=== PATIENT | female | born 1975 | race Caucasian/White ===

== ENCOUNTER → 2024-05-08 | Outpatient (CLI) | payer OTHER, SELFPAY ==
--- NOTE | 2024-05-08 08:43 | US_ITS ---
STUDY: ABDOMINAL ULTRASOUND - RIGHT UPPER QUADRANT; ELASTOGRAPHY REASON FOR VISIT: Female, 48 years old. Fatty infiltration of the liver. TECHNIQUE: Ultrasound evaluation of the right upper quadrant was performed with real-time and static garg-scale imaging. Point quantification shear wave elastography was performed (Gobbler). TECHNICAL QUALITY: Adequate. COMPARISON: None. FINDINGS: Liver: The liver is mildly enlarged and measures 18.3 cm. There is increased echogenicity consistent with fatty infiltration. The bile ducts are within normal limits. There is hepatic color flow. The direction of portal flow is hepatopetal. There is no demonstrated mass lesion. Median liver stiffness measured 9.5 kPa. Gallbladder: Normal distended gallbladder. The gallbladder wall measures 2 mm. There is a negative sonographic Tee''s sign. There is no pericholecystic fluid. There is a solitary echogenic gallstone within the gallbladder. There is a 5 mm x 5 mm gallbladder polyp. Common Bile Duct (C.B.D.): The common bile duct measures 4 mm. Pancreas: There is increased echogenicity of the pancreas. There is no demonstrated pancreatic mass or cyst. Right Kidney: Normal size of the right kidney. The right kidney measures 11 cm x 4.7 cm x 4.6 cm. Normal renal cortex. The right cortex measures 1.2 cm. There is no demonstrated renal mass or cyst. There is no right hydronephrosis. US/ABD Limited w/ Elastography IMPRESSION: 1. 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 2. Solitary gallstone. Small gallbladder polyp. Fatty infiltration of the liver. Electronically Signed: Robbie Velasquez MD at 13:55 EDT ,
== END | disposition home or self-care (01) ==
LOC: US 08:41
PROVIDERS: PCP Internal Medicine; Referring Provider Internal Medicine; Visit Provider Internal Medicine
DX: K76.0 Fatty (change of) liver, not elsewhere classified (principal)
CPT/HCPCS: 76705; 76981

== ENCOUNTER → 2024-06-10 | Outpatient (CLI) | payer OTHER, SELFPAY ==
--- NOTE | 2024-06-10 07:02 | BI_ITS ---
MAMMOGRAPHY - BILATERAL SCREENING REASON FOR EXAM: Female, 48 years old. Routine annual screening examination. PERTINENT HISTORY: Non-contributory. TECHNIQUE: Digital bilateral breast david (3D mammographic acquisition) in the CC and MLO projections. 2-D mediolateral oblique (MLO) and craniocaudad (CC) views of both breasts were obtained. CAD: Full Field Digital Mammography with Computer Added Detection was performed. COMPARISON: Comparison is made with prior outside examination dated June 09, 2023. FINDINGS: Breast Composition: There are scattered areas of fibroglandular density. There are no dominant masses or suspicious calcifications. No other significant abnormalities are identified. There has been no significant change since the prior study. BI/SCRN MAMM (CAD)W/DAVID BILAT IMPRESSION: Stable bilateral screening mammogram. Yearly follow-up mammogram recommended. (A) ASSESSMENT CATEGORY: BIRADS Category 1: Negative. A letter regarding these results will be sent to the patient by the facility within 30 days. Approximately 10% of breast cancers are not detected by mammography. A normal mammogram should not delay biopsy of a clinically suspicious abnormality. [id number] Electronically Signed: Robbie Velasquez MD at 8:41 EDT ,
--- OUTSIDE RECORDS SUMMARY | 2024-06-10 07:20 | XMS RPT_ITS | CCD ---
Author Organization [facility] Care Team Providers Care Skidder Name Role Phone Jackie Hobbs Unavailable Unavailable Unavailable Jackie Hobbs MD Primary Care Provider Matheus Looney MD Unavailable Kortney Loaiza Unavailable Anjel, Dr. Jackie Arredondo Primary Care Unava ilable [place], Dr. Jackie Arredondo Attending Unava ilable [place], Dr. Jackie Arredondo Referring Unava ilable [place], Dr. Jackie Arredondo Primary Care Unava ilable [place], Dr. Jackie Arredondo Primary Care Unava ilable Mendpara, Codey Admitting Unavailable [place], Dr. Jackie Arredondo Referring Unava ilable Mendpara, Codey Attending Unavailable Mendpara, Codey Admitting Unavailable Anjel, Dr. Jackie Arredondo Primary Care Unava ilable Mendpara, Codey Attending Unavailable [place], Dr. Jackie Arredondo Referring Unava ilable Mendpara, Codey Admitting Unavailable [place], Dr. Jackie Arredondo Primary Care Unava ilable Mendpara, Codey Attending Unavailable [place], Dr. Jackie Arredondo Referring Unava ilable Mendpara, Codey Attending Unavailable [place], Dr. Jackie Arredondo Primary Care Unava ilable Mendpara, Codey Admitting Unavailable [place], Dr. Jackie Arredondo Referring Unava ilable Mendpara, Codey Attending Unavailable Anjel, Dr. Jackie Arredondo Primary Care Unava ilable Mendpara, Codey Admitting Unavailable [place], Dr. Jackie Arredondo Referring Unava ilable [place], Dr. Jackie Arredondo Primary Care Unava ilable [place], Dr. Jackie Arredondo Attending Unava ilable Anjel, Dr. Jackie Arredondo Referring Unava ilable Anjel, Dr. Jackie Arredondo Primary Care Unava ilable [place], Dr. Jackie Arredondo Attending Unava ilable [place], Dr. Jackie Arredondo Referring Unava ilable ANJEL, JACKIE M Attending Unavailable ANJEL, JACKIE M Primary Care Unavailable ANJEL, JACKIE M Attending Unavailable ANJEL, JACKIE M Primary Care Unavailable ANJEL, JACKIE M Attending Unavailable ANJEL, JACKIE M Primary Care Unavailable VANESSA, LAUREEN Attending Unavailable ANJEL, JACKIE M Referring Unavailable ANJEL, JACKIE M Primary Care Unavailable VANESSA, LAUREEN Referring Unavailable ANJEL, JACKIE M Primary Care Unavailable VANESSA, LAUREEN Attending Unavailable ANJEL, JACKIE M Primary Care Unavailable ANJEL, JACKIE M Primary Care Unavailable ANJEL, JACKIE M Primary Care Unavailable ANJEL, JACKIE M Primary Care Unavailable ANJEL, JACKIE M Primary Care Unavailable ANJEL, JACKIE M Referring Unavailable ANJEL, JACKIE M Primary Care Unavailable ANJEL, JACKIE M Primary Care Unavailable ANJEL, JACKIE M Referring Unavailable ANJEL, JACKIE M Referring Unavailable ANJEL, JACKIE M Primary Care Unavailable Allergies Allergy Classification Reported Allergen(s) Allergy Type Date of Onset Reaction(s) Facility (20 sources) Chlorthalidone; Translations: [chlorthalidone] Drug Allergy 04-13-2021 Nausea Only [facility] (9 sources) levoFLOXacin; Translations: [LEVOFLOXACIN] Drug Allergy 08-02-2021 [facility] Work Phone: Medications Current Medications Medication Drug Class(es) Dates Sig (Normalized) Sig (Original) amoxicillin 875 mg / clavulanate 125 mg oral tablet (1 source) Penicillin-class Antibacterial Start: 07-29-2021 End: 08-08-2021 take 1 tablet by mouth every twelve hours Amoxicillin-Pot Clavulanate 875-125 MG Oral Tablet TAKE 1 TABLET EVERY 12 HOURS UNTIL GONE. Quantity: 20 Refills: 0 Ordered: 29-Jul-2021 Mark AGUIRRE, MPH, Tiffany Start : 29-Jul-2021 End : 08-Aug-2021 Active ascorbic acid 500 mg oral capsule (12 sources) Vitamin C Start: 04-12-2022 take 1 capsule by mouth once daily ascorbic acid, vitamin C, 500 mg capsule Take 1 capsule by mouth once daily. 04/12/2022 Active chlorthalidone 25 mg oral tablet (20 sources) Thiazide-like Diuretic Start: 01-06-2024 take 1 tablet by mouth once daily chlorthalidone (Hygroton) 25 mg tablet Indications: Essential (primary) hypertension Take 1 tablet (25 mg) by mouth once daily. 90 tablet 3 01/06/2024 Active Start: 03-13-2023 End: 01-06-2024 take 1 tablet by mouth once daily chlorthalidone (Hygroton) 25 mg tablet Indications: Essential (primary) hypertension TAKE 1 TABLET BY MOUTH EVERY DAY 90 tablet 06/24/2023 01/06/2024 Discontinued (Reorder) Start: 11-09-2021 take 1 tablet by brayden once daily Chlorthalidone 25 MG Oral Tablet TAKE 1 TABLET BY MOUTH EVERY DAY Quantity: 90 Refills: 3 Ordered: 07-Dec-2021 Jackie Hobbs MD Start : 09-Nov-2021 Active Start: 03-08-2021 End: 10-12-2021 take 1 tablet by mouth once daily Chlorthalidone 25 MG Oral Tablet TAKE 1 TABLET DAILY. Quantity: 30 Refills: 1 Ordered: 08-Mar-2021 Jackie Hobbs MD Start : 08-Mar-2021 End : 12-Oct-2021 Complete cholecalciferol 0.125 mg oral capsule (20 sources) Vitamin D Start: 03-08-2021 take 1 capsule by mouth once daily cholecalciferol (Vitamin D-3) 125 MCG (5000 UT) capsule Take 1 capsule (125 mcg) by mouth once daily. 03/08/2021 Active cyclobenzaprine hydrochloride 10 mg oral tablet (2 sources) Muscle Relaxant Start: 11-01-2022 Cyclobenzaprine 10 mg oral tablet famotidine 40 mg oral tablet (6 sources) Histamine-2 Receptor Antagonist Start: 06-21-2023 take 1 tablet by mouth once daily at bedtime famotidine (Pepcid) 40 mg tablet Take 1 tablet (40 mg) by mouth once daily at bedtime. 06/21/2023 Active Start: 06-08-2021 End: 10-12-2021 Famotidine 40 MG Oral Tablet Quantity: 90 Refills: 0 Ordered: 08-Jun-2021 DO Start : 08-Jun-2021 End : 12-Oct-2021 Complete ferrous sulfate 325 mg oral tablet (13 sources) End: 12-06-2022 ferrous sulfate 325 (65 Fe) MG tablet Take by mouth once daily. 0 12/06/2022 Discontinued (Therapy completed) folic acid 0.4 mg oral tablet (6 sources) Start: 04-12-2022 End: 12-06-2022 take 1 tablet by mouth once daily folic acid (Folvite) 400 mcg tablet Take 1 tablet (0.4 mg) by mouth once daily. 0 04/12/2022 12/06/2022 Discontinued (Therapy completed) hydroCHLOROthiazide 50 mg oral tablet (2 sources) Thiazide Diuretic HydroCHLOROthiazide 50 mg oral tablet lisinopril 40 mg oral tablet (20 sources) Angiotensin Converting Enzyme Inhibitor Start: 01-06-2024 take 1 tablet by mouth once daily lisinopril 40 mg tablet Indications: Essential (primary) hypertension Take 1 tablet (40 mg) by mouth once daily. 90 tablet 3 01/06/2024 Active Start: 03-13-2023 End: 01-06-2024 take 1 tablet by mouth once daily lisinopril 40 mg tablet Indications: Essential (primary) hypertension TAKE 1 TABLET BY MOUTH DAILY 90 tablet 06/24/2023 01/06/2024 Discontinued (Reorder) Start: 02-08-2021 take 1 tablet by brayden th once daily Lisinopril 10 MG Oral Tablet TAKE 1 TABLET DAILY. Quantity: 30 Refills: 1 Ordered: 08-Mar-2021 Jackie Hobbs MD Start : 08-Feb-2021 Active Start: 02-08-2021 take 1 tablet by brayden th once daily Lisinopril 40 MG Oral Tablet TAKE 1 TABLET DAILY. Quantity: 90 Refills: 3 Ordered: 30-Aug-2022 Jackie Hobbs MD Start : 08-Feb-2021 Active note new dose Start: 02-08-2021 take 1 tablet by brayden th once daily Lisinopril 20 MG Oral Tablet TAKE 1 TABLET DAILY. Quantity: 30 Refills: 1 Ordered: 11-Jul-2021 Jackie Hobbs MD Start : 08-Feb-2021 Active note new dose loratadine 10 mg oral capsul e (20 sources) Start: 04-15-2012 loratadine (Cl aritin Liqui-Gel) 10 mg capsule Take by mouth. 04/15/2012 Active Start: 04-15-2012 Claritin 10 MG Oral Capsule Quantity: 0 Refills: 0 Ordered: 15-Apr-2012 Jackie Hobbs MD Start : 15-Apr-2012 Active methylPREDNISolone 4 mg oral tablet (2 sources) Corticosteroid Start: 11-01-2022 MethylPREDNISolone 4 mg oral tablet sertraline 100 mg oral tablet (12 sources) Serotonin Reuptake Inhibitor Start: 01-06-2024 take 1 tablet by mouth once daily sertraline (Zoloft) 100 mg tablet Indications: Current moderate episode of major depressive disorder without prior episode (Multi) Take 1 tablet (100 mg) by mouth once daily. 90 tablet 3 01/06/2024 Active Start: 12-06-2022 End: 01-06-2024 take 1 tablet by mouth once daily sertraline (Zoloft) 100 mg tablet Indications: Current moderate episode of major depressive disorder without prior episode (Multi) Take 1 tablet (100 mg) by mouth once daily. 30 tablet 09/12/2023 01/06/2024 Discontinued (Reorder) Start: 07-05-2011 End: 12-06-2022 take 1 tablet by mouth once daily sertraline (Zoloft) 50 mg tablet Take 1 tablet (50 mg) by mouth once daily. 0 08/30/2022 12/06/2022 Discontinued (Therapy completed) Start: 07-05-2011 take 1 tablet by brayden th once daily Sertraline HCl - 100 MG Oral Tablet TAKE 1 TABLET DAILY. Quantity: 30 Refills: 2 Ordered: 04-Oct-2022 Jackie Hobbs MD Start : 05-Jul-2011 Active note new dose Start: 07-05-2011 take 1 tablet by brayden th once daily Sertraline HCl - 25 MG Oral Tablet TAKE 1 TABLET DAILY DIRECTED. Quantity: 30 Refills: 1 Ordered: 26-Jul-2022 Jackie Hobbs MD Start : 05-Jul-2011 Active Completed/Discontinued Medications Medication Drug Class(es) Dates Sig (Normalized) Sig (Original) acetaminophen 325 mg / HYDROcodone bitartrate 5 mg oral tablet (3 sources) Opioid Agonist Start: 05-18-2021 End: 10-12-2021 take 1 tablet by mouth every six hours as needed for pain HYDROcodone-Acetam inophen 5-325 MG Oral Tablet TAKE 1 TABLET BY MOUTH EVERY 6 HOURS NEEDED FOR PAIN for up to 2 (TWO) days Quantity: 5 Refills: 0 Ordered: 18-May-2021 DO Start : 18-May-2021 End : 12-Oct-2021 Complete clobetasol propionate 0.5 mg/ml medicated shampoo (10 sources) Corticosteroid Start: 11-09-2021 End: 07-26-2022 Clobetasol Propionate 0.05 % External Shampoo MASSAGE ONTO WET SCALP. LEAVE LATHER ON FOR 3 MINUTES, THEN RINSE. REPEAT THE APPLICATION ONCE. USE TWICE PER WEEK. Quantity: 1 Refills: 1 Ordered: 09-Nov-2021 Jackie Hobbs MD Start : 09-Nov-2021 End : 26-Jul-2022 Complete metroNIDAZOLE 0.0075 mg/mg vaginal gel (13 sources) Nitroimidazole Antimicrobial Start: 04-13-2021 End: 07-26-2022 metroNIDAZOLE 0.75 % Vaginal Gel Quantity: 70 Refills: 0 Ordered: 13-Apr-2021 DO Start : 13-Apr-2021 End : 26-Jul-2022 Complete promethazine hydrochloride 25 mg oral tablet (3 sources) Phenothiazine Start: 09-11-2021 End: 10-12-2021 take 1 tablet by mouth every four hours for nausea and vomiting Promethazine HCl - 25 MG Oral Tablet take 1 tablet by mouth every 4 hours for nausea and vomiting Quantity: 3 Refills: 0 Ordered: 11-Sep-2021 DO Start : 11-Sep-2021 End : 12-Oct-2021 Complete NEGATED: Highlighted row has not occurred! (2 sources) Start: 01-15-2023 End: 01-15-2023 Start: 01-14-2023 End: 01-14-2023 Problems Active Problems Problem Classification Problem Date Documented Da te Episodic/Chronic Allergic reactions (19 sources) Atopic dermatitis; Translations: [Other atopic dermatitis and related conditions] Onset: 12-05-2022 12-05-2022 Chronic Anxiety disorders (2 sources) Anxiety disorder, unspecified; Translations: [Anxiety state, unspecified] Chronic Deficiency and other anemia (2 sources) Iron deficiency anemia due to blood loss; Translations: [Iron deficiency anemia secondary to blood loss (chronic)] 08-22-2023 Chronic Deficiency and other anemia (20 sources) Anemia; Translations: [Anemia, unspecified] Onset: 12-05-2022 12-05-2022 Episodic Deficiency and other anemia (5 sources) Anemia, unspecified; Translations: [Anemia, unspecified] Onset: 11-01-2022 Episodic Diabetes mellitus without complication (20 sources) Abnormal glucose level; Translations: [Other abnormal glucose] Onset: 04-15-2023 Resolved: 02-08-2021 04-15-2023 Episodic Disorders of lipid metabolism (14 sources) Mixed hyperlipidemia; Translations: [Mixed hyperlipidemia] Onset: 04-15-2023 04-15-2023 Chronic Essential hypertension (20 sources) Hypertensive disorder; Translations: [Unspecified essential hypertension] Onset: 12-05-2022 12-06-2022 Chronic Immunizations and screening for infectious disease (20 sources) Needs influenza immunization; Translations: [Need for prophylactic vaccination and inoculation against influenza] Resolved: 02-08-2021 Episodic Mood disorders (20 sources) Depressive disorder; Translations: [Depressive disorder, not elsewhere classified] Onset: 12-05-2022 12-06-2022 Chronic Nutritional deficiencies (20 sources) Vitamin D deficiency; Translations: [Unspecified vitamin D deficiency] Onset: 12-05-2022 12-06-2022 Chronic Other gastrointestinal disorders (1 source) Intestinal malabsorption, unspecified; Translations: [Intestinal malabsorption, unspecified] Onset: 08-23-2022 Chronic Other nervous system disorders (2 sources) Paresthesia of foot ; Translations: [Disturbance of skin sensation] Episodic Sprains and strains (20 sources) Sprain of foot; Translations: [Sprain of foot, unspecified site] Onset: 11-01-2022 Resolved: 02-08-2021 Episodic Past or Other Problems Problem Classification Problem Date Documented Date Episodic/Chronic Deficiency and other anemia (20 sources) Iron deficiency anemia; Translations: [Iron deficiency anemia, unspecified] Onset: 11-01-2022 12-06-2022 Episodic Deficiency and other anemia (3 sources) Iron deficiency anemia, unspecified; Translations: [Iron deficiency anemia, unspecified] Onset: 11-01-2022 Episodic Diabetes or abnormal glucose tolerance complicating ; childbirth; or the puerperium (20 sources) History of gestational diabetes mellitus; Translations: [Personal history of gestational diabetes] Onset: 08-22-2023 08-22-2023 Episodic Comment on above: X2; Disorders of teeth and jaw (20 sources) Jaw pain; Translations: [Jaw pain] Resolved: 02-08-2021 Episodic Fever of unknown origin (20 sources) Fever with chills; Translations: [Fever, unspecified] Resolved: 02-08-2021 Episodic Genitourinary symptoms and ill-defined conditions (20 sources) History of hematuria; Translations: [Personal history of other specified urinary system disorders] Resolved: 02-08-2021 Episodic Headache; including migraine (20 sources) Headache; Translations: [Headache] Onset: 12-05-2022 12-05-2022 Episodic Malaise and fatigue (20 sources) Fatigue; Translations: [Other malaise and fatigue] Onset: 12-05-2022 Resolved: 08-22-2023 12-05-2022 Episodic Other connective tissue disease (20 sources) Fibromyalgia; Translations: [Myalgia and myositis, unspecified] Onset: 12-05-2022 12-05-2022 Episodic Other connective tissue disease (20 sources) Tendinitis of shoulder region; Translations: [Disorders of bursae and tendons in shoulder region, unspecified] Resolved: 02-08-2021 Episodic Other connective tissue disease (20 sources) History of clinical finding in subject; Translations: [Personal history of other musculoskeletal disorders] Resolved: 02-08-2021 Episodic Other connective tissue disease (20 sources) Foot pain; Translations: [Pain in limb] Resolved: 02-08-2021 Episodic Other inflammatory condition of skin (19 sources) Seborrheic dermatitis; Translations: [Seborrhea] Onset: 12-05-2022 12-05-2022 Episodic Other injuries and conditions due to external causes (20 sources) Injury of foot; Translations: [Knee, leg, ankle, and foot injury] Resolved: 02-08-2021 Episodic Other lower respiratory disease (20 sources) H/O: respiratory disease; Translations: [Personal history of other diseases of respiratory system] Resolved: 02-08-2021 Episodic Comment on above: Added by Problem Cynthia laureano Migration; 2012-10-13; Moved to Suppressed Jul 14 2013 9:12PM; Other lower respiratory disease (4 sources) Nodule of lung; Translations: [Solitary pulmonary nodule] Onset: 08-01-2023 08-22-2023 Episodic Other lower respiratory disease (4 sources) Solitary pulmonary nodule; Translations: [Solitary pulmonary nodule] Onset: 08-01-2023 Episodic Other screening for suspected conditions (not mental disorders or infectious disease) (20 sources) Patient encounter status; Translations: [Other screening mammogram] Onset: 04-15-2023 04-15-2023 Episodic Other skin disorders (14 sources) Hair finding; Translations: [Unspecified disease of hair and hair follicles] Resolved: 04-12-2022 Episodic Other upper respiratory infections (20 sources) Acute upper respiratory infection; Translations: [Acute upper respiratory infections of unspecified site] Resolved: 02-08-2021 Episodic Residual codes; unclassified (20 sources) History of measles, mumps and rubella vaccination; Translations: [Other specified conditions influencing health status] Resolved: 02-08-2021 Episodic Residual codes; unclassified (20 sources) H/O: Disorder; Translations: [Personal history of other specified diseases] Resolved: 02-08-2021 Episodic Residual codes; unclassified (20 sources) History of chest pain; Translations: [Personal history of other specified diseases] Resolved: 02-08-2021 Episodic Residual codes; unclassified (10 sources) H/O: urinary anomaly; Translations: [Personal history of unspecified urinary disorder] Resolved: 04-12-2022 Episodic Skin and subcutaneous tissue infections (16 sources) Cellulitis of finger; Translations: [Cellulitis and abscess of finger, unspecified] Resolved: 04-12-2022 Episodic Superficial injury; contusion (16 sources) Cat scratch injury; Translations: [Abrasion or friction burn of hand(s) except finger(s) alone, without mention of infection] Resolved: 04-12-2022 Episodic Unclassified (20 sources) History of clinical finding in subject; Translations: [History of cough] Resolved: 02-08-2021 Unclassified (7 sources) Onset: 12-06-2022 Resolved: 01-06-2024 12-06-2022 Results Test Name Value Interpretation Reference Range Facility CBC panel Auto (Bld)on 01-05 Erythrocyte distribution width (RBC) [Ratio] 19.1 % High 11.5-14.5 [facility] Comment on above: Performed By: #### 5 8410-2 #### NORMA Briggs ([id number]) [facility] ([facility]) [address] [place] [address] 96574 Hematocrit (Bld) [Volume fraction] 29.6 % Low 36.0-46.0 [facility] Comment on above: Performed By: #### 5 8410-2 #### NORMA Briggs ([id number]) [facility] ([facility]) [address] [place] [address] 00460 Hemoglobin (Bld) [Mass/Vol] 9.1 g/dL Low 12.0-16.0 [facility] Comment on above: Performed By: #### 5 8410-2 #### NORMA Briggs ([id number]) [facility] ([facility]) [address] [place] [address] 28734 MCH (RBC) [Entitic mass] 29.6 pg Normal 26.0-34.0 [facility] Comment on above: Performed By: #### 5 8410-2 #### NORMA Briggs ([id number]) [facility] ([facility]) [address] [place] [address] 14252 MCHC (RBC) [Mass/Vol] 30.7 g/dL Low 32.0-36.0 [facility] Comment on above: Performed By: #### 5 8410-2 #### NORMA Briggs ([id number]) [facility] ([facility]) [address] [place] [address] 25715 MCV (RBC) [Entitic vol] 96 fL Normal 80-100 [facility] Comment on above: Performed By: #### 5 8410-2 #### NORMA Briggs ([id number]) [facility] ([facility]) [address] [place] [address] 10781 Nucleated RBC/100 WBC (Bld) [Ratio] 0.0 /100 WBCs Normal 0.0-0.0 [facility] Comment on above: Performed By: #### 5 8410-2 #### NORMA Briggs ([id number]) [facility] ([facility]) [address] [place] [address] 13733 Platelets (Bld) [#/Vol] 187 x10*3/uL Normal 150-450 [facility] Comment on above: Performed By: #### 5 8410-2 #### NORMA Briggs ([id number]) [facility]) [id number] [place] [address] 46148 RBC (Bld) [#/Vol] 3.07 x10*6/uL Low 4.00-5.20 [facility] Comment on above: Performed By: #### 5 8410-2 #### NORMA Briggs ([id number]) [facility]) [address] [place] [address] 01000 WBC (Bld) [#/Vol] 6.4 x10*3/uL Normal 4.4-11.3 [facility] Comment on above: Performed By: #### 5 8410-2 #### NORMA Briggs ([id number]) [facility]) [address] [place] [address] 54103 Calcidiolon 01-06-2024 25-hydroxyvitamin D3 [Mass/Vol] 82 ng/mL Normal 30-100 [facility] Comment on above: Order Comment: Epic Order: CT CARDIAC SCORING WO IV CONTRAST, Sedation: No Sedation, Rad Selected: Yes Is this exam part of a Research Study? If Yes, link this order to the research study->No SPOKE WITH OFFICE LETTY [phone] BILL TO [facility] GAVE PREP EPIC Performed By: #### 1 989-3 ####NORMA Briggs ([id number])[facility])[id number] [place] [address] 06094 Comprehensive metabolic 2000 panelon 01-06-2024 Albumin BCP dye [Mass/Vol] 3.8 g/dL Normal 3.4-5.0 [facility] Comment on above: Performed By: #### 2 4323-8 #### NORMA Briggs ([id number]) [facility]) [address] [place] [address] ALP [Catalytic activity/Vol] 59 U/L Normal 33-110 [facility] Comment on above: Performed By: #### 2 4323-8 #### NORMA Briggs ([id number]) [facility]) [address] [place] [address] ALT With P-5'-P [Catalytic activity/Vol] 50 U/L High 7-45 [facility] Comment on above: Result Comment: Didi ents treated with Sulfasalazine may generate falsely decreased results for ALT. Performed By: #### 2 4323-8 #### NORMA Briggs ([id number]) [facility]) [id number] [place] [address] 74173 Anion gap [Moles/Vol] 14 mmol/L Normal 10-20 [facility] Comment on above: Performed By: #### 2 4323-8 #### NORMA Briggs ([id number]) [facility]) [id number] [place] [address] 78084 AST With P-5'-P [Catalytic activity/Vol] 42 U/L High 9-39 [facility] Comment on above: Performed By: #### 2 4323-8 #### NORMA Briggs ([id number]) [facility]) [id number] [place] [address] 69092 Bilirubin [Mass/Vol] 0.9 mg/dL Normal 0.0-1.2 [facility] Comment on above: Performed By: #### 2 4323-8 #### NORMA Briggs ([id number]) [facility]) [id number] [place] [address] 33033 Calcium [Mass/Vol] 8.8 mg/dL Normal 8.6-10.6 [facility] Comment on above: Performed By: #### 2 4323-8 #### NORMA Briggs ([id number]) [facility]) [address] [place] [address] Chloride [Moles/Vol] 105 mmol/L Normal 98-107 [facility] Comment on above: Performed By: #### 2 4323-8 #### NORMA RODRIGUEZ L ([id number]) [facility]) [address] [place] [address] CO2 [Moles/Vol] 27 mmol/L Normal 21-32 [facility] Comment on above: Performed By: #### 2 4323-8 #### NORMA Briggs ([id number]) [facility]) [id number] [place] [address] 74312 Creatinine [Mass/Vol] 0.73 mg/dL Normal 0.50-1.05 [facility] Comment on above: Performed By: #### 2 4323-8 #### NORMA Briggs ([id number]) [facility]) [id number] [place] [address] 44921 GFR/1.73 sq M.predicted MDRD (S/P/Bld) [Vol rate/Area] mL/min/{1.73_m2} Normal >60 [facility] Comment on above: Result Comment: Calc ulations of estimated GFR are performed using the 2020 CKD-EPI Study Refit equation without the race variable for the IDMS-Traceable creatinine methods. https://jasn.asnjournals.org/content//ASN.468226158 8 Performed By: #### 2 4323-8 #### NORMA Briggs ([id number]) [facility]) [address] [place] [address] Glucose [Mass/Vol] 146 mg/dL High 74-99 [facility] Comment on above: Performed By: #### 2 4323-8 #### NORMA Briggs ([id number]) [facility]) [address] [place] [address] 50903 Potassium [Moles/Vol] 3.5 mmol/L Normal 3.5-5.3 [facility] Comment on above: Performed By: #### 2 4323-8 #### NORMA Briggs ([id number]) [facility] [facility] ([facility]) [address] [place] [address] 67466 Protein [Mass/Vol] 6.5 g/dL Normal 6.4-8.2 [facility] Comment on above: Performed By: #### 2 4323-8 #### NORMA Briggs ([id number]) [facility] ([facility]) [address] [place] [address] 90920 Sodium [Moles/Vol] 142 mmol/L Normal 136-145 [facility] Comment on above: Performed By: #### 2 4323-8 #### NORMA Briggs ([id number]) [facility] ([facility]) [address] [place] [address] 15469 Urea nitrogen [Mass/Vol] 18 mg/dL Normal 6-23 [facility] Comment on above: Performed By: #### 2 4323-8 #### NORMA Briggs ([id number]) [facility] ([facility]) [address] [place] [address] 96930 Ferritinon 01-06-2024 Ferritin [Mass/Vol] 682 ng/mL High 8-150 [facility] Comment on above: Performed By: #### 2 276-4 #### NORMA Briggs ([id number]) [facility] ([facility]) [address] [place] [address] 31095 Iron and Iron binding capaci ty panelon 01-06-2024 Iron [Mass/Vol] 69 ug/dL Normal 35-150 [facility] Comment on above: Performed By: #### 5 0190-8 ####NORMA Briggs ([id number])[facility] ([facility])[address] [place] [address] 54777 Iron binding capacity [Mass/Vol] 273 ug/dL Normal 240-445 [facility] Comment on above: Performed By: #### 5 0190-8 ####NORMA Briggs ([id number])[facility] ([facility])[address] [place] [address] Iron binding capacity.unsaturat ed [Mass/Vol] 204 ug/dL Normal 110-370 [facility] Comment on above: Performed By: #### 5 0190-8 ####NORMA RODRIGUEZ L ([id number])[facility] ([facility])[address] [place] [address] Iron saturation [Mass fraction] 25 % Normal 25-45 [facility] Comment on above: Performed By: #### 5 0190-8 ####NORMA Briggs ([id number])[facility] ([facility])[address] [place] [address] 70567 Lipid 1996 panelon 4 Cholesterol [Mass/Vol] 161 mg/dL Normal 0-199 [facility] Comment on above: Result Comment: Age Desirable Borderline High High 0-19 Y 0 - 169 170 - 199 >/= 200 20-24 Y 0 - 189 190 - 224 >/= 225 >24 Y 0 - 199 200 - 239 >/= 240 All ranges are based on fasting samples. Specific therapeutic targets will vary based on patient-specific cardiac risk. Pediatric guidelines reference:Pediatrics 2011, 128(S5).Adult guidelines reference: NCEP ATPIII Guidelines,CHI 2001, 258:2486-97 Venipuncture immediately after or during the administration of Metamizole may lead to falsely low results. Testing should be performed immediately prior to Metamizole dosing. Performed By: #### 2 4331-1 #### NORMA Briggs ([id number]) [facility] ([facility]) [address] [place] [address] Cholesterol in HDL [Mass/Vol] 34.9 mg/dL Normal [facility] Comment on above: Result Comment: Age Very Low Low Normal High 0-19 Y < 35 < 40 40-45 ---- 20-24 Y ---- < 40 >45 ---- >24 Y ---- < 40 40-60 >60 Performed By: #### 2 4331-1 #### NORMA Briggs ([id number]) [facility] ([facility]) [address] [place] [address] Cholesterol in LDL [Mass/Vol] 92 mg/dL Normal <=99 [facility] Comment on above: Result Comment: Near Borderline AGE Desirable Optimal High High Very High 0-19 Y 0 - 109 --- 110-129 >/= 130 ---- 20-24 Y 0 - 119 --- 120-159 >/= 160 ---- >24 Y 0 - 99 100-129 130-159 160-189 >/=190 Performed By: #### 2 4331-1 #### NORMA Briggs ([id number]) [facility] ([facility]) [address] [place] [address] 66839 Cholesterol in VLDL [Mass/Vol] 34 mg/dL Normal 0-40 [facility] Comment on above: Performed By: #### 2 4331-1 #### NORMA Briggs ([id number]) [facility] ([facility]) [address] [place] [address] 72963 CHOLESTEROL/HDL RATIO 4.6 Normal [facility] Comment on above: Result Comment: Ref Values Desirable < 3.4 High Risk > 5.0 Performed By: #### 2 4331-1 #### NORMA Briggs ([id number]) [facility] ([facility]) [id number] [place] [address] 18551 NON HDL CHOLESTEROL 126 mg/dL Normal 0-149 [facility] Comment on above: Result Comment: Age Desirable Borderline High High Very High 0-19 Y 0 - 119 120 - 144 >/= 145 >/= 160 20-24 Y 0 - 149 150 - 189 >/= 190 ---- >24 Y 30 mg/dL above LDL Cholesterol goal Performed By: #### 2 4331-1 #### NORMA Briggs ([id number]) [facility] ([facility]) [address] [place] [address] 73340 Triglyceride [Mass/Vol] 172 mg/dL High 0-149 [facility] Comment on above: Result Comment: Age Desirable Borderline High High Very High 0 D-90 D 19 - 174 ---- ---- ---- 91 D- 9 Y 0 - 74 75 - 99 >/= 100 ---- 10-19 Y 0 - 89 90 - 129 >/= 130 ---- 20-24 Y 0 - 114 115 - 149 >/= 150 ---- >24 Y 0 - 149 150 - 199 200- 499 >/= 500 Venipuncture immediately after or during the administration of Metamizole may lead to falsely low results. Testing should be performed immediately prior to Metamizole dosing. Performed By: #### 2 4331-1 #### NORMA Briggs ([id number]) [facility] ([facility]) [address] [place] [address] TSH WITH REFLEX TO FREE T4 I F ABNORMALon 01-06-2024 TSH Qn 2.66 m[IU]/L Normal 0.44-3.98 [facility] Comment on above: Order Comment: TSH t esting is performed using different testing methodology at [facility] than at [facility]. Direct result comparisons should only be made within the same method. Performed By: #### T HYDS #### NORMA Briggs ([id number]) [facility] ([facility]) [address] [place], [place] [address] HbA1c (Bld) [Mass fraction]o n 01-03-2024 Average glucose Estimated from glycated hemoglobin (Bld) [Mass/Vol] 94 mg/dL Normal Not Established [facility] Comment on above: Order Comment: Diagn osis of Diabetes-Adults Non-Diabetic: < or = 5.6% Increased risk for developing diabetes: 5.7-6.4% Diagnostic of diabetes: > or = 6.5% Monitoring of Diabetes Age (y)....................... Therapeutic Goal (%) Adults: >18.........................<7.0 Pediatrics: 13-18...................<7.5 Pediatrics: 7-12....................<8.0 Pediatrics: 0-6..................... 7.5-8.5 [place] [employer]. Diabetes Care 33(S1), Aug 2009 Performed By: #### 4 548-4 #### NORMA Briggs ([id number]) [facility] ([facility]) [id number] [place] [address] 81873 Hemoglobin A1c/Hemoglobin.to shanell 01-03-2024 HbA1c (Bld) [Mass fraction] 4.9 % Normal see below [facility] Comment on above: Order Comment: Diagn osis of Diabetes-Adults Non-Diabetic: < or = 5.6% Increased risk for developing diabetes: 5.7-6.4% Diagnostic of diabetes: > or = 6.5% Monitoring of Diabetes Age (y)....................... Therapeutic Goal (%) Adults: >18.........................<7.0 Pediatrics: 13-18...................<7.5 Pediatrics: 7-12....................<8.0 Pediatrics: 0-6..................... 7.5-8.5 [place] [employer]. Diabetes Care 33(S1), Aug 2009 Performed By: #### 4 548-4 #### NORMA Briggs ([id number]) [facility]) [address] [place] [address] TRANSTHORACIC ECHO (TTE) COM PLETEon 09-26-2023 TRANSTHORACIC ECHO (TTE) COMPLETE [facility], [address] [place] [address], [address], [place] [address] and TRANSTHORACIC ECHOCARDIOGRAM REPORT Patient Name: ELIZ Estrada Physician: [id number] Yessenia Gillette MD Study Date: 09/26/2023 Ordering Provider: [id number] MARSHALLCO MRN/PID: [id number] Fellow: Nurse: Date of /Age: 11 1975 Perforating Machine Operator: Sandrine De Souza RDCS years Gender: F Additional Staff: Height: 152.40 cm Admit Date: Weight: 94.80 kg Admission Status: Outpatient BSA: 1.90 m2 Department Location: [facility] Blood Pressure: 113 /71 mmHg Study Type: TRANSTHORACIC ECHO (TTE) COMPLETE Diagnosis/ICD: Abnormal findings on diagnostic imaging of heart and coronary circulation-R93.1 Indication: Elevated calcium score CPT Code: Echo Complete w Full Doppler-23263 Patient History: BMI: Overweight 25 - 30 Pertinent HTN and Hyperlipidemia. Pulmonary nodules,Elevated calcium History: score. Study Detail: The following Echo studies were performed: 2D, M-Mode, Doppler and color flow. Technically challenging study due to body habitus. PHYSICIAN INTERPRETATION: Left Ventricle: The left ventricular systolic function is normal, with an estimated ejection fraction of 60-65%. There are no regional wall motion abnormalities. The left ventricular cavity size is normal. Spectral Doppler shows an impaired relaxation pattern of left ventricular diastolic filling. Left Atrium: The left atrium is mildly dilated. Right Ventricle: The right ventricle is normal in size. There is normal right ventricular global systolic function. Right Atrium: The right atrium is normal in size. Aortic Valve: The aortic valve is trileaflet. There is no evidence of aortic valve regurgitation. The peak instantaneous gradient of the aortic valve is 12.1 mmHg. Mitral Valve: The mitral valve is normal in structure. There is no evidence of mitral valve regurgitation. Tricuspid Valve: The tricuspid valve is structurally normal. No evidence of tricuspid regurgitation. Pulmonic Valve: The pulmonic valve is structurally normal. There is no indication of pulmonic valve regurgitation. Pericardium: There is no pericardial effusion noted. Aorta: The aortic root is normal. CONCLUSIONS: 1. Left ventricular systolic function is normal with a 60-65% estimated ejection fraction. 2. Spectral Doppler shows an impaired relaxation pattern of left ventricular diastolic filling. QUANTITATIVE DATA SUMMARY: 2D MEASUREMENTS: Normal Ranges: LAs: 4.32 cm (2.7-4.0cm) IVSd: 0.98 cm (0.6-1.1cm) LVPWd: 0.86 cm (0.6-1.1cm) LVIDd: 4.44 cm (3.9-5.9cm) LVIDs: 3.24 cm LV Mass Index: 70.6 g/m2 LV % FS 27.0 % LA VOLUME: Normal Ranges: LA Vol A4C: 35.4 ml (22+/-6mL/m2) LA Vol A2C: 44.4 ml LA Vol BP: 41.6 ml LA Vol Index A4C: 18.6 ml/m2 LA Vol Index A2C: 23.4 ml/m2 LA Vol Index BP: 21.9 ml/m2 LA Area A4C: 15.0 cm2 LA Area A2C: 16.0 cm2 LA Major Blanchard A4C: 5.4 cm LA Major Blanchard A2C: 4.9 cm LA Volume Index: 22.0 ml/m2 LA Vol A4C: 33.1 ml LA Vol A2C: 40.2 ml RA VOLUME BY A/L METHOD: Normal Ranges: RA Vol A4C: 27.6 ml (8.3-19.5ml) RA Vol Index A4C: 14.5 ml/m2 RA Area A4C: 13.0 cm2 RA Major Blanchard A4C: 5.2 cm M-MODE MEASUREMENTS: Normal Ranges: Ao Root: 3.10 cm (2.0-3.7cm) LAs: 4.30 cm (2.7-4.0cm) AORTA MEASUREMENTS: Normal Ranges: Asc Ao, d: 2.90 cm (2.1-3.4cm) Ao Arch: 2.62 cm (2.0-3.6cm) LV SYSTOLIC FUNCTION BY 2D PLANIMETRY (MOD): Normal Ranges: EF-A4C View: 63.8 % (>=55%) EF-A2C View: 64.6 % EF-Biplane: 64.1 % LV DIASTOLIC FUNCTION: Normal Ranges: MV Peak E: 0.74 m/s (0.7-1.2 m/s) MV Peak A: 0.74 m/s (0.42-0.7 m/s) E/A Ratio: 1.01 (1.0-2.2) MV e' 0.12 m/s (>8.0) MV lateral e' 0.15 m/s MV medial e' 0.08 m/s MV A Dur: 140.82 msec E/e' Ratio: 6.47 (<8.0) PulmV Sys Kaveh: 64.20 cm/s PulmV Rodriguez Kaveh: 42.93 cm/s PulmV S/D Kaveh: 1.50 PulmV A Revs Kaveh: 34.75 cm/s PulmV A Revs Dur: 114.18 msec MITRAL VALVE: Normal Ranges: MV DT: 194 msec (150-240msec) AORTIC VALVE: Normal Ranges: AoV Vmax: 1.74 m/s (<=1.7m/s) AoV Peak P.1 mmHg (<20mmHg) LVOT Max Kaveh: 1.23 m/s (<=1.1m/s) LVOT VTI: 22.76 cm LVOT Diameter: 1.96 cm (1.8-2.4cm) AoV Area,Vmax: 2.14 cm2 (2.5-4.5cm2) RIGHT VENTRICLE: RV Basal 3.50 cm RV Mid 2.10 cm RV Major 6.0 cm TAPSE: 17.5 mm RV s' 0.13 m/s TRICUSPID VALVE/RVSP: Normal Ranges: Peak TR Velocity: 2.55 m/s RV Syst Pressure: 29.0 mmHg (< 30mmHg) IVC Diam: 1.20 cm PULMONIC VALVE: Normal Ranges: PV Accel Time: 88 msec (>120ms) PV Max Kaveh: 1.2 m/s (0.6-0.9m/s) PV Max P.5 mmHg Pulmonary Veins: PulmV A Revs Dur: 114.18 msec PulmV A Revs Kaveh: 34.75 cm/s PulmV Rodriguez Kaveh: 42.93 cm/s PulmV S/D Kaveh: 1.50 PulmV Sys Kaveh: 64.20 cm/s [id number] Yessenia Gillette MD Electronically signed on 09/26/2023 at 8:24:33 AM Final [facility] CT CHEST WO IV CONTRASTon CT CHEST WO IV CONTRAST Interpreted By: Derek Constantino, STUDY: CT CHEST WO IV CONTRAST; 08/01/2023 10:47 am INDICATION: Signs/Symptoms:pulm nodule found on cardiac CT. COMPARISON: Cardiac score CT dated 07/25/2023 ACCESSION NUMBER(S): [id number] ORDERING CLINICIAN: JACKIE HOBBS TECHNIQUE: Helical data acquisition of the chest was obtained without the use of IV contrast. Images were reformatted in axial, coronal, and sagittal planes. FINDINGS: POTENTIAL LIMITATIONS OF THE STUDY: Lack of IV contrast, motion artifact HEART AND VESSELS: Aorta appears normal in course and caliber. There is atherosclerotic disease. The heart is not significantly enlarged. No pericardial effusion is seen. MEDIASTINUM AND LESTER, LOWER NECK AND AXILLA: Visible portions of thyroid reveal a subcentimeter hypoattenuating nodule on the left which is not fully evaluated on this exam. Ultrasound can be offered for further evaluation. No evidence of thoracic lymphadenopathy by CT criteria. Esophagus appears within normal limits as seen. LUNGS AND AIRWAYS: The trachea and central airways are patent. No endobronchial lesion. 8 mm nodule in the left lower lobe is unchanged, image 173. 3 mm nodule along the minor fissure is unchanged, image 120. No consolidation. No effusion. No pneumothorax. Minimal atelectasis. UPPER ABDOMEN: The visualized subdiaphragmatic structures demonstrate no acute abnormality. Hepatic steatosis. Hypoattenuating structure within the spleen which is not fully characterized on this unenhanced CT but likely represents a cyst measuring approximately 2.4 cm. Spleen is enlarged measuring at least 13.5 cm in greatest dimension. It is not fully imaged on the exam. Cholelithiasis. CHEST WALL AND OSSEOUS STRUCTURES: Degenerative changes. No acute process. IMPRESSION: Lung nodules measure up to 8 mm in the left lower lobe. 3 six-month follow-up CT is recommended for re-evaluation. Additional findings as above. MACRO: None. Signed by: Derek Constantino 08/02/2023 9:25 AM Dictation workstation: [id number] [facility] CT CARDIAC SCORING WO IV CON TRASTon 07-25-2023 CT CARDIAC SCORING WO IV CONTRAST Interpreted By: Bobby Greenberg, STUDY: CT CARDIAC SCORING WO IV CONTRAST; 07/25/2023 8:28 am INDICATION: Signs/Symptoms: screening. COMPARISON: None. ACCESSION NUMBER(S): [id number] ORDERING CLINICIAN: JACKIE HOBBS TECHNIQUE: Using prospective ECG gating, limited CT scan of the chest for evaluation of coronary arteries was performed without intravenous contrast. Coronary calcium scoring was performed according to the method of Agatston. FINDINGS: The score and distribution of calcium in the coronary arteries is as follows: LM: 0. LAD: 36.2. LCx: 0. RCA: 0. Total: 36.2. The visualized segments of the lungs are normally expanded. Tiny calcified left lung base nodule likely granuloma. There is an approximate 8-9 mm irregular nodular density at the left lung base image 44. There is also tiny nonspecific 3 mm nodule along the right minor fissure, probably of benign etiology. The visualized mid/lower ascending thoracic aorta measures 3.3 cm in diameter. The heart is normal in size. Trace pericardial effusion is present. Prominent calcified left hilar nodes likely sequela of granulomatous disease. Fatty liver. IMPRESSION: 1. Coronary artery calcium score of 36.2*. 2. 8-9 mm irregular nodular density at the left lung base. There is also a tiny nonspecific anterior right lung nodule although felt probably of benign etiology. 3. Additional findings as above. *Coronary artery calcium scoring may be helpful in predicting the risk for future coronary heart disease events. According to the [place] [employer] Clinical Expert Consensus Task Force, such testing provides important prognostic information in patients with more than one coronary heart disease risk factor. The coronary artery calcium score correlates with the annual risk of a non-fatal myocardial infarction or coronary heart disease . Coronary artery score Annual Risk 0-99 0.4% 100-399 1.3% >400 2.4% These three breakpoints correspond to lower, intermediate and high risk states for future coronary events. Such information should be used, along with appropriate clinical judgment, to make decisions regarding the intensity of risk factor management strategies to treat blood lipids and to modify other non-lipid coronary risk factors. Reference: [place] P et al. Circulation. 2007; 115:402-426 MACRO: Incidental Finding: A solid non-calcified pulmonary nodule measuring greater than 8 mm. (-YCF-) Instructions: Consider short term follow up non-contrast Chest CT at 3 months, PET/CT or tissue sampling. Note, PET/CT may be limited in low grade malignancy, nodules <1 cm size or those located close to diaphragm. (Jethro Diaz et al., Guidelines for management of incidental pulmonary nodules detected on CT images: From the Fleischner Society 2017, Radiology. 2017 Feb;284 (1):228-243.) [email or web address] Signed by: Bobby Greenberg 07/25/2023 5:11 PM Dictation workstation: [id number] [facility] Comment on above: Order Comment: Epic Order: CT CARDIAC SCORING WO IV CONTRAST, Sedation: No Sedation, Rad Selected: Yes Is this exam part of a Research Study? If Yes, link this order to the research study->No SPOKE WITH OFFICE LETTY [phone] BILL TO [facility] GAVE PREP EPIC DBT Breast - bilateralon No mammographic evid ence of malignancy. BI-RADS CATEGORY: BI-RADS Category: 1 Negative. Recommendation: Routine Screening Mammogram in 1 Year. Recommended Date: 1 Year. Laterality: Bilateral. For any future breast imaging appointments, please call [phone] ([phone]). I personally reviewed the images/study and I agree with the findings as stated by resident physician Dr. Arnoldo Kapadia. MACRO: None Signed by: Ninfa Diaz 06/12/2023 12:56 PM Dictation workstation: [id number] MMODAL Interpreted By: Ninfa Madrid and O'Connor Gregory STUDY: BI MAMMO BILATERAL SCREENING TOMOSYNTHESIS; 06/09/2023 9:30 am ACCESSION NUMBER(S): [id number] ORDERING CLINICIAN: JACKIE HOBBS INDICATION: Screening. COMPARISON: 04/11/2022, 02/22/2021. FINDINGS: 2D and tomosynthesis images were reviewed at 1 mm slice thickness. Density: There are areas of scattered fibroglandular tissue. No suspicious masses or calcifications are identified. MMODAL Ninfa Diaz MD - 06/12/2023 Interpreted By: Ninfa Diaz and O'Connor Gregory STUDY: BI MAMMO BILATERAL SCREENING TOMOSYNTHESIS; 06/09/2023 9:30 am ACCESSION NUMBER(S): [id number] ORDERING CLINICIAN: JACKIE HOBBS INDICATION: Screening. COMPARISON: 04/11/2022, 02/22/2021. FINDINGS: 2D and tomosynthesis images were reviewed at 1 mm slice thickness. Density: There are areas of scattered fibroglandular tissue. No suspicious masses or calcifications are identified. IMPRESSION: No mammographic evidence of malignancy. BI-RADS CATEGORY: BI-RADS Category: 1 Negative. Recommendation: Routine Screening Mammogram in 1 Year. Recommended Date: 1 Year. Laterality: Bilateral. For any future breast imaging appointments, please call [phone] ([phone]). I personally reviewed the images/study and I agree with the findings as stated by resident physician Dr. Arnoldo Kapadia. MACRO: None Signed by: Ninfa Diaz 06/12/2023 12:56 PM Dictation workstation: [email or web address] [facility] Work Phone: DBT Breast - bilateralOrdere d By: Ninfa Diaz on 06-12-2023 [facility] Work Phone: BI MAMMO BILATERAL SCREENING TOMOSYNTHESISon 06-09-2023 BI MAMMO BILATERAL SCREENING TOMOSYNTHESIS Interpreted By: Ninfa Diaz and O'Connor Gregory STUDY: BI MAMMO BILATERAL SCREENING TOMOSYNTHESIS; 06/09/2023 9:30 am ACCESSION NUMBER(S): [id number] ORDERING CLINICIAN: JACKIE HOBBS INDICATION: Screening. COMPARISON: 04/11/2022, 02/22/2021. FINDINGS: 2D and tomosynthesis images were reviewed at 1 mm slice thickness. Density: There are areas of scattered fibroglandular tissue. No suspicious masses or calcifications are identified. IMPRESSION: No mammographic evidence of malignancy. BI-RADS CATEGORY: BI-RADS Category: 1 Negative. Recommendation: Routine Screening Mammogram in 1 Year. Recommended Date: 1 Year. Laterality: Bilateral. For any future breast imaging appointments, please call [phone] ([phone]). I personally reviewed the images/study and I agree with the findings as stated by resident physician Dr. Anroldo Kapadia. MACRO: None Signed by: Ninfa Diaz 06/12/2023 12:56 PM Dictation workstation: [id number] [facility] Comment on above: Order Comment: Epic Order: BI MAMMO BILATERAL SCREENING TOMOSYNTHESIS, Rad Selected: YesIs this exam part of a Research Study? If Yes, link this order to the research study->No DBT Breast - bilateralon Radiology Study observation (narrative) [facility] Work Phone: HEMOGLOBIN A1Con 04-15-2023 Glucose [Mass/Vol] 103 mg/dL Normal [facility] Comment on above: Performed By: #### H BA1E #### [facility] [address] [place] [address] HbA1c (Bld) [Mass fraction] 5.2 % Normal [facility] Comment on above: Result Comment: Diag nosis of Diabetes-Adults Non-Diabetic: < or = 5.6% Increased risk for developing diabetes: 5.7-6.4% Diagnostic of diabetes: > or = 6.5% . Monitoring of Diabetes Age (y) Therapeutic Goal (%) Adults: >18 <7.0 Pediatrics: 13-18 <7.5 7-12 <8.0 0- 6 7.5-8.5 [place] [employer]. Diabetes Care 33(S1), Aug 2009. Performed By: #### H BA1E #### [facility] [address] [place] [address] Lab Specimen Source Normal [facility] Comment on above: Performed By: #### H BA1E #### [facility] [address] [place] [address] VITAMIN D 1,25-DIHYDROXYon 0 04-15-2023 VITAMIN D 1,25-DIHYDROXY 43.3 pg/mL Normal 19.9-79.3 [facility] Comment on above: Result Comment: INTE RPRETIVE INFORMATION: Vitamin D, 1,25- Dihydroxy This test is primarily indicated during patient evaluation for hypercalcemia and renal failure. A normal result does not rule out Vitamin D deficiency. The recommended test for diagnosing Vitamin D deficiency is Vitamin D 25-hydroxy. Performed By: [facility] [address] [place] [address] Income Tax Auditor: Froy Barker MD, PhD CLIA Number: [id number] Performed By: #### L DH #### [facility] [address] [place] [address] COMPREHENSIVE PANELon 2022 Albumin [Mass/Vol] 4.0 g/dL Normal 3.4 - 5.0 [facility] Comment on above: Performed By: #### E NAP2 #### [facility] [address] [place] [address] ALP [Catalytic activity/Vol] 69 U/L Normal 33 - 110 [facility] Comment on above: Performed By: #### E NAP2 #### [facility] [address] [place] [address] ALT [Catalytic activity/Vol] 37 U/L Normal 7 - 45 [facility] Comment on above: Result Comment: Didi ents treated with Sulfasalazine may generate falsely decreased results for ALT. Performed By: #### E NAP2 #### [facility] [address] [place] [address] Creatinine [Mass/Vol] 0.74 mg/dL Normal 0.50 - 1.05 [facility] Comment on above: Performed By: #### E NAP2 #### [facility] [address] [place] [address] eGFR FEMALE >90 Normal >90 [facility] Comment on above: Result Comment: CALC ULATIONS OF ESTIMATED GFR ARE PERFORMED USING THE 2020 CKD-EPI STUDY REFIT EQUATION WITHOUT THE RACE VARIABLE FOR THE IDMS-TRACEABLE CREATININE METHODS. https://jasn.asnjournals.org/content/early/ASN.962389124 8 Performed By: #### E NAP2 #### [facility] [address] [place] [address] Glucose [Mass/Vol] 125 mg/dL High 74 - 99 [facility] Comment on above: Performed By: #### E NAP2 #### [facility] [address] [place] [address] Calcium [Mass/Vol] 9.1 mg/dL Normal 8.6 - 10.6 [facility] Comment on above: Performed By: #### E NAP2 #### [facility] [address] [place] [address] Anion gap [Moles/Vol] 13 mmol/L Normal 10 - 20 [facility] Comment on above: Performed By: #### E NAP2 #### [facility] [address] [place] [address] AST [Catalytic activity/Vol] 26 U/L Normal 9 - 39 [facility] Comment on above: Performed By: #### E NAP2 #### [facility] [address] [place] [address] Bilirubin [Mass/Vol] 0.5 mg/dL Normal 0.0 - 1.2 [facility] Comment on above: Performed By: #### E NAP2 #### [facility] [address] [place] [address] Chloride [Moles/Vol] 109 mmol/L High 98 - 107 [facility] Comment on above: Performed By: #### E NAP2 #### [facility] [address] [place] [address] HCO3 (Bld) [Moles/Vol] 26 mmol/L Normal 21 - 32 [facility] Comment on above: Performed By: #### E NAP2 #### [facility] [address] [place] [address] Potassium [Moles/Vol] 3.9 mmol/L Normal 3.5 - 5.3 [facility] Comment on above: Performed By: #### E NAP2 #### [facility] [address] [place] [address] Protein [Mass/Vol] 6.6 g/dL Normal 6.4 - 8.2 [facility] Comment on above: Performed By: #### E NAP2 #### [facility] [address] [place] [address] Sodium [Moles/Vol] 144 mmol/L Normal 136 - 145 [facility] Comment on above: Performed By: #### E NAP2 #### [facility] [address] [place] [address] Urea nitrogen [Mass/Vol] 18 mg/dL Normal 6 - 23 [facility] Comment on above: Performed By: #### E NAP2 #### [facility] [address] [place] [address] LIPID PANEL (CORONARY RISK 2 )on 04-13-2023 Cholesterol [Mass/Vol] 195 mg/dL Normal 0 - 199 [facility] Comment on above: Result Comment: . AGE DESIRABLE BORDERLINE HIGH HIGH 0-19 Y 0 - 169 170 - 199 >/= 200 20-24 Y 0 - 189 190 - 224 >/= 225 >24 Y 0 - 199 200 - 239 >/= 240 All ranges are based on fasting samples. Specific therapeutic targets will vary based on patient-specific cardiac risk. . Pediatric guidelines reference:Pediatrics 2011, 128(S5). Adult guidelines reference: NCEP ATPIII Guidelines, CHI 2001, 258:2486-97 . Venipuncture immediately after or during the administration of Metamizole may lead to falsely low results. Testing should be performed immediately prior to Metamizole dosing. Performed By: #### L IPID #### [facility] [address] [place] [address] Cholesterol in LDL [Mass/Vol] 119 mg/dL High 0 - 99 [facility] Comment on above: Result Comment: . NEAR BORD AGE DESIRABLE OPTIMAL HIGH HIGH VERY HIGH 0-19 Y 0 - 109 --- 110-129 >/= 130 ---- 20-24 Y 0 - 119 --- 120-159 >/= 160 ---- >24 Y 0 - 99 100-129 130-159 160-189 >/=190 . Performed By: #### L IPID #### [facility] [address] [place] [address] Cholesterol.total/ Cholesterol in HDL [Mass ratio] 4.8 {ratio} Normal [facility] Comment on above: Result Comment: REF VALUES DESIRABLE < 3.4 HIGH RISK > 5.0 Performed By: #### L IPID #### [facility] [address] [place] [address] Cholesterol in HDL [Mass/Vol] 40.5 mg/dL Normal [facility] Comment on above: Result Comment: . AGE VERY LOW LOW NORMAL HIGH 0-19 Y < 35 < 40 40-45 ---- 20-24 Y ---- < 40 >45 ---- >24 Y ---- < 40 40-60 >60 . Performed By: #### L IPID #### [facility] [address] [place] [address] Cholesterol in VLDL [Mass/Vol] 35 mg/dL Normal 0 - 40 [facility] Comment on above: Performed By: #### L IPID #### [facility] [address] [place] [address] Triglyceride [Mass/Vol] 177 mg/dL High 0 - 149 [facility] Comment on above: Result Comment: . AGE DESIRABLE BORDERLINE HIGH HIGH VERY HIGH 0 D-90 D 19 - 174 ---- ---- ---- 91 D- 9 Y 0 - 74 75 - 99 >/= 100 ---- 10-19 Y 0 - 89 90 - 129 >/= 130 ---- 20-24 Y 0 - 114 115 - 149 >/= 150 ---- >24 Y 0 - 149 150 - 199 200- 499 >/= 500 . Venipuncture immediately after or during the administration of Metamizole may lead to falsely low results. Testing should be performed immediately prior to Metamizole dosing. Performed By: #### L IPID #### [facility] [address] [place] [address] TSH WITH REFLEX TO FREE T4 I F ABNORMALon 04-13-2023 TSH Qn 1.99 m[IU]/L Normal 0.44 - 3.98 [facility] Comment on above: Result Comment: TSH testing is performed using different testing methodology at [facility] than at other [facility]. Direct result comparisons should only be made within the same method. Performed By: #### T HYDS #### [facility] [address] [place] [address] CBCon 04-12-2023 Erythrocyte distribution width (RBC) [Ratio] 15.2 % High 11.5 - 14.5 [facility] Comment on above: Performed By: #### C BC #### [facility] [address] [place] [address] Hematocrit (Bld) [Volume fraction] 33.7 % Low 36.0 - 46.0 [facility] Comment on above: Performed By: #### C BC #### [facility] [address] [place] [address] Hemoglobin (Bld) [Mass/Vol] 10.8 g/dL Low 12.0 - 16.0 [facility] Comment on above: Performed By: #### C BC #### [facility] [address] [place] MCHC (RBC) [Mass/Vol] 32.0 g/dL Normal 32.0 - 36.0 [facility] Comment on above: Performed By: #### C BC #### [facility] [address] [place] MCV (RBC) [Entitic vol] 91 fL Normal 80 - 100 [facility] Comment on above: Performed By: #### C BC #### [facility] [address] [place], [place] NUCLEATED RBC 0.0 /100 WBC Normal 0.0-0.0 [facility] Comment on above: Performed By: #### C BC #### [facility] [address] [place], [place] Platelets (Bld) [#/Vol] 190 10*3/uL Normal 150 - 450 [facility] Comment on above: Performed By: #### C BC #### [facility] [address] [place] RBC 3.72 x10E12/L Low 4.00 - 5.20 [facility] Comment on above: Performed By: #### C BC #### [facility] [address] [place], [place] WBC (Bld) [#/Vol] 6.8 10*3/uL Normal 4.4 - 11.3 [facility] Comment on above: Performed By: #### C BC #### [facility] [address] [place], [place] TSH WITH REFLEX TO FREE T4 I F ABNORMALon 04-12-2023 Lab Specimen Source Normal [facility] Comment on above: Performed By: #### T HYDS #### [facility] [address] [place] [address] Performed By: #### C BC #### [facility] [address] [place] Performed By: #### L DH #### [facility] [address] [place] [address] Clinic Note - Heme Oncon Clinic Note - Heme Onc History of Present Illness: ID Statement: ELIZ JOHN is a 47 year old Female Interval History: ASSESSMENT, PROBLEM LIST, DECISION MAKING, PLAN. Microcytic hypochromic anemia, initially diagnosed in February 2021, further evaluation revealed iron deficiency and partially responded to oral iron although hemoglobin started going further down so was evaluated in February 2022 and other work-up was negative for any evidence of hemolysis or any other major etiology. Bone marrow aspirate and biopsy was not done. patient had capsule endoscopy done in fall 2021 and was negative per patient She had a GI evaluation with EGD and colonoscopy by Dr. Edouard in August 2021 and was negative. Possibility of menstrual blood loss causing anemia could not be ruled out but hysteroscopy was negative in 2020. PAST MEDICAL HISTORY: Anemia, iron deficiency, anxiety, arthritis, hypertension, EGD and colonoscopy in August 2021, hysteroscopy in 2020 which was negative per patient History of connective tissue disorder diagnosed by her retail greeter at [facility] and 15 years ago, although specific diagnosis is unclear INTERVAL HISTORY : Patient returns today for follow-up after he was evaluated for anemia, Patient was not responding to oral iron so she received IV iron 900 mg in 3 divided doses in July 2022, She now returns today for follow-up PHYSICAL EXAM: General: Conscious, alert, oriented x3, not in acute distress. HEENT: Normocephalic. No icterus. No cervical or supraclavicular lymphadenopathy. Chest:Bilateral symmetrical, bilateral air entry. CVS: S1, S2. Regular rate and rhythm. Abdomen: Soft, nontender. No hepatosplenomegaly or masses. Bowel sounds positive. Extremities: No clubbing, cyanosis, ASSESSMENT & PLAN: Patient with history of iron deficiency anemia diagnosed in February 2021, negative EGD colonoscopy and hysteroscopy, in addition she also has had negative capsule endoscopy in fall 2021 Patient tried oral iron although did not respond so was given 900 mg of Venofer in 3 divided dose between July 2022 through August 2022, she is feeling somewhat better and stronger and breathing better, now returns today for follow-up and review of testing. Patient continues to have menstruation lasting 3 days but otherwise somewhat irregular timing. Had mild macrocytosis, homocystine level is mildly elevated, patient was temporarily placed on Folbic which she took for 3 months and later was discontinued, will recheck in the future. For now we will continue watchful waiting we will recheck her CBC and iron studies in 3 to 4 months and hopefully CBC will normalize. There is a small possibility that she could also have anemia of chronic illness related to her connective tissue disorder. For now we will monitor Patient's DELICIA was positive at 1:320 ratio homogenous pattern, was evaluated by Dr. Hobbs and is monitored Charting was completed using voice recognition technology and may include unintended errors. CODEY FLORES MD, RICHARD. Ratna Saravia Master Clinician in Hematology and Oncology [facility] OfficePhone [facility] OfficePhone Allergies and Intolerances: Allergies: penicillin: Drug, Unknown, Active Outpatient Medication Profile: * Patient Currently Takes Medications as of 01-Nov-2022 10:14 documented in Structured Notes multivitamin: Last Dose Taken: iron: Last Dose Taken: Vitamin D3 125 mcg (5000 intl units) oral tablet: Last Dose Taken: , 1 tab(s) orally once a day chlorthalidone 25 mg oral tablet: Last Dose Taken: , 1 tab(s) orally once a day lisinopril 40 mg oral tablet: Last Dose Taken: , 1 tab(s) orally once a day Pepcid 40 mg oral tablet: Last Dose Taken: , 1 tab(s) orally once a day (at bedtime) Family History: No Family History items are recorded in the problem list. Social History: Social Substance History: Smoking Statusnever smoker (1) Additional History Denies smoking alcohol or illicit drug use Allergic to Levaquin causes facial swelling Family history Maternal grandmother had colon cancer, mother and father had hypertension(1) Vitals and Measurements: Vitals: Temp: 36.1 HR: 76 RR: 18 BP: 113/75 SPO2%: 96 Measurements: HT(cm): 159.8 WT(kg): 91.9 BSA: 2.01 BMI: 35.9 Lab Results: Results CBC date/time WBC HGB HCT PLT Neut 10-Mar-2023 16:32 10.8 11.2(L) 35.7(L) 171 7.61 BMP date/time NA K CL CO2 BUN CREAT 25-Oct-2022 16:32 140 3.9 104 N/A 20 0.86 LDH date/time LDH 25-Oct-2022 16:32 182 Patient Instructions: Instructions Type: nutrition Instructions: Return for follow-up in 3 months CBC, reticulocyte, iron group and ferritin, folic acid level Not (more content not included)... Normal [facility] Clinic Note - Heme Onc Sched ulingon 11-01-2022 Clinic Note - Heme Onc Scheduling Retrieve Patient Instructions: Patient Instructions: Patient Instructions: RetrievePatient Instructions Instructions Typenutrition Instructions Return for follow-up in 3 months CBC, reticulocyte, iron group and ferritin, folic acid level Return Appointment: Physician/Dept/Shiva monae Appointment Date & [id number] 11:15 [phone] Commentsarrival at 10:50 a.m. Follow Up Testing Appointment: Test Name(s)Labs Commentsdo labs prior to appointment End of Visit Documentation: Clinic Location/Phone Number: Clinic Location/Phone Number: [place] [phone] End Of Visit MU Report Item: Visit Summary given or mailed to patientyes Electronic Signatures: Mandi Portillo (Rev Cycl Spec) (Signed 01-Nov-2022 10:52) Authored: Retrieve Patient Instructions, RETURN VISITS, TESTING (Lab, Radiology, Other) APPOINTMENTS, End of Visit Documentation Last Updated: 01-Nov-2022 10:52 by Mandi Portillo (Rev Cycl Spec) Normal [facility] Clinic Note - Intakeon 11-01 Clinic Note - Intake Patient Visit Information: Visit TypeFollow Up Visit Patient Statesfollow up Source of Informationpatient Admission Information: Admission Since Last VisitNo Vital Signs: Temp (degrees C)36.1 degrees C Temperaturecore Heart Rate (beats/min)76 beats per minute Respiration (breaths/min)18 breath per minute BP Systolic (mm Hg)113 mmHg BP Diastolic (mm Hg)75 mmHg BP Mean (mm Hg)87 mmHg Height in cm159.8 centimeter(s) Heightstanding Weight in kg91.9 kilogram(s) Weightstanding BMI (kg/m2)35.9 kg/M2 BSA (m2)2.01 M2 Last 3 Weights & HeightsDate: Weight/Scale Type:Height: 16-Aug-2022 08:4696.4 kg 159.8 cm 09-Aug-2022 10:5197.5 kg 159.8 cm 02-Aug-2022 10:4993 kg 159.8 cm SpO2 (%)96 % SpO2 Patient Onroom air Pain Screening: Patient States Painyes Current Pain Score (0-10)8 Pain Description/Locationleft shoulder Pain Scale UsedNumeric (0-10) Currently on a Pain Regimenyes Adequately Controlledyes Nurse Notifiedyes LUIZ Mayen for intimate exam offered to patient: Patient hasdeclined Allergies: penicillin: Drug, Unknown, Active Outpatient Medication Profile: * Patient Currently Takes Medications as of 01-Nov-2022 10:14 documented in Structured Notes multivitamin: Last Dose Taken: iron: Last Dose Taken: Vitamin D3 125 mcg (5000 intl units) oral tablet: Last Dose Taken: , 1 tab(s) orally once a day chlorthalidone 25 mg oral tablet: Last Dose Taken: , 1 tab(s) orally once a day lisinopril 40 mg oral tablet: Last Dose Taken: , 1 tab(s) orally once a day Pepcid 40 mg oral tablet: Last Dose Taken: , 1 tab(s) orally once a day (at bedtime) Notification: NotificationsAnnual Screens Due Dates __ Advanced Directives: Mar 29, 2023 Family Violence: Mar 29, 2023 Depression (Due every 6 months for ONC only; all others use Annual date): Sep 25, 2022 Substance Use - Alcohol: Mar 29, 2023 Substance Use - Drugs: Mar 29, 2023 Nutrition: Aug 16, 2023 Learning: Aug 16, 2023 Travel History: COVID-19 Screening Completedno exposure or symptoms Travel or ExposureNO travel to International locations in the past 30 days Falls: Have you fallen in the last 6 monthsno Do you have a fear of fallingno Do you feel you need assistanceno Is the patient using an assistive deviceno Not a falls riskimplement environmental risk factors interventions Oncology Nutrition: During the past 2 weeks, weight has(0) not changed Intake past month, compared to normal intake(0) unchanged Problems keeping me from eating past 2 weeks (0) no problem eating In the past month, my activity/functioning rating is(0) normal with no limitations Clinician notifiedno Score 6 or > notify clinician0 Depression: Past 2 wks: [place] down, depressed or hopelessno Past 2 wks: [place] little interest/pleasure doing thingsno Any Thoughts of Harming Othersno In the Past Month: Have you wished you were or could go to sleep and not wake upno In the Past Month: Have you had any actual thoughts of killing yourselfno Lifetime: Have you ever done, started to do, or prepared to do anything to end your lifeno Nutrition/Learning: In the past month, was there any day when you or anyone in your family went hungry because you didn't have enough foodno Primary LanguageEnglish Do you, or others today, need extra help due to problems with hearing,speaking, seeing, moving around or learningno Electronic Signatures: Caity Sequeira) (Signed 01-Nov-2022 10:15) Authored: Patient Visit Information, Vital Signs, Fishery Biologist, Allergies, Outpatient Medication Profile, Notification, Travel History, Falls, Oncology Nutrition, Depression, Nutrition/Learning Last Updated: 01-Nov-2022 10:15 by Caity Sequeira) Normal [facility] CBC AND DIFFERENTIALon 10-26 % AUTOMATED IMMATURE GRAN 0.6 % Normal 0.0 - 0.9 [facility] Comment on above: Result Comment: Jacquie ture Granulocyte Count (IG) includes promyelocytes, myelocytes and metamyelocytes but does not include bands. Percent differential counts (%) should be interpreted in the context of the absolute cell counts (cells/L). Performed By: #### E NAP2 #### [facility] [address] [place] [address] Basophils (Bld) [#/Vol] 0.05 10*3/uL Normal 0.00 - 0.10 [facility] Comment on above: Performed By: #### E NAP2 #### [facility] [address] [place] [address] Basophils/100 WBC (Bld) 0.5 % Normal 0.0 - 2.0 [facility] Comment on above: Performed By: #### E NAP2 #### [facility] [address] [place] [address] Eosinophils (Bld) [#/Vol] 0.30 10*3/uL Normal 0.00 - 0.70 [facility] Comment on above: Performed By: #### E NAP2 #### [facility] [address] [place] [address] Eosinophils/100 WBC (Bld) 2.8 % Normal 0.0 - 6.0 [facility] Comment on above: Performed By: #### E NAP2 #### [facility] [address] [place] [address] Erythrocyte distribution width (RBC) [Ratio] 14.5 % Normal 11.5 - 14.5 [facility] Comment on above: Performed By: #### E NAP2 #### [facility] [address] [place] [address] Hematocrit (Bld) [Volume fraction] 35.7 % Low 36.0 - 46.0 [facility] Comment on above: Performed By: #### E NAP2 #### [facility] [address] [place] [address] Hemoglobin (Bld) [Mass/Vol] 11.2 g/dL Low 12.0 - 16.0 [facility] Comment on above: Performed By: #### E NAP2 #### [facility] [address] [place] [address] Lymphocytes (Bld) [#/Vol] 1.99 10*3/uL Normal 1.20 - 4.80 [facility] Comment on above: Performed By: #### E NAP2 #### [facility] [address] [place] [address] Lymphocytes/100 WBC (Bld) 18.4 % Normal 13.0 - 44.0 [facility] Comment on above: Performed By: #### E NAP2 #### [facility] [address] [place] [address] MCHC (RBC) [Mass/Vol] 31.4 g/dL Low 32.0 - 36.0 [facility] Comment on above: Performed By: #### E NAP2 #### [facility] [address] [place] [address] MCV (RBC) [Entitic vol] 100 fL Normal 80 - 100 [facility] Comment on above: Performed By: #### E NAP2 #### [facility] [address] [place] [address] Monocytes (Bld) [#/Vol] 0.82 10*3/uL Normal 0.10 - 1.00 [facility] Comment on above: Performed By: #### E NAP2 #### [facility] [address] [place] [address] Monocytes/100 WBC (Bld) 7.6 % Normal 2.0 - 10.0 [facility] Comment on above: Performed By: #### E NAP2 #### [facility] [address] [place] [address] Neutrophils (Bld) [#/Vol] 7.61 10*3/uL Normal 1.20 - 7.70 [facility] Comment on above: Performed By: #### E NAP2 #### [facility] [address] [place] [address] Neutrophils/100 WBC (Bld) 70.1 % Normal 40.0 - 80.0 [facility] Comment on above: Performed By: #### E NAP2 #### [facility] [address] [place] [address] NUCLEATED RBC 0.0 /100 WBC Normal 0.0-0.0 [facility] Comment on above: Performed By: #### E NAP2 #### [facility] [address] [place] [address] Platelets (Bld) [#/Vol] 171 10*3/uL Normal 150 - 450 [facility] Comment on above: Performed By: #### E NAP2 #### [facility] [address] [place] [address] RBC 3.56 x10E12/L Low 4.00 - 5.20 [facility] Comment on above: Performed By: #### E NAP2 #### [facility] [address] [place] [address] WBC (Bld) [#/Vol] 10.8 10*3/uL Normal 4.4 - 11.3 [facility] Comment on above: Performed By: #### E NAP2 #### [facility] [address] [place] [address] COMPREHENSIVE PANELon 2022 Albumin [Mass/Vol] 4.1 g/dL Normal 3.4 - 5.0 [facility] Comment on above: Performed By: #### C MP #### [facility] [address] [place] [address] ALP [Catalytic activity/Vol] 86 U/L Normal 33 - 110 [facility] Comment on above: Performed By: #### C MP #### [facility] [address] [place] [address] ALT [Catalytic activity/Vol] 40 U/L Normal 7 - 45 [facility] Comment on above: Result Comment: Didi ents treated with Sulfasalazine may generate falsely decreased results for ALT. Performed By: #### C MP #### [facility] [address] [place] [address] Anion gap [Moles/Vol] 10 mmol/L Normal 10 - 20 [facility] Comment on above: Performed By: #### C MP #### [facility] [address] [place] [address] AST [Catalytic activity/Vol] 28 U/L Normal 9 - 39 [facility] Comment on above: Performed By: #### C MP #### [facility] [address] [place] [address] Bilirubin [Mass/Vol] 0.7 mg/dL Normal 0.0 - 1.2 [facility] Comment on above: Performed By: #### C MP #### [facility] [address] [place] [address] Calcium [Mass/Vol] 9.6 mg/dL Normal 8.6 - 10.6 [facility] Comment on above: Performed By: #### C MP #### [facility] [address] [place] [address] Chloride [Moles/Vol] 104 mmol/L Normal 98 - 107 [facility] Comment on above: Performed By: #### C MP #### [facility] [address] [place] [address] Creatinine [Mass/Vol] 0.86 mg/dL Normal 0.50 - 1.05 [facility] Comment on above: Performed By: #### C MP #### [facility] [address] [place] [address] GFR/1.73 sq M.predicted among non-blacks MDRD (S/P/Bld) [Vol rate/Area] 83 mL/min/{1.73_m2} Normal >90 [facility] Comment on above: Result Comment: CALC ULATIONS OF ESTIMATED GFR ARE PERFORMED USING THE 2020 CKD-EPI STUDY REFIT EQUATION WITHOUT THE RACE VARIABLE FOR THE IDMS-TRACEABLE CREATININE METHODS. https://jasn.asnjournals.org/content/early/ASN.887372052 8 Performed By: #### C MP #### [facility] [address] [place] [address] Glucose [Mass/Vol] 131 mg/dL High 74 - 99 [facility] Comment on above: Performed By: #### C MP #### [facility] [address] [place] [address] HCO3 (Bld) [Moles/Vol] 30 mmol/L Normal 21 - 32 [facility] Comment on above: Performed By: #### C MP #### [facility] [address] [place] [address] Potassium [Moles/Vol] 3.9 mmol/L Normal 3.5 - 5.3 [facility] Comment on above: Performed By: #### C MP #### [facility] [address] [place] [address] Protein [Mass/Vol] 6.6 g/dL Normal 6.4 - 8.2 [facility] Comment on above: Performed By: #### C MP #### [facility] [address] [place] [address] Sodium [Moles/Vol] 140 mmol/L Normal 136 - 145 [facility] Comment on above: Performed By: #### C MP #### [facility] [address] [place] [address] Urea nitrogen [Mass/Vol] 20 mg/dL Normal 6 - 23 [facility] Comment on above: Performed By: #### C MP #### [facility] [address] [place] [address] FERRITINon 10-26-2022 FERRITIN 767 ug/L High 8 - 150 [facility] Comment on above: Performed By: #### E NAP2 #### [facility] [address] [place] [address] IRON + TIBCon 10-26-2022 % SATURATION 22 % Low 25 - 45 [facility] Comment on above: Performed By: #### E NAP2 #### [facility] [address] [place] [address] Iron [Mass/Vol] 58 ug/dL Normal 35 - 150 [facility] Comment on above: Performed By: #### E NAP2 #### [facility] [address] [place] [address] TIBC 265 ug/dL Normal 240 - 445 [facility] Comment on above: Performed By: #### E NAP2 #### [facility] [address] [place] [address] LDHon 10-26-2022 LDH 182 U/L Normal 84 - 246 [facility] Comment on above: Performed By: #### L DH #### [facility] [address] [place] [address] Office Visiton 10-04-2022 Follow-up visit Diagnoses/Problems Hypertension (401.9) (I10) Depression (311) (F32.A) Orders Depression Renew: Sertraline HCl - 100 MG Oral Tablet; TAKE 1 TABLET DAILY Patient Discussion/Summary increase sertraline to 100mg a day f/u Dr Vega in 2months for depression check Provider Impressions 1 hypertension is stable and unchanged so no changes will be made 2. Depression is slightly worse so we are going to increase the sertraline to 100 mg daily and see her back in 2 months and see how she is doing Annual blood work is due in January Chief Complaint pt is here for 1 mon f/u for depression and HTN management. BN//AMD History of Present IllnessPatient is here today for routine follow-up on hypertension and depression. She is also seeing Dr. No for her anemia. She notes that her depression is slightly worse recently and questions if she can increase the dose of the sertraline. She is currently on 50 mg daily Review of Systems Pt denies fever, chills, malaise or headache. Pt denies SOB, cough or MORILLO. Pt denies Chest pains pressures or palpitations. Pt denies Nausea, vomiting, constipation, or diarrhea. Pt denies swelling of hands feet ankles or joints. Patient is feeling more down and depressed. She is more apathetic and does not want to get up and do her normal activities but has no thoughts of harming herself or others. Active Problems Anemia, unspecified type (285.9) (D64.9) Atopic dermatitis (691.8) (L20.9) Depression (311) (F32.A) Fatigue (780.79) (R53.83) Fibromyalgia (729.1) (M79.7) Headache (784.0) (R51.9) Hypertension (401.9) (I10) Iron deficiency anemia (280.9) (D50.9) Need for influenza vaccination (V04.81) (Z23) Numbness and tingling of foot (782.0) (R20.0,R20.2) Other abnormal cytological finding of specimen from cervix (795.4) (R87.618) Seborrhea (706.3) (L21.9) Visit for screening mammogram (V76.12) (Z12.31) Vitamin D deficiency (268.9) (E55.9) Past Medical History History of Abnormal fasting glucose (790.29) (R73.01) Resolved Date: 08 Feb 2021 History of Cat scratch of right hand, initial encounter (914.0,E906.8) (S60.511A,W55.03XA) Resolved Date: 12 Apr 2022 History of Cellulitis of right index finger (681.00) (L03.011) Resolved Date: 12 Apr 2022 History of Fever with chills (780.60) (R50.9) Resolved Date: 08 Feb 2021 History of Foot injury (959.7) (S99.929A) Resolved Date: 08 Feb 2021 History of Foot pain (729.5) (M79.673) Resolved Date: 08 Feb 2021 History of Hair changes (704.9) (L67.9) Resolved Date: 12 Apr 2022 History of acute sinusitis (V12.69) (Z87.09) Resolved Date: 08 Feb 2021 Added by Problem List Migration; 2012-10-13; Moved to [facility] Jul 14 2013 9:12PM History of allergic rhinitis (V12.69) (Z87.09) Resolved Date: 08 Feb 2021 History of chest pain (V13.89) (Z87.898) Resolved Date: 08 Feb 2021 History of cough Resolved Date: 08 Feb 2021 History of dizziness (V13.89) (Z87.898) Resolved Date: 08 Feb 2021 History of dysuria (V13.00) (Z87.898) Resolved Date: 12 Apr 2022 History of dysuria (V13.00) (Z87.898) Resolved Date: 12 Apr 2022 History of gestational diabetes (V12.21) (Z86.32) X2 History of gestational diabetes (V12.21) (Z86.32) History of hematuria (V13.09) (Z87.448) Resolved Date: 08 Feb 2021 History of measles, mumps, and rubella vaccination (V49.89) (Z92.29) Resolved Date: 08 Feb 2021 History of muscle pain (V13.59) (Z87.39) Resolved Date: 08 Feb 2021 History of paresthesia (V15.89) (Z87.898) Resolved Date: 08 Feb 2021 History of Jaw pain (784.92) (R68.84) Resolved Date: 08 Feb 2021 History of Need for Tdap vaccination (V06.1) (Z23) Resolved Date: 08 Feb 2021 History of Sprain of right foot, initial encounter (845.10) (S93.601A) Resolved Date: 08 Feb 2021 History of Tendinitis of shoulder (726.10) (M77.8) Resolved Date: 08 Feb 2021 History of URTI (acute upper respiratory infection) (465.9) (J06.9) Resolved Date: 08 Feb 2021 Surgical History History of Capsule endoscopy for anemia, 04/23/22 Dr Edouard, few red spots of undetermined significance History of Colonoscopy 09/14/21 Dr Edouard, polyps, hem History of Esophagogastroduodenoscopy 06/08/21 Dr Edouard, esoph stricture, mild gastritis Social History Denied: History of Drug Use Educational Level High School 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 Iron (Ferrous Sulfate) 325 (65 Fe) MG Oral TabletTAKE 1 TABLET Daily take 1 tablet daily with food Lisinopril 40 MG Oral TabletTAKE 1 TABLET DAILY. Sertraline HCl - 50 MG Oral TabletTAKE 1 TABLET DAILY. Vitamin C 500 MG Oral CapsuleTAKE 1 CAPSULE Daily Vi (more content not included)... Normal [facility] Office Visiton 08-30-2022 Follow-up visit Diagnoses/Problems Depression (311) (F32.A) Anemia, unspecified type (285.9) (D64.9) Hypertension (401.9) (I10) Iron deficiency anemia (280.9) (D50.9) Numbness and tingling of foot (782.0) (R20.0,R20.2) Orders Depression Renew: Sertraline HCl - 50 MG Oral Tablet; TAKE 1 TABLET DAILY Hypertension Renew: Lisinopril 40 MG Oral Tablet; TAKE 1 TABLET DAILY Patient Discussion/Summary increase sertraline to 50mg a day f/u Dr Vega in 1 month for Depression Provider Impressions 1. Depression, at this time I will increase sertraline to 50 mg daily and reassess her in 1 month 2. Hypertension, stable. 3. Paresthesias or tingling of the left foot, at this time it is very mild and find no physical findings associated with it. This could be a pinched nerve in the ankle or even in the spine. If the symptoms worsen or change she is to let me know and we will order nerve conduction test but for now we will monitor 4. Iron deficiency anemia, she is still seeing cargo mate as the GI work-up was negative. She has had 1 iron infusion and notes that it made her feel much better. She will continue following up with hematology Follow-up with me in 1 month for hypertension and depression Chief Complaint pt is here for 1 mon re for depression management. BN//AMD History of Present IllnessPatient is here today for follow-up on hypertension, depression and 1 new issue. She has noticed a strange tingling sensation on the top of her left foot and radiating up her left lateral calf. She had this once before and it lasted for a few weeks and then subsided and now has recurred and not gone away. It has been present for at least the last month. Patient recently got an iron infusion because of iron deficiency anemia. She has had an entire GI work-up from Dr Edouard including upper GI, colonoscopy and small capsule follow-through with no obvious source of bleeding. 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 She is less short of breath. Regarding her depression she believes the sertraline is currently helping but thinks that she is not quite where she needs to be and is willing to increase the dose at this time Review of Systems Pt denies fever, chills, malaise or headache. Pt denies SOB, cough or MORILLO. Pt denies Chest pains pressures or palpitations. Pt denies Nausea, vomiting, constipation, or diarrhea. Pt denies swelling of hands feet ankles or joints. Patient's mood is slightly improving although she is still somewhat depressed Active Problems Anemia, unspecified type (285.9) (D64.9) Atopic dermatitis (691.8) (L20.9) Depression (311) (F32.A) Fatigue (780.79) (R53.83) Fibromyalgia (729.1) (M79.7) Headache (784.0) (R51.9) Hypertension (401.9) (I10) Iron deficiency anemia (280.9) (D50.9) Need for influenza vaccination (V04.81) (Z23) Other abnormal cytological finding of specimen from cervix (795.4) (R87.618) Seborrhea (706.3) (L21.9) Visit for screening mammogram (V76.12) (Z12.31) Vitamin D deficiency (268.9) (E55.9) Past Medical History History of Abnormal fasting glucose (790.29) (R73.01) Resolved Date: 08 Feb 2021 History of Cat scratch of right hand, initial encounter (914.0,E906.8) (S60.511A,W55.03XA) Resolved Date: 12 Apr 2022 History of Cellulitis of right index finger (681.00) (L03.011) Resolved Date: 12 Apr 2022 History of Fever with chills (780.60) (R50.9) Resolved Date: 08 Feb 2021 History of Foot injury (959.7) (S99.929A) Resolved Date: 08 Feb 2021 History of Foot pain (729.5) (M79.673) Resolved Date: 08 Feb 2021 History of Hair changes (704.9) (L67.9) Resolved Date: 12 Apr 2022 History of acute sinusitis (V12.69) (Z87.09) Resolved Date: 08 Feb 2021 Added by Problem List Migration; 2012-10-13; Moved to [facility] Jul 14 2013 9:12PM History of allergic rhinitis (V12.69) (Z87.09) Resolved Date: 08 Feb 2021 History of chest pain (V13.89) (Z87.898) Resolved Date: 08 Feb 2021 History of cough Resolved Date: 08 Feb 2021 History of dizziness (V13.89) (Z87.898) Resolved Date: 08 Feb 2021 History of dysuria (V13.00) (Z87.898) Resolved Date: 12 Apr 2022 History of dysuria (V13.00) (Z87.898) Resolved Date: 12 Apr 2022 History of gestational diabetes (V12.21) (Z86.32) X2 History of gestational diabetes (V12.21) (Z86.32) History of hematuria (V13.09) (Z87.448) Resolved Date: 08 Feb 2021 History of measles, mumps, and rubella vaccination (V49.89) (Z92.29) Resolved Date: 08 Feb 2021 History of muscle pain (V13.59) (Z87.39) Resolved Date: 08 Feb 2021 History of paresthesia (V15.89) (Z87.898) Resolved Date: 08 Feb 2021 History of Jaw pain (784.92) (R68.84) Resolved Date: 08 Feb 2021 History of Need for Tdap vaccination (V06.1) (Z23) Resolved Date: 08 Feb 2021 History of Sprain of right foot, initial encounter (845.10) (S92.847G) Resolved Date: 08 Feb 2021 History of Tendiniti (more content not included)... Normal [facility] PHQ-2 VITALSon 08-30-2022 Adult depression screening assessment No [facility] Work Phone: Clinic Note - Intakeon 08-23 Clinic Note - Intake Patient Visit Information: Visit TypeFollow Up Visit Patient StatesHere for IV Iron Source of Informationpatient Admission Information: Admission Since Last VisitNo Vital Signs: Temp (degrees C)36.4 degrees C Temperaturecore Heart Rate (beats/min)75 beats per minute Respiration (breaths/min)18 breath per minute BP Systolic (mm Hg)118 mmHg BP Diastolic (mm Hg)78 mmHg BP Mean (mm Hg)91 mmHg Height in cm159.8 centimeter(s) Weightstanding Last 3 Weights & HeightsDate: Weight/Scale Type:Height: 16-Aug-2022 08:4696.4 kg 159.8 cm 09-Aug-2022 10:5197.5 kg 159.8 cm 02-Aug-2022 10:4993 kg 159.8 cm SpO2 (%)96 % SpO2 Patient Onroom air Pain Screening: Patient States Painno (0) Allergies: penicillin: Drug, Unknown, Active Outpatient Medication Profile: * Patient Currently Takes Medications as of 23-Aug-2022 11:28 documented in Structured Notes multivitamin: Last Dose Taken: iron: Last Dose Taken: Vitamin D3 125 mcg (5000 intl units) oral tablet: Last Dose Taken: , 1 tab(s) orally once a day chlorthalidone 25 mg oral tablet: Last Dose Taken: , 1 tab(s) orally once a day lisinopril 40 mg oral tablet: Last Dose Taken: , 1 tab(s) orally once a day Pepcid 40 mg oral tablet: Last Dose Taken: , 1 tab(s) orally once a day (at bedtime) Notification: NotificationsAnnual Screens Due Dates __ Advanced Directives: Mar 29, 2023 Family Violence: Mar 29, 2023 Depression (Due every 6 months for ONC only; all others use Annual date): Sep 25, 2022 Substance Use - Alcohol: Mar 29, 2023 Substance Use - Drugs: Mar 29, 2023 Nutrition: Aug 16, 2023 Learning: Aug 16, 2023 Travel History: COVID-19 Screening Completedno exposure or symptoms Travel or ExposureNO travel to International locations in the past 30 days Falls: Have you fallen in the last 6 monthsno Do you have a fear of fallingno Do you feel you need assistanceno Is the patient using an assistive deviceno Electronic Signatures: Lizett Garcia) (Signed 23-Aug-2022 11:28) Authored: Patient Visit Information, Vital Signs, Allergies, Outpatient Medication Profile, Notification, Travel History, Falls Last Updated: 23-Aug-2022 11:28 by Lizett Garcia) Normal [facility] Clinic Note - Intakeon 08-16 Clinic Note - Intake Patient Visit Information: Visit TypeFollow Up Visit Patient Statesfollow up Source of Informationpatient Admission Information: Admission Since Last VisitNo Vital Signs: Temp (degrees C)36.8 degrees C Temperaturecore Heart Rate (beats/min)74 beats per minute Respiration (breaths/min)16 breath per minute BP Systolic (mm Hg)125 mmHg BP Diastolic (mm Hg)79 mmHg BP Mean (mm Hg)94 mmHg Height in cm159.8 centimeter(s) Heightstanding Weight in kg96.4 kilogram(s) Weightstanding BMI (kg/m2)37.7 kg/M2 BSA (m2)2.06 M2 Last 3 Weights & HeightsDate: Weight/Scale Type:Height: 09-Aug-2022 10:5197.5 kg 159.8 cm 02-Aug-2022 10:4993 kg 159.8 cm 29-Mar-2022 08:0793.5 kg 159.8 cm SpO2 (%)97 % SpO2 Patient Onroom air Pain Screening: Patient States Painno (0) Fishery Biologist for intimate exam offered to patient: Patient hasdeclined Allergies: penicillin: Drug, Unknown, Active Outpatient Medication Profile: * Patient Currently Takes Medications as of 16-Aug-2022 08:48 documented in Structured Notes multivitamin: Last Dose Taken: iron: Last Dose Taken: Vitamin D3 125 mcg (5000 intl units) oral tablet: Last Dose Taken: , 1 tab(s) orally once a day chlorthalidone 25 mg oral tablet: Last Dose Taken: , 1 tab(s) orally once a day lisinopril 40 mg oral tablet: Last Dose Taken: , 1 tab(s) orally once a day Pepcid 40 mg oral tablet: Last Dose Taken: , 1 tab(s) orally once a day (at bedtime) Notification: NotificationsAnnual Screens Due Dates __ Advanced Directives: Mar 29, 2023 Family Violence: Mar 29, 2023 Depression (Due every 6 months for ONC only; all others use Annual date): Sep 25, 2022 Substance Use - Alcohol: Mar 29, 2023 Substance Use - Drugs: Mar 29, 2023 Nutrition: Aug 02, 2023 Learning: Aug 02, 2023 Travel History: COVID-19 Screening Completedno exposure or symptoms Travel or ExposureNO travel to International locations in the past 30 days Falls: Have you fallen in the last 6 monthsno Do you have a fear of fallingno Do you feel you need assistanceno Is the patient using an assistive deviceno Not a falls riskimplement environmental risk factors interventions Oncology Nutrition: During the past 2 weeks, weight has(0) not changed Intake past month, compared to normal intake(0) unchanged Problems keeping me from eating past 2 weeks (0) no problem eating In the past month, my activity/functioning rating is(0) normal with no limitations Clinician notifiedno Score 6 or > notify clinician0 Nutrition/Learning: In the past month, was there any day when you or anyone in your family went hungry because you didn't have enough foodno Primary LanguageEnglish Do you, or others today, need extra help due to problems with hearing,speaking, seeing, moving around or learningno Electronic Signatures: Caity Sequeira) (Signed 16-Aug-2022 08:50) Authored: Patient Visit Information, Vital Signs, Fishery Biologist, Allergies, Outpatient Medication Profile, Notification, Travel History, Falls, Oncology Nutrition, Nutrition/Learning Last Updated: 16-Aug-2022 08:50 by Caity Sequeira) Normal [facility] Clinic Note - Intakeon 08-09 Clinic Note - Intake Patient Visit Information: Visit TypeFollow Up Visit Patient Statesiron infusion Source of Informationpatient Accompanied byspouse Vital Signs: Temp (degrees C)37.6 degrees C Heart Rate (beats/min)69 beats per minute Respiration (breaths/min)16 breath per minute BP Systolic (mm Hg)115 mmHg BP Diastolic (mm Hg)Image has been removed. 53 mmHg BP Mean (mm Hg)73 mmHg Height in cm159.8 centimeter(s) Weight in kg97.5 kilogram(s) BMI (kg/m2)38.1 kg/M2 BSA (m2)2.08 M2 Pain Screening: Patient States Painno (0) Allergies: penicillin: Drug, Unknown, Active Outpatient Medication Profile: * Patient Currently Takes Medications as of 02-Aug-2022 10:53 documented in Structured Notes multivitamin: iron: Vitamin D3 125 mcg (5000 intl units) oral tablet: 1 tab(s) orally once a day chlorthalidone 25 mg oral tablet: 1 tab(s) orally once a day lisinopril 40 mg oral tablet: 1 tab(s) orally once a day Pepcid 40 mg oral tablet: 1 tab(s) orally once a day (at bedtime) Notification: NotificationsAnnual Screens Due Dates __ Advanced Directives: Mar 29, 2023 Family Violence: Mar 29, 2023 Depression (Due every 6 months for ONC only; all others use Annual date): Sep 25, 2022 Substance Use - Alcohol: Mar 29, 2023 Substance Use - Drugs: Mar 29, 2023 Nutrition: Aug 02, 2023 Learning: Aug 02, 2023 Travel History: COVID-19 Screening Completedno exposure or symptoms Travel or ExposureNO travel to International locations in the past 30 days Falls: Have you fallen in the last 6 monthsno Do you have a fear of fallingno Do you feel you need assistanceno Is the patient using an assistive deviceno Spiritual/Procedural: Spiritual/cultural/anabaptism practices important for us to knowno Alcohol, prescription or recreational drugs taken this AM for non medical reasonsno Electronic Signatures: Vinita Hunter (GALINA) (Signed 09-Aug-2022 10:54) Authored: Patient Visit Information, Vital Signs, Allergies, Outpatient Medication Profile, Notification, Travel History, Falls, Spiritual/Procedural Last Updated: 09-Aug-2022 10:54 by Vinita Hunter (GALINA) Normal [facility] DELICIA TITER/GABRIELLA PANELon 2021 DELICIA PATTERN HOMOGENEOUS Normal [facility] Comment on above: Performed By: #### E NAP2 #### [facility] [address] [place] [address] DELICIA TITER 1:320 Normal [facility] Comment on above: Performed By: #### E NAP2 #### [facility] [address] [place] [address] DELICIA TITER/GABRIELLA PANELon 2021 ANTI-CENTROMERE <0.2 Normal [facility] Comment on above: Result Comment: REF VALUES < 1.0 = NEGATIVE >=1.0 = POSITIVE Performed By: #### E NAP2 #### [facility] [address] [place] [address] ANTI-CHROMATIN <0.2 Normal [facility] Comment on above: Result Comment: REF VALUES < 1.0 = NEGATIVE >=1.0 = POSITIVE Performed By: #### E NAP2 #### [facility] [address] [place] [address] ANTI-DNA [DS] <1.0 Normal [facility] Comment on above: Result Comment: REF VALUES NEGATIVE: <= 4 IU/ML EQUIVOCAL: 5- 9 IU/ML POSITIVE: >=10 IU/ML Performed By: #### E NAP2 #### [facility] [address] [place] [address] ANTI-JANAY-1 <0.2 Normal [facility] Comment on above: Result Comment: REF VALUES < 1.0 = NEGATIVE >=1.0 = POSITIVE Performed By: #### E NAP2 #### [facility] [address] [place] [address] ANTI-RIBOSOMAL P <0.2 Normal [facility] Comment on above: Result Comment: REF VALUES < 1.0 = NEGATIVE >=1.0 = POSITIVE Performed By: #### E NAP2 #### [facility] [address] [place] [address] ANTI-STEM MOUNTER <0.2 Normal [facility] Comment on above: Result Comment: REF VALUES < 1.0 = NEGATIVE >=1.0 = POSITIVE Performed By: #### E NAP2 #### [facility] [address] [place] [address] ANTI-SCL-70 <0.2 Normal [facility] Comment on above: Result Comment: REF VALUES < 1.0 = NEGATIVE >=1.0 = POSITIVE Performed By: #### E NAP2 #### [facility] [address] [place] [address] ANTI-SM <0.2 Normal [facility] Comment on above: Result Comment: REF VALUES < 1.0 = NEGATIVE >=1.0 = POSITIVE Performed By: #### E NAP2 #### [facility] [address] [place] [address] ANTI-SM/STEM MOUNTER <0.2 Normal [facility] Comment on above: Result Comment: REF VALUES < 1.0 = NEGATIVE >=1.0 = POSITIVE Performed By: #### E NAP2 #### [facility] [address] [place] [address] ANTI-SSA 0.2 AI Normal [facility] Comment on above: Result Comment: REF VALUES < 1.0 = NEGATIVE >=1.0 = POSITIVE Performed By: #### E NAP2 #### [facility] [address] [place] [address] ANTI-SSB <0.2 Normal [facility] Comment on above: Result Comment: REF VALUES < 1.0 = NEGATIVE >=1.0 = POSITIVE Performed By: #### E NAP2 #### [facility] [address] [place] [address] DELICIA-WITH REFLEX TO ENAon DELICIA WITH REFLEX TO GABRIELLA Positive Abnormal NEGATIVE [facility] Comment on above: Result Comment: The Antinuclear Antibody (DELICIA) test was performed using indirect immunofluorescence assay with HEp-2 cells slide. Performed By: #### A NA2 #### [facility] [address] [place] [address] DELICIA + GABRIELLA PANELon 08-03-2022 DELICIA WITH REFLEX TO GABRIELLA Canceled Normal [facility] Comment on above: Order Comment: TEST DELICIA + GABRIELLA PANEL WAS CANCELLED, 08/03/2022 14:51 NO SPECIMEN RECEIVED INLAB. Result Comment: The Antinuclear Antibody (DELICIA) test was performed using indirect immunofluorescence assay with HEp-2 cells slide. Performed By: #### A NA2 #### [facility] [address] [place] [address] ANTI-CENTROMERE Canceled Normal [facility] Comment on above: Order Comment: TEST DELICIA + GABRIELLA PANEL WAS CANCELLED, 08/03/2022 14:51 NO SPECIMEN RECEIVED INLAB. Performed By: #### A NA2 #### [facility] [address] [place] [address] ANTI-CHROMATIN Canceled Normal [facility] Comment on above: Order Comment: TEST DELICIA + GABRIELLA PANEL WAS CANCELLED, 08/03/2022 14:51 NO SPECIMEN RECEIVED INLAB. Performed By: #### A NA2 #### [facility] [address] [place] [address] ANTI-DNA [DS] Canceled Normal [facility] Comment on above: Order Comment: TEST DELICIA + GABRIELLA PANEL WAS CANCELLED, 08/03/2022 14:51 NO SPECIMEN RECEIVED INLAB. Performed By: #### A NA2 #### [facility] [address] [place] [address] ANTI-JANAY-1 Canceled Normal [facility] Comment on above: Order Comment: TEST DELICIA + GABRIELLA PANEL WAS CANCELLED, 08/03/2022 14:51 NO SPECIMEN RECEIVED INLAB. Performed By: #### A NA2 #### [facility] [address] [place] [address] ANTI-RIBOSOMAL P Canceled [facility] Center Comment on above: Order Comment: TEST DELICIA + GABRIELLA PANEL WAS CANCELLED, 08/03/2022 14:51 NO SPECIMEN RECEIVED INLAB. Performed By: #### A NA2 #### [facility] [address] [place] [address] ANTI-STEM MOUNTER Canceled Normal [facility] Comment on above: Order Comment: TEST DELICIA + GABRIELLA PANEL WAS CANCELLED, 08/03/2022 14:51 NO SPECIMEN RECEIVED INLAB. Performed By: #### A NA2 #### [facility] [address] [place] [address] ANTI-SCL-70 Canceled Normal [facility] Comment on above: Order Comment: TEST DELICIA + GABRIELLA PANEL WAS CANCELLED, 08/03/2022 14:51 NO SPECIMEN RECEIVED INLAB. Performed By: #### A NA2 #### [facility] [address] [place] [id number] ANTI-SM Canceled Normal [facility] Comment on above: Order Comment: TEST DELICIA + GABRIELLA PANEL WAS CANCELLED, 08/03/2022 14:51 NO SPECIMEN RECEIVED INLAB. Performed By: #### A NA2 #### [facility] [address] [place] [address] ANTI-SM/STEM MOUNTER Canceled Normal [facility] Comment on above: Order Comment: TEST DELICIA + GABRIELLA PANEL WAS CANCELLED, 08/03/2022 14:51 NO SPECIMEN RECEIVED INLAB. Performed By: #### A NA2 #### [facility] [address] [place] [address] ANTI-SSA Canceled Normal [facility] Comment on above: Order Comment: TEST DELICIA + GABRIELLA PANEL WAS CANCELLED, 08/03/2022 14:51 NO SPECIMEN RECEIVED INLAB. Performed By: #### A NA2 #### [facility] [address] [place] [address] ANTI-SSB Canceled Normal [facility] Comment on above: Order Comment: TEST DELICIA + GABRIELLA PANEL WAS CANCELLED, 08/03/2022 14:51 NO SPECIMEN RECEIVED INLAB. Performed By: #### A NA2 #### [facility] [address] [place] [address] Clinic Note - Heme Oncon Clinic Note - Heme Onc History of Present Illness: ID Statement: ELIZ JOHN is a 47 year old Female Interval History: ASSESSMENT, PROBLEM LIST, DECISION MAKING, PLAN. Microcytic hypochromic anemia, initially diagnosed in February 2021, further evaluation revealed iron deficiency and partially responded to oral iron although hemoglobin started going further down so was evaluated in February 2022 and other work-up was negative for any evidence of hemolysis or any other major etiology. Bone marrow aspirate and biopsy was not done. patient had capsule endoscopy done in fall 2021 and was negative per patient She had a GI evaluation with EGD and colonoscopy by Dr. Edouard in August 2021 and was negative. Possibility of menstrual blood loss causing anemia could not be ruled out but hysteroscopy was negative in 2020. PAST MEDICAL HISTORY: Anemia, iron deficiency, anxiety, arthritis, hypertension, EGD and colonoscopy in August 2021, hysteroscopy in 2020 which was negative per patient History of connective tissue disorder diagnosed by her retail greeter at [facility] and 15 years ago, although specific diagnosis is unclear INTERVAL HISTORY : Patient returns today for follow-up after he was evaluated for anemia, Patient is doing well clinically, she is taking oral iron with vitamin C, denies any significant bleeding problems, she does have signs and symptoms of fibromyalgia and claims that she has been diagnosed with connective tissue disorder by her retail greeter at [facility] approximately 15 years ago although she does not have any specific diagnosis of connective tissue disorder at this time. Patient continues to have menstruation lasting 3 days but otherwise somewhat irregular timing. PERTINENT ROS: no fever, cp, sob, n/v, diarrhea, abdominal pain, urinary sx, AREVALO, sz PHYSICAL EXAM: General: Conscious, alert, oriented x3, not in acute distress. HEENT: Normocephalic. No icterus. No cervical or supraclavicular lymphadenopathy. Chest:Bilateral symmetrical, bilateral air entry. CVS: S1, S2. Regular rate and rhythm. Abdomen: Soft, nontender. No hepatosplenomegaly or masses. Bowel sounds positive. Extremities: No clubbing, cyanosis, ASSESSMENT & PLAN: Patient with history of iron deficiency anemia diagnosed in February 2021, negative EGD colonoscopy and hysteroscopy, in addition she also has had negative capsule endoscopy in fall 2021 Patient has taken oral iron with vitamin C although hemoglobin is not improving, she continues to have low iron saturation but elevated ferritin, differential at this time includes anemia of chronic illness especially she has a history of connective tissue disorder diagnosed at [facility] approximately 15 years ago although did not have any significant treatment for it and other than signs and symptoms of fibromyalgia she does not have any joint problems or any other major symptoms of connective tissue disorder. Patient has taken oral iron for approximately 6-month or so without any response and she has continued to have low iron saturation. Possibility of bone marrow disorder such as myelodysplastic cannot be ruled out At this time we will consider giving IV Venofer, 900 mg in 3 divided dose, and recheck her CBC and iron studies in 3 months if does not respond, we will have to consider doing a bone marrow aspirate and biopsy in the meantime patient was advised to talk to primary care physician to see if they can do some testing to rule out connective tissue disorder such as lupus, in that case her anemia can be explained by connective tissue disorder. Charting was completed using voice recognition technology and may include unintended errors. CODEY FLORES MD, RICHARD. Ratna Saravia Master Clinician in Hematology and Oncology [facility] OfficePhone [facility] OfficePhone Allergies and Intolerances: Allergies: penicillin: Drug, Unknown, Active Outpatient Medication Profile: * Patient Currently Takes Medications as of 02-Aug-2022 10:53 documented in Structured Notes multivitamin: Last Dose Taken: iron: Last Dose Taken: Vitamin D3 125 mcg (5000 intl units) oral tablet: Last Dose Taken: , 1 tab(s) orally once a day chlorthalidone 25 mg oral tablet: Last Dose Taken: , 1 tab(s) orally once a day lisinopril 40 mg oral tablet: Last Dose Taken: , 1 tab(s) orally once a day Pepcid 40 mg oral tablet: Last Dose Taken: , 1 tab(s) orally once a day (at bedtime) Family History: No Family History items are recorded in the problem list. Social History: Social Substance History: Smoking Statusnever smoker (1) Additional History Denies smoking alcohol or illicit drug use Allergic to Levaquin causes facial swelling Family hi (more content not included)... Normal [facility] Clinic Note - Heme Onc Huyen kervinleonel 08-02-2022 Clinic Note - Heme Onc Scheduling Retrieve Patient Instructions: Patient Instructions: Patient Instructions: RetrievePatient Instructions Instructions Typenutrition Instructions Patient to talk to Dr. Hobbs as she claims that she is allergic to Levaquin but not allergic to penicillin and needs to be changed in the system Please do DELICIA panel (Whole lupus panel) IV Venofer 300 mg x 3 dose Return for follow-up in 3 months CBC, reticulocyte, LDH, CMP iron group and ferritin at that time Return Appointment: Physician/Dept/ServiceDr. Codey Flores Appointment Date & [id number] 10:30 Location/Phone [facility] [place] [phone] Comments3 month Follow up/arrive at 10:10 for intake Treatment Center Appointment: Commentslabs to be done prior Treatment Center Appointment: Appointment Date & [id number] 10:30 Location/Phone [facility] [place] [phone] Commentsvenofer Treatment Center Appointment: Appointment Date & [id number] 09:00 Location/Phone [facility] [place] [phone] Commentsvenofer Treatment Center Appointment: Appointment Date & [id number] 11:00 Location/Phone [facility] [place] [phone] Commentsvenofer End of Visit Documentation: Clinic Location/Phone Number: Clinic Location/Phone Number: [place] [phone] End Of Visit MU Report Item: Visit Summary given or mailed to patientyes Electronic Signatures: Nguyen Hawley (Rev Cycl Spec) (Signed 02-Aug-2022 11:39) Authored: Retrieve Patient Instructions, RETURN VISITS, TREATMENT CENTER APPOINTMENTS, End of Visit Documentation Last Updated: 02-Aug-2022 11:39 by Nguyen Hawley (Rev Cycl Spec) Normal [facility] Clinic Note - Intakeon 08-02 Clinic Note - Intake Patient Visit Information: Visit TypeFollow Up Visit Patient Statesfollow up Source of Informationpatient Admission Information: Admission Since Last VisitNo Vital Signs: Temp (degrees C)36.7 degrees C Temperaturecore Heart Rate (beats/min)74 beats per minute Respiration (breaths/min)16 breath per minute BP Systolic (mm Hg)105 mmHg BP Diastolic (mm Hg)Image has been removed. 58 mmHg BP Mean (mm Hg)73 mmHg Height in cm159.8 centimeter(s) Heightstanding Weight in kg93 kilogram(s) Weightstanding BMI (kg/m2)36.4 kg/M2 BSA (m2)2.03 M2 Last 3 Weights & HeightsDate: Weight/Scale Type:Height: 29-Mar-2022 08:0793.5 kg 159.8 cm 15-Feb-2022 08:1491.2 kg 159.8 cm SpO2 (%)96 % SpO2 Patient Onroom air Pain Screening: Patient States Painno (0) Fishery Biologist for intimate exam offered to patient: Patient hasdeclined Allergies: penicillin: Drug, Unknown, Active Outpatient Medication Profile: * Patient Currently Takes Medications as of 02-Aug-2022 10:53 documented in Structured Notes multivitamin: Last Dose Taken: iron: Last Dose Taken: Vitamin D3 125 mcg (5000 intl units) oral tablet: Last Dose Taken: , 1 tab(s) orally once a day chlorthalidone 25 mg oral tablet: Last Dose Taken: , 1 tab(s) orally once a day lisinopril 40 mg oral tablet: Last Dose Taken: , 1 tab(s) orally once a day Pepcid 40 mg oral tablet: Last Dose Taken: , 1 tab(s) orally once a day (at bedtime) Notification: NotificationsAnnual Screens Due Dates __ Advanced Directives: Mar 29, 2023 Family Violence: Mar 29, 2023 Depression (Due every 6 months for ONC only; all others use Annual date): Sep 25, 2022 Substance Use - Alcohol: Mar 29, 2023 Substance Use - Drugs: Mar 29, 2023 Nutrition: Mar 29, 2023 Learning: Mar 29, 2023 Travel History: COVID-19 Screening Completedno exposure or symptoms Travel or ExposureNO travel to International locations in the past 30 days Falls: Have you fallen in the last 6 monthsno Do you have a fear of fallingno Do you feel you need assistanceno Is the patient using an assistive deviceno Oncology Nutrition: During the past 2 weeks, weight has(0) not changed Intake past month, compared to normal intake(0) unchanged Problems keeping me from eating past 2 weeks (0) no problem eating In the past month, my activity/functioning rating is(0) normal with no limitations Clinician notifiedno Score 6 or > notify clinician0 Nutrition/Learning: In the past month, was there any day when you or anyone in your family went hungry because you didn't have enough foodno Primary LanguageEnglish Do you, or others today, need extra help due to problems with hearing,speaking, seeing, moving around or learningno Electronic Signatures: Caity Sequeira (SPENCER) (Signed 02-Aug-2022 10:55) Authored: Patient Visit Information, Vital Signs, Fishery Biologist, Allergies, Outpatient Medication Profile, Notification, Travel History, Falls, Oncology Nutrition, Nutrition/Learning Last Updated: 02-Aug-2022 10:55 by Caity Sequeira (SPENCER) Normal [facility] Office Visiton 07-26-2022 Follow-up visit Diagnoses/Problems Depression (311) (F32.A) Hypertension (401.9) (I10) Anemia, unspecified type (285.9) (D64.9) Orders Depression Renew: Sertraline HCl - 25 MG Oral Tablet; TAKE 1 TABLET DAILY DIRECTED Patient Discussion/Summary f/u Dr Vega in 1 months for depression Provider Impressions 1. Depression, after discussion patient is agreeable to talk to her medical social worker for our chronic care management agreement for counseling. In addition to this I am going to start her on sertraline 25 mg daily for depression and reassess her in 1 month I have discussed the collaborative care model for this patient's behavioral health care. Written detailed information and identifying the members of this care team was provided to the patient. They give permission for the behavioral Health Code Machine Operator (BHM) and psychiatric consult to be included in their care with my continued primary management. Patient was made aware that the services provided as part of the Collaborative Care Model are subject to cost sharing. #2 hypertension, blood pressure stable and well-controlled 3. Anemia, patient continues to follow-up with cargo mate Dr. Flores. Patient will see me back in 1 month for depression check on the sertraline Annual labs are due in January Chief Complaint pt is here for 4 mon re for HTN management. BN//AMD Adult Risk Screening PHQ-9 Depression Scale: 1. Little interest or pleasure in doing things - several days 2. Feeling down, depressed or hopeless - several days 3. Trouble falling asleep or sleeping too much - not at all 4. Feeling tired or having little energy - nearly every day 5. Poor appetite or overeating - more than half the days 6. Feeling bad about self or failure or letting others down - several days 7. Trouble concentrating on things - more than half the days 8. Moving / speaking slowly or fidgety / restless - more than half the days 9. Thought would be better off or hurting self - more than half the days Total Score: 08/13 Severity of depression is moderate. How difficult have these problems made it for you to do your work, take care of things at home, or get along with people? Very Difficult. History of Present Illness Patient is here for routine 4-month follow-up for her hypertension and anemia but at the end the appointment says that she worries all the time. She immediately became teary-eyed and says she worries herself to tears almost on a daily basis. She says she has no harmful thoughts initially but then later does have thoughts of harming herself but reassures me she would never act on them because she loves her family too much. See depression screening questions. Patient has had issues with depression in the past and was on sertraline and it did work well. I have discussed the collaborative care model for this patient's behavioral health care. Written detailed information and identifying the members of this care team was provided to the patient. They give permission for the behavioral Health Code Machine Operator (BHM) and psychiatric consult to be included in their care with my continued primary management. Patient was made aware that the services provided as part of the Collaborative Care Model are subject to cost sharing. Review of Systems See chief complaint and history of present illness. Patient describes herself as a worrier and has had a lot of tears recently. Her grandfather did recently but otherwise she has had no new traumatic events in her life. Her daughter had moved out for college but is actually back temporarily which is actually helpful but she cannot seem to stop worrying . Pt denies fever, chills, malaise or headache. Pt denies SOB, cough or MORILLO. Pt denies Chest pains pressures or palpitations. Pt denies Nausea, vomiting, constipation, or diarrhea. Pt denies swelling of hands feet ankles or joints. Active Problems Anemia, unspecified type (285.9) (D64.9) Atopic dermatitis (691.8) (L20.9) Depression (311) (F32.A) Fatigue (780.79) (R53.83) Fibromyalgia (729.1) (M79.7) Headache (784.0) (R51.9) Hypertension (401.9) (I10) Iron deficiency anemia (280.9) (D50.9) Need for influenza vaccination (V04.81) (Z23) Other abnormal cytological finding of specimen from cervix (795.4) (R87.618) Seborrhea (706.3) (L21.9) Visit for screening mammogram (V76.12) (Z12.31) Vitamin D deficiency (268.9) (E55.9) Past Medical History History of Abnormal fasting glucose (790.29) (R73.01) Resolved Date: 08 Feb 2021 History of Cat scratch of right hand, initial encounter (914.0,E906.8) (S60.511A,W55.03XA) Resolved Date: 12 Apr 2022 History of Cellulitis of right index finger (681.00) (L03.011) Resolved Date: 12 Apr 2022 History of Fever with chills (780.60) (R50.9) Resolved Date: 08 Feb 2021 History of Foot injury (959.7) (S99.929A) Resolved Date: 08 Feb 2021 History of Foot pain (729.5) (M79.673) Resolved Date: 08 Feb 2021 History of Hair changes (70 (more content not included)... Normal [facility] PHQ-2 VITALSon 07-26-2022 Adult depression screening assessment No [facility] Work Phone: CBC AND DIFFERENTIALon 07-13 % AUTOMATED IMMATURE GRAN 0.3 % Normal 0.0 - 0.9 [facility] Comment on above: Result Comment: Jacquie ture Granulocyte Count (IG) includes promyelocytes, myelocytes and metamyelocytes but does not include bands. Percent differential counts (%) should be interpreted in the context of the absolute cell counts (cells/L). Performed By: #### C BCDF #### [facility] [address] [place] [address] Basophils (Bld) [#/Vol] 0.03 10*3/uL Normal 0.00 - 0.10 [facility] Comment on above: Performed By: #### C BCDF #### [facility] [address] [place] [address] Basophils/100 WBC (Bld) 0.4 % Normal 0.0 - 2.0 [facility] Comment on above: Performed By: #### C BCDF #### [facility] [address] [place] [address] Eosinophils (Bld) [#/Vol] 0.17 10*3/uL Normal 0.00 - 0.70 [facility] Comment on above: Performed By: #### C BCDF #### [facility] [address] [place] [address] Eosinophils/100 WBC (Bld) 2.3 % Normal 0.0 - 6.0 [facility] Comment on above: Performed By: #### C BCDF #### [facility] [address] [place] [address] Erythrocyte distribution width (RBC) [Ratio] 19.3 % High 11.5 - 14.5 [facility] Comment on above: Performed By: #### C BCDF #### [facility] [address] [place] [address] Hematocrit (Bld) [Volume fraction] 31.3 % Low 36.0 - 46.0 [facility] Comment on above: Performed By: #### C BCDF #### [facility] [address] [place] [address] Hemoglobin (Bld) [Mass/Vol] 9.9 g/dL Low 12.0 - 16.0 [facility] Comment on above: Performed By: #### C BCDF #### [facility] [address] [place] [address] Lymphocytes (Bld) [#/Vol] 1.37 10*3/uL Normal 1.20 - 4.80 [facility] Comment on above: Performed By: #### C BCDF #### [facility] [address] [place] [address] Lymphocytes/100 WBC (Bld) 18.5 % Normal 13.0 - 44.0 [facility] Comment on above: Performed By: #### C BCDF #### [facility] [address] [place] [address] MCHC (RBC) [Mass/Vol] 31.6 g/dL Low 32.0 - 36.0 [facility] Comment on above: Performed By: #### C BCDF #### [facility] [address] [place] [address] MCV (RBC) [Entitic vol] 98 fL Normal 80 - 100 [facility] Comment on above: Performed By: #### C BCDF #### [facility] [address] [place] [address] Monocytes (Bld) [#/Vol] 0.55 10*3/uL Normal 0.10 - 1.00 [facility] Comment on above: Performed By: #### C BCDF #### [facility] [address] [place] [address] Monocytes/100 WBC (Bld) 7.4 % Normal 2.0 - 10.0 [facility] Comment on above: Performed By: #### C BCDF #### [facility] [address] [place] [address] Neutrophils (Bld) [#/Vol] 5.27 10*3/uL Normal 1.20 - 7.70 [facility] Comment on above: Performed By: #### C BCDF #### [facility] [address] [place] [address] Neutrophils/100 WBC (Bld) 71.1 % Normal 40.0 - 80.0 [facility] Comment on above: Performed By: #### C BCDF #### [facility] [address] [place] [address] NUCLEATED RBC 0.0 /100 WBC Normal 0.0-0.0 [facility] Comment on above: Performed By: #### C BCDF #### [facility] [address] [place] [address] Platelets (Bld) [#/Vol] 211 10*3/uL Normal 150 - 450 [facility] Comment on above: Performed By: #### C BCDF #### [facility] [address] [place] [address] RBC 3.18 x10E12/L Low 4.00 - 5.20 [facility] Comment on above: Performed By: #### C BCDF #### [facility] [address] [place] [address] WBC (Bld) [#/Vol] 7.4 10*3/uL Normal 4.4 - 11.3 [facility] Comment on above: Performed By: #### C BCDF #### [facility] [address] [place] [address] Complete Blood Count + Diffe rentialon 07-13-2022 Basophils/100 WBC (Bld) 0.4 % 0.0 - 2.0 [facility] Work Phone: Erythrocyte distribution width (RBC) [Ratio] 19.3 % above high threshold See Below [facility] Work Phone: Comment on above: Reference Range: 11. 5 - 14.5 Hematocrit (Bld) [Volume fraction] 31.3 % below low threshold See Below [facility] Work Phone: Comment on above: Reference Range: 36. 0 - 46.0 Hemoglobin (Bld) [Mass/Vol] 9.9 g/dL below low threshold See Below [facility] Work Phone: Comment on above: Reference Range: 12. 0 - 16.0 Lymphocytes/100 WBC (Bld) 18.5 % See Below [facility] Work Phone: Comment on above: Reference Range: 13. 0 - 44.0 MCHC (RBC) [Mass/Vol] 31.6 g/dL below low threshold See Below [facility] Work Phone: Comment on above: Reference Range: 32. 0 - 36.0 MCV (RBC) [Entitic vol] 98 fL 80 - 100 [facility] Work Phone: Monocytes/100 WBC (Bld) 7.4 % 2.0 - 10.0 [facility] Work Phone: Neutrophils/100 WBC (Bld) 71.1 % See Below [facility] Work Phone: Comment on above: Reference Range: 40. 0 - 80.0 Platelets (Bld) [#/Vol] 211 10*3/uL 150 - 450 [facility] [place] Work Phone: RBC (Bld) [#/Vol] 3.18 {x10E12/L} below low threshold See Below [facility] Work Phone: Comment on above: Reference Range: 4.0 0 - 5.20 WBC (Bld) [#/Vol] 7.4 10*3/uL 4.4 - 11.3 [facility] Work Phone: Complete Blood Count + Differential 0.03 {x10E9/L} See Below [facility] Work Phone: Comment on above: Reference Range: 0.0 0 - 0.10 Complete Blood Count + Differential 0.17 {x10E9/L} See Below [facility] Work Phone: Comment on above: Reference Range: 0.0 0 - 0.70 Complete Blood Count + Differential 0.55 {x10E9/L} See Below [facility] Work Phone: Comment on above: Reference Range: 0.1 0 - 1.00 Complete Blood Count + Differential 1.37 {x10E9/L} See Below [facility] Work Phone: Comment on above: Reference Range: 1.2 0 - 4.80 Complete Blood Count + Differential 5.27 {x10E9/L} See Below [facility] Work Phone: Comment on above: Reference Range: 1.2 0 - 7.70 Complete Blood Count + Differential 2.3 % 0.0 - 6.0 [facility] Work Phone: Complete Blood Count + Differential 0.3 % 0.0 - 0.9 [facility] Work Phone: Comment on above: Immature Granulocyte Count (IG) includes promyelocytes, myelocytes and metamyelocytes but does not include bands. Percent differential counts (%) should be interpreted in the context of the absolute cell counts (cells/L). Complete Blood Count + Differential 0.0 {/100_WBC} 0.0-0.0 [facility] Work Phone: FERRITINon 07-13-2022 FERRITIN 203 ug/L High 8 - 150 [facility] Comment on above: Performed By: #### F ERRI #### [facility] [address] [place] [address] Ferritin, Serumon 07-13-2022 Ferritin [Mass/Vol] 203 ug/L above high threshold 8 - 150 [facility] Work Phone: IRON + TIBCon 07-13-2022 % SATURATION 11 % Low 25 - 45 [facility] Comment on above: Performed By: #### A NA2 #### [facility] [address] [place] [address] Iron [Mass/Vol] 29 ug/dL Low 35 - 150 [facility] Comment on above: Performed By: #### A NA2 #### [facility] [address] [place] [address] TIBC 274 ug/dL Normal 240 - 445 [facility] Comment on above: Performed By: #### A NA2 #### [facility] [address] [place] [address] Laboratory - Chemistry and C hemistry - challengeon 07-13-2022 Iron [Mass/Vol] 29 ug/dL below low threshold 35 - 150 [facility] Work Phone: Iron binding capacity [Mass/Vol] 274 ug/dL 240 - 445 [facility] Work Phone: No Panel Informationon 07-13 11 % below low threshold 25 - 45 [facility] Work Phone: Laboratory - Hematology and Cell countson 04-12-2022 Erythrocyte distribution width (RBC) [Ratio] 15.0 % above high threshold See Below [facility] [place] [facility] Work Phone: Comment on above: Reference Range: 11. 5 - 14.5 Hematocrit (Bld) [Volume fraction] 29.5 % below low threshold See Below [facility] Work Phone: Comment on above: Reference Range: 36. 0 - 46.0 Hemoglobin (Bld) [Mass/Vol] 9.3 g/dL below low threshold See Below [facility] Work Phone: Comment on above: Reference Range: 12. 0 - 16.0 MCHC (RBC) [Mass/Vol] 31.5 g/dL below low threshold See Below [facility] Work Phone: Comment on above: Reference Range: 32. 0 - 36.0 MCV (RBC) [Entitic vol] 97 fL 80 - 100 [facility] Work Phone: Platelets (Bld) [#/Vol] 189 10*3/uL 150 - 450 [facility] Work Phone: RBC (Bld) [#/Vol] 3.05 {x10E12/L} below low threshold See Below [facility] Work Phone: Comment on above: Reference Range: 4.0 0 - 5.20 WBC (Bld) [#/Vol] 8.4 10*3/uL 4.4 - 11.3 [facility] [place] [facility] Work Phone: No Panel Informationon 04-12 0.0 {/100_WBC} 0.0-0.0 [facility] [place] Work Phone: Office Visiton 04-12-2022 Follow-up visit Diagnoses/Problems Anemia, unspecified type (285.9) (D64.9) Hypertension (401.9) (I10) Orders Anemia, unspecified type Start: Folate 400 MCG Oral Tablet; TAKE 1 TABLET DAILY DIRECTED Complete Blood Count; Status:Active; Requested for:[id number]; Start: Vitamin C 500 MG Oral Capsule; TAKE 1 CAPSULE Daily Patient Discussion/Summary Get CBC today f/u Dr Vega in 4months HTN/Anemai Provider Impressions 1. Hypertension, blood pressure is excellent she denies any side effects like becoming lightheaded so she will stay on her current regimen 2. Anemia, etiology is unclear but she is going to have a small capsule endoscopy soon. Other work-up has been negative but she was asked by her cargo mate to take folic acid and vitamin C which she is now taking in addition to the iron pills. I would like to recheck a CBC as 1 has not been done in a few months to make sure she is not too anemic Regular follow-up with me will be in 4 months or as needed Complete blood work was finished in January Chief Complaint pt is here for 4 mon re for HTN management. BN//AMD History of Present IllnessPatient is here for follow-up on hypertension and anemia. Once she started taking vitamin C and folic acid she started feeling little bit better. She has just got her small capsule endoscopy approved and will be undergoing the study in the next week or 2. Review of Systems Patient still complains of some general fatigue. Pt denies fever, chills, malaise or headache. Pt denies SOB, cough or MORILLO. Pt denies Chest pains pressures or palpitations. Pt denies Nausea, vomiting, constipation, or diarrhea. Pt denies swelling of hands feet ankles or joints. Active Problems Anemia, unspecified type (285.9) (D64.9) Atopic dermatitis (691.8) (L20.9) Depression (311) (F32.A) Fatigue (780.79) (R53.83) Fibromyalgia (729.1) (M79.7) Headache (784.0) (R51.9) Hypertension (401.9) (I10) Iron deficiency anemia (280.9) (D50.9) Need for influenza vaccination (V04.81) (Z23) Other abnormal cytological finding of specimen from cervix (795.4) (R87.618) Seborrhea (706.3) (L21.9) Visit for screening mammogram (V76.12) (Z12.31) Vitamin D deficiency (268.9) (E55.9) Past Medical History History of Abnormal fasting glucose (790.29) (R73.01) Resolved Date: 08 Feb 2021 History of Cat scratch of right hand, initial encounter (914.0,E906.8) (S60.511A,W55.03XA) History of Cellulitis of right index finger (681.00) (L03.011) History of Fever with chills (780.60) (R50.9) Resolved Date: 08 Feb 2021 History of Foot injury (959.7) (S99.929A) Resolved Date: 08 Feb 2021 History of Foot pain (729.5) (M79.673) Resolved Date: 08 Feb 2021 History of Hair changes (704.9) (L67.9) History of acute sinusitis (V12.69) (Z87.09) Resolved Date: 08 Feb 2021 Added by Problem List Migration; 2012-10-13; Moved to [facility] Jul 14 2013 9:12PM History of allergic rhinitis (V12.69) (Z87.09) Resolved Date: 08 Feb 2021 History of chest pain (V13.89) (Z87.898) Resolved Date: 08 Feb 2021 History of cough Resolved Date: 08 Feb 2021 History of dizziness (V13.89) (Z87.898) Resolved Date: 08 Feb 2021 History of dysuria (V13.00) (Z87.898) History of dysuria (V13.00) (Z87.898) History of gestational diabetes (V12.21) (Z86.32) X2 History of gestational diabetes (V12.21) (Z86.32) History of hematuria (V13.09) (Z87.448) Resolved Date: 08 Feb 2021 History of measles, mumps, and rubella vaccination (V49.89) (Z92.29) Resolved Date: 08 Feb 2021 History of muscle pain (V13.59) (Z87.39) Resolved Date: 08 Feb 2021 History of paresthesia (V15.89) (Z87.898) Resolved Date: 08 Feb 2021 History of Jaw pain (784.92) (R68.84) Resolved Date: 08 Feb 2021 History of Need for Tdap vaccination (V06.1) (Z23) Resolved Date: 08 Feb 2021 History of Sprain of right foot, initial encounter (845.10) (S93.601A) Resolved Date: 08 Feb 2021 History of Tendinitis of shoulder (726.10) (M77.8) Resolved Date: 08 Feb 2021 History of URTI (acute upper respiratory infection) (465.9) (J06.9) Resolved Date: 08 Feb 2021 Surgical History History of Colonoscopy 09/14/21 Dr Edouard, polyps, hem History of Esophagogastroduodenoscopy 06/08/21 Dr Edouard, esoph stricture, mild gastritis Social History Denied: History of Drug Use Educational Level High School 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 LEAVE LATHER ON FOR 3 MINUTES, THEN RINSE. REPEAT THE APPLICATION ONCE. USE TWICE PER WEEK. Iron (Ferrous Sulfate) 325 (65 Fe) MG Oral TabletTAKE 1 TABLET Daily take 1 tablet daily with food Lisinopril 40 MG Oral TabletTAKE 1 TABLET DAILY. met (more content not included)... Normal [facility] Mamm - Screening Mammogram w / Tomosynthesison 04-11-2022 MG Breast Screening Normal [facility] Work Phone: Ferritin, Serumon 03-29-2022 Ferritin [Mass/Vol] 223 ug/L above high threshold 8 - 150 [facility] Work Phone: Homocysteine, Serumon 2021 Homocysteine [Moles/Vol] 15.66 umol/L above high threshold See Below [facility] Work Phone: Comment on above: Reference Range: 5.0 0 - 13.90 Reference values apply to fasting specimens only. Non-fasting specimens produce slightly higher and likely clinically insignificant changes in homocysteine levels. Laboratory - Chemistry and C hemistry - challengeon 03-29-2022 Iron [Mass/Vol] 79 ug/dL 35 - 150 [facility] Work Phone: Iron binding capacity [Mass/Vol] 282 ug/dL 240 - 445 [facility] Work Phone: Methylmalonic Acid, Serumon 03-29-2022 Methylmalonate [Moles/Vol] 339 nmol/L 0-378 [facility] Work Phone: Comment on above: This test was develo ped and its performance characteristicsdetermined by [employer] ([employer]). It has not been cleared or approvedby the Food and Drug Administration.Test(s) 559544-Wsvkpqyvoqmji Acid, Serumwas developed and its performance characteristics determinedby [employer]. It has not been cleared or approved by the Foodand Drug Administration. No Panel Informationon 03-29 28 % 25 - 45 [facility] Work Phone: Reticulocyte Counton 022 Reticulocyte Count 33 pg 28 - 38 [facility] Work Phone: Reticulocyte Count 20.8 % above high threshold 0.0 - 16.0 [facility] Work Phone: Reticulocyte Count 0.175 {x10E12/L} above high threshold See Below [facility] Work Phone: Comment on above: Reference Range: 0.0 18 - 0.083 Reticulocyte Count 5.8 % above high threshold 0.5 - 2.0 [facility] Work Phone: Laboratoryon 02-19-2022 Lower GI hemoglobin IA Ql (Stl) Negative Negative [facility] Work Phone: Comment on above: This test detects co lorectal occult blood. Not all colorectal neoplasms induce bleeding. This test is not indicated for upper GI bleeding, anemia or iron deficiency evaluation.. This test is not validated for pediatric populations, interpret pediatric results in the context of patient presentations.. Digital Rectal Exam (KARISHMA) which induces bleeding may cause false positive results. If this occurs have patient submit stool at a future date. Complete Blood Count + Ness tracy 02-15-2022 Basophils/100 WBC (Bld) 0.3 % 0.0 - 2.0 [facility] Work Phone: Erythrocyte distribution width (RBC) [Ratio] 15.9 % above high threshold See Below [facility] Work Phone: Comment on above: Reference Range: 11. 5 - 14.5 Hematocrit (Bld) [Volume fraction] 29.2 % below low threshold See Below [facility] Work Phone: Comment on above: Reference Range: 36. 0 - 46.0 Hemoglobin (Bld) [Mass/Vol] 9.5 g/dL below low threshold See Below [facility] Work Phone: Comment on above: Reference Range: 12. 0 - 16.0 Lymphocytes/100 WBC (Bld) 17.7 % See Below [facility] Work Phone: Comment on above: Reference Range: 13. 0 - 44.0 MCHC (RBC) [Mass/Vol] 32.5 g/dL See Below [facility] Work Phone: Comment on above: Reference Range: 32. 0 - 36.0 MCV (RBC) [Entitic vol] 97 fL 80 - 100 [facility] Work Phone: Monocytes/100 WBC (Bld) 7.0 % 2.0 - 10.0 [facility] Work Phone: Neutrophils/100 WBC (Bld) 72.2 % See Below [facility] Work Phone: Comment on above: Reference Range: 40. 0 - 80.0 Platelets (Bld) [#/Vol] 205 10*3/uL 150 - 450 [facility] Work Phone: RBC (Bld) [#/Vol] 3.00 {x10E12/L} below low threshold See Below [facility] Work Phone: Comment on above: Reference Range: 4.0 0 - 5.20 WBC (Bld) [#/Vol] 7.7 10*3/uL 4.4 - 11.3 [facility] Work Phone: Complete Blood Count + Differential 0.02 {x10E9/L} See Below [facility] Work Phone: Comment on above: Reference Range: 0.0 0 - 0.10 Complete Blood Count + Differential 0.22 {x10E9/L} See Below [facility] Work Phone: Comment on above: Reference Range: 0.0 0 - 0.70 Complete Blood Count + Differential 0.54 {x10E9/L} See Below [facility] Work Phone: Comment on above: Reference Range: 0.1 0 - 1.00 Complete Blood Count + Differential 1.37 {x10E9/L} See Below [facility] Work Phone: Comment on above: Reference Range: 1.2 0 - 4.80 Complete Blood Count + Differential 5.59 {x10E9/L} See Below [facility] Work Phone: Comment on above: Reference Range: 1.2 0 - 7.70 Percent differential counts (%) should be interpreted in the context of the absolute cell counts (cells/L). Complete Blood Count + Differential 2.8 % 0.0 - 6.0 [facility] Work Phone: Copper, Serumon 02-15-2022 Copper [Mass/Vol] 129 ug/dL 80-158 [facility] Work Phone: Comment on above: Detection Limit = 5T est(s) 828035-[id number], Serum or Plasmawas developed and its performance characteristics determinedby [facility]. It has not been cleared or approved by the Foodand Drug Administration. Folate, Serumon 02-15-2022 Folate [Mass/Vol] 20.7 ng/mL >5.0 [facility] [employer] Work Phone: Comment on above: Low <3.4Borderline 3 .4-5.0Normal >5.0. Biotin interference may cause falsely elevated results. Patients taking a Biotin dose of up to 5 mg/day should refrain from taking Biotin for 24 hours before sample collection. Providers may contact their local laboratory for further information. Haptoglobin, Serumon Haptoglobin Nephelometry [Mass/Vol] 182 mg/dL 30 - 200 [facility] Work Phone: Laboratory - Chemistry and C hemistry - challengeon 02-15-2022 Albumin [Mass/Vol] 4.1 g/dL 3.4 - 5.0 [facility] Work Phone: Albumin BCP dye [Mass/Vol] 4.2 g/dL 3.4 - 5.0 [facility] Work Phone: ALP [Catalytic activity/Vol] 67 U/L 33 - 110 [facility] Work Phone: ALT With P-5'-P [Catalytic activity/Vol] 24 U/L 7 - 45 [facility] Work Phone: Comment on above: Patients treated wit h Sulfasalazine may generate falsely decreased results for ALT. Anion gap [Moles/Vol] 14 mmol/L 10 - 20 [facility] Work Phone: AST With P-5'-P [Catalytic activity/Vol] 22 U/L 9 - 39 [facility] Work Phone: Bilirubin [Mass/Vol] 0.8 mg/dL 0.0 - 1.2 [facility] Work Phone: Calcium [Mass/Vol] 9.5 mg/dL 8.6 - 10.6 [facility] Work Phone: Chloride [Moles/Vol] 104 mmol/L 98 - 107 [facility] Work Phone: CO2 [Moles/Vol] 26 mmol/L 21 - 32 [facility] Work Phone: Creatinine [Mass/Vol] 0.99 mg/dL See Below [facility] Work Phone: Comment on above: Reference Range: 0.5 0 - 1.05 Glucose [Mass/Vol] 123 mg/dL above high threshold 74 - 99 [facility] Work Phone: LDH [Catalytic activity/Vol] 147 U/L 84 - 246 [facility] Work Phone: Potassium [Moles/Vol] 3.8 mmol/L 3.5 - 5.3 [facility] Work Phone: Protein [Mass/Vol] 7.1 g/dL 6.4 - 8.2 [place] Work Phone: Sodium [Moles/Vol] 140 mmol/L 136 - 145 [place] Work Phone: Urea nitrogen [Mass/Vol] 30 mg/dL above high threshold 6 - 23 [facility] Work Phone: No Panel Informationon 02-15 1.25 1 See Below [facility] Work Phone: Comment on above: Reference Range: 0.2 6 - 1.65 Undetected antigen excess is a rare event but cannot be excluded. If these free light chain results do not agree with other clinical or laboratory findings, or if the sample is from a patient that has previously demonstrated antigen excess, the result must be checked by retesting at a higher sample dilution. Results should always be interpreted in conjunction with other laboratory tests and clinical evidence; any anomalies should be discussed with the testing laboratory. 2.33 mg/dL See Below [facility] Work Phone: Comment on above: Reference Range: 0.5 7 - 2.63 2.91 mg/dL above high threshold See Below [facility] Work Phone: Comment on above: Reference Range: 0.3 3 - 1.94 NORMAL [facility] Work Phone: Comment on above: No monoclonal protei ns detected by immunofixation. 1.1 g/dL 0.5 - 1.4 [facility] Work Phone: 0.7 g/dL 0.5 - 1.2 [facility] Work Phone: 0.8 g/dL 0.4 - 1.1 [facility] Work Phone: 0.4 g/dL 0.2 - 0.6 [facility] Work Phone: 70 {mL/min/1.73m2} >90 [place] Work Phone: Comment on above: CALCULATIONS OF TESHA MATED GFR ARE PERFORMED USING THE 2020 CKD-EPI STUDY REFIT EQUATION WITHOUT THE RACE VARIABLE FOR THE IDMS-TRACEABLE CREATININE METHODS.https://jasn.asnjournals.org/content//ASN.2 758043846 Path Review SPEleonel 02-15-2022 Path Review [address]CILLA DURAN [facility] Work Phone: Comment on above: By her/his signature above, the Pathologist listed as making the final interpretation certifies that she/he has personally reviewed this case. Reticulocyte Counton 022 Reticulocyte Count 35 pg 28 - 38 [place] Work Phone: Reticulocyte Count 23.2 % above high threshold 0.0 - 16.0 [facility] Work Phone: Reticulocyte Count 0.193 {x10E12/L} above high threshold See Below [facility] Work Phone: Comment on above: Reference Range: 0.0 18 - 0.083 Reticulocyte Count 6.5 % above high threshold 0.5 - 2.0 [facility] Work Phone: TSH - Thyroid Stimulating Ho rmone, Serumon 07-01-2022 TSH Qn 3.51 m[IU]/L See Below [facility] Work Phone: Comment on above: Reference Range: 0.4 4 - 3.98 TSH testing is performed using different testing methodology at [facility] than at other [facility]. Direct result comparisons should only be made within the same method. Vitamin B12, Serumon 022 Cobalamin (Vitamin B12) [Mass/Vol] 244 pg/mL 211 - 911 [facility] Work Phone: Laboratory - Chemistry and C hemistry - challengeon 01-26-2022 Albumin BCP dye [Mass/Vol] 4.1 g/dL 3.4 - 5.0 [facility] Work Phone: ALP [Catalytic activity/Vol] 62 U/L 33 - 110 [facility] Work Phone: ALT With P-5'-P [Catalytic activity/Vol] 21 U/L 7 - 45 [facility] Work Phone: Comment on above: Patients treated wit h Sulfasalazine may generate falsely decreased results for ALT. Anion gap [Moles/Vol] 14 mmol/L 10 - 20 [facility] Work Phone: AST With P-5'-P [Catalytic activity/Vol] 18 U/L 9 - 39 [facility] Work Phone: Bilirubin [Mass/Vol] 0.7 mg/dL 0.0 - 1.2 [facility] Work Phone: Calcium [Mass/Vol] 9.2 mg/dL 8.6 - 10.6 [facility] Work Phone: Chloride [Moles/Vol] 105 mmol/L 98 - 107 [facility] Work Phone: CO2 [Moles/Vol] 26 mmol/L 21 - 32 [facility] Work Phone: Creatinine [Mass/Vol] 0.93 mg/dL See Below [facility] Work Phone: Comment on above: Reference Range: 0.5 0 - 1.05 Glucose [Mass/Vol] 118 mg/dL above high threshold 74 - 99 [facility] Work Phone: Iron [Mass/Vol] 58 ug/dL 35 - 150 [facility] Work Phone: Iron binding capacity [Mass/Vol] 263 ug/dL 240 - 445 [facility] Work Phone: Potassium [Moles/Vol] 3.7 mmol/L 3.5 - 5.3 [facility] Work Phone: Protein [Mass/Vol] 6.5 g/dL 6.4 - 8.2 [facility] Work Phone: Sodium [Moles/Vol] 141 mmol/L 136 - 145 [place] Work Phone: TSH Qn 2.31 m[IU]/L See Below [facility] Work Phone: Comment on above: Reference Range: 0.4 4 - 3.98 TSH testing is performed using different testing methodology at [facility] than at other [facility]. Direct result comparisons should only be made within the same method. Urea nitrogen [Mass/Vol] 22 mg/dL 6 - 23 [facility] Work Phone: Laboratory - Hematology and Cell countson 01-26-2022 Erythrocyte distribution width (RBC) [Ratio] 16.6 % above high threshold See Below [facility] Work Phone: Comment on above: Reference Range: 11. 5 - 14.5 Hematocrit (Bld) [Volume fraction] 28.5 % below low threshold See Below [facility] Work Phone: Comment on above: Reference Range: 36. 0 - 46.0 Hemoglobin (Bld) [Mass/Vol] 9.1 g/dL below low threshold See Below [facility] Work Phone: Comment on above: Reference Range: 12. 0 - 16.0 MCHC (RBC) [Mass/Vol] 31.9 g/dL below low threshold See Below [facility] Work Phone: Comment on above: Reference Range: 32. 0 - 36.0 MCV (RBC) [Entitic vol] 97 fL 80 - 100 [facility] Work Phone: Platelets (Bld) [#/Vol] 191 10*3/uL 150 - 450 [facility] Work Phone: RBC (Bld) [#/Vol] 2.94 {x10E12/L} below low threshold See Below [facility] Work Phone: Comment on above: Reference Range: 4.0 0 - 5.20 WBC (Bld) [#/Vol] 8.5 10*3/uL 4.4 - 11.3 [place] Work Phone: Lipid Panelon 01-26-2022 Cholesterol [Mass/Vol] 185 mg/dL 0 - 199 [facility] Work Phone: Comment on above: . AGE DESIRABLE BORD DARIO HIGH HIGH 0-19 Y 0 - 169 170 - 199 >/= 200 20-24 Y 0 - 189 190 - 224 >/= 225 >24 Y 0 - 199 200 - 239 >/= 240 All ranges are based on fasting samples. Specific therapeutic targets will vary based on patient-specific cardiac risk.. Pediatric guidelines reference:Pediatrics 2011, 128(S5). Adult guidelines reference: NCEP ATPIII Guidelines, CHI 2001, 258:2486-97. Venipuncture immediately after or during the administration of Metamizole may lead to falsely low results. Testing should be performed immediately prior to Metamizole dosing. Cholesterol in HDL [Mass/Vol] 39.1 mg/dL Abnormal [facility] Work Phone: Comment on above: . AGE VERY LOW LOW N ORMAL HIGH 0-19 Y < 35 < 40 40-45 ---- 20- 24 Y ---- < 40 >45 ---- >24 Y ---- < 40 40-60 >60. Cholesterol in LDL [Mass/Vol] 118 mg/dL above high threshold 0 - 99 [facility] Work Phone: Comment on above: . NEAR BORD AGE ELIANA RABLE OPTIMAL HIGH HIGH VERY HIGH 0-19 Y 0 - 109 --- 110-129 >/= 130 ---- 20-24 Y 0 - 119 --- 120-159 >/= 160 ---- >24 Y 0 - 99 100-129 130-159 160-189 >/=190. Cholesterol.total/ Cholesterol in HDL [Mass ratio] 4.7 {ratio} [facility] Work Phone: Comment on above: REF VALUESDESIRABLE < 3.4HIGH RISK > 5.0 Triglyceride [Mass/Vol] 138 mg/dL 0 - 149 [facility] Work Phone: Comment on above: . AGE DESIRABLE BORD DARIO HIGH HIGH VERY HIGH 0 D-90 D 19 - 174 ---- ---- ----91 D- 9 Y 0 - 74 75 - 99 >/= 100 ---- 10-19 Y 0 - 89 90 - 129 >/= 130 ---- 20-24 Y 0 - 114 115 - 149 >/= 150 ---- >24 Y 0 - 149 150 - 199 200- 499 >/= 500. Venipuncture immediately after or during the administration of Metamizole may lead to falsely low results. Testing should be performed immediately prior to Metamizole dosing. Lipid Panel 28 mg/dL 0 - 40 [facility] Work Phone: No Panel Informationon 01-26 22 % below low threshold 25 - 45 [facility] Work Phone: 0.0 {/100_WBC} 0.0-0.0 [facility] Work Phone: 76 {mL/min/1.73m2} >90 -Int ernal [facility] Work Phone: Comment on above: CALCULATIONS OF TESHA MATED GFR ARE PERFORMED USING THE 2020 CKD-EPI STUDY REFIT EQUATION WITHOUT THE RACE VARIABLE FOR THE IDMS-TRACEABLE CREATININE METHODS.[email or web address]://jasn.asnjournals.org/content//[email or web address] Vitamin D 25-Hydroxyon 01-26 25-hydroxyvitamin D3 [Mass/Vol] 68 ng/mL [facility] Work Phone: Comment on above: .DEFICIENCY: < 20 NG /MLINSUFFICIENCY: 20-29 NG/MLSUFFICIENCY: 30-100 NG/MLTHIS ASSAY ACCURATELY QUANTIFIES THE SUM OFVITAMIN D3, 25-HYDROXY AND VIT D2,25-HYDROXY. Cult, Urineon 12-07-2021 Bacteria identified Cx Nom (U) [facility] Work Phone: IO UA (nonautomated w/o micr oscopy)on 12-07-2021 Protein (U) [Mass/Vol] Negative [facility] Work Phone: IO UA (nonautomated w/o microscopy) Normal (0.2-1.0 mg/dl) [facility] Work Phone: IO UA (nonautomated w/o microscopy) Negative -[facility] Work Phone: IO UA (nonautomated w/o microscopy) 6.0 1 -[facility] Work Phone: IO UA (nonautomated w/o microscopy) Hemolyzed trace -[facility] Work Phone: IO UA (nonautomated w/o microscopy) 1.020 1 -[facility] Work Phone: IO UA (nonautomated w/o microscopy) Clear [facility] Work Phone: IO UA (nonautomated w/o microscopy) Yellow -[facility] Work Phone: Office Visiton 12-07-2021 Follow-up visit Diagnoses/Problems Encounter for preventive health examination (V70.0) (Z00.00) Anemia, unspecified type (285.9) (D64.9) Atopic dermatitis (691.8) (L20.9) Depression (311) (F32.A) Fibromyalgia (729.1) (M79.7) Hypertension (401.9) (I10) Vitamin D deficiency (268.9) (E55.9) Dysuria (788.1) (R30.0) Orders Anemia, unspecified type, Atopic dermatitis, Depression, Health Maintenance, Fibromyalgia, Hypertension, Vitamin D deficiency Complete Blood Count; Status:Active; Requested for:15Jan2022; Comprehensive Metabolic Panel; Status:Active; Requested for:15Jan2022; Lipid Panel; Status:Active; Requested for:15Jan2022; TSH WITH REFLEX TO FREE T4 IF ABNORMAL; Status:Active; Requested for:15Jan2022; Vitamin D 25-Hydroxy; Status:Active; Requested for:15Jan2022; Health Maintenance IO UA (nonautomated w/o microscopy); Status:Resulted - Requires Verification,Retrospective Authorization; Done: 07Dec2021 09:15AM Hypertension Renew: Chlorthalidone 25 MG Oral Tablet; TAKE 1 TABLET BY MOUTH EVERY DAY Patient Discussion/Summary get blood work for anemia after 12/11 Get fasting labs in January f/u Dr vega in mon for HTN Provider Impressions 1. Anemia, patient is due for repeat CBC at the end of this month so she was given a requisition 2. Hypertension, blood pressure is very well controlled and she has responded nicely to the chlorthalidone. She was given a refill and will stay on the chlorthalidone 25 mg and lisinopril 40 mg daily for hypertension control 3. Patient has had some intermittent dysuria in the past month. Urinalysis shows trace hemolyzed blood but otherwise nothing. Urine will be sent for culture but we will not treat at this time. I did encourage the patient to get cranberry tablets and to take them twice a day as it may help with her urine 4. Fibromyalgia is stable Regular follow-up with me will be in 4 months Patient was given a requisition for her annual fasting blood work which is due in January Chief Complaint pt is here for 1 mon re for HTN management. pt states for the past 3 wks it hurt when she urinate. BN//AMD History of Present IllnessPatient is here for follow-up on hypertension but notices that she has had some slight discomfort with urination for the past month. No frequency no blood in the urine that she has noticed although she has chronic hemolyzed blood which is old and unchanged. She has no fevers chills or other symptoms associated with bladder infection or kidney infection. Review of Systems Constitutional: No fevers, no chills. Eye: No change of vision, no eye pain. ENMT: No ear pain, no nose or mouth or throat symptoms. Respiratory: No shortness of breath, no cough. Cardiovascular: No Chest pain, no palpitations.. Gastrointestinal: No nausea, no vomiting, no diarrhea. Genitourinary: : Patient has slight dysuria intermittently in the past month but no frequency no carmela blood in the urine and no urinary retention. Rohit/Lymph: No bruising tendency, no swollen lymph glands. Endocrine: No heat intolerance, no cold intolerance. Musculoskeletal: No muscle pain, no bone pain, no joint pain. Integumentary: No rash, no skin lesion. Neurologic: No headache, no sensory changes. Psychiatric: No anxiety, no depression. Active Problems Anemia, unspecified type (285.9) (D64.9) Atopic dermatitis (691.8) (L20.9) Cat scratch of right hand, initial encounter (914.0,E906.8) (S60.511A,W55.03XA) Cellulitis of right index finger (681.00) (L03.011) Depression (311) (F32.A) Fatigue (780.79) (R53.83) Fibromyalgia (729.1) (M79.7) Hair changes (704.9) (L67.9) Headache (784.0) (R51.9) Hypertension (401.9) (I10) Iron deficiency anemia (280.9) (D50.9) Need for influenza vaccination (V04.81) (Z23) Other abnormal cytological finding of specimen from cervix (795.4) (R87.618) Seborrhea (706.3) (L21.9) Visit for screening mammogram (V76.12) (Z12.31) Vitamin D deficiency (268.9) (E55.9) Past Medical History History of Abnormal fasting glucose (790.29) (R73.01) Resolved Date: 08 Feb 2021 History of Fever with chills (780.60) (R50.9) Resolved Date: 08 Feb 2021 History of Foot injury (959.7) (S99.929A) Resolved Date: 08 Feb 2021 History of Foot pain (729.5) (M79.673) Resolved Date: 08 Feb 2021 History of acute sinusitis (V12.69) (Z87.09) Resolved Date: 08 Feb 2021 Added by Problem List Migration; 2012-10-13; Moved to [facility] Jul 14 2013 9:12PM History of allergic rhinitis (V12.69) (Z87.09) Resolved Date: 08 Feb 2021 History of chest pain (V13.89) (Z87.898) Resolved Date: 08 Feb 2021 History of cough Resolved Date: 08 Feb 2021 History of dizziness (V13.89) (Z87.898) Resolved Date: 08 Feb 2021 History of gestational diabetes (V12.21) (Z86.32) X2 History of gestational diabetes (V12.21) (Z86.32) History of hematuria (V13.09) (Z87.448) Resolved Date: 08 Feb 2021 History of measles, mumps, and rubella vaccination (V49.89) (Z92.29) Resolve (more content not included)... Normal SIM Digital Office Visiton 11-09-2021 Follow-up visit Diagnoses/Problems Hypertension (401.9) (I10) Seborrhea (706.3) (L21.9) Atopic dermatitis (691.8) (L20.9) Orders Atopic dermatitis, Seborrhea Start: Clobetasol Propionate 0.05 % External Shampoo; MASSAGE ONTO WET SCALP. LEAVE LATHER ON FOR 3 MINUTES, THEN RINSE. REPEAT THE APPLICATION ONCE. USE TWICE PER WEEK Hypertension Start: Chlorthalidone 25 MG Oral Tablet; TAKE 1 TABLET DAILY Patient Discussion/Summary f/u 1 month for HTN Provider Impressions 1. Hypertension, still with poor control so she will stay on lisinopril 40 mg daily and to this I will add chlorthalidone 25 mg daily. Patient will follow up with me in 1 month for hypertension 2. Patient has dry red flaking skin around her ears hairline the creases of her nose. I believe she has an atopic dermatitis or seborrhea. She was given a steroid shampoo and asked to use Cortaid cream on the face avoiding the eye areas twice a day. The shampoo will be used twice a week and she was given instructions on how to use the shampoo. We will check on her hair and skin next month as well. Chief Complaint 1 mon f/u for meds HTN. BN/AMD History of Present IllnessPatient is here today for recheck on hypertension. She increase the lisinopril to 40 mg daily without any apparent side effects and is doing well. She also notices that her hair and nails are slightly improved now that she is taking iron supplements for her anemia. Review of Systems Pt denies fever, chills, malaise or headache. Pt denies SOB, cough or [place]. Pt denies Chest pains pressures or palpitations. Pt denies Nausea, vomiting, constipation, or diarrhea. Pt denies swelling of hands feet ankles or joints. Active Problems Anemia, unspecified type (285.9) (D64.9) Cat scratch of right hand, initial encounter (914.0,E906.8) (S60.511A,W55.03XA) Cellulitis of right index finger (681.00) (L03.011) Depression (311) (F32.A) Fatigue (780.79) (R53.83) Fibromyalgia (729.1) (M79.7) Hair changes (704.9) (L67.9) Headache (784.0) (R51.9) Hypertension (401.9) (I10) Iron deficiency anemia (280.9) (D50.9) Need for influenza vaccination (V04.81) (Z23) Other abnormal cytological finding of specimen from cervix (795.4) (R87.618) Visit for screening mammogram (V76.12) (Z12.31) Vitamin D deficiency (268.9) (E55.9) Past Medical History History of Abnormal fasting glucose (790.29) (R73.01) Resolved Date: 08 Feb 2021 History of Fever with chills (780.60) (R50.9) Resolved Date: 08 Feb 2021 History of Foot injury (959.7) (S99.929A) Resolved Date: 08 Feb 2021 History of Foot pain (729.5) (M79.673) Resolved Date: 08 Feb 2021 History of acute sinusitis (V12.69) (Z87.09) Resolved Date: 08 Feb 2021 Added by Problem List Migration; 2012-10-13; Moved to [facility] Jul 14 2013 9:12PM History of allergic rhinitis (V12.69) (Z87.09) Resolved Date: 08 Feb 2021 History of chest pain (V13.89) (Z87.898) Resolved Date: 08 Feb 2021 History of cough Resolved Date: 08 Feb 2021 History of dizziness (V13.89) (Z87.898) Resolved Date: 08 Feb 2021 History of gestational diabetes (V12.21) (Z86.32) X2 History of gestational diabetes (V12.21) (Z86.32) History of hematuria (V13.09) (Z87.448) Resolved Date: 08 Feb 2021 History of measles, mumps, and rubella vaccination (V49.89) (Z92.29) Resolved Date: 08 Feb 2021 History of muscle pain (V13.59) (Z87.39) Resolved Date: 08 Feb 2021 History of paresthesia (V15.89) (Z87.898) Resolved Date: 08 Feb 2021 History of Jaw pain (784.92) (R68.84) Resolved Date: 08 Feb 2021 History of Need for Tdap vaccination (V06.1) (Z23) Resolved Date: 08 Feb 2021 History of Sprain of right foot, initial encounter (845.10) (S93.601A) Resolved Date: 08 Feb 2021 History of Tendinitis of shoulder (726.10) (M77.8) Resolved Date: 08 Feb 2021 History of URTI (acute upper respiratory infection) (465.9) (J06.9) Resolved Date: 08 Feb 2021 Surgical History History of Colonoscopy 09/14/21 Dr Edouard, polyps, hem History of Esophagogastroduodenoscopy 06/08/21 Dr Edouard, esoph stricture, mild gastritis Social History Denied: History of Drug Use Educational Level High School 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 metroNIDAZOLE 0.75 % Vaginal Gel Vitamin D3 125 MCG (5000 UT) Oral CapsuleTAKE 1 CAPSULE Daily Vitals Vital Signs Recorded: 09Nov2021 11:38AM [id number] Physical Exam Patient is obese. HEENT grossly normal, except for dry flaking skin around the creases of her nose, around her hairline and especially behind her ears. Chest clear to auscultation, no wheezes, crackles or rubs. (more content not included)... Normal SIM Digital Laboratory - Chemistry and C hemistry - challengeon 10-12-2021 Iron [Mass/Vol] 33 ug/dL below low threshold 35 - 150 [facility] [employer] Work Phone: Iron binding capacity [Mass/Vol] 401 ug/dL 240 - 445 [facility] [employer] Work Phone: Laboratory - Hematology and Cell countson 10-12-2021 Erythrocyte distribution width (RBC) [Ratio] 17.4 % above high threshold See Below [facility] [employer] Work Phone: Comment on above: Reference Range: 11. 5 - 14.5 Hematocrit (Bld) [Volume fraction] 35.6 % below low threshold See Below [facility] [employer] Work Phone: Comment on above: Reference Range: 36. 0 - 46.0 Hemoglobin (Bld) [Mass/Vol] 10.7 g/dL below low threshold See Below [facility] Work Phone: Comment on above: Reference Range: 12. 0 - 16.0 MCHC (RBC) [Mass/Vol] 30.1 g/dL below low threshold See Below [facility] [employer] Work Phone: Comment on above: Reference Range: 32. 0 - 36.0 MCV (RBC) [Entitic vol] 75 fL below low threshold 80 - 100 [facility] Work Phone: Platelets (Bld) [#/Vol] 229 10*3/uL 150 - 450 [facility] [employer] Work Phone: RBC (Bld) [#/Vol] 4.73 {x10E12/L} See Below [facility] [employer] Work Phone: Comment on above: Reference Range: 4.0 0 - 5.20 WBC (Bld) [#/Vol] 9.2 10*3/uL 4.4 - 11.3 -Int ernal [facility] [employer] Work Phone: No Panel Informationon 10-12 0.0 {/100_WBC} 0.0-0.0 [facility] [employer] Work Phone: 8 % below low threshold 25 - 45 [facility] [employer] Work Phone: Office Visiton 10-12-2021 Follow-up visit Diagnoses/Problems Anemia, unspecified type (285.9) (D64.9) Hypertension (401.9) (I10) Iron deficiency anemia (280.9) (D50.9) Hair changes (704.9) (L67.9) Orders Anemia, unspecified type Complete Blood Count; Status:In Progress - Specimen/Data Collected; Done: [id number] Iron + TIBC, Serum; Status:In Progress - Specimen/Data Collected; Done: [id number] Hypertension Renew: Lisinopril 40 MG Oral Tablet; TAKE 1 TABLET DAILY Patient Discussion/Summary Increase dose of lisinopril to 40 mg a day and f/u Dr Vega in 1month for HTN Get labs today Provider Impressions 1. Hypertension, patient's lisinopril will be increased to 40 mg daily and I will see her back in 1 month 2. Iron deficiency anemia, I will repeat the patient's CBC and iron studies 3. Hair breakage or damage, etiology is not clear but for now we will recheck her iron and CBC levels if that is not the cause we may consider rechecking thyroid as well Follow up in 1 month for hypertension. Chief Complaint f/u visit for bleeding after colonoscopy. BN Appt for f/u after bleeding/ colonoscopy BN // AMD History of Present Illness1. Hypertension, patient was unable to tolerate chlorthalidone due to nausea. This will be added to her allergy list. Over this past year she had an abnormal Pap test which was followed up with a biopsy by Dr. Lombardi. We did not have the pathology reports but we will try and get a copy of it Patient also had anemia which was iron deficient so she had an EGD and colonoscopy. We do have colonoscopy report but for some reason never got the EGD and will need to get a copy of that as well Patient does have a family history of colon cancer in her maternal grandmother. Review of Systems Currently patient feels well and has only 1 complaint and that is her hair is fragile and breaking Constitutional: No fevers, no chills. Eye: No change of vision, no eye pain. ENMT: No ear pain, no nose or mouth or throat symptoms. Respiratory: No shortness of breath, no cough. Cardiovascular: No Chest pain, no palpitations.. Gastrointestinal: No nausea, no vomiting, no diarrhea. Genitourinary: : No dysuria, no urinary retention. Rohit/Lymph: No bruising tendency, no swollen lymph glands. Endocrine: No heat intolerance, no cold intolerance. Musculoskeletal: No muscle pain, no bone pain, no joint pain. Integumentary: No rash, no skin lesion. Neurologic: No headache, no sensory changes. Psychiatric: No anxiety, no depression. Active Problems Anemia, unspecified type (285.9) (D64.9) Cat scratch of right hand, initial encounter (914.0,E906.8) (S60.511A,W55.03XA) Cellulitis of right index finger (681.00) (L03.011) Depression (311) (F32.A) Fatigue (780.79) (R53.83) Fibromyalgia (729.1) (M79.7) Headache (784.0) (R51.9) Hypertension (401.9) (I10) Iron deficiency anemia (280.9) (D50.9) Need for influenza vaccination (V04.81) (Z23) Other abnormal cytological finding of specimen from cervix (795.4) (R87.618) Visit for screening mammogram (V76.12) (Z12.31) Vitamin D deficiency (268.9) (E55.9) Past Medical History History of Abnormal fasting glucose (790.29) (R73.01) Resolved Date: 08 Feb 2021 History of Fever with chills (780.60) (R50.9) Resolved Date: 08 Feb 2021 History of Foot injury (959.7) (S99.929A) Resolved Date: 08 Feb 2021 History of Foot pain (729.5) (M79.673) Resolved Date: 08 Feb 2021 History of acute sinusitis (V12.69) (Z87.09) Resolved Date: 08 Feb 2021 Added by Problem List Migration; 2012-10-13; Moved to [facility] Jul 14 2013 9:12PM History of allergic rhinitis (V12.69) (Z87.09) Resolved Date: 08 Feb 2021 History of chest pain (V13.89) (Z87.898) Resolved Date: 08 Feb 2021 History of cough Resolved Date: 08 Feb 2021 History of dizziness (V13.89) (Z87.898) Resolved Date: 08 Feb 2021 History of gestational diabetes (V12.21) (Z86.32) X2 History of gestational diabetes (V12.21) (Z86.32) History of hematuria (V13.09) (Z87.448) Resolved Date: 08 Feb 2021 History of measles, mumps, and rubella vaccination (V49.89) (Z92.29) Resolved Date: 08 Feb 2021 History of muscle pain (V13.59) (Z87.39) Resolved Date: 08 Feb 2021 History of paresthesia (V15.89) (Z87.898) Resolved Date: 08 Feb 2021 History of Jaw pain (784.92) (R68.84) Resolved Date: 08 Feb 2021 History of Need for Tdap vaccination (V06.1) (Z23) Resolved Date: 08 Feb 2021 History of Sprain of right foot, initial encounter (845.10) (S93.601A) Resolved Date: 08 Feb 2021 History of Tendinitis of shoulder (726.10) (M77.8) Resolved Date: 08 Feb 2021 History of URTI (acute upper respiratory infection) (465.9) (J06.9) Resolved Date: 08 Feb 2021 Surgical History History of Colonoscopy 09/14/21 Dr Edouard, polyps, hem History of Esophagogastroduodenoscopy 06/08/21 Dr Edouard, esoph stricture, mild gastritis Social History Denied: History of Drug Use Educational Level High School 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 Normal SIM Digital ALLIED HEALTHon 08-02-2021 ALLIED HEALTH HNO ID: [id number] Author: EAN King Service: Radiology Author Type: Technologist Type: Allied Health Filed: 08/02/2021 5:35 PM Note Text: Radiology Service Progress Note PATIENT NAME: Eliz John DATE OF SERVICE: August 02, 2021 TIME: 5:34 PM PATIENT IDENTITY VERIFICATION COMPLETED USING TWO (2) IDENTIFIERS: Name and Date of confirmed by patient verbally. FALL SCREENING: Has the patient had 2 falls in the last year or 1 fall with injury or currently using an Ambulatory Assistive Device (Walker, Cane, Wheelchair, Crutches, etc.)? No PATIENT GENDER DATA: Female. status: : No status: NO. PATIENT RELEVANT IMPLANT DATA REVIEWED: Yes RADIOLOGY DEPARTMENT: General X-ray: Exam(s) Completed: Upper Extremity X-Ray(s): Fingers/Thumb, right PERIPHERAL IV DATA: Not applicable SIGNED BY: EAN King August 02, 2021 5:34 PM [facility] ED NOTEon 08-02-2021 ED NOTE HNO ID: [id number] Author: Cali Art RN Service: ? Author Type: Registered Nurse Type: ED Notes Filed: 08/02/2021 6:09 PM Note Text: Discharge instructions and prescriptions reviewed with patient via teachback.Pt verbalizes understanding. Pt awake and alert, respirations regular and unlabored. No further questions for this RN. [facility] ED NOTE HNO ID: [id number] Author: Mitzy Park RN Service: ? Author Type: Registered Nurse Type: ED Notes Filed: 08/02/2021 5:07 PM Note Text: Pt to ED with c/c right index finger pain, pt states scratch of her cat on Friday, pt went to [facility] and given antibiotics. Pt states increase in pain and it feels like the bone hurts . [facility] ED PROV NOTEon 08-02-2021 ED PROV NOTE HNO ID: [id number] Author: Yuli Fung PA-C Service: ? Author Type: Physician Photographer'S Model Type: ED Provider Notes Filed: 08/02/2021 5:58 PM Note Text: ED Provider Note Patient Name: Eliz John SERVICE DATE: 08/02/21 History Patient presents with: Finger Injury: right index 46 year old female, otherwise healthy, presents with continued pain to right index finger. She had had a cat scratch on Friday (5 days ago) and seen at urgent care who placed her on Augmentin. States the redness is improving however she feels pain deep in her bone like an ache. Denies fever, chills. She is not a diabetic. Both patient and cat UTD on immunizations History provided by: Patient No past medical history on file. No past surgical history on file. No family history on file. Social History Tobacco Use - Smoking status: Never Smoker - Smokeless tobacco: Never Used Substance and Sexual Activity - Alcohol use: Not on file - Drug use: Not on file - Sexual activity: Not on file ALLERGIES Allergen Reactions - Levofloxacin Swelling Review of Systems Constitutional: Negative for chills and fever. HENT: Negative. Eyes: Negative for photophobia and visual disturbance. Respiratory: Negative for cough and shortness of breath. Cardiovascular: Negative for chest pain. Gastrointestinal: Negative for nausea. Genitourinary: Negative. Musculoskeletal: Right index finger pain Skin: Positive for wound. Neurological: Negative. Hematological: Negative. Psychiatric/Behavioral: Negative. Physical Exam Vitals [08/02/21 1702] BP Pulse Temp Temp src Resp SpO2 Weight Height 117/92 (!) 99 37.7 ?C (99.8 ?F) Oral 18 99 % 99.8 kg (220 lb) 1.524 m (5') Physical Exam Vitals and nursing note reviewed. Constitutional: General: She is not in acute distress. Appearance: Normal appearance. She is not ill-appearing or toxic-appearing. HENT: Head: Normocephalic and atraumatic. Nose: Nose normal. Mouth/Throat: Mouth: Mucous membranes are moist. Pharynx: Oropharynx is clear. Eyes: Extraocular Movements: Extraocular movements intact. Conjunctiva/sclera: Conjunctivae normal. Cardiovascular: Rate and Rhythm: Normal rate and regular rhythm. Pulmonary: Effort: Pulmonary effort is normal. Breath sounds: Normal breath sounds. Musculoskeletal: Cervical back: Normal range of motion and neck supple. No rigidity. Comments: See skin. Maintains ROM to DIP, PIP, MCP. Sensation intact. Cap refill < 2 seconds. Radial pulse 2+ Skin: Findings: Erythema present. Comments: Right index finger with mild erythema and swelling around the distal phalanx. without drainage or lymphangitic streaking Neurological: General: No focal deficit present. Mental Status: She is alert and oriented to person, place, and time. Cranial Nerves: No cranial nerve deficit. Psychiatric: Mood and Affect: Mood normal. Diagnostic Testing XR DIGIT GENERAL 3V FRONTAL/LAT/OBL RIGHT Final Result IMPRESSION: No acute osseous abnormalities are identified. Soft tissue swelling. Regulatory Compliance Manager: PSCB Transcribe Date/Time: Aug 02 2021 5:36P Dictated by : HENRRY ROACH MD This examination was interpreted and the report reviewed and electronically signed by: HENRRY ROACH MD on Aug 02 2021 5:39PM EST Procedures ED Course / Clinical Impression Clinical Impressions as of 08/02/21 1755 Cat scratch Pain of finger of right hand MDM / Disposition / Plan Patient presented to the ED today with concern about a cat scratch to her right and got dog's finger. This happened 5 days ago. She has been on Augmentin for the last few days which has improved the redness significantly she states, however she still feels like a deep pain in her bone. X-rays negative does not show any gas or concern of osteomyelitis. She is afebrile. She has good range of motion. I will add on azithromycin as this was a scratch and she will continue the Augmentin as well. She will follow with her PCP for wound recheck and aware to return for worsening The patient was DISCHARGED: Counseled patient regarding radiology results AND suspected diagnosis AND need for follow-up. Discharged home with verbal and written instructions. They were instructed to return as needed for persistent or worsening symptoms or any new concerns. Condition at time of disposition: stable SIGNATURE: KIM Woodard PA-C 08/02/21 1758 [facility] XR DIGIT 3V FRONTAL/LAT/OBL RTon 08-02-2021 XR DIGIT 3V FRONTAL/LAT/OBL RT * * *Final Report* * * DATE OF EXAM: Aug 02 2021 5:31PM MDX [id number] - XR DIGIT 3V FRONTAL/LAT/OBL RT / PROCEDURE REASON: Hand pain, traumatic * * * * Physician Interpretation * * * * EXAMINATION: XR DIGIT 3V FRONTAL/LAT/OBL RT CLINICAL HISTORY: Pt.has redness and pain in finger in area of DIP joint of index finger right hand..Pt.states recent cat scratch to this area. Technique: XR DIGIT 3V FRONTAL/LAT/OBL RT -- NOT APPLICABLE with 3 views on 3 images Comparison: None RESULT: No evidence of acute fracture or dislocation. Joint spaces appear unremarkable. No radiopaque foreign body is identified. Soft tissue swelling is noted. No soft tissue gas is identified. IMPRESSION: No acute osseous abnormalities are identified. Soft tissue swelling. Regulatory Compliance Manager: PSCB Transcribe Date/Time: Aug 02 2021 5:36P Dictated by : HENRRY ROACH MD This examination was interpreted and the report reviewed and electronically signed by: HENRRY ROACH MD on Aug 02 2021 5:39PM EST [id number] [facility] Tobacco Screening.on 021 Tobacco use status CPHS b) No [facility] Work Phone: [facility] Office-Progress Notes-Pr ovideron 05-31-2021 [facility] Office-Progress Notes-Provider Assessment/Plan 1. Postoperative state Z98.890 Pathology and pictures reviewed. Chief Complaint Here for 2 wk PO exam - no complaints, had a rough weekend after surgery but good now Hysteroscopy, dilation and curettage, myosure polypectomy 05/18/21 History of Present Illness Did well after surgery. Did have a non-painful period a few days after surgery. Physical Exam Vitals & Measurements BP: 130/70 HT: 152 cm WT: 92.4 kg BMI: 39.99 LMP: 05/19/2021 00:00 EDT Depression Screening Scores Initial Depression Screen Score: 0 (05/31/21 14:14:00) Fall Risk Assessment Is the patient ambulatory (mobile): Yes (05/31/21 14:14:00) Have you had a fall within the past: No (05/31/21 14:14:00) Have you had 2 or more falls in the past: No (10/14/21 14:14:00) The vital signs were reviewed and are normal. General appearance: well developed and well nourished Lungs: Normal respiratory effort, clear to auscultation Extremities: No edema or clubbing Psychiatric: Mood normal: yes Affect normal: yes Insight and judgement normal: yes [employer] Additional Details Menstrual History Menstrual StatusMenarcheal Last Menstrual [id number]/19/2021 OB History History (2,0,0,2) # 1 Baby 1 Outcome Date: 05/16/2002 Outcome: Live Outcome or Result: Vaginal Gender: Female Gest Age: 39 weeks Wt: 3062 g Hospital: [facility] Labor: -- Child's Name: -- Baby's Father: -- Maternal Complications: GDM # 2 Baby 1 Outcome Date: 04/30/2005 Outcome: Live Outcome or Result: Vaginal Gender: Female Gest Age: 37 weeks Wt: 3289 g Hospital: [facility] Labor: -- Child's Name: -- Baby's Father: -- Problem List/Past Medical History Ongoing BMI 39.0-39.9,adult Depression History of gestational diabetes HTN (hypertension) Vitamin D deficiency Historical Procedure/Surgical History Hysteroscopy, dilation and curettage, myosure polypectomy (05/18/2021) colposcopy - Negative (04/17/2021) Last pap - EDILBERTO (02/26/2021) Colonoscopy - Never, Cologard - Negative () Mammo - Normal () Medications lisinopril 10 mg oral tablet Vitamin D3 125 mcg (5000 intl units) oral tablet, ORAL, DAILY Allergies No Known Medication Allergies Social History Alcohol Current, 1-2 times per week, 04/13/2021 Sexual Sexually active: Yes. Uses condoms: Yes., 04/13/2021 Substance Abuse - Denies Substance Abuse, 04/13/2021 Tobacco Never (less than 100 in lifetime) Tobacco Use:., 04/13/2021 Family History Colon cancer..: Grandmother (Dx about 70). Lab Results endometrial polyp, benign pathology [facility] Ambulatory Clinical Summaryo n 05-31-2021 Ambulatory Clinical Summary ELIZ JOHN :1975 Visit Date:05/31/2021 Ambulatory Visit Instructions Your Diagnosis Postoperative state Your Care Team Attending Physician - HARJIT AGUIRRE FACOG, JUANITA Primary Care Physician - JACKIE HOBBS Procedures Performed Hysteroscopy, dilation and curettage, myosure polypectomy (05/18/2021) colposcopy - Negative (04/17/2021) Last pap - EDILBERTO (02/26/2021) Colonoscopy - Never, Cologard - Negative () Mammo - Normal () Discharge Vitals Blood Pressure 130/70 Height 152 cm Weight 92.4 kg BMI 39.99 Systolic Blood Pressure: 130 mmHg (05/31/21 14:14:00) Diastolic Blood Pressure: 70 mmHg (05/31/21 14:14:00) Mean Arterial Pressure: 90 mmHg (05/31/21 14:14:00) Height/Length Measured: 152 cm (05/31/21 14:14:00) Weight Measured: 92.4 kg (05/31/21 14:14:00) Body Mass Index Measured: 39.99 kg/m2 (05/31/21 14:14:00) Height/Length Measured - in2: 60 in (05/31/21 14:14:00) Ht/Wt Measurement Refused by Patient?2: No (05/31/21 14:14:00) Last Menstrual Period: 05/19/21 (05/31/21 14:14:00) What to do next Scheduled Follow-Up Appointments No results Medications What How Much When Instructions Unchanged cholecalciferol (Vitamin D3 125 mcg (5000 intl units) oral tablet) DAILY Unchanged lisinopril (lisinopril 10 mg oral tablet) What How Much When Why Comments Stop Taking acetaminophen-hydrocodone ([place] 5 mg-325 mg oral tablet) 1 Tabs Oral EVERY SIX HOURS as needed for for pain Postoperative pain Duration: 2 Days Allergies No Known Medication Allergies Problems Ongoing - Any problem that you are currently receiving treatment for. BMI 39.0-39.9,adult Depression History of gestational diabetes HTN (hypertension) Vitamin D deficiency Historical - Any problem that you are no longer receiving treatment for. Common Emergency Awareness Tips IS IT A STROKE? Act FAST and Check for these signs: FACE Does the face look uneven? ARM Does one arm drift down? SPEECH Does their speech sound strange? TIME Call at any sign of stroke Heart Attack Signs Chest discomfort: Most heart attacks involve discomfort in the center of the chest and lasts more than a few minutes, or goes away and comes back. It can feel like uncomfortable pressure, squeezing, fullness or pain. Discomfort in upper body: Symptoms can include pain or discomfort in one or both arms, back, neck, jaw or stomach. Shortness of breath: With or without discomfort. Other signs: Breaking out in a cold sweat, nausea, or lightheaded. Remember, MINUTES DO MATTER. If you experience any of these heart attack warning signs, call to get immediate medical attention! [facility] Operative Reporton Operative Report Indication for Surge ry Endometrial polyp. The surgery was performed at the [facility] Preoperative Diagnosis Endometrial polyp Postoperative Diagnosis Same Operation Hysteroscopy, dilation and curettage, myosure polypectomy Surgeon(s) Harjit Photographer'S Model none Anesthesia MAC Estimated Blood Loss <5 mL Urine Output 900 saline in/ 900 saline out Findings Endometrial polyp at fundus Specimen(s) Endometrial curettings and polyp Complications none Technique Eliz was taken to the operating room where MAC was initiated. She was placed in a lithotomy position. A speculum was placed. The anterior lip of the cervix was grasped with a tenaculum. The cervix was gradually dilated. The myosure hysteroscope was placed. The myosure lite device was used to remove the polyp noted at the anterior fundus. I sampled the cavity with the device. There was no bleeding at the end of the procedure. All the instruments were removed. Sponge lap and needle counts were correct at the end of the procedure. Findings: Thin endometrium with polypoid structure at the fundus [facility] Phone Msgon 04-17-2021 Phone Msg - From: Paris Johnston ([facility]) To: JUANITA LOMBARDI MD; Sent: 04/17/2021 13:54:27 EDT Subject: RE: AMB Schedule Surgery Called patient she went with surgery date 05/18/2021, sent the request to [facility], faxed everything over to them. I will get everything on the schedule and scanned in her chart. I will also get her benefits verified. She has my phone number if she needs anything. Please find the order information listed below. Ordered By:JUANITA LOMBARDI MD, FACOG REGIMEN_DETAIL: Requested Start Date/Time: 04/13/2021 13:08:00 EDT Intent of therapy: From: JUANITA LOMBARDI MD, FACOG To: [facility] Scheduling; Sent: 04/17/2021 13:57:15 EDT Subject: RE: AMB Schedule Surgery Thanks [facility] Phone Msg Entered by Paris Johnston on April 17, 2021 13:54:33 EDT Called patient she went with surgery date 05/18/2021, sent the request to [facility], faxed everything over to them. I will get everything on the schedule and scanned in her chart. I will also get her benefits verified. She has my phone number if she needs anything. Please find the order information listed below. Ordered By:JUANITA LOMBARDI MD, FACOG REGIMEN_DETAIL: Requested Start Date/Time: 04/13/2021 13:08:00 EDT Intent of therapy: [facility] SURGICAL PATH REPORTon 04-17 SURGICAL PATH REPORT [facility] Department of Pathology [address] [place] [id number] Name: ELIZ JOHN : 1975 [facility] [id number] Number: Gender: Female Location: [facility]. Admit 45 years Attending JUANITA LOMBARDI MD, FACOG Age: Provider: Ordering JUANITA LOMBARDI MD, FACOG Provider: Consulting: Surgical Pathology Report ACCESSION: COLLECTED DATE/TIME: RECEIVED DATE/TIME: PATHOLOGIST: [id number] 04/13/2021 12:00 EDT 04/16/2021 09:42 EDT CHRISTIAN AGUIRRE, LAURO Final Diagnosis (A) CERVIX POLYP 6 O'CLOCK; BIOPSY: - ENDOCERVICAL POLYP FRAGMENTS WITH ACUTE INFLAMMATION AND REACTIVE EPITHELIAL CHANGES. - NEGATIVE FOR DYSPLASIA OR MALIGNANCY. NOTE: Intradepartmental consultation was obtained with diagnostic concurrence. (B) ENDOCERVIX; CURETTINGS: - RARE STRIPS OF BLAND APPEARING SUPERFICIAL ENDOCERVICAL MUCOSA AND ACUTE INFLAMMATORY CELLS. - NO EVIDENCE OF DYSPLASIA OR MALIGNANCY. (C) ENDOMETRIUM; BIOPSY: - SECRETORY ENDOMETRIUM WITH NO SIGNIFICANT HISTOPATHOLOGIC ABNORMALITIES. NOTE: There is no endometrial hyperplasia, dysplasia or malignancy seen. LAURO GONZALES PATHOLOGIST (Electronic Signature) Date Verified 04/17/2021 Clinical Data PRE-OP DIAGNOSIS: EDILBERTO POST-OP DIAGNOSIS: Not specified PROCEDURES: Colposcopy, EMB SPECIMEN: (A) Cervical biopsy 6 o'clock, cervical polyp (B) ECC (C) Endometrium Print Date/ 04/18/2021 09:29 EDT Number: Time: [facility] Department of Pathology [address] [place] [id number] Name: ELIZ JOHN : 1975 [facility] [id number] Number: Gender: Female Location: [facility]. Admit 45 years Attending JUANITA LOMBARDI MD, FACOG Age: Provider: Ordering JUANITA LOMBARDI MD, FACOG Provider: Consulting: Surgical Pathology Report ACCESSION: COLLECTED DATE/TIME: RECEIVED DATE/TIME: PATHOLOGIST: [id number] 04/13/2021 12:00 EDT 04/16/2021 09:42 EDT LAURO GONZALES MD Gross Description (A) Labeled CVX polyp 6 o'clock. Received in formalin is a single ovoid segment of dowling pink soft tissue measuring 1.2 x 0.9 x 0.5 cm. The segment is bisected longitudinally. The specimen is entirely submitted in one cassette. (B) Labeled ECC. Received in formalin are multiple irregular dowling feathery segments of soft tissue. The specimen is filtered and has a filtrate aggregate dimension of 0.3 x 0.2 x 0.1 cm. The specimen is entirely submitted in one cassette. (C) Labeled ENB. Received in formalin are multiple irregular dowling feathery segments of soft tissue. The specimen is filtered and has a filtrate aggregate dimension of 2.0 x 1.5 x 0.5 cm. The specimen is entirely submitted in one cassette. MP/ww 04/16/2021 Codes CPT CODE: [id number] Print Date/ 04/18/2021 09:29 EDT Number: Time: [facility] Comment on above: Performed By: #### [id number] ####[facility] Laboratory [id number] [place] [address] Medical Director: Duncan Llamas MD Ambulatory Clinical Summaryo n 04-13-2021 Ambulatory Clinical Summary ELIZ JOHN :1975 Visit Date:04/13/2021 Ambulatory Visit Instructions Your Diagnosis Pre-procedure lab exam Endocervical polyp Atypical glandular cells of undetermined significance (EDILBERTO) on cervical Pap smear Tests Performed AMB Urine POC 45809 US TV ECHO NON OB OFFICE READ -- Results Pending -- You will be contacted within 72 hours with your results. Your Care Team Attending Physician - HARJIT AGUIRRE FACOG, JUANITA Primary Care Physician - JACKIE HOBBS Procedures Performed Last pap - EDILBERTO (02/26/2021) Colonoscopy - Never, Cologard - Negative () Mammo - Normal () Discharge Vitals Blood Pressure 170/90 Height 152 cm Weight 93.9 kg BMI 40.64 Systolic Blood Pressure: 170 mmHg High (04/13/21 11:30:00) Diastolic Blood Pressure: 90 mmHg (04/13/21 11:30:00) Mean Arterial Pressure: 117 mmHg (04/13/21 11:30:00) Height/Length Measured: 152 cm (04/13/21 11:30:00) Weight Measured: 93.9 kg (04/13/21 11:30:00) Body Mass Index Measured: 40.64 kg/m2 (04/13/21 11:30:00) Height/Length Measured - in2: 60 in (04/13/21 11:30:00) Ht/Wt Measurement Refused by Patient?2: No (04/13/21 11:30:00) Last Menstrual Period: 03/28/21 (04/13/21 11:30:00) What to do next Scheduled Follow-Up Appointments No results Medications What How Much When Why Instructions New metroNIDAZOLE topical (metroNIDAZOLE 0.75% vaginal gel with applicator = MetroGel) 1 Application Vaginal TWICE A DAY Atypical glandular cells of undetermined significance (EDILBERTO) on cervical Pap smear Duration: 5 Days Pickup at [facility] Unchanged cholecalciferol (Vitamin D3 125 mcg (5000 intl units) oral tablet) Oral DAILY Unchanged lisinopril (lisinopril 10 mg oral tablet) Pharmacy Information [facility]: [address], [place] [phone] Test Results AMB Urine POC 48386 (04/13/2021) U beta hCG Ql - Negative Allergies No Known Medication Allergies Problems Ongoing - Any problem that you are currently receiving treatment for. BMI 40.0-44.9, adult Depression History of gestational diabetes HTN (hypertension) Vitamin D deficiency Historical - Any problem that you are no longer receiving treatment for. Common Emergency Awareness Tips IS IT A STROKE? Act FAST and Check for these signs: FACE Does the face look uneven? ARM Does one arm drift down? SPEECH Does their speech sound strange? TIME Call at any sign of stroke Heart Attack Signs Chest discomfort: Most heart attacks involve discomfort in the center of the chest and lasts more than a few minutes, or goes away and comes back. It can feel like uncomfortable pressure, squeezing, fullness or pain. Discomfort in upper body: Symptoms can include pain or discomfort in one or both arms, back, neck, jaw or stomach. Shortness of breath: With or without discomfort. Other signs: Breaking out in a cold sweat, nausea, or lightheaded. Remember, MINUTES DO MATTER. If you experience any of these heart attack warning signs, call to get immediate medical attention! [facility] Phone Msgon 04-13-2021 Phone Msg - From: Vinita Hankins To: Paris Johnston; Sent: 04/13/2021 13:16:00 EDT Subject: Surgery I have scanned in the patient's consent for surgery, will you please get her scheduled as well as for her PO visit? [facility] Phone Msg - From: JUANITA LOMBARDI MD, FACOG To: Vinita Hankins; Sent: 04/13/2021 13:10:35 EDT Subject: Can you send her note to Dr. Hobbs? [facility] Tobacco Screening.on 021 Fall risk assessment a) No falls within the last year [facility] Work Phone: Tobacco use status CPHS b) No [facility] Work Phone: US TV ECHO NON OB OFFICE MARLEN Don 04-13-2021 US TV ECHO NON OB OFFICE READ Indication: EDILBERTO, abnormal uterine bleeding A transvaginal ultrasound was performed. The uterus was visualized and measured 9.4 by 4.4 by 5.3 cm. The uterus was anteverted. The endometrium is slightly thickened and irregular. The endometrium was 9.3 mm. There were several cystic structures in the cervix consistent with Nabothian cysts. There was a hyperechoic area that measured 2.3 by 0.9 cm consistent with an endometrial polyp. The right ovary measured 3.7 by 1.3 by 1.6 cm. The left ovary measured 3.8 by 3.3 by 2.5 cm There was a 2.7 by 1.8 by 2 cm complex cyst. There was a mild amount of free fluid in the pelvis. Impression: Normal appearing uterus with an endometrial polyp. Normal appearing ovaries with a probably collapsing corpus luteum of the left ovary. [facility] Comment on above: Order Comment: Order ed on Fin# [id number] Result Comment: Tech nologist: DM Dictated By: JUANITA LOMBARDI MD, FACOG Signed By: JUANITA LOMBARDI MD, FACOG Transcribed: 04.13.2021 13:05 Signed Out: 04/13/21 13:05:59 Ferritin, Serumon 03-08-2021 Ferritin [Mass/Vol] 21 ug/L 8 - 150 [facility] Work Phone: Folate, Serumon 03-08-2021 Folate [Mass/Vol] 9.2 ng/mL >5.0 [facility] Work Phone: Comment on above: Low <3.4Borderline 3 .4-5.0Normal >5.0. Biotin interference may cause falsely elevated results. Patients taking a Biotin dose of up to 5 mg/day should refrain from taking Biotin for 24 hours before sample collection. Providers may contact their local laboratory for further information. Laboratory - Chemistry and C hemistry - challengeon 03-08-2021 Iron [Mass/Vol] 26 ug/dL below low threshold 35 - 150 [facility] Work Phone: Iron binding capacity [Mass/Vol] 354 ug/dL 240 - 445 [facility] Work Phone: No Panel Informationon 03-08 7 % below low threshold 25 - 45 [facility] Work Phone: Vitamin B12, Serumon 021 Cobalamin (Vitamin B12) [Mass/Vol] 276 pg/mL 211 - 911 [facility] Work Phone: Phone Msgon 03-05-2021 Phone Msg - From: Paris Tierney To: Renea Guillory RN; Sent: 03/05/2021 11:51:49 EDT Subject: Referred Abn Pap Patient was referred to schedule an appt. by her PCP regarding an abnormal pap. Records received. Please review and advise what type of appt. needed. [phone] Pt scheduled for U/S, endo bx and colposcopy on 04/13/21 [facility] Mamm - Screening Mammogram w / Tomosynthesison 02-22-2021 MG Breast Screening Normal [facility] Work Phone: MG Breast Screening Please click on the link to view the study images Normal [facility] Work Phone: Laboratoryon 02-14-2021 Lower GI hemoglobin IA Ql (Stl) Negative Negative [facility] Work Phone: Comment on above: This test detects co lorectal occult blood. Not all colorectal neoplasms induce bleeding. This test is not indicated for upper GI bleeding, anemia or iron deficiency evaluation.. This test is not validated for pediatric populations, interpret pediatric results in the context of patient presentations.. Digital Rectal Exam (KARISHMA) which induces bleeding may cause false positive results. If this occurs have patient submit stool at a future date. IO UA (nonautomated w/o micr oscopy)on 02-08-2021 Protein (U) [Mass/Vol] Negative [facility] Work Phone: IO UA (nonautomated w/o microscopy) Normal [facility] Work Phone: IO UA (nonautomated w/o microscopy) Negative [facility] Work Phone: IO UA (nonautomated w/o microscopy) 6.5 1 [facility] Work Phone: IO UA (nonautomated w/o microscopy) Non-hemolyzed trace-mod [facility] Work Phone: IO UA (nonautomated w/o microscopy) 1.010 1 [facility] Work Phone: IO UA (nonautomated w/o microscopy) Clear [facility] Work Phone: IO UA (nonautomated w/o microscopy) Yellow [facility] Work Phone: Laboratory - Chemistry and C hemistry - challengeon 02-08-2021 Albumin BCP dye [Mass/Vol] 3.7 g/dL 3.4 - 5.0 [facility] Work Phone: ALP [Catalytic activity/Vol] 84 U/L 33 - 110 [facility] Work Phone: ALT With P-5'-P [Catalytic activity/Vol] 22 U/L 7 - 45 [facility] Work Phone: Comment on above: Patients treated wit h Sulfasalazine may generate falsely decreased results for ALT. Anion gap [Moles/Vol] 10 mmol/L 10 - 20 [facility] Work Phone: AST With P-5'-P [Catalytic activity/Vol] 23 U/L 9 - 39 -[facility] Work Phone: Bilirubin [Mass/Vol] 0.4 mg/dL 0.0 - 1.2 [facility] Work Phone: Calcium [Mass/Vol] 8.8 mg/dL 8.6 - 10.6 [facility] Work Phone: Chloride [Moles/Vol] 106 mmol/L 98 - 107 [facility] Work Phone: CO2 [Moles/Vol] 28 mmol/L 21 - 32 [facility] Work Phone: Creatinine [Mass/Vol] 0.62 mg/dL See Below [facility] Work Phone: Comment on above: Reference Range: 0.5 0 - 1.05 Glucose [Mass/Vol] 108 mg/dL above high threshold 74 - 99 [facility] Work Phone: Potassium [Moles/Vol] 3.8 mmol/L 3.5 - 5.3 [facility] Work Phone: Protein [Mass/Vol] 6.4 g/dL 6.4 - 8.2 [place] Work Phone: Sodium [Moles/Vol] 140 mmol/L 136 - 145 [place] Work Phone: TSH Qn 2.49 m[IU]/L See Below [facility] Work Phone: Comment on above: Reference Range: 0.4 4 - 3.98 TSH testing is performed using different testing methodology at [facility] than at other [facility]. Direct result comparisons should only be made within the same method. Urea nitrogen [Mass/Vol] 13 mg/dL - [facility] Work Phone: Laboratory - Cytologyon 01-17 Cytology report Cyto stain.thin prep Doc (Cvx/Vag) [facility] Work Phone: Laboratory - Hematology and Cell countson 02-08-2021 Erythrocyte distribution width (RBC) [Ratio] 17.6 % above high threshold See Below [facility] Work Phone: Comment on above: Reference Range: 11. 5 - 14.5 Hematocrit (Bld) [Volume fraction] 32.8 % below low threshold See Below [facility] Work Phone: Comment on above: Reference Range: 36. 0 - 46.0 Hemoglobin (Bld) [Mass/Vol] 9.9 g/dL below low threshold See Below [facility] Work Phone: Comment on above: Reference Range: 12. 0 - 16.0 MCHC (RBC) [Mass/Vol] 30.2 g/dL below low threshold See Below [facility] Work Phone: Comment on above: Reference Range: 32. 0 - 36.0 MCV (RBC) [Entitic vol] 72 fL below low threshold 80 - 100 [facility] Work Phone: Platelets (Bld) [#/Vol] 208 10*3/uL 150 - 450 [facility] Work Phone: RBC (Bld) [#/Vol] 4.56 {x10E12/L} See Below [facility] Work Phone: Comment on above: Reference Range: 4.0 0 - 5.20 WBC (Bld) [#/Vol] 6.8 10*3/uL 4.4 - 11.3 [facility] Work Phone: Lipid Panelon 02-08-2021 Cholesterol [Mass/Vol] 194 mg/dL 0 - 199 [facility] Work Phone: Comment on above: . AGE DESIRABLE BORD DARIO HIGH HIGH 0-19 Y 0 - 169 170 - 199 >/= 200 20-24 Y 0 - 189 190 - 224 >/= 225 >24 Y 0 - 199 200 - 239 >/= 240 All ranges are based on fasting samples. Specific therapeutic targets will vary based on patient-specific cardiac risk.. Pediatric guidelines reference:Pediatrics 2011, 128(S5). Adult guidelines reference: NCEP ATPIII Guidelines, CHI 2001, 258:2486-97. Venipuncture immediately after or during the administration of Metamizole may lead to falsely low results. Testing should be performed immediately prior to Metamizole dosing. Cholesterol in HDL [Mass/Vol] 46.0 mg/dL [facility] Work Phone: Comment on above: . AGE VERY LOW LOW N ORMAL HIGH 0-19 Y < 35 < 40 40-45 ---- 20- 24 Y ---- < 40 >45 ---- >24 Y ---- < 40 40-60 >60. Cholesterol in LDL [Mass/Vol] 125 mg/dL above high threshold 0 - 99 [facility] Work Phone: Comment on above: . NEAR BORD AGE ELIANA RABLE OPTIMAL HIGH HIGH VERY HIGH 0-19 Y 0 - 109 --- 110-129 >/= 130 ---- 20-24 Y 0 - 119 --- 120-159 >/= 160 ---- >24 Y 0 - 99 100-129 130-159 160-189 >/=190. Cholesterol.total/ Cholesterol in HDL [Mass ratio] 4.2 {ratio} [facility] Work Phone: Comment on above: REF VALUESDESIRABLE < 3.4HIGH RISK > 5.0 Triglyceride [Mass/Vol] 116 mg/dL 0 - 149 [facility] Work Phone: Comment on above: . AGE DESIRABLE BORD DARIO HIGH HIGH VERY HIGH 0 D-90 D 19 - 174 ---- ---- ----91 D- 9 Y 0 - 74 75 - 99 >/= 100 ---- 10-19 Y 0 - 89 90 - 129 >/= 130 ---- 20-24 Y 0 - 114 115 - 149 >/= 150 ---- >24 Y 0 - 149 150 - 199 200- 499 >/= 500. Venipuncture immediately after or during the administration of Metamizole may lead to falsely low results. Testing should be performed immediately prior to Metamizole dosing. Lipid Panel 23 mg/dL 0 - 40 [facility] Work Phone: No Panel Informationon 02-08 0.0 {/100_WBC} 0.0-0.0 [facility] Work Phone: >60 >60 [facility] Work Phone: Comment on above: CALCULATIONS OF TESHA MATED GFR ARE PERFORMED USING THE MDRD STUDY EQUATION FOR THE IDMS-TRACEABLE CREATININE METHODS. CLIN CHEM 2007;53:766-72 Vitamin D 25-Hydroxyon 02-08 25-hydroxyvitamin D3 [Mass/Vol] 19 ng/mL Abnormal [facility] Work Phone: Comment on above: .DEFICIENCY: < 20 NG /MLINSUFFICIENCY: 20-29 NG/MLSUFFICIENCY: 30-100 NG/MLTHIS ASSAY ACCURATELY QUANTIFIES THE SUM OFVITAMIN D3, 25-HYDROXY AND VIT D2,25-HYDROXY. Vital Signs Date Time Vital Sign Value Performing Clinician Facility 01-06-2024 08:56-0400 Body height 156.2 cm Jackie Hobbs MD Work Phone: [facility] 01-06-2024 08:56-0400 Body mass index (BMI) [Ratio] 38.74 kg/m2 Jackie Hobbs MD Work Phone: [facility] 01-06-2024 08:56-0400 Body weight 94.53 kg Jackie Hobbs MD Work Phone: [facility] 01-06-2024 08:56-0400 Diastolic blood pressure 62 mm[Hg] Jackie Hobbs MD Work Phone: [facility] 01-06-2024 08:56-0400 Heart rate 82 /min Jackie Hobbs MD Work Phone: [facility] 01-06-2024 08:56-0400 SaO2% (BldA) [Mass fraction] 95 % Jackie Hobbs MD Work Phone: [facility] 01-06-2024 08:56-0400 Systolic blood pressure 105 mm[Hg] Jackie Hobbs MD Work Phone: [facility] 09-12-2023 09:30-0500 Body height 152.4 cm Laureen Vanessa REMOTE COMPUTER TERMINAL OPERATOR-MALT HOUSE OPERATOR Work Phone: [facility] 09-12-2023 09:30-0500 Body mass index (BMI) [Ratio] 40.82 kg/m2 Laureen Vanessa REMOTE COMPUTER TERMINAL OPERATOR-MALT HOUSE OPERATOR Work Phone: [facility] 09-12-2023 09:30-0500 Body weight 94.8 kg Laureen Vanessa REMOTE COMPUTER TERMINAL OPERATOR-MALT HOUSE OPERATOR Work Phone: [facility] 09-12-2023 09:30-0500 Diastolic blood pressure 71 mm[Hg] Laureen Vanessa REMOTE COMPUTER TERMINAL OPERATOR-MALT HOUSE OPERATOR Work Phone: [facility] 09-12-2023 09:30-0500 Heart rate 72 /min Laureen Vanessa REMOTE COMPUTER TERMINAL OPERATOR-MALT HOUSE OPERATOR Work Phone: [facility] 09-12-2023 09:30-0500 SaO2% (BldA) [Mass fraction] 98 % Laureen Vanessa REMOTE COMPUTER TERMINAL OPERATOR-MALT HOUSE OPERATOR Work Phone: [facility] 09-12-2023 09:30-0500 Systolic blood pressure 113 mm[Hg] Laureen Vanessa REMOTE COMPUTER TERMINAL OPERATOR-MALT HOUSE OPERATOR Work Phone: [facility] 08-22-2023 08:41-0500 Body height 154.9 cm Jackie Hobbs MD Work Phone: [facility] 08-22-2023 08:41-0500 Body mass index (BMI) [Ratio] 40.25 kg/m2 Jackie Hobbs MD Work Phone: [facility] 08-22-2023 08:41-0500 Body weight 96.62 kg Jackie Hobbs MD Work Phone: [facility] 08-22-2023 08:41-0500 Diastolic blood pressure 76 mm[Hg] Jackie Hobbs MD Work Phone: [facility] 08-22-2023 08:41-0500 Heart rate 87 /min Jackie Hobbs MD Work Phone: [facility] 08-22-2023 08:41-0500 Systolic blood pressure 103 mm[Hg] Jackie Hobbs MD Work Phone: [facility] 04-15-2023 08:14-0400 Body height 156.8 cm Jackie Hobbs MD Work Phone: [facility] Comment on above: w/o shoes 04-15-2023 08:14-0400 Body mass index (BMI) [Ratio] 38.83 kg/m2 Jackie Hobbs MD Work Phone: [facility] 04-15-2023 08:14-0400 Body weight 95.53 kg Jackie Hobbs MD Work Phone: [facility] 04-15-2023 08:14-0400 Diastolic blood pressure 78 mm[Hg] Jackie Hobbs MD Work Phone: [facility] 04-15-2023 08:14-0400 Heart rate 70 /min Jackie Hobbs MD Work Phone: [facility] 04-15-2023 08:14-0400 SaO2% (BldA) [Mass fraction] 99 % Jackie Hobbs MD Work Phone: [facility] 04-15-2023 08:14-0400 Systolic blood pressure 118 mm[Hg] Jackie Hobbs MD Work Phone: [facility] 12-06-2022 08:59-0400 Body height 157.5 cm Jackie Hobbs MD Work Phone: [facility] 12-06-2022 08:59-0400 Body mass index (BMI) [Ratio] 37.71 kg/m2 Jackie Hobbs MD Work Phone: [facility] 12-06-2022 08:59-0400 Body weight 93.53 kg Jackie Hobbs MD Work Phone: [facility] 12-06-2022 08:59-0400 Diastolic blood pressure 71 mm[Hg] Jackie Hobbs MD Work Phone: [facility] 12-06-2022 08:59-0400 Heart rate 73 /min Jackie Hobbs MD Work Phone: [facility] 12-06-2022 08:59-0400 SaO2% (BldA) [Mass fraction] 97 % Jackie Hobbs MD Work Phone: [facility] 12-06-2022 08:59-0400 Systolic blood pressure 127 mm[Hg] Jackie Hobbs MD Work Phone: [facility] 11-01-2022 12:36-0400 Body height 152 cm Matheus Looney MD [facility] 11-01-2022 12:36-0400 Body mass index (BMI) [Ratio] 40.8 kg/m2 Matheus Looney MD [place] 11-01-2022 12:36-0400 Body temperature 97.88 [degF] Matheus Looney MD [facility] 11-01-2022 12:36-0400 Body weight 94.8 kg Matheus Looney MD [place] 11-01-2022 12:36-0400 Diastolic blood pressure 77 mm[Hg] Matheus Looney MD [place] 11-01-2022 12:36-0400 Heart rate 84 /min Matheus Looney MD [place] 11-01-2022 12:36-0400 Respiratory rate 16 /min Matheus Looney MD [place] 11-01-2022 12:36-0400 SaO2% (BldA) [Mass fraction] 98 % Matheus Looney MD [place] 11-01-2022 12:36-0400 Systolic blood pressure 119 mm[Hg] Matheus Looney MD [facility] 10-04-2022 10:10-0500 Diastolic blood pressure 74 mm[Hg] Jackie Hobbs Work Phone: [facility] [employer] Work Phone: 10-04-2022 10:10-0500 Systolic blood pressure 108 mm[Hg] Jackie Formanon Work Phone: [facility] Work Phone: 10-04-2022 09:47-0500 Body mass index (BMI) [Ratio] 36.54 kg/m2 Jackie Hobbs Work Phone: [facility] Work Phone: 10-04-2022 09:47-0500 Body surface area Derived from formula 1.96 m2 Jackie Hobbs Work Phone: [facility] Work Phone: 10-04-2022 09:47-0500 Body weight 93.56 kg Jackie Hobbs Work Phone: [facility] Work Phone: 10-04-2022 09:47-0500 Diastolic blood pressure 86 mm[Hg] Jackie Hobbs Work Phone: [facility] Work Phone: 10-04-2022 09:47-0500 Heart rate 85 /min Jackie Hobbs Work Phone: [facility] [employer] Work Phone: 10-04-2022 09:47-0500 SaO2% (BldA) [Mass fraction] 98 % Jackie Hobbs Work Phone: [facility] [employer] Work Phone: 10-04-2022 09:47-0500 Systolic blood pressure 102 mm[Hg] Jackie Hobbs Work Phone: [facility] Work Phone: 08-30-2022 11:24-0500 Diastolic blood pressure 72 mm[Hg] Jackie Hobbs Work Phone: [facility] Work Phone: 08-30-2022 11:24-0500 Systolic blood pressure 128 mm[Hg] Jackie Hobbs Work Phone: [facility] Work Phone: 08-30-2022 11:01-0500 Body height 160.02 cm Jackie Hobbs Work Phone: [facility] Work Phone: 08-30-2022 11:01-0500 Body mass index (BMI) [Ratio] 36.35 kg/m2 Jackie Hobbs Work Phone: [facility] Work Phone: 08-30-2022 11:01-0500 Body surface area Derived from formula 1.95 m2 Jackie Hobbs Work Phone: [facility] [employer] Work Phone: 08-30-2022 11:01-0500 Body weight 93.07 kg Jackie Hobbs Work Phone: [facility] [employer] Work Phone: 08-30-2022 11:01-0500 Diastolic blood pressure 74 mm[Hg] Jackie Hobbs Work Phone: [facility] [employer] Work Phone: 08-30-2022 11:01-0500 Heart rate 78 /min Jackie Hobbs Work Phone: [facility] [employer] Work Phone: 08-30-2022 11:01-0500 SaO2% (BldA) [Mass fraction] 97 % Jackie Hobbs Work Phone: [facility] Work Phone: 08-30-2022 11:01-0500 Systolic blood pressure 131 mm[Hg] Jackie Hobbs Work Phone: [facility] [employer] Work Phone: 07-26-2022 09:07-0500 Body mass index (BMI) [Ratio] 31.84 kg/m2 Jackie Hobbs Work Phone: [facility] [employer] Work Phone: 07-26-2022 09:07-0500 Body surface area Derived from formula 2.04 m2 Jackie Hobbs Work Phone: [facility] Work Phone: 07-26-2022 09:07-0500 Body weight 92.22 kg Jackie Hobbs Work Phone: [facility] Work Phone: 07-26-2022 09:07-0500 Diastolic blood pressure 57 mm[Hg] Jackie Hobbs Work Phone: [facility] Work Phone: 07-26-2022 09:07-0500 Heart rate 78 /min Jackie Hobbs Work Phone: [facility] Work Phone: 07-26-2022 09:07-0500 SaO2% (BldA) [Mass fraction] 99 % Jackie Hobbs Work Phone: [facility] [employer] Work Phone: 07-26-2022 09:07-0500 Systolic blood pressure 115 mm[Hg] Jackie Hobbs Work Phone: [facility] [employer] Work Phone: 04-12-2022 09:04-0400 Body mass index (BMI) [Ratio] 31.73 kg/m2 Jackie Hobbs Work Phone: [facility] Work Phone: 04-12-2022 09:04-0400 Body surface area Derived from formula 2.03 m2 Jackie Hobbs Work Phone: [facility] Work Phone: 04-12-2022 09:04-0400 Body weight 91.88 kg Jackie Hobbs Work Phone: [facility] Work Phone: 04-12-2022 09:04-0400 Diastolic blood pressure 62 mm[Hg] Jackie Hobbs Work Phone: [facility] Work Phone: 04-12-2022 09:04-0400 Heart rate 67 /min Jackie Hobbs Work Phone: [facility] Work Phone: 04-12-2022 09:04-0400 SaO2% (BldA) [Mass fraction] 99 % Jackie Hobbs Work Phone: [facility] Work Phone: 04-12-2022 09:04-0400 Systolic blood pressure 94 mm[Hg] Jackie Hobbs Work Phone: [facility] Work Phone: 12-07-2021 09:04-0400 Body mass index (BMI) [Ratio] 31.81 kg/m2 Jackie Hobbs Work Phone: [facility] Work Phone: 12-07-2021 09:04-0400 Body surface area Derived from formula 2.04 m2 Jackie Hobbs Work Phone: [facility] Work Phone: 12-07-2021 09:04-0400 Body weight 92.14 kg Jackie Hobbs Work Phone: [facility] Work Phone: 12-07-2021 09:04-0400 Diastolic blood pressure 71 mm[Hg] Jackie Hobbs Work Phone: [facility] Work Phone: 12-07-2021 09:04-0400 Heart rate 81 /min Jackie Hobbs Work Phone: [facility] Work Phone: 12-07-2021 09:04-0400 Systolic blood pressure 114 mm[Hg] Jackie Hobbs Work Phone: [facility] Work Phone: 11-09-2021 11:38-0400 Diastolic blood pressure 92 mm[Hg] Jackie Hobbs Work Phone: [facility] Work Phone: 11-09-2021 11:38-0400 Systolic blood pressure 146 mm[Hg] Jackie Hobbs Work Phone: [facility] Work Phone: 11-09-2021 09:03-0400 Body mass index (BMI) [Ratio] 32.45 kg/m2 Jackie Hobbs Work Phone: [facility] Work Phone: 11-09-2021 09:03-0400 Body surface area Derived from formula 2.05 m2 Jackie Hobbs Work Phone: [facility] Work Phone: 11-09-2021 09:03-0400 Body weight 93.98 kg Jackie Hobbs Work Phone: [facility] Work Phone: 11-09-2021 09:03-0400 Diastolic blood pressure 96 mm[Hg] Jackie Hobbs Work Phone: [facility] Work Phone: 11-09-2021 09:03-0400 Heart rate 64 /min Jackie Hobbs Work Phone: [facility] Work Phone: 11-09-2021 09:03-0400 Systolic blood pressure 154 mm[Hg] Jackie Hobbs Work Phone: [facility] Work Phone: 10-12-2021 11:40-0500 Diastolic blood pressure 82 mm[Hg] Jackie Hobbs Work Phone: [facility] [place] [address] DO Work Phone: 10-12-2021 11:40-0500 Systolic blood pressure 140 mm[Hg] Jackie Hobbs Work Phone: [facility] [place] DO Work Phone: 10-12-2021 11:19-0500 Body mass index (BMI) [Ratio] 31.84 kg/m2 Jackie Hobbs Work Phone: [facility] [place] DO Work Phone: 10-12-2021 11:19-0500 Body surface area Derived from formula 2.04 m2 Jackie Hobbs Work Phone: [facility] [place] [id number] DO Work Phone: 10-12-2021 11:19-0500 Body temperature 97.8 [degF] Jackie Hobbs Work Phone: [facility] DO Work Phone: 10-12-2021 11:19-0500 Body weight 92.22 kg Jackie Hobbs Work Phone: [facility] [place] DO Work Phone: 10-12-2021 11:19-0500 Diastolic blood pressure 94 mm[Hg] Jackie Hobbs Work Phone: [facility] [place] DO Work Phone: 10-12-2021 11:19-0500 Heart rate 69 /min Jackie Hobbs Work Phone: [facility] [place] [id number] DO Work Phone: 10-12-2021 11:19-0500 Systolic blood pressure 153 mm[Hg] Jackie Hobbs Work Phone: [facility] [place] [id number] DO Work Phone: 07-29-2021 14:25-0500 Body height 170.18 cm Jackie Hobbs Work Phone: [facility] Work Phone: 07-29-2021 14:25-0500 Body mass index (BMI) [Ratio] 34.46 kg/m2 Jackie Hobbs Work Phone: [facility] Work Phone: 07-29-2021 14:25-0500 Body surface area Derived from formula 2.11 m2 Jackie Hobbs Work Phone: [facility] Work Phone: 07-29-2021 14:25-0500 Body temperature 98 [degF] Jackie Hobbs Work Phone: [facility] Work Phone: 07-29-2021 14:25-0500 Body weight 99.79 kg Jackie Hobbs Work Phone: [facility] Work Phone: 07-29-2021 14:25-0500 Diastolic blood pressure 79 mm[Hg] Jackie Hobbs Work Phone: [facility] Work Phone: 07-29-2021 14:25-0500 Heart rate 83 /min Jackie Hobbs Work Phone: [facility] Work Phone: 07-29-2021 14:25-0500 Respiratory rate 14 /min Jackie Hobbs Work Phone: [facility] Work Phone: 07-29-2021 14:25-0500 SaO2% (BldA) [Mass fraction] 97 % Jackie Hobbs Work Phone: [facility] Work Phone: 07-29-2021 14:25-0500 Systolic blood pressure 178 mm[Hg] Jackie Hobbs Work Phone: [facility] Work Phone: 04-13-2021 09:25-0400 Body mass index (BMI) [Ratio] 38.94 kg/m2 Jackie Hobbs Work Phone: [facility] Work Phone: 04-13-2021 09:25-0400 Body surface area Derived from formula 1.91 m2 Jackie Hobbs Work Phone: [facility] Work Phone: 04-13-2021 09:25-0400 Body weight 93.49 kg Jackie Hobbs Work Phone: [facility] Work Phone: 04-13-2021 09:25-0400 Diastolic blood pressure 86 mm[Hg] Jackie Hobbs Work Phone: [facility] Work Phone: 04-13-2021 09:25-0400 Heart rate 76 /min Jackie Hobbs Work Phone: [facility] Work Phone: 04-13-2021 09:25-0400 Systolic blood pressure 158 mm[Hg] Jackie Hobbs Work Phone: [facility] Work Phone: 03-08-2021 09:02-0400 Body height 154.94 cm Jackie Hobbs Work Phone: [facility] Work Phone: 03-08-2021 09:02-0400 Body mass index (BMI) [Ratio] 38.73 kg/m2 Jackie Hobbs Work Phone: [facility] Work Phone: 03-08-2021 09:02-0400 Body surface area Derived from formula 1.91 m2 Jackie Hobbs Work Phone: [facility] Work Phone: 03-08-2021 09:02-0400 Body weight 92.99 kg Jackie Hobbs Work Phone: [facility] Work Phone: 03-08-2021 09:02-0400 Diastolic blood pressure 85 mm[Hg] Jackie Hobbs Work Phone: [facility] Work Phone: 03-08-2021 09:02-0400 Heart rate 67 /min Jackie Hobbs Work Phone: [facility] Work Phone: 03-08-2021 09:02-0400 Systolic blood pressure 159 mm[Hg] Jackie Hobbs Work Phone: [facility] [employer] Work Phone: 02-08-2021 09:09-0400 Body height 154.94 cm Jackie Hobbs Work Phone: [facility] Work Phone: 02-08-2021 09:09-0400 Body mass index (BMI) [Ratio] 38.73 kg/m2 Jackie Hobbs Work Phone: [facility] [employer] Work Phone: 02-08-2021 09:09-0400 Body surface area Derived from formula 1.91 m2 Jackie Hobbs Work Phone: [facility] Work Phone: 02-08-2021 09:09-0400 Body weight 92.99 kg Jackie Hobbs Work Phone: [facility] Work Phone: 02-08-2021 09:09-0400 Diastolic blood pressure 103 mm[Hg] Jackie Hobbs Work Phone: [facility] Work Phone: 02-08-2021 09:09-0400 Heart rate 77 /min Jackie Hobbs Work Phone: [facility] Work Phone: 02-08-2021 09:09-0400 Systolic blood pressure 190 mm[Hg] Jackie Hobbs Work Phone: [facility] Work Phone: Encounters Encounter Date Encounter Type Care Provider Facility Start: 01-06-2024 End: 01-06-2024 ambulatory [facility] Start: 01-06-2024 End: 01-06-2024 Encounter for general adult medical examination without abnormal findings [facility] Start: 01-06-2024 End: 01-06-2024 ambulatory [facility] Start: 01-06-2024 End: 01-06-2024 Encounter for general adult medical examination without abnormal findings [facility] Start: 01-06-2024 End: 01-06-2024 Office outpatient visit 25 minutes Jackie Hobbs MD Work Phone: [facility] Comment on above: Annual physical exam (Primary Dx); Current moderate episode of major depressive disorder without prior episode (Multi); Essential (primary) hypertension; Anemia, unspecified type; Primary hypertension; Elevated coronary artery calcium score; Mixed hyperlipidemia; Iron deficiency anemia due to chronic blood loss Start: 01-06-2024 End: 01-06-2024 Patient encounter procedure Jackie Hobbs MD Work Phone: [facility] Work Phone: Start: 01-03-2024 End: 01-03-2024 ambulatory [facility] Start: 09-29-2023 End: 09-29-[address] [facility] Start: 09-26-2023 End: 09-26-[address] [facility] Start: 09-12-2023 End: 09-12-2023 Office outpatient new 30 minutes Laureen Mendez REMOTE COMPUTER TERMINAL OPERATOR-MALT HOUSE OPERATOR Work Phone: [facility] Comment on above: Mixed hyperlipidemia (Primary Dx); Elevated coronary artery calcium score; Primary hypertension Start: 09-12-2023 End: 09-12-[address] [facility] Start: 08-22-2023 End: 08-22-2023 ambulatory [facility] Start: 08-22-2023 End: 08-22-2023 Office outpatient visit 25 minutes Jackie Hobbs MD Work Phone: [facility] Comment on above: Elevated coronary ar mar calcium score (Primary Dx); Pulmonary nodule; Primary hypertension; Mixed hyperlipidemia; Other iron deficiency anemia; Iron deficiency anemia due to chronic blood loss Start: 08-01-2023 End: 08-01-2023 ambulatory [facility] Start: 07-25-2023 End: 07-25-2023 ambulatory [facility] Start: 06-09-2023 End: 06-09-2023 Subsequent hospital visit by physician Anna [facility] Comment on above: Encounter for screen ing mammogram for malignant neoplasm of breast Start: 06-09-2023 End: 06-09-2023 ambulatory [facility] Start: 04-15-2023 End: 04-15-2023 ambulatory [facility] Start: 04-15-2023 End: 04-15-2023 ambulatory [facility] Start: 04-15-2023 End: 04-15-2023 Office outpatient visit 25 minutes Jackie Hobbs MD Work Phone: [facility] Comment on above: Elevated fasting glu cose (Primary Dx); Primary hypertension; Mixed hyperlipidemia; Screening mammogram for breast cancer; Other iron deficiency anemia Start: 04-12-2023 End: 04-12-2023 ambulatory [facility] Start: 03-04-[address] Jackie Hobbs Facility:[facility] Start: 12-06-2022 End: 12-06-2022 Office outpatient visit 25 minutes Jackie Hobbs MD Work Phone: [facility] Comment on above: Annual physical exam (Primary Dx); Primary hypertension; Vitamin D deficiency; Iron deficiency anemia, unspecified iron deficiency anemia type; Current moderate episode of major depressive disorder without prior episode ([facility]) Start: 12-06-2022 End: 12-06-2022 Patient encounter procedure Jackie Hobbs MD Work Phone: [facility] Work Phone: Start: 11-01-2022 Matheus Looney MD [place] Start: 11-01-[address] Jackie Hobbs Facility:[id number] Start: 10-04-2022 Office outpatient vi sit 25 minutes Jackie Hobbs Work Phone: [facility] Work Phone: Start: 10-04-[address] Jackie Hobbs Facility:[id number] Start: 08-30-2022 Office outpatient vi sit 25 minutes Jackie Hobbs Work Phone: [facility] Work Phone: Start: 08-30-[address] Jackie Hobbs Facility:[id number] Start: 08-23-2022 ambulatory [facility] Facilit y:[id number] Start: 08-16-2022 ambulatory [facility] Facilit y:[id number] Start: 08-09-2022 ambulatory [facility] Facilit y:[id number] Start: 08-02-2022 ambulatory [facility] Facilit y:[id number] Start: 07-26-2022 Office outpatient vi sit 25 minutes Jackie Hobbs Work Phone: [facility] Work Phone: Start: 07-26-[address] Jackie Hobbs Facility:[id number] Start: 05-06-2022 AUDIT Jackie Pritchett Anjel Work Phone: [facility] Work Phone: Start: 04-14-2022 Chart Update Jackie M Anjel Work Phone: [facility] Work Phone: Start: 03-05-2022 Chart Update Jackie M [place] Work Phone: [facility] Work Phone: Start: 03-04-2022 AUDIT Jackie Pritchett [place] Work Phone: [facility] Work Phone: Start: 02-12-2022 AUDIT Jackie Pritchett [place] Work Phone: [facility] Work Phone: Start: 02-11-2022 Chart Update Jackie M [place] Work Phone: [facility] Work Phone: Start: 12-10-2021 Chart Update Jackie M Anjel Work Phone: [facility] Work Phone: Start: 12-07-2021 Office outpatient vi sit 25 minutes Jackie M Anjel Work Phone: [facility] Work Phone: Start: 11-09-2021 Office outpatient vi sit 25 minutes Jackie M Anjel Work Phone: [facility] Work Phone: Start: 10-13-2021 Chart Update Jackie M [place] Work Phone: [facility] Work Phone: Start: 10-12-2021 Office outpatient vi sit 25 minutes Jackie M [place] Work Phone: [facility] [place] [address] DO Work Phone: Start: 09-17-2021 AUDIT Jackie Hobbs Work Phone: [employer] [facility] Work Phone: Start: 07-29-2021 Office outpatient vi sit 10 minutes Jackie Hobbs Work Phone: [facility] Work Phone: Start: 06-11-2021 AUDIT Jackie Hobbs Work Phone: [facility] Work Phone: Start: 04-13-2021 Office outpatient vi sit 25 minutes Jackie Hobbs Work Phone: [facility] Work Phone: Start: 03-08-2021 Chart Update Jackie Hobbs Work Phone: [facility] Work Phone: Start: 03-08-2021 Office outpatient vi sit 25 minutes Jackie Hobbs Work Phone: [facility] Work Phone: Start: 02-27-2021 Chart Update Jackie Hobbs Work Phone: [facility] Work Phone: Start: 02-26-2021 Chart Update Jackie Hobbs Work Phone: [facility] Work Phone: Start: 02-09-2021 AUDIT Jackie Hobbs Work Phone: [facility] Work Phone: Procedures Date Procedure Procedure Detail Performing Clinician Start: 01-03-2024 Hemoglobin A1c/Hemoglobin.total in Blood LAUREEN VANESSA Start: 09-26-2023 TRANSTHORACIC ECHO (TTE) COMPLETE LAUREEN VANESSA Start: 09-12-2023 ECG 12-LEAD LAUREEN VANESSA Start: 09-12-2023 AMB REFERRAL TO CARDIOLOGY LAUREEN MCKAY O Start: 08-01-2023 CT CHEST WO IV CONTRAST LAUREEN VANESSA Start: 07-25-2023 CT CARDIAC SCORING WO IV CONTRAST LAUREEN VANESSA Start: 06-09-2023 BI MAMMO BILATERAL SCREENING TOMOSYNTHESIS LAUREEN VANESSA Start: 06-09-2023 End: 06-09-2023 Screening digital breast tomosynthesis bi Jackie Hobbs MD Work Phone: Start: 04-15-2023 Hemoglobin A1c/Hemoglobin.total in Blood LAUREEN VANESSA Start: 04-12-2023 CBC panel - Blood by Automated count LAUREEN VANESSA Start: 04-12-2023 Comprehensive metabolic 2000 panel - Serum or Plasma LAUREEN VANESSA Start: 04-12-2023 Lipid panel LAUREEN VANESSA Start: 04-12-2023 TSH WITH REFLEX TO FREE T4 IF ABNORMAL LAUREEN VANESSA Start: 04-12-2023 VITAMIN D 1,25 DIHYDROXY LAUREEN CROWDERRANCO Start: 04-12-2023 Lipid 1996 panel - Serum or Plasma Jackie Hobbs MD Work Phone: Start: 04-11-2022 Mammography Jackie Hobbs MD Work Phone: Start: 01-26-2022 Lipid 1996 panel - Serum or Plasma Jackie Hobbs MD Work Phone: Start: 09-14-2021 Colonoscopy Jackie Hobbs MD Work Phone: Start: 02-08-2021 Microscopic observation [Identifier] in Cervix by Cyto stain [facility] Mammo Capsule endoscopy Jackie Bailey Work Phone: Comment on above: for anemia, 04/23/22 Dr Edouard, few red s pots of undetermined significance; Colonoscopy Jackie Hobbs Work Phone: Comment on above: 09/14/21 Dr Edouard, polyps, hem; Esophagogastroduodenoscopy A wendytrisha Shreyas Hobbs Work Phone: Comment on above: 06/08/21 Dr Edouard, esoph stricture, mi ld gastritis; Plan of Treatment Date Care Activity Detail Author Start: 09-14-2031 Screening for malign ant neoplasm of colon [facility] Start: 04-12-2028 Lipid panel Lipid Panel [facility] Start: 01-26-2027 Lipid panel Lipid Panel [facility] Start: 01-02-2027 Diabetes mellitus screening Diabetes Screening [facility] Start: 04-15-2026 Diabetes mellitus screening Diabetes Screening [facility] Start: 04-05-2026 DTaP/Tdap/Td Vaccine s (2 - Td or Tdap) DTaP/Tdap/Td Vaccines (2 - Td or Tdap) [facility] Start: 06-09-2024 Screening for malign ant neoplasm of breast Mammogram [facility] Start: 05-14-2024 End: 05-14-2024 Patient encounter procedure 05/14/2024 9:30 AM EDT [facility] [address] [facility] [address] [place] [phone] Jackie Hobbs MD [address] [facility] [address] [place] [address] [facility] Start: 04-18-2024 Influenza vaccination Influenz a Vaccine (Season Ended) [facility] Start: 03-12-2024 End: 09-12-2024 Lipid 1996 panel - Serum or Plasma Lipid panel Lab Routine Elevated coronary artery calcium score Expected: 03/12/2024 (Approximate), Expires: 09/12/2024 [facility] Work Phone: Comment on above: Expected: 03/12/2024 (Approximate), Expires: 09/12/2024 Start: 02-20-2024 End: 08-22-2024 CT Chest WO contrast CT chest wo IV contrast Imaging Routine Pulmonary nodule Expected: 02/20/2024, Expires: 08/22/2024 [facility] Service Area Work Phone: Comment on above: Expected: 02/20/2024 , Expires: 08/22/2024 Start: 02-09-2024 Screening for malign ant neoplasm of cervix [facility] Start: 01-06-2024 End: 01-05-2025 25-hydroxyvitamin D3 [Mass/volume] in Serum or Plasma [facility] Work Phone: Comment on above: Expected: 01/06/2024 (Approximate), Expires: 01/05/2025 Start: 01-06-2024 End: 01-05-2025 CBC panel - Blood by Automated count [facility] Work Phone: Comment on above: Expected: 01/06/2024 (Approximate), Expires: 01/05/2025 Start: 01-06-2024 End: 01-05-2025 Ferritin [Mass/volume] in Serum or Plasma [facility] Work Phone: Comment on above: Expected: 01/06/2024 (Approximate), Expires: 01/05/2025 Start: 01-06-2024 End: 01-05-2025 Iron and Iron binding capacity panel - Serum or Plasma [facility] Work Phone: Comment on above: Expected: 01/06/2024 (Approximate), Expires: 01/05/2025 Start: 01-06-2024 End: 01-05-2025 Lipid 1996 panel - Serum or Plasma [facility] Service Area Work Phone: Comment on above: Expected: 01/06/2024 (Approximate), Expires: 01/05/2025 Start: 01-06-2024 End: 01-05-2025 TSH with reflex to Free T4 if abnormal [facility] Work Phone: Comment on above: Expected: 01/06/2024 (Approximate), Expires: 01/05/2025 Start: 01-06-2024 End: 01-06-2024 Patient encounter procedure 01/06/2024 9:40 AM EDT Lab [facility] Lab [facility] [place] [address] [place] [address] Elevated coronary artery calcium score; Annual physical exam; Anemia, unspecified type [facility] [place] Comment on above: Elevated coronary ar mar calcium score; Annual physical exam; Anemia, unspecified type Start: 12-26-2023 End: 12-26-2023 Patient encounter procedure 12/26/2023 8:45 AM EDT [facility] [address] [facility] [address] [place] [phone] Jackie Hobbs MD [address] [facility] [place] [address] [place] [address] [facility] Start: 09-29-2023 End: 09-29-2023 Telemedicine consultation with patient 09/29/2023 10:00 AM EST Telemedicine [facility] [address] [facility] [address] [place] [phone] Laureen Mendez, REMOTE COMPUTER TERMINAL OPERATOR-MALT HOUSE OPERATOR [address] [facility] [address] [facility] [address] [place] [address] [facility] Start: 09-26-2023 End: 09-26-2023 Patient encounter procedure 09/26/2023 7:00 AM EST Appointment [facility] [address] [facility] [address] [place] [phone] [facility] Start: 09-12-2023 End: 09-12-2024 Comprehensive metabolic 2000 panel - Serum or Plasma Comprehensive metabolic panel Lab Routine Elevated coronary artery calcium score Expected: 09/12/2023 (Approximate), Expires: 09/12/2024 [facility] Work Phone: Comment on above: Expected: 09/12/2023 (Approximate), Expires: 09/12/2024 Start: 09-12-2023 End: 09-12-2025 US Heart Transthoracic Transthoracic Echo (TTE) Complete Echocardiography Routine Elevated coronary artery calcium score Expected: 09/12/2023 (Approximate), Expires: 09/12/2025 [facility] Service Area Work Phone: Comment on above: Expected: 09/12/2023 (Approximate), Expires: 09/12/2025 Start: 09-12-2023 End: 09-12-2023 Patient encounter procedure 09/12/2023 9:30 AM EST Office Visit [facility] [address] [facility] [address] [place] [phone] Laureen Mendez, REMOTE COMPUTER TERMINAL OPERATOR-MALT HOUSE OPERATOR [address] [facility] [address], [facility] [address] [place] [address] [facility] Start: 08-22-2023 End: 08-22-2023 Patient encounter procedure 08/22/2023 8:45 AM EST [facility] [address] [facility] [address] [place] [phone] Jackie Hobbs MD [address] [facility], [facility] [address] [place], [place] [phone] [facility] Start: 07-25-2023 End: 07-25-2023 Professional / ancillary services management 07/25/2023 8:30 AM EST Ancillary Procedure [facility] [address] [facility] [address] [place] [phone] [facility] Start: 2023 Zoster Vaccines (1 o f 2) Zoster Vaccines (1 of 2) [facility] Start: 04-18-2023 COVID-19 Vaccine (2022- season) COVID-19 Vaccine ( season) [facility] Start: 04-18-2023 Influenza vaccination [facility] Start: 04-15-2023 End: 04-15-2024 CT for calcium scoring WO contrast and CTA W contrast IV Heart and coronary arteries [facility] Service Area Work Phone: Comment on above: Expected: 04/15/2023 , Expires: 04/15/2024 Start: 04-15-2023 End: 06-15-2024 DBT Breast - bilateral [facility] Work Phone: Comment on above: Expected: 04/15/2023 , Expires: 06/15/2024 Start: 04-15-2023 End: 04-15-2024 Hemoglobin A1c/Hemoglobin.total in Blood [facility] Work Phone: Comment on above: Expected: 04/15/2023 (Approximate), Expires: 04/15/2024 Start: 04-11-2023 Screening for malign ant neoplasm of breast Mammogram [facility] Start: 04-04-2023 End: 04-04-2023 Patient encounter procedure 04/04/2023 9:15 AM EDT [facility] [address] [facility] [address] [place] [phone] Jackie Hobbs MD [address] [facility], [facility] [address] [place], [place] [phone] [facility] Start: 02-19-2023 Screening for malign ant neoplasm of colon [facility] Start: 01-16-2023 End: 12-07-2023 Calcitriol [Mass/volume] in Serum or Plasma Vitamin D 1,25 Dihydroxy Lab Routine Annual physical exam Primary hypertension Vitamin D deficiency Iron deficiency anemia, unspecified iron deficiency anemia type Current moderate episode of major depressive disorder without prior episode (CMS/HCC) Expected: 01/16/2023, Expires: 12/07/2023 [facility] Work Phone: Comment on above: Expected: 01/16/2023 , Expires: 12/07/2023 Start: 01-16-2023 End: 12-07-2023 CBC panel - Blood by Automated count CBC Lab Routine Annual physical exam Primary hypertension Vitamin D deficiency Iron deficiency anemia, unspecified iron deficiency anemia type Current moderate episode of major depressive disorder without prior episode (CMS/HCC) Expected: 01/16/2023, Expires: 12/07/2023 [facility] Work Phone: Comment on above: Expected: 01/16/2023 , Expires: 12/07/2023 Start: 01-16-2023 End: 12-07-2023 Comprehensive metabolic 2000 panel - Serum or Plasma Comprehensive Metabolic Panel Lab Routine Annual physical exam Primary hypertension Vitamin D deficiency Iron deficiency anemia, unspecified iron deficiency anemia type Current moderate episode of major depressive disorder without prior episode (CMS/HCC) Expected: 01/16/2023, Expires: 12/07/2023 [facility] Work Phone: Comment on above: Expected: 01/16/2023 , Expires: 12/07/2023 Start: 01-16-2023 End: 12-07-2023 Lipid 1996 panel - Serum or Plasma Lipid Panel Lab Routine Annual physical exam Primary hypertension Vitamin D deficiency Iron deficiency anemia, unspecified iron deficiency anemia type Current moderate episode of major depressive disorder without prior episode (CMS/HCC) Expected: 01/16/2023, Expires: 12/07/2023 [facility] Service Area Work Phone: Comment on above: Expected: 01/16/2023 , Expires: 12/07/2023 Start: 01-16-2023 End: 12-07-2023 TSH with reflex to Free T4 if abnormal TSH with reflex to Free T4 if abnormal Lab Routine Annual physical exam Primary hypertension Vitamin D deficiency Iron deficiency anemia, unspecified iron deficiency anemia type Current moderate episode of major depressive disorder without prior episode ([facility]/HCC) Expected: 01/16/2023, Expires: 12/07/2023 [facility] Work Phone: Comment on above: Expected: 01/16/2023 , Expires: 12/07/2023 Start: 12-06-2022 FUV, Provider: Jackie Hobbs, Status: Pen, Time: 9:00 AM FUV, Provider: Jackie Hobbs, Status: Pen, Time: 9:00 AM [facility] Work [facility]: Start: 10-04-2022 FUV, Provider: Jackie Hobbs, Status: Pen, Time: 9:45 AM FUV, Provider: Jackie Hobbs, Status: Pen, Time: 9:45 AM [facility] Work Phone: Start: 08-30-2022 FUV, Provider: Jackie Hobbs, Status: Pen, Time: 11:00 AM FUV, Provider: Jackie Hobbs, Status: Pen, Time: 11:00 AM [facility] Work Phone: Start: 07-26-2022 FUV, Provider: [place]ie, Status: Pen, Time: 9:00 AM FUV, Provider: [place], Status: Pen, Time: 9:00 AM [facility] Work Phone: Start: 04-12-2022 FUV, Provider: AnjelJackie, Status: Pen, Time: 9:00 AM FUV, Provider: AnjelJackie, Status: Pen, Time: 9:00 AM [facility] Work Phone: Start: 12-07-2021 FUV, Provider: AnjelJackie, Status: Pen, Time: 9:00 AM FUV, Provider: [place], Status: Pen, Time: 9:00 AM [facility] Work Phone: Start: 11-09-2021 FUV, Provider: AnjelJackie, Status: Pen, Time: 9:00 AM FUV, Provider: [place], Status: Pen, Time: 9:00 AM [facility] [place] [address] DO Work Phone: Start: 05-18-2021 FUV, Provider: AnjelJackie, Status: Pen, Time: 9:15 AM FUV, Provider: [place], Status: Pen, Time: 9:15 AM [facility] Work Phone: Start: 04-13-2021 FUV, Provider: [place],Jackie, Status: Pen, Time: 9:15 AM FUV, Provider: AnjelJackie, Status: Pen, Time: 9:15 AM [facility] Work Phone: Start: 03-08-2021 FUV, Provider: Anjel,Jackie, Status: Pen, Time: 9:00 AM FUV, Provider: Anjel,Jackie, Status: Pen, Time: 9:00 AM [facility] Work Phone: Start: 1994 Screening for malign ant neoplasm of [facility] Start: 1992 Hepatitis B Vaccines (1 of 3 - 19+ 3-dose series) Hepatitis B Vaccines (1 of 3 - 19+ 3-dose series) [facility] Start: 1991 Hepatitis C screening Hepatitis C Sc reening [facility] Start: 1973 COVID-19 Vaccine (#1) COVID-19 Vacci ne (#1) [facility] Start: 1973 Hepatitis B Vaccines (1 of 3 - 3-dose series) Hepatitis B Vaccines (1 of 3 - 3-dose series) [facility] Start: 1973 HIV screening HIV Screening [facility] Start: 1973 Screening for malign ant neoplasm of colon [facility] Start: 1973 Yearly Adult Physical Yearly Adult P hysical [facility] End: 06-09-2023 DBT Breast - bilateral [facility] Service Area Work Phone: Comment on above: Once for 1 Occurrenc es starting 06/09/2023 until 06/09/2023 ECG 12 lead (Clinic Performed) ECG 12 lead (Clinic Performed) ECG Routine Elevated coronary artery calcium score 09/12/2023 9:13 AM EST [facility] Work Phone: Immunizations Immunization Date Immunization Notes Care Provider Lucia crow 05-13-2016 influenza virus vaccine, unspecified formulation Jackie Hobbs Work Phone: [facility] Comment on above: Series: 05-13-2016 measles, mumps and rubella virus vaccine Jackie Hobbs Work Phone: [facility] Work Phone: Comment on above: Series: 04-05-2016 tetanus toxoid, redu leticia diphtheria toxoid, and acellular pertussis vaccine, adsorbed; Translations: [Tdap (Adacel)] Jackie Hobbs Work Phone: [facility] Work Phone: Comment on above: Series: Payers Date Payer Category Payer Unknown 2022 Unknown [id number] 1973 Unknown [id number] 2.16. [id number] 1973 Unknown [id number] 2.16. [id number] 1973 Unknown [id number] 2.16. [id number] 1973 Unknown [id number] 2.16. [id number] 1973 Unknown [id number] 2.16. 840.1.282297.3.579.2. 1973 Unknown [id number] 2.16. [id number] 1973 Unknown [id number] 2.16. 840.1.886545.3.579.2. 1973 Unknown [id number] 2.16. 840.1.781750.3.579.2. 1973 Unknown [id number] 2.16.8 40.1.920250.3.579.2.1243 1973 Unknown [id number] 2.16.8 40.1.774950.3.579.2.1243 1973 Unknown [id number] 2.16.8 40.1.168883.3.579.2.1243 1973 Unknown [id number] 2.16.8 40.1.680180.3.579.2.1244 1973 Unknown [id number] 2.16.8 40.1.480932.3.579.2.1244 1973 Unknown [id number] 2.16.8 40.1.594431.3.579.2.1244 1973 Unknown [id number] 2.16.8 40.1.552621.3.579.2.1244 1973 Unknown [id number] 2.16.8 40.1.545952.3.579.2.1245 1973 Unknown [id number] 2.16.8 40.1.135845.3.579.2.1245 1973 Unknown [id number] 2.16.8 40.1.797896.3.579.2.5 1973 Unknown [id number] 2.16.8 40.1.444604.3.579.2.124 1973 Unknown [id number] 2.16.84 0.1.057127.3.579.2.124 1973 Unknown [id number] 2.16.84 [id number] Social History Date Type Detail Facility Start: 12-06-2022 End: 08-22-2023 Educational Level Educational Level [facility] Work Phone: Comment on above: High School; Start: 12-06-2022 Tobacco smoking stat us SDIS Never smoked tobacco [facility] Work Phone: Start: 12-06-2022 Tobacco use and exposure Smokeless tobacco non-user [facility] Work Phone: Start: 12-06-2022 End: 06-09-2023 Alcohol intake Lifetime non-drinker (finding) [facility] Work Phone: Start: 12-06-2022 End: 08-22-2023 Tobacco use panel [facility] Work Phone: Start: 1975 Sex Assigned At Not on file [facility] Work Phone: Start: 11-26-2022 End: 01-06-2024 Exposure to SARS-CoV-2 (event) Not sure [facility] Start: 08-22-2023 End: 01-06-2024 Alcohol intake Ex-drinker (finding) [facility] Work Phone: Start: 08-22-2023 Alcohol Comment occas. [facility] Work Phone: NEGATED: Highlighted row Denies Drug Use Denies Drug Use [facility] Work Phone: NEGATED: Highlighted rowStart: JOEF History of tobacco use Passive smoker [facility] Work Phone: Clinical Notes 10-12-2020 to 01-06-2024 Assessment & Plan Note - Jackie Hobbs MD - 01/06/2024 9:33 AM EDTAssessment & Plan Note - Jackie Hobbs MD - 01/06/2024 9:33 AM Dhaval Hobbs MD - 01/06/2024 9:00 AM EDT Note Date & Type Note Facility 01-06-2024 Evaluation + Plan note Associated Problem(s): Iron deficiency anemia Repeat CBC iron TIBC and ferritin will be checked today. [facility] Work Phone: 01-06-2024 Evaluation + Plan note Associated Problem(s): Mixed hyperlipidemia Repeat lipid profile will be obtained today [facility] Work Phone: 01-06-2024 Evaluation + Plan note Associated Problem(s): Hypertension Blood pressure stable well-controlled she was given refills on lisinopril and chlorthalidone [facility] Work Phone: 01-06-2024 Evaluation + Plan note Associated Problem(s): Elevated coronary artery calcium score I have recommended the patient start a statin drug but she will discuss this with Yael Mendez first and she is very resistant. [facility] Work Phone: 01-06-2024 Miscellaneous Notes Associated Problem(s): Iron deficiency anemia Repeat CBC iron TIBC and ferritin will be checked today. Associated Problem(s): Mixed hyperlipidemia Repeat lipid profile will be obtained today Associated Problem(s): Hypertension Blood pressure stable well-controlled she was given refills on lisinopril and chlorthalidone Associated Problem(s): Elevated coronary artery calcium score I have recommended the patient start a statin drug but she will discuss this with Yael cortes and she is very resistant. documented in this encounter [facility] Work Phone: 01-06-2024 History of Presen t illness Narrative Subjective Patient ID: Eliz John is a 48 y.o. female who presents for 4 month follow up for cholesterol and HTN management. Patient is here today for routine 4-month follow-up for her hypertension high cholesterol and medication management. She also has an iron deficiency anemia. Her most recent hemoglobin A1c was 4.9% but she notes that all of her sugars at home are between 120 and 170 and are much higher and she is concerned. The anemia may be affecting her A1c so we will check another fasting glucose today Because of her cardiac calcium score which is 36 I did recommend the patient start a statin drug. She is extremely resistant to this and has heard that statins can actually harm you. I reassured her that overall statins decreased heart disease and improved quality of life. I reviewed some of the side effects including elevated liver enzymes muscle aches and other problems and I recommended she at least try the statin and if she has complications or side effects we could always discontinue it. She is still resistant. She would like to speak to Yael Mendez as she has an upcoming appointment with her in cardiology. Review of Systems Constitutional: Negative for fatigue and fever. HENT: Negative for sore throat and trouble swallowing. Eyes: Negative for visual disturbance. Respiratory: Negative for cough and shortness of breath. Cardiovascular: Negative for chest pain, palpitations and leg swelling. Gastrointestinal: Negative for abdominal pain, constipation, diarrhea, nausea and vomiting. Genitourinary: Negative for dysuria and frequency. Musculoskeletal: Negative for arthralgias. Skin: Negative for rash. Neurological: Negative for dizziness and light-headedness. Objective Medication Documentation Review Audit Reviewed by Jackie Hobbs MD (Physician) on 01/06/24 at 0906 Medication Order Taking? Sig Documenting Provider Last Dose Status ascorbic acid, vitamin C, 500 mg capsule [id number] No Take 1 capsule by mouth once daily. Historical Provider, Taking Active chlorthalidone (Hygroton) 25 mg tablet [id number] No TAKE 1 TABLET BY MOUTH EVERY DAY Jackie Hobbs MD Taking Active cholecalciferol (Vitamin D-3) 125 MCG (5000 UT) capsule [id number] No Take 1 capsule (125 mcg) by mouth once daily. Historical Provider, Taking Active famotidine (Pepcid) 40 mg tablet [id number] No Take 1 tablet (40 mg) by mouth once daily at bedtime. Historical Provider, Taking Active lisinopril 40 mg tablet [id number] No TAKE 1 TABLET BY MOUTH DAILY Jackie Hobbs MD Taking Active loratadine (Claritin Liqui-Gel) 10 mg capsule [id number] No Take by mouth. Historical Provider, Taking Active sertraline (Zoloft) 100 mg tablet [id number] Take 1 tablet (100 mg) by mouth once daily. Jackie Hobbs MD Active Allergies Allergen Reactions Chlorthalidone Nausea Only Levofloxacin Swelling Physical Exam Constitutional: Appearance: Normal appearance. She is obese. HENT: Head: Normocephalic and atraumatic. Nose: Nose normal. Eyes: Extraocular Movements: Extraocular movements intact. Pupils: Pupils are equal, round, and reactive to light. Cardiovascular: Rate and Rhythm: Normal rate and regular rhythm. Pulmonary: Breath sounds: Normal breath sounds. Abdominal: General: Abdomen is flat. Bowel sounds are normal. Palpations: Abdomen is soft. Musculoskeletal: Right lower leg: No edema. Left lower leg: No edema. Neurological: Mental Status: She is alert. BP 105/62 (BP Location: Left arm, Patient Position: Sitting) Pulse 82 Ht 1.562 m (5' 1.5 ) Wt 94.5 kg (208 lb 6.4 oz) SpO2 95% BMI 38.74 kg/m Assessment/Plan Problem List Items Addressed This Visit Depression Relevant Medications sertraline (Zoloft) 100 mg tablet Hypertension Blood pressure stable well-controlled she was given refills on lisinopril and chlorthalidone Iron deficiency anemia Repeat CBC iron TIBC and ferritin will be checked today. Mixed hyperlipidemia Repeat lipid profile will be obtained today Elevated coronary artery calcium score I have recommended the patient start a statin drug but she will discuss this with Yael Mendez first and she is very resistant. Other Visit Diagnoses Annual physical exam - Primary Relevant Orders Lipid Panel CBC Comprehensive Metabolic Panel TSH with reflex to Free T4 if abnormal Vitamin D 25-Hydroxy,Total (for eval of Vitamin D levels) Essential (primary) hypertension Relevant Medications lisinopril 40 mg tablet chlorthalidone (Hygroton) 25 mg tablet Anemia, unspecified type Relevant Orders Iron and TIBC Ferritin It has been a pleasure seeing you. Jackie Hobbs MD documented in this encounter [facility] Work Phone: 01-06-2024 Instructions Jackie Hobbs MD - 01/06/2024 9:00 AM EDT Get labs today Follow up Dr Hobbs in 4 months for Htn etc 30 min appointment documented in this encounter [facility] Work Phone: 09-12-2023 History of Presen t illness Narrative Eliz John is a 48 y.o. female History Of Present Illness Mrs John is a 48 year old female with a PMH of hypertension, iron deficincey anemia, s/p two iron infusion, unexplained weight gain and prior history of gestational diabetes, who is here following an abnormal CT calcium score of LM: 0. LAD: 36.2. LCx: 0. RCA: 0. Total: 36.2. She is complaining of weight gain and shortness of breath. She denies any complaints of chest pain, dizziness or syncope. Social HX Social History Tobacco Use Smoking status: Never Passive exposure: Never Smokeless tobacco: Never Vaping Use Vaping Use: Never used Substance Use Topics Alcohol use: Not Currently Comment: occas. Drug use: Never Family HX Father has CAD, s/p 2 stents, mother has htn Family History Problem Relation Name Age of Onset Hypertension Mother Anxiety disorder Mother Hypertension Father Coronary artery disease Father Colon cancer Maternal Grandmother Lymphoma Maternal Grandmother Breast cancer Neg Hx Review Of Systems Constitutional: not feeling tired. +weight gain Eyes: no eyesight problems. No vision loss or change in vision ENT: no hearing loss and no nosebleeds. Cardiovascular: No intermittent leg claudication, No chest pain, no tightness or heavy pressure + shortness of breath, No palpitations, No lower extremity edema The heart rate is regular Respiratory: no chronic cough +shortness of breath. Gastrointestinal: no change in bowel habits and no blood in stools. Genitourinary: no urinary frequency. Skin: no skin rashes. Neurological: No frequent falls. No dizziness No weakness Denies headaches Psychiatric: no depression and not suicidal. All other systems have been reviewed and are negative for complaint. Allergies Allergies Allergen Reactions Chlorthalidone Nausea Only Levofloxacin Swelling Vitals Visit Vitals BP 113/71 (BP Location: Left arm, Patient Position: Sitting, BP Cuff Size: Adult) Pulse 72 Physical Exam Constitutional: alert and in no acute distress. Eyes: no erythema, swelling or discharge from the eye . Neck: neck is supple, symmetric, trachea midline, no masses and no thyromegaly . Pulmonary: No increased work of breathing or signs of respiratory distress Lungs clear to auscultation. Auscultation of the lungs revealed no expiratory wheezing, normal expiratory time and no inspiratory wheezing. no rales or crackles were heard bilaterally. no rhonchi No friction rub. no wheezing. No diminished breath sounds. no bronchial breath sounds. Cardiovascular: carotid pulses 2+ bilaterally with no bruit JVP was normal, no thrills , Regular rhythm, normal S1 and S2, no murmurs the heart rate was normal normal S1, normal S2, no S3, no S4 no murmurs were heard., Pedal pulses 2+ bilaterally No edema . Abdomen: abdomen non-tender, no masses and no hepatomegaly . No pulsatile mass noted Skin: skin warm and dry, normal skin turgor . Psychiatric judgment and insight is normal and oriented to person, place and time . Current/Home Meds Current Outpatient Medications: ascorbic acid, vitamin C, 500 mg capsule, Take 1 capsule by mouth once daily., Disp: , Rfl: chlorthalidone (Hygroton) 25 mg tablet, TAKE 1 TABLET BY MOUTH EVERY DAY, Disp: 90 tablet, Rfl: 0 cholecalciferol (Vitamin D-3) 125 MCG (5000 UT) capsule, Take 1 capsule (125 mcg) by mouth once daily., Disp: , Rfl: famotidine (Pepcid) 40 mg tablet, Take 1 tablet (40 mg) by mouth once daily at bedtime., Disp: , Rfl: lisinopril 40 mg tablet, TAKE 1 TABLET BY MOUTH DAILY, Disp: 90 tablet, Rfl: 0 loratadine (Claritin Liqui-Gel) 10 mg capsule, Take by mouth., Disp: , Rfl: sertraline (Zoloft) 100 mg tablet, Take 1 tablet (100 mg) by mouth once daily., Disp: 30 tablet, Rfl: 0 Labs 04/12/23 CHOLESTEROL 195 HDL 40.5 LDL 119 TG 177 EKG Findings EKG: normal sinus rhythm Cardiac Service Results: LM: 0. LAD: 36.2. LCx: 0. RCA: 0. Total: 36.2. Assessment/Plan CORONARY ARTERY DISEASE: CT calcium score of 36.2 in the LAD. Last LDL was 119. EKG shows NSR. BP is 113/71. She is having increased shortness of breath and unexplained weight gain. Will plan for an echo. We had a long discussion regarding her heart disease and hyperlipidemia. Plan for a low sodium, low saturated fat diet. She is to exercise for 150 mins a week. Goal of losing 1-2 pounds per week. Will have her repeat a lipid panel and CMP in 6 months. If no improvement in her LDL, will start on a statin. She will follow up with me after testing to discuss the results of her testing. documented in this encounter [facility] Work Phone: 08-22-2023 Evaluation + Plan note Associated Problem(s): Iron deficiency anemia Patient has a chronic iron deficiency anemia. We are checking CBCs periodically and it was last checked in March. [facility] Work Phone: 08-22-2023 Miscellaneous Notes Associated Problem(s): Iron deficiency anemia Patient has a chronic iron deficiency anemia. We are checking CBCs periodically and it was last checked in March. Associated Problem(s): Elevated coronary artery calcium score Patient has elevated cardiac calcium score confirming some cardiac disease. She does have elevated cholesterol as well. I given the option of either starting a statin drug or seeing cardiology she would like to see cardiology and have second opinion. Will make that referral today so she can follow-up with this. Associated Problem(s): Hypertension Hypertension is stable and well-controlled no changes will be made. Patient is unsure if she needs refills but will call if she finds she needs and when she gets home. documented in this encounter [facility] Work Phone: 08-22-2023 Evaluation + Plan note Associated Problem(s): Elevated coronary artery calcium score Patient has elevated cardiac calcium score confirming some cardiac disease. She does have elevated cholesterol as well. I given the option of either starting a statin drug or seeing cardiology she would like to see cardiology and have second opinion. Will make that referral today so she can follow-up with this. [facility] Work Phone: 08-22-2023 Evaluation + Plan note Associated Problem(s): Hypertension Hypertension is stable and well-controlled no changes will be made. Patient is unsure if she needs refills but will call if she finds she needs and when she gets home. [facility] Work Phone: 08-22-2023 History of Presen t illness Narrative Subjective Patient ID: Eliz John is a 48 y.o. female who presents for No chief complaint on file.. Patient is here for routine 4-month follow-up for her hypertension elevated cholesterol and medication management. Patient had a CT cardiac calcium score which was mildly elevated. We discussed this today and I told her we could either start her on a statin drug to be more aggressive or she can see cardiology. She would like to see a mate fourth and get secondary input so we will be happy to make that referral Patient also had central pulmonary nodule finding on the CT of the cardiac calcium score. She will need a follow-up CT scan in 6 months and we will order that now. Review of Systems Constitutional: Negative for chills, fatigue and fever. HENT: Negative for sore throat. Eyes: Negative for visual disturbance. Respiratory: Negative for cough and shortness of breath. Cardiovascular: Negative for chest pain, palpitations and leg swelling. Gastrointestinal: Negative for constipation, diarrhea, nausea and vomiting. Genitourinary: Negative for difficulty urinating, dysuria, frequency, hematuria and urgency. Musculoskeletal: Negative for arthralgias and myalgias. Skin: Negative for rash. Neurological: Negative for dizziness, syncope, weakness, light-headedness and headaches. Objective Medication Documentation Review Audit Reviewed by Jackie Hobbs MD (Physician) on 08/22/23 at 0915 Medication Order Taking? Sig Documenting Provider Last Dose Status ascorbic acid, vitamin C, 500 mg capsule [id number] No Take 1 capsule by mouth once daily. Historical Provider, Not Taking Active chlorthalidone (Hygroton) 25 mg tablet [id number] Yes TAKE 1 TABLET BY MOUTH EVERY DAY Jackie Hobbs MD Taking Active cholecalciferol (Vitamin D-3) 125 MCG (5000 UT) capsule [id number] Yes Take 1 capsule (125 mcg) by mouth once daily. Historical Provider, Taking Active famotidine (Pepcid) 40 mg tablet [id number] Yes Take 1 tablet (40 mg) by mouth once daily at bedtime. Historical Provider, Taking Active lisinopril 40 mg tablet [id number] Yes TAKE 1 TABLET BY MOUTH DAILY Jackie Hobbs MD Taking Active loratadine (Claritin Liqui-Gel) 10 mg capsule [id number] Yes Take by mouth. Historical Provider, Taking Active sertraline (Zoloft) 100 mg tablet [id number] Take 1 tablet (100 mg) by mouth once daily. Jackie Hobbs MD 02/04/23 2359 Allergies Allergen Reactions Chlorthalidone Nausea Only Levofloxacin Swelling Physical Exam Constitutional: Appearance: Normal appearance. HENT: Head: Normocephalic and atraumatic. Nose: Nose normal. Eyes: Extraocular Movements: Extraocular movements intact. Pupils: Pupils are equal, round, and reactive to light. Cardiovascular: Rate and Rhythm: Normal rate and regular rhythm. Pulmonary: Breath sounds: Normal breath sounds. Abdominal: General: Abdomen is flat. Bowel sounds are normal. Palpations: Abdomen is soft. Musculoskeletal: Right lower leg: No edema. Left lower leg: No edema. Neurological: Mental Status: She is alert. BP 103/76 Pulse 87 Ht 1.549 m (5' 1 ) Wt 96.6 kg (213 lb) BMI 40.25 kg/m Assessment/Plan Problem List Items Addressed This Visit Hypertension Hypertension is stable and well-controlled no changes will be made. Patient is unsure if she needs refills but will call if she finds she needs and when she gets home. Iron deficiency anemia Patient has a chronic iron deficiency anemia. We are checking CBCs periodically and it was last checked in March. Mixed hyperlipidemia Pulmonary nodule Relevant Orders CT chest wo IV contrast Elevated coronary artery calcium score - Primary Patient has elevated cardiac calcium score confirming some cardiac disease. She does have elevated cholesterol as well. I given the option of either starting a statin drug or seeing cardiology she would like to see cardiology and have second opinion. Will make that referral today so she can follow-up with this. Relevant Orders Referral to Cardiology It has been a pleasure seeing you. Jackie Hobbs MD documented in this encounter [facility] Work Phone: 08-22-2023 Instructions Jackie Hobbs MD - 08/22/2023 8:45 AM EST Follow up Dr Hobbs in 4 months for HTN etc Set up cardiology referral for elevated Coronary calcium score documented in this encounter [facility] Work Phone: 04-15-2023 Evaluation + Plan note Associated Problem(s): Anemia She has iron deficiency anemia as she is unable to absorb iron properly. 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 Flores for possible iron infusion again. [facility] Work Phone: 04-15-2023 Miscellaneous Notes Associated Problem(s): Anemia She has iron deficiency anemia as she is unable to absorb iron properly. 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 Flores for possible iron infusion again. Associated Problem(s): Hypertension Pretension is stable and well-controlled. documented in this encounter [facility] Work Phone: 04-15-2023 Evaluation + Plan note Associated Problem(s): Hypertension Pretension is stable and well-controlled. [facility] Work Phone: 04-15-2023 History of Presen t illness Narrative Subjective Patient ID: Eliz John is a 47 y.o. female who presents for 4 month re for HTN management. BN Is here for 4-month follow-up for hypertension, anemia and medication management. Patient is now seeing Dr. Flores for iron deficiency anemia because she is unable to absorb iron she does get intermittent infusions. She has noticed that she has a lot more energy after the iron infusions. Her most recent hemoglobin has started to slip again closer to 10 so I recommended she get in touch with Dr. Flores as she may need another iron infusion soon. Review of Systems Constitutional: Negative for chills, fatigue and fever. HENT: Negative for sore throat. Eyes: Negative for visual disturbance. Respiratory: Negative for cough and shortness of breath. Cardiovascular: Negative for chest pain, palpitations and leg swelling. Gastrointestinal: Negative for constipation, diarrhea, nausea and vomiting. Genitourinary: Negative for difficulty urinating, dysuria, frequency, hematuria and urgency. Musculoskeletal: Negative for arthralgias and myalgias. Skin: Negative for rash. Neurological: Negative for dizziness, syncope, weakness, light-headedness and headaches. Objective Medication Documentation Review Audit Reviewed by Jackie Hobbs MD (Physician) on 04/15/23 at 0827 Medication Order Taking? Sig Documenting Provider Last Dose Status ascorbic acid, vitamin C, 500 mg capsule [id number] Take 1 capsule by mouth once daily. Historical ProviderMD Active chlorthalidone (Hygroton) 25 mg tablet [id number] TAKE 1 TABLET BY MOUTH EVERY DAY Jackie Hobbs MD Active cholecalciferol (Vitamin D-3) 125 MCG (5000 UT) capsule [id number] Take 1 capsule (125 mcg) by mouth once daily. Historical ProviderMD Active lisinopril 40 mg tablet [id number] TAKE 1 TABLET BY MOUTH DAILY Jackie Hobbs MD Active loratadine (Claritin Liqui-Gel) 10 mg capsule [id number] Take by mouth. Historical ProviderMD Active sertraline (Zoloft) 100 mg tablet [id number] Take 1 tablet (100 mg) by mouth once daily. Jackie Hobbs MD 02/04/23 3153 Physical Exam Constitutional: Appearance: Normal appearance. HENT: Head: Normocephalic and atraumatic. Nose: Nose normal. Eyes: Extraocular Movements: Extraocular movements intact. Pupils: Pupils are equal, round, and reactive to light. Cardiovascular: Rate and Rhythm: Normal rate and regular rhythm. Pulmonary: Breath sounds: Normal breath sounds. Abdominal: General: Abdomen is flat. Bowel sounds are normal. Palpations: Abdomen is soft. Musculoskeletal: Right lower leg: No edema. Left lower leg: No edema. Neurological: Mental Status: She is alert. BP 118/78 (BP Location: Left arm, Patient Position: Sitting) Pulse 70 Ht 1.568 m (5' 1.75 ) Comment: w/o shoes Wt 95.5 kg (210 lb 9.6 oz) SpO2 99% BMI 38.83 kg/m Assessment/Plan Problem List Items Addressed This Visit Anemia She has iron deficiency anemia as she is unable to absorb iron properly. 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 Flores for possible iron infusion again. Hypertension Pretension is stable and well-controlled. Relevant Orders CT cardiac scoring wo IV contrast Elevated fasting glucose - Primary Relevant Orders Hemoglobin A1C Mixed hyperlipidemia Relevant Orders CT cardiac scoring wo IV contrast Screening mammogram for breast cancer Relevant Orders BI mammo bilateral screening tomosynthesis It has been a pleasure seeing you. documented in this encounter [facility] Work Phone: 04-15-2023 Instructions Jackie Hobbs MD - 04/15/2023 8:[address] cardiac calcium set up Get A1c today Set up mammo Follow up Dr Hobbs in 4 months 30 min documented in this encounter [facility] Work Phone: 12-06-2022 Evaluation + Plan note Associated Problem(s): Depression Depression is doing much better on the sertraline 100 mg dose [facility] Work Phone: 12-06-2022 Evaluation + Plan note Associated Problem(s): Anemia Anemia due to iron deficiency. Patient has not found any source of iron losses such as menstrual cycles or GI and it is believed she may have an iron absorption problem. Both Dr Edouard and Dr. Flores, hematology are following up with her. [facility] Work Phone: 12-06-2022 Miscellaneous Notes Associated Problem(s): Depression Depression is doing much better on the sertraline 100 mg dose Associated Problem(s): Anemia Anemia due to iron deficiency. Patient has not found any source of iron losses such as menstrual cycles or GI and it is believed she may have an iron absorption problem. Both Dr Edouard and Dr. Flores, hematology are following up with her. Associated Problem(s): Vitamin D deficiency Patient remains on supplements and we will check her vitamin D level with labs in January Associated Problem(s): Hypertension Hypertension is stable and well-controlled but she is due for blood work in January and was given a requisition today. documented in this encounter [facility] Work Phone: 12-06-2022 Evaluation + Plan note Associated Problem(s): Vitamin D deficiency Patient remains on supplements and we will check her vitamin D level with labs in January [facility] Work Phone: 12-06-2022 Evaluation + Plan note Associated Problem(s): Hypertension Hypertension is stable and well-controlled but she is due for blood work in January and was given a requisition today. [facility] Work Phone: 12-06-2022 History of Presen t illness Narrative Subjective Patient ID: Eliz John is a 47 y.o. female who presents for 2 month re for HTN management. BN Patient is here for follow-up on hypertension depression and medication management. 2 months ago increase the sertraline to 100 mg daily. She is doing well at this time. Patient is seen both Dr. Flores and Dr Edouard for her iron deficiency anemia. They have stopped both the folate and ferrous sulfate as they determined it was not helping. She has an unknown iron deficiency or iron absorption syndrome. She continues to follow-up with them and monitor her CBC and iron levels. Review of Systems Constitutional: Negative for chills, fatigue and fever. HENT: Negative for sore throat. Eyes: Negative for visual disturbance. Respiratory: Negative for cough and shortness of breath. Cardiovascular: Negative for chest pain, palpitations and leg swelling. Gastrointestinal: Negative for constipation, diarrhea, nausea and vomiting. Genitourinary: Negative for difficulty urinating, dysuria, frequency, hematuria and urgency. Musculoskeletal: Negative for arthralgias and myalgias. Skin: Negative for rash. Neurological: Negative for dizziness, syncope, weakness, light-headedness and headaches. Objective Physical Exam Constitutional: Appearance: Normal appearance. HENT: Head: Normocephalic and atraumatic. Nose: Nose normal. Eyes: Extraocular Movements: Extraocular movements intact. Pupils: Pupils are equal, round, and reactive to light. Cardiovascular: Rate and Rhythm: Normal rate and regular rhythm. Pulmonary: Breath sounds: Normal breath sounds. Abdominal: General: Abdomen is flat. Bowel sounds are normal. Palpations: Abdomen is soft. Musculoskeletal: Right lower leg: No edema. Left lower leg: No edema. Neurological: Mental Status: She is alert. BP 127/71 (BP Location: Left arm, Patient Position: Sitting) Pulse 73 Ht 1.575 m (5' 2 ) Wt 93.5 kg (206 lb 3.2 oz) SpO2 97% BMI 37.71 kg/m Assessment/Plan Problem List Items Addressed This Visit Circulatory Hypertension Hypertension is stable and well-controlled but she is due for blood work in January and was given a requisition today. Relevant Orders Lipid Panel CBC Comprehensive Metabolic Panel TSH with reflex to Free T4 if abnormal Vitamin D 1,25 Dihydroxy Endocrine/Metabolic Vitamin D deficiency Patient remains on supplements and we will check her vitamin D level with labs in January Relevant Orders Lipid Panel CBC Comprehensive Metabolic Panel TSH with reflex to Free T4 if abnormal Vitamin D 1,25 Dihydroxy Hematologic Anemia Anemia due to iron deficiency. Patient has not found any source of iron losses such as menstrual cycles or GI and it is believed she may have an iron absorption problem. Both Dr Edouard and Dr. Flores, hematology are following up with her. Relevant Orders Lipid Panel CBC Comprehensive Metabolic Panel TSH with reflex to Free T4 if abnormal Vitamin D 1,25 Dihydroxy Other Depression Depression is doing much better on the sertraline 100 mg dose Relevant Orders Lipid Panel CBC Comprehensive Metabolic Panel TSH with reflex to Free T4 if abnormal Vitamin D 1,25 Dihydroxy Other Visit Diagnoses Annual physical exam - Primary Relevant Orders Lipid Panel CBC Comprehensive Metabolic Panel TSH with reflex to Free T4 if abnormal Vitamin D 1,25 Dihydroxy Patient will follow-up with me in 4 months for hypertension and other medical issues Check complete blood work in January Please follow-up with your [employer] as you are overdue for an annual physical Dr. Lombardi. It has been a pleasure seeing you. documented in this encounter [facility] Work Phone: 12-06-2022 Instructions Jackie Hobbs MD - 12/06/2022 9:00 AM EDT Get fasting labs in January Follow up Dr Hobbs in 4 months HTN Please follow up with Dr Lombardi for annual exam documented in this encounter [facility] Work Phone: 11-01-2022 Note Clinic Note: Education Assessment: Learning BarriersNo barriers TaughtPatient Primary Language of PatientEnglish Primary Language of Gonzalez LearnerEnglish New Patient/Pre-treatment: Topic(s): New Patient Pre-Treatment Follow up plan MethodVerbal Nursing Note: Nursing NotePatient to follow-up in 3 months with labs prior. Call back instructions reviewed. Patient verbalize understanding. Electronic Signatures: Norma Donovan (RN) (Signed 01-Nov-2022 11:11) Authored: Education Assessment, New Patient/Pre-treatment, Nursing Note Last Updated: 01-Nov-2022 11:11 by Norma Donovan (RN) [facility] 08-23-2022 Note Clinic Note: Education Assessment: Learning BarriersNo barriers TaughtPatient Primary Language of PatientEnglish Primary Language of Gonzalez LearnerEnglish Clinic Visit: Topic(s): Clinic VisitFollow-up plan EvaluationStates general concept Electronic Signatures: Vinita Hunter) (Signed 23-Aug-2022 13:08) Authored: Education Assessment, Clinic Visit Last Updated: 23-Aug-2022 13:08 by Vinita Hunter (GALINA) [facility] 08-16-2022 Note Clinic Note: Education Assessment: Learning BarriersNo barriers Primary Language of PatientEnglish Primary Language of Gonzalez LearnerEnglish Infusion: Topic(s): InfusionCall your doctor right away: signs of infection, Follow-up plan, Hypersensitivity reaction, Infusion orientation/routine, IV access MethodVerbal, Teach-Back EvaluationTeaches back, States general concept Electronic Signatures: Doc Helms (GALINA) (Signed 16-Aug-2022 09:07) Authored: Education Assessment, Infusion Last Updated: 16-Aug-2022 09:07 by Doc Helms (GALINA) [facility] 08-09-2022 Note Clinic Note: Education Assessment: Learning BarriersNo barriers TaughtPatient Primary Language of PatientEnglish Primary Language of Gonzalez LearnerEnglish Clinic Visit: Topic(s): Clinic VisitFollow-up plan MethodVerbal EvaluationStates general concept Electronic Signatures: Vinita Hunter (GALINA) (Signed 09-Aug-2022 10:58) Authored: Education Assessment, Clinic Visit Last Updated: 09-Aug-2022 10:58 by Vinita Hunter (GALINA) [facility] 08-02-2022 Note Clinic Note: Education Assessment: Learning BarriersNo barriers TaughtPatient Primary Language of PatientEnglish Primary Language of Gonzalez LearnerEnglish New Patient/Pre-treatment: Topic(s): New Patient Pre-Treatment Follow up plan MethodVerbal Nursing Note: Nursing NoteANA today as ordered. IV Venofer weekly x 3 to start in the next 7 days or so. Follow-up in 3 months with labs prior. Call back instructions reviewed. Patient verbalize understanding. Electronic Signatures: Norma Donovan (LUIZ) (Signed 02-Aug-2022 11:28) Authored: Education Assessment, New Patient/Pre-treatment, Nursing Note Last Updated: 02-Aug-2022 11:28 by Norma Donovan (RN) [facility] 07-30-2022 History of Presen t illness Narrative Patient is here today for follow-up on hypertension, depression and 1 new issue.She has noticed a strange tingling sensation on the top of her left foot and radiating up her left lateral calf.She had this once before and it lasted for a few weeks and then subsided and now has recurred and not gone away. It has been present for at least the last month.Patient recently got an iron infusion because of iron deficiency anemia. She has had an entire GI work-up from Dr Edouard including upper GI, colonoscopy and small capsule follow-through with no obvious source of bleeding. 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 She is less short of breath.Regarding her depression she believes the sertraline is currently helping but thinks that she is not quite where she needs to be and is willing to increase the dose at this time [facility] Work Phone: 11-06-2021 History of Presen t illness Narrative Patient is here for follow-up on hypertension but notices that she has had some slight discomfort with urination for the past month. No frequency no blood in the urine that she has noticed although she has chronic hemolyzed blood which is old and unchanged.She has no fevers chills or other symptoms associated with bladder infection or kidney infection. -[facility] Work Phone: 07-28-2021 History of Presen t illness Narrative Presents reporting that her personal cat scratched her right index finger yesterday while she was attempting to free it from being caught in a cabinet at her home. She is right-hand dominant. Date of last tetanus immunization is 2015. Cat is vaccinated. Presents now because of pain and swelling in the right index finger. Denies other injuries. [facility] 06-27-[facility]21 History of Presen t illness Narrative BloodPatient is here today for 1 month follow-up on hypertension.She is now on lisinopril 10 and chlorthalidone 25 mg daily. She stopped the chlorthalidone 2 weeks ago because of nausea.Her today remains elevated.Patient brings in a form from her work at [employer] stating that if she does not get the vaccine she potentially could lose her job. She is distraught by this and does not want to get the vaccine. Unfortunately she has some erroneous information about the vaccine containing cells which is not true.I did educate the patient about the VAC Covid vaccine its usefulness, some of its ingredients and also pointed out to the patient that not only she free to refuse the vaccine but private companies are free to make their own rules about whether or not vaccines are mandatory in the place of business. -[facility] Work Phone: 06-26-2021 History of Presen t illness Narrative BloodPatient is here today for 1 month follow-up on hypertension.She is now on lisinopril 10 and chlorthalidone 25 mg daily. She stopped the chlorthalidone 2 weeks ago because of nausea.Her today remains elevated.Patient brings in a form from her work at [employer] stating that if she does not get the vaccine she potentially could lose her job. She is distraught by this and does not want to get the vaccine. Unfortunately she has some erroneous information about the vaccine containing cells which is not true.I did educate the patient about the VAC Covid vaccine its usefulness, some of its ingredients and also pointed out to the patient that not only she free to refuse the vaccine but private companies are free to make their own rules about whether or not vaccines are mandatory in the place of business. [facility] Juanis Heredia DO Work Phone: 04-13-2021 Note Assessment/Plan 1. Pre-procedure lab exam Z01.812 ENDOMETRIAL POLYP: PLAN FOR HYSTEROSCOPY, D&C, MYOSURE POLYPECTOMY Ordered: AMB Urine POC [id number], 04/13/2021 11:47:00 EDT, Pre-procedure lab exam 2. Endocervical polyp N84.1 Polyp noted at the time of colposcopy. It was removed during the exam. Colposcopy, ECC, biopsy also performed. Atypical glandular cells of undetermined significance (EDILBERTO) on cervical Pap smear R87.619 Ordered: metroNIDAZOLE 0.75% vaginal gel with applicator = MetroGel, 1 kristen, Vaginal, BID, # 70 g, Refill(s) 0, Date: 04/13/2021 12:35:00 EDT, Pharmacy: [id number], 1 kristen Vaginal BID,x5 days, Atypical glandular cells of undetermined significance (EDILBERTO) on cervical Pap smear AMB Colposcopy Cervix w/Bx Endocerv Curetg [id number], 04/13/2021 12:05:00 EDT, Atypical glandular cells of undetermined significance (EDILBERTO) on cervical Pap smear, 1 AMB Endometrial Bx in Conjunct w/Colpo [id number], 04/13/2021 12:05:00 EDT, Atypical glandular cells of undetermined significance (EDILBERTO) on cervical Pap smear, 1 AMB Ultrasound, transvaginal [id number], 04/13/2021 09:48:00 EDT, Atypical glandular cells of undetermined significance (EDILBERTO) on cervical Pap smear, 1 US TV ECHO NON OB OFFICE READ, 04/13/2021 11:22:00 EDT, Routine, OTHER REASON, see diagnosis, Ambulatory, R87.619 Endometrial polyp N84.0 Plan for hysteroscopy, d&C myosure polypectomy. Risks, benefits of surgery reviewed. Chief Complaint Here for abnormal pap - EDILBERTO, 02/26/[address] Hobbs History of Present Illness Being worked up for iron deficiency anemia. no bleeding in her GI. May have a trace of blood in her urine. Always had bad cramping with periods, only last about 4 days. Every other month will have more cramping. Uses ibuprofen as needed. She did fertility treatments with her first. Physical Exam Vitals & Measurements BP: 170/90 HT: 152 cm WT: 93.9 kg BMI: 40.64 LMP: 03/28/2021 00:00 EDT Depression Screening Scores No Depression Screening data available for this encounter. Fall Risk Assessment Is the patient ambulatory (mobile): Yes (04/13/21 11:30:00) Have you had a fall within the past: No (04/13/21 11:30:00) Have you had 2 or more falls in the past: No (04/13/21 11:30:00) The vital signs were reviewed and show an elevated blood pressure. 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 The cervix was visualized and acetic acid was placed on the cervix. The entire squamocolumnar junction was seen. A biopsy was taken at the 6 o'clock position but no lesions were noted. An ECC was performed. I saw a polyp in the cervix. It was grasped with a long baylee and twisted until it fell off. She tolerated the procedure well. Hemostasis was noted. Monsels paste was applied The vital signs were reviewed and show an elevated blood pressure. General appearance: well developed and well nourished Lungs: Normal respiratory effort, clear to auscultation Extremities: No edema or clubbing Psychiatric: Mood normal: yes Affect normal: yes Insight and judgement normal: yes External genitalia: multiple sebaceous cysts Urethra: normal meatus Vagina: normal no lesions, scant discharge, vault normal Cervix: no cervical motion tenderness, polyp noted. 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 Additional Details Menstrual History Menstrual StatusMenarcheal Last Menstrual Ubmalv1003/28/2021 OB History History (2,0,0,2) # 1 Baby 1 Outcome Date: 05/16/2002 Outcome: Live Outcome or Result: Vaginal Gender: Female Gest Age: 39 weeks Wt: 3062 g Hospital: [facility] Labor: -- Child's Name: -- Baby's Father: -- Maternal Complications: GDM # 2 Baby 1 Outcome Date: 04/30/2005 Outcome: Live Outcome or Result: Vaginal Gender: Female Gest Age: 37 weeks Wt: 3289 g Hospital: [facility] Labor: -- Child's Name: -- Baby's Father: -- Problem List/Past Medical History Ongoing BMI 40.0-44.9, adult Depression History of gestational diabetes HTN (hypertension) Vitamin D deficiency Historical Procedure/Surgical History Last pap - EDILBERTO (02/26/2021) Colonoscopy - Never, Cologard - Negative () Mammo - Normal () Medications lisinopril 10 mg oral tablet Vitamin D3 125 mcg (5000 intl units) oral tablet, (more content not included)... [facility] 04-01-2021 History of Presen t illness Narrative BloodPatient is here today for 1 month follow-up on hypertension.She is now on lisinopril 10 and chlorthalidone 25 mg daily. She stopped the chlorthalidone 2 weeks ago because of nausea.Her today remains elevated.Patient brings in a form from her work at [employer] stating that if she does not get the vaccine she potentially could lose her job. She is distraught by this and does not want to get the vaccine. Unfortunately she has some erroneous information about the vaccine containing cells which is not true.I did educate the patient about the VAC Covid vaccine its usefulness, some of its ingredients and also pointed out to the patient that not only she free to refuse the vaccine but private companies are free to make their own rules about whether or not vaccines are mandatory in the place of business. [facility] Work Phone: 10-12-2020 History of Presen t illness Narrative 1. Hypertension, patient was unable to tolerate chlorthalidone due to nausea. This will be added to her allergy list. Over this past year she had an abnormal Pap test which was followed up with a biopsy by Dr. Lombardi. We did not have the pathology reports but we will try and get a copy of itPatient also had anemia which was iron deficient so she had an EGD and colonoscopy. We do have colonoscopy report but for some reason never got the EGD and will need to get a copy of that as wellPatient does have a family history of colon cancer in her maternal grandmother. [facility] Juanis Heredia Work Phone: Evaluation note Diagnosis Annual physical exam- Primary Routine general medical examination at a health care facility Primary hypertension Unspecified essential hypertension Vitamin D deficiency Iron deficiency anemia, unspecified iron deficiency anemia type Current moderate episode of major depressive disorder without prior episode ([facility]/HCC) documented in this encounter [facility] Work Phone: Evaluation note* Diagnosis Elevated fasting glucose- Primary Impaired fasting glucose Primary hypertension Unspecified essential hypertension Mixed hyperlipidemia Screening mammogram for breast cancer Other iron deficiency anemia documented in this encounter [facility] Work Phone: Evaluation note* Diagnosis Encounter for screening mammogram for malignant neoplasm of breast documented in this encounter [facility] Work Phone: Evaluation note* Diagnosis Encounter for screening mammogram for malignant neoplasm of breast documented in this encounter [facility] Work Phone: Evaluation note* Diagnosis Elevated coronary artery calcium score- Primary Pulmonary nodule Other diseases of lung, not elsewhere classified Primary hypertension Unspecified essential hypertension Mixed hyperlipidemia Other iron deficiency anemia Iron deficiency anemia due to chronic blood loss Iron deficiency anemia secondary to blood loss (chronic) documented in this encounter [facility] Work Phone: Evaluation note* Diagnosis Mixed hyperlipidemia- Primary Elevated coronary artery calcium score Primary hypertension Unspecified essential hypertension documented in this encounter [facility] Work Phone: Evaluation note* Diagnosis Annual physical exam- Primary Routine general medical examination at a health care facility Current moderate episode of major depressive disorder without prior episode (Multi) Essential (primary) hypertension Unspecified essential hypertension Anemia, unspecified type Primary hypertension Unspecified essential hypertension Elevated coronary artery calcium score Mixed hyperlipidemia Iron deficiency anemia due to chronic blood loss Iron deficiency anemia secondary to blood loss (chronic) Elevated coronary artery calcium score Annual physical exam Routine general medical examination at a health care facility Anemia, unspecified type documented in this encounter [facility] Work Phone: History of Present illness Narrative* Blood work was reviewed with the patient. She has a worsening anemia and her stool test was negative so she is following up with [facility] she unfortunately did not get the other blood work including iron B12 and folate studies so these were given to her today to have completed * Also her vitamin D is low so she will start taking vitamin D3 5000 international units daily * Patient's LDL cholesterol is high at 125 so she was asked to work on a low-fat diet * Patient was also asked to work on a low carbohydrate low sugar diet since her glucose was also mildly elevated. [facility] Work Phone: History of Present illness Narrative* Patient is here today for recheck on hypertension. * She increase the lisinopril to 40 mg daily without any apparent side effects and is doing well. * She also notices that her hair and nails are slightly improved now that she is taking iron supplements for her anemia. [facility] Work [facility]: History of Present illness Narrative* Patient is here for routine 4-month follow-up for her hypertension and anemia but at the end the appointment says that she worries all the time. * She immediately became teary-eyed and says she worries herself to tears almost on a daily basis. * She says she has no harmful thoughts initially but then later does have thoughts of harming herselfbut reassures me she would never act on them because she loves her family too much. * See depression screening questions. Patient has had issues with depression in the past and was on sertraline and it did work well. * I have discussed the collaborative care model for this patient's behavioral health care. Written detailed information and identifying the members of this care team was provided to the patient. They give permission for the behavioral Health Code Machine Operator (BHM) and psychiatric consult to be included in their care with my continued primary management. Patient was made aware that the services provided as part of the Collaborative Care Model are subject to cost sharing. [facility] Work Phone: History of Present illness Narrative* Patient is here today for routine follow-up on hypertension and depression. * She is also seeing Dr. No for her anemia. * She notes that her depression is slightly worse recently and questions if she can increase the doseof the sertraline. She is currently on 50 mg daily [facility] Work Phone: Instructions* Instruction Text No instruction information i s available. [place] Reason for visit Narrative* Consultation (Routine) - Authorized Specialty Diagnoses / Procedures Referred By Maxine laureano Referred To Contact Cardiology Diagnoses Elevated coronary artery calcium score Jackie Hobbs MD [address] [facility] [address] [place] [address] Referral ID Status Reason Start Date Expiration Date Visits Requested Visits Authorized [id number] Authorized Specialty Services Required 08/22/2023 08/21/2024 1 1 [facility] Work Phone: Family History No Family History Records FoundUnknown Family Member Name Dates Details Colon Cancer: Family History (V16.0) Comments:MGM; Status:Active Family Health Status Of Rosa er - Good: Mother Status:Active Coronary Artery Disease: Fat her(V17.49) Status:Active Acute Myocardial Infarction: Father(V17.3) Comments:Stents; Status:Active Unknown Family Member Name Dates Details Acute Myocardial Infarction: Father(V17.3) Comments:Stents; Status:Active Coronary Artery Disease: Fat her(V17.49) Status:Active Family Health Status Of Rosa er - Good: Mother Status:Active Colon Cancer: Family History (V16.0) Comments:MGM; Status:Active Unknown Family Member Name Dates Details Acute Myocardial Infarction: Father(V17.3) Comments:Stents; Status:Active Coronary Artery Disease: Fat her(V17.49) Status:Active Family Health Status Of Rosa er - Good: Mother Status:Active Colon Cancer: Family History (V16.0) Comments:MGM; Status:Active Unknown Family Member Name Dates Details Colon Cancer: Family History (V16.0) Comments:MGM; Status:Active Family Health Status Of Rosa Marion: Mother Status:Active Coronary Artery Disease: Fat her(V17.49) Status:Active Acute Myocardial Infarction: Father(V17.3) Comments:Stents; Status:Active Unknown Family Member Name Dates Details Acute Myocardial Infarction: Father(V17.3) Comments:Stents; Status:Active Coronary Artery Disease: Fat her(V17.49) Status:Active Family Health Status Of Rosa Marion: Mother Status:Active Colon Cancer: Family History (V16.0) Comments:MGM; Status:Active Unknown Family Member Name Dates Details Colon Cancer: Family History (V16.0) Comments:MGM; Status:Active Family Health Status Of Rosa Marion: Mother Status:Active Coronary Artery Disease: Fat her(V17.49) Status:Active Acute Myocardial Infarction: Father(V17.3) Comments:Stents; Status:Active Unknown Family Member Name Dates Details Colon Cancer: Family History (V16.0) Comments:MGM; Status:Active Family Health Status Of Rosa Marion: Mother Status:Active Coronary Artery Disease: Fat her(V17.49) Status:Active Acute Myocardial Infarction: Father(V17.3) Comments:Stents; Status:Active Unknown Family Member Name Dates Details Colon Cancer: Family History (V16.0) Comments:MGM; Status:Active Family Health Status Of Rosa Marion: Mother Status:Active Coronary Artery Disease: Fat her(V17.49) Status:Active Acute Myocardial Infarction: Father(V17.3) Comments:Stents; Status:Active Unknown Family Member Name Dates Details Colon Cancer: Family History (V16.0) Comments:MGM; Status:Active Family Health Status Of Rosa Marion: Mother Status:Active Coronary Artery Disease: Fat her(V17.49) Status:Active Acute Myocardial Infarction: Father(V17.3) Comments:Stents; Status:Active Unknown Family Member Name Dates Details Acute Myocardial Infarction: Father(V17.3) Comments:Stents; Status:Active Coronary Artery Disease: Fat her(V17.49) Status:Active Family Health Status Of Rosa Mraion: Mother Status:Active Colon Cancer: Family History (V16.0) Comments:MGM; Status:Active Unknown Family Member Name Dates Details Acute Myocardial Infarction: Father(V17.3) Comments:Stents; Status:Active Coronary Artery Disease: Fat her(V17.49) Status:Active Family Health Status Of Rosa Marion: Mother Status:Active Colon Cancer: Family History (V16.0) Comments:MGM; Status:Active Unknown Family Member Name Dates Details Acute Myocardial Infarction: Father(V17.3) Comments:Stents; Status:Active Coronary Artery Disease: Fat her(V17.49) Status:Active Family Health Status Of Rosa Marion: Mother Status:Active Colon Cancer: Family History (V16.0) Comments:MGM; Status:Active Unknown Family Member Name Dates Details Colon Cancer: Family History (V16.0) Comments:MGM; Status:Active Family Health Status Of Rosa Marion: Mother Status:Active Coronary Artery Disease: Fat her(V17.49) Status:Active Acute Myocardial Infarction: Father(V17.3) Comments:Stents; Status:Active Unknown Family Member Name Dates Details Colon Cancer: Family History (V16.0) Comments:MGM; Status:Active Family Health Status Of Rosa Marion: Mother Status:Active Coronary Artery Disease: Fat her(V17.49) Status:Active Acute Myocardial Infarction: Father(V17.3) Comments:Stents; Status:Active Unknown Family Member Name Dates Details Acute Myocardial Infarction: Father(V17.3) Comments:Stents; Status:Active Coronary Artery Disease: Fat her(V17.49) Status:Active Family Health Status Of Rosa Marion: Mother Status:Active Colon Cancer: Family History (V16.0) Comments:MGM; Status:Active Unknown Family Member Name Dates Details Colon Cancer: Family History (V16.0) Comments:MGM; Status:Active Family Health Status Of Rosa Marion: Mother Status:Active Coronary Artery Disease: Fat her(V17.49) Status:Active Acute Myocardial Infarction: Father(V17.3) Comments:Stents; Status:Active Unknown Family Member Name Dates Details Acute Myocardial Infarction: Father(V17.3) Comments:Stents; Status:Active Coronary Artery Disease: Fat her(V17.49) Status:Active Family Health Status Of Rosa Marion: Mother Status:Active Colon Cancer: Family History (V16.0) Comments:MGM; Status:Active Unknown Family Member Name Dates Details Colon Cancer: Family History (V16.0) Comments:MGM; Status:Active Family Health Status Of Rosa Marion: Mother Status:Active Coronary Artery Disease: Fat her(V17.49) Status:Active Acute Myocardial Infarction: Father(V17.3) Comments:Stents; Status:Active Unknown Family Member Name Dates Details Colon Cancer: Family History (V16.0) Comments:MGM; Status:Active Family Health Status Of Rosa Marion: Mother Status:Active Coronary Artery Disease: Fat her(V17.49) Status:Active Acute Myocardial Infarction: Father(V17.3) Comments:Stents; Status:Active Unknown Family Member Name Dates Details Colon Cancer: Family History (V16.0) Comments:MGM; Status:Active Family Health Status Of Rosa Marion: Mother Status:Active Coronary Artery Disease: Fat her(V17.49) Status:Active Acute Myocardial Infarction: Father(V17.3) Comments:Stents; Status:Active Unknown Family Member Name Dates Details Colon Cancer: Family History (V16.0) Comments:MGM; Status:Active Family Health Status Of Rosa Marion: Mother Status:Active Coronary Artery Disease: Fat her(V17.49) Status:Active Acute Myocardial Infarction: Father(V17.3) Comments:Stents; Status:Active Unknown Family Member Name Dates Details Colon Cancer: Family History (V16.0) Comments:MGM; Status:Active Family Health Status Of Rosa Marion: Mother Status:Active Coronary Artery Disease: Fat her(V17.49) Status:Active Acute Myocardial Infarction: Father(V17.3) Comments:Stents; Status:Active Unknown Family Member Name Dates Details Acute Myocardial Infarction: Father(V17.3) Comments:Stents; Status:Active Coronary Artery Disease: Fat her(V17.49) Status:Active Family Health Status Of Rosa Marion: Mother Status:Active Colon Cancer: Family History (V16.0) Comments:MGM; Status:Active Unknown Family Member Name Dates Details Colon Cancer: Family History (V16.0) Comments:MGM; Status:Active Family Health Status Of Rosa Marion: Mother Status:Active Coronary Artery Disease: Fat her(V17.49) Status:Active Acute Myocardial Infarction: Father(V17.3) Comments:Stents; Status:Active Unknown Family Member Name Dates Details Colon Cancer: Family History (V16.0) Comments:MGM; Status:Active Family Health Status Of Moth er - Good: Mother Status:Active Coronary Artery Disease: Fat her(V17.49) Status:Active Acute Myocardial Infarction: Father(V17.3) Comments:Stents; Status:Active Unknown Family Member Name Dates Details Colon Cancer: Family History (V16.0) Comments:MGM; Status:Active Family Health Status Of Rosa er - Good: Mother Status:Active Coronary Artery Disease: Fat her(V17.49) Status:Active Acute Myocardial Infarction: Father(V17.3) Comments:Stents; Status:Active Chief Complaint Follow up visit to review test results. AC//AMDFollow up visit to review test results. AC//AMD* pt is here for 1 mo re, htn * KB//AMD * pt is here for 1 mo re, htn * KB//AMD * pt is here for 1 mo re, htn * KB//AMD * f/u visit for bleeding after colonoscopy. * BN * Appt for f/u after bleeding/ colonoscopy BN // AMD * 1 mon f/u for meds HTN. * BN/AMD * pt is here for 1 mon re for HTN management. * pt states for the past 3 wks it hurt when she urinate. * BN//AMD * pt is here for 4 mon re for HTN management. * BN//AMD * pt is here for 1 mon re for depression management. * BN//AMD * pt is here for 1 mon f/u for depression and HTN management. * BN//AMD Summary Purpose Advance Directives No Advanced Directives Records FoundNo Advanced Directives Records FoundNo Advanced Directives Records FoundNo Advanced Directives Records FoundNo Advanced Directives Records FoundNo Advanced Directives Records Found Reason for Referral Specialty Diagnoses / Procedures Referred By Maxine laureano Referred To Contact Radiology Diagnoses Screening mammogram for breast cancer Procedures BI mammo bilateral screening tomosynthesis Jackie Hobbs MD [address] [facility], [facility] [address] [place] [address] Referral ID Status Reason Start Date Expiration Date Visits Requested Visits Authorized [id number] Authorized Perform Procedure 04/15/2023 10/12/2023 1 1 Specialty Diagnoses / Procedures Referred By Maxine laureano Referred To Contact Radiology Diagnoses Primary hypertension Mixed hyperlipidemia Procedures CT cardiac scoring wo IV contrast Jackie Hobbs MD [address] [facility], [address] [address] Referral ID Status Reason Start Date Expiration Date Visits Requested Visits Authorized [id number] Authorized Perform Procedure 04/15/2023 10/12/2023 1 1 Specialty Diagnoses / Procedures Referred By Contac t Referred To Contact Radiology Diagnoses Encounter for screening mammogram for malignant neoplasm of breast Procedures BI mammo bilateral screening tomosynthesis Jackie Hobbs MD [address] [facility], [address] [address] Referral ID Status Reason Start Date Expiration Date Visits Requested Visits Authorized [id number] Authorized Perform Procedure 05/01/2023 10/28/2023 1 1 Specialty Diagnoses / Procedures Referred By Contac t Referred To Contact Radiology Diagnoses Pulmonary nodule Procedures CT chest wo IV contrast Jackie Hobbs MD [address] [facility], [address] [address] Referral ID Status Reason Start Date Expiration Date Visits Requested Visits Authorized [id number] Pending Review Perform Procedure 08/22/2023 08/21/2024 1 1 Specialty Diagnoses / Procedures Referred By Contac t Referred To Contact Cardiology Diagnoses Elevated coronary artery calcium score Jackie Hobbs MD [address] [facility], [address] [address] Referral ID Status Reason Start Date Expiration Date Visits Requested Visits Authorized [id number] Authorized Specialty Services Required 08/22/2023 08/21/2024 1 1 Specialty Diagnoses / Procedures Referred By Contac t Referred To Contact Cardiology Diagnoses Elevated coronary artery calcium score Procedures Transthoracic Echo (TTE) Complete DC ECHO TTHRC R-T 2D W/WOM-MODE COMPL SPEC&COLR D Laureen Mendez, REMOTE COMPUTER TERMINAL OPERATOR-MALT HOUSE OPERATOR [address] [facility], [address] [address] Referral ID Status Reason Start Date Expiration Date Visits Requested Visits Authorized [id number] Pending Review Perform Procedure 09/12/2023 09/11/2024 1 1 Specialty Diagnoses / Procedures Referred By Contac t Referred To Contact Diagnoses Elevated coronary artery calcium score Procedures ECG 12 lead (Clinic Performed) VanessaLaureen, BRADLEY-MALT HOUSE OPERATOR [address] [facility], [place] [address] [place] [address] Referral ID Status Reason Start Date Expiration Date V isits Requested Visits Authorized [id number] Authorized 09/12/2023 09/11/2024 1 1 Additional Source Comments INFORMATION SOURCE (unrecogn ized section and content) DATE CREATED AUTHOR 06/18/2021 [facility] DATE CREATED AUTHOR AUTHOR'S ORGANIZ ATION 08/04/2021 [facility] DATE CREATED AUTHOR AUTHOR'S ORGANIZ ATION 10/05/2022 [employer] DATE CREATED AUTHOR AUTHOR'S ORGANIZ ATION 04/16/2023 [facility] DATE CREATED AUTHOR AUTHOR'S ORGANIZ ATION 01/08/2024 [facility] DATE CREATED AUTHOR AUTHOR'S ORGANIZ ATION 03/28/2024 [facility] Care Teams (unrecognized sec tion and content) Skidder Relationship Specialty Start Date End Date Jackie Hobbs MD [address] [facility], [address] [address] PCP - General 04/17/17 Skidder Relationship Specialty Start Date End Date Jackie Hobbs MD [address] [facility], [address] [address] PCP - General 04/17/17 Skidder Relationship Specialty Start Date End Date Jackie Hobbs MD [address] [facility], [address] [address] PCP - General 04/17/17 Skidder Relationship Specialty Start Date End Date Jackie Hobbs MD [address] [facility], [address] [address] PCP - General 04/17/17 Skidder Relationship Specialty Start Date End Date Jackie Hobbs MD [address] [facility], [address] [address] PCP - General 04/17/17 Skidder Relationship Specialty Start Date End Date Jackie Hobbs MD [address] [facility], [address] [address] PCP - General 04/17/17 Skidder Relationship Specialty Start Date End Date Jackie Hobbs MD [address] [facility], [address] [address] PCP - General 04/17/17 Reason for Visit (unrecogniz ed section and content) Specialty Diagnoses / Procedures Referred By Maxine laureano Referred To Contact Radiology Diagnoses Encounter for screening mammogram for malignant neoplasm of breast Procedures BI mammo bilateral screening tomosynthesis Jackie Hobbs MD [address] [facility], [address] [address] Referral ID Status Reason Start Date Expiration Date Visits Requested Visits Authorized [id number] Authorized Perform Procedure 05/01/2023 10/28/2023 1 1 FOR RECORDS PERTAINING TO PATIENTS WHO ARE OR HAVE BEEN ENROLLED IN A CHEMICAL DEPENDENCY/SUBSTANCEABUSE PROGRAM, SOME INFORMATION MAY BE OMITTED. This clinical summary was aggregated from multiple sources. Caution should be exercised in using it in the provision of clinical care. This summary normalizes information from multiple sources, and as a consequence, information in this document may materially change the coding, format and clinical context of patient data. In addition, data may be omitted in some cases. CLINICAL DECISIONS SHOULD BE BASED ON THE PRIMARY CLINICAL RECORDS. [facility] provides no warranty or guarantee of the accuracy or completeness of information in this document.
== END | disposition home or self-care (01) ==
PROVIDERS: PCP Internal Medicine; Referring Provider Internal Medicine; Visit Provider Internal Medicine
DX: Z12.31 Encounter for screening mammogram for malignant neoplasm of breast (principal)
CPT/HCPCS: 77063; 77067

== ENCOUNTER → 2025-07-01 | Outpatient (CLI) | payer OTHER, SELFPAY ==
--- OUTSIDE RECORDS SUMMARY | 2025-07-01 17:50 | XMS RPT_ITS | CCD ---
Author Organization [facility] Care Team Providers Care Surgical Services Asst Name Role Phone Jackie Hobbs Unavailable Unavailable Unavailable Jackie Hobbs MD Primary Care Provider [phone] Matheus Looney MD Unavailable Kortney Loaiza Unavailable Anjel, Dr. Jackie Arredondo Primary Care Unava ilable Chase, Dr. Jackie Arredondo Attending Unava ilable Anjel, Dr. Jackie Arredondo Referring Unava ilable Chase, Dr. Jackie Arredondo Primary Care Unava ilable Chase, Dr. Jackie Arredondo Primary Care Unava ilable Mendpara, Codey Admitting Unavailable Chase, Dr. Jackie Arredondo Referring Unava ilable Mendpara, Codey Attending Unavailable Mendpara, Codey Admitting Unavailable Anjel, Dr. Jackie Arredondo Primary Care Unava ilable Mendpara, Codey Attending Unavailable Anjel, Dr. Jackie Arredondo Referring Unava ilable Mendpara, Codey Admitting Unavailable Chase, Dr. Jackie Arredondo Primary Care Unava ilable Mendpara, Codey Attending Unavailable Chase, Dr. Jackie Arredondo Referring Unava ilable Mendpara, Codey Attending Unavailable Chase, Dr. Jackie Arredondo Primary Care Unava ilable Mendpara, Codey Admitting Unavailable Anjel, Dr. Jackie Arredondo Referring Unava ilable Mendpara, Codey Attending Unavailable Chase, Dr. Jackie Arredondo Primary Care Unava ilable Mendpara, Codey Admitting Unavailable Anjel, Dr. Jackie Arredondo Referring Unava ilable Chase, Dr. Jackie Arredondo Primary Care Unava ilable Chase, Dr. Jackie Arredondo Attending Unava ilable Anjel, Dr. Jackie Arredondo Referring Unava ilable Anjel, Dr. Jackie Arredondo Primary Care Unava ilable Chase, Dr. Jackie Arredondo Attending Unava ilable Chase, Dr. Jackie Arredondo Referring Unava ilable ANJEL, [...] Unavailable ANJEL, JACKIE M Primary Care Unavailable Marcos, Nguyen Attending Unavailable Marcos, Nguyen Primary Care Unavailable Marcos, Nguyen Referring Unavailable Marcos, Nguyen Attending Unavailable Marcos, Nguyen Primary Care Unavailable Marcos, Nguyen Referring Unavailable Marcos, Nguyen Attending Unavailable Marcos, Nguyen Primary Care Unavailable Marcos, Nguyen Referring Unavailable Allergies Allergy Classification Reported Allergen(s) Allergy Type Date of Onset Reaction(s) Facility (20 sources) Chlorthalidone; Translations: [chlorthalidone] Drug Allergy 04-13-2021 Nausea Only [facility] (9 sources) levoFLOXacin; Translations: [LEVOFLOXACIN] Drug Allergy 08-02-2021 [facility] Work Phone: Medications Current Medications Medication Drug [...] Start: 11-09-2021 take 1 tablet by brayden th once daily Chlorthalidone 25 MG Oral Tablet [...] [Intestinal malabsorption, unspecified] Onset: 08-23-2022 Chronic Other liver diseases (1 source) Fatty (change of) liver, not elsewhere classified; Translations: [Fatty (change of) liver, not elsewhere classified] Onset: 06-01-2024 Chronic Other lower respiratory disease (5 sources) Solitary pulmonary nodule; Translations: [Solitary pulmonary nodule] Onset: 08-01-2023 Episodic Other nervous system disorders (2 sources) Paresthesia of foot ; Translations: [Disturbance of skin sensation] Episodic Other screening for suspected conditions (not mental disorders or infectious disease) (20 sources) Patient encounter status; Translations: [Other screening mammogram] Onset: 04-15-2023 04-15-2023 Episodic Sprains and strains (20 sources) Sprain [...] Comment on above: Added by Problem Cynthia t Migration; 2012-10-13; Moved to [facility] Jul 14 2013 9:12PM; Other lower respiratory disease (4 sources) Nodule of lung; Translations: [Solitary pulmonary nodule] Onset: 08-01-2023 08-22-2023 Episodic Other skin disorders (14 sources) Hair [...] Test Name Value Interpretation Reference Range Facility SCRN MAMM (CAD)W/DAVID BILATo n 06-10-2024 SCRN MAMM (CAD)W/DAVID BILAT [facility] Imaging Services [address] [place] [address] SCRN MAMM (CAD)W/DAVID BILAT MR#: [id number] Acct: [id number] Name: ELIZ JOHN Rep #: [id number] : 1975 F 48 From: Robbie nuñez MD PCP: Dr. Nguyen Rodríguez DO Status: [facility] Study: SCRN MAMM (CAD)W/DAVID BILAT Date of Exam: 05/19 12/09 Exam# [id number] Ordering Dr: Nguyen Rodríguez DO :[id number] MAMMOGRAPHY - BILATERAL SCREENING REASON FOR EXAM: Female, 48 years old. Routine annual screening examination. PERTINENT HISTORY: Non-contributory. TECHNIQUE: Digital bilateral breast david (3D mammographic acquisition) in the CC and MLO projections. 2-D mediolateral oblique (MLO) and craniocaudad (CC) views of both breasts were obtained. CAD: Full Field Digital Mammography with Computer Added Detection was performed. COMPARISON: Comparison is made with prior outside examination dated June 09, 2023. FINDINGS: Breast Composition: There are scattered areas of fibroglandular density. There are no dominant masses or suspicious calcifications. No other significant abnormalities are identified. There has been no significant change since the prior study. BI/SCRN MAMM (CAD)W/DAVID BILAT IMPRESSION: Stable bilateral screening mammogram. Yearly follow-up mammogram recommended. (A) ASSESSMENT CATEGORY: BIRADS Category 1: Negative. A letter regarding these results will be sent to the patient by the facility within 30 days. Approximately 10% of breast cancers are not detected by mammography. A normal mammogram should not delay biopsy of a clinically suspicious abnormality. [id number] Electronically Signed: Robbie Velasquez MD at 8:41 EDT Reading Location ID and State: [address] [place] [address] , Service support , CC: Dr. Nguyen Rodríguez DO Bullet Casting Operator: Signed Normal [facility] ABD Limited w/ Elastographyo n 05-08-2024 ABD Limited w/ Elastography [facility] Imaging Services [address] [place], [place] [address] ABD Limited w/ Elastography MR#: [id number] Acct: [id number] Name: ELIZ JOHN Rep #: [id number] : 1975 F 48 From: Robbie nuñez MD PCP: Dr. Nguyen Rodríguez DO Status: REG CLI Study: ABD Limited w/ Elastography Date of Exam: 04/19 09/10 Exam# [id number] Ordering Dr: Nguyen Rodríguez DO :[id number] STUDY: ABDOMINAL ULTRASOUND - RIGHT UPPER QUADRANT; ELASTOGRAPHY REASON FOR VISIT: Female, 48 years old. Fatty infiltration of the liver. TECHNIQUE: Ultrasound evaluation of the right upper quadrant was performed with real-time and static garg-scale imaging. Point quantification shear wave elastography was performed (Dis[employer]). TECHNICAL QUALITY: Adequate. COMPARISON: None. FINDINGS: Liver: The liver is mildly enlarged and measures 18.3 cm. There is increased echogenicity consistent with fatty infiltration. The bile ducts are within normal limits. There is hepatic color flow. The direction of portal flow is hepatopetal. There is no demonstrated mass lesion. Median liver stiffness measured 9.5 kPa. Gallbladder: Normal distended gallbladder. The gallbladder wall measures 2 mm. There is a negative sonographic Tee''s sign. There is no pericholecystic fluid. There is a solitary echogenic gallstone within the gallbladder. There is a 5 mm x 5 mm gallbladder polyp. Common Bile Duct (C.B.D.): The common bile duct measures 4 mm. Pancreas: There is increased echogenicity of the pancreas. There is no demonstrated pancreatic mass or cyst. Right Kidney: Normal size of the right kidney. The right kidney measures 11 cm x 4.7 cm x 4.6 cm. Normal renal cortex. The right cortex measures 1.2 cm. There is no demonstrated renal mass or cyst. There is no right hydronephrosis. US/ABD Limited w/ Elastography IMPRESSION: 1. 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 2. Solitary gallstone. Small gallbladder polyp. Fatty infiltration of the liver. Electronically Signed: Robbie Velasquez MD at 13:55 EDT , CC: Dr. Nguyen Rodríguez DO Bullet Casting Operator: Signed Normal [facility] CBC panel Auto (Bld)on 01-05 Erythrocyte distribution width (RBC) [Ratio] 19.1 % High 11.5-14.5 [facility] Comment on above: Performed By: #### 5 8410-2 #### NORMA Briggs ([id number]) [facility] ([facility]) [address] [place] [address] 02279 Hematocrit (Bld) [Volume fraction] 29.6 % Low 36.0-46.0 [facility] Comment on above: Performed By: #### 5 8410-2 #### NORMA Briggs ([id number]) [facility] ([facility]) [address] [place] [address] 20752 Hemoglobin (Bld) [Mass/Vol] 9.1 g/dL Low 12.0-16.0 [facility] Comment on above: Performed By: #### 5 8410-2 #### NORMA Briggs ([id number]) [facility] ([facility]) [address] [place] [address] 35091 MCH (RBC) [Entitic mass] 29.6 pg Normal 26.0-34.0 [facility] Comment on above: Performed By: #### 5 8410-2 #### NORMA Briggs ([id number]) [facility] ([facility]) [address] [place] [address] 47260 MCHC (RBC) [Mass/Vol] 30.7 g/dL Low 32.0-36.0 [facility] Comment on above: Performed By: #### 5 8410-2 #### NORMA Briggs ([id number]) [facility] ([facility]) [address] [place] [address] 15236 MCV (RBC) [Entitic vol] 96 fL Normal 80-100 [facility] Comment on above: Performed By: #### 5 8410-2 #### NORMA Briggs ([id number]) [facility] ([facility]) [address] [place] [address] 90846 Nucleated RBC/100 WBC (Bld) [Ratio] 0.0 /100 WBCs Normal 0.0-0.0 [facility] Comment on above: Performed By: #### 5 8410-2 #### NORMA Briggs ([id number]) [facility] ([facility]) [address] [place] [address] Platelets (Bld) [#/Vol] 187 x10*3/uL Normal 150-450 [facility] Comment on above: Performed By: #### 5 8410-2 #### NORMA Briggs ([id number]) [facility] ([facility]) [address] [place] [address] 76432 RBC (Bld) [#/Vol] 3.07 x10*6/uL Low 4.00-5.20 [facility] Comment on above: Performed By: #### 5 8410-2 #### NORMA Briggs ([id number]) [facility] ([facility]) [address] [place] [address] 59906 WBC (Bld) [#/Vol] 6.4 x10*3/uL Normal 4.4-11.3 [facility] Comment on above: Performed By: #### 5 8410-2 #### NORMA Briggs ([id number]) [facility] ([facility]) [address] [place] [address] 37356 Calcidiolon 01-06-2024 25-hydroxyvitamin D3 [Mass/Vol] 82 ng/mL Normal 30-100 [facility] Comment on above: Order Comment: Epic Order: CT CARDIAC SCORING WO IV CONTRAST, Sedation: No Sedation, Rad Selected: Yes Is this exam part of a Research Study? If Yes, link this order to the research study->No SPOKE WITH OFFICE LETTY [phone] BILL TO [facility] GAVE PREP EPIC Performed By: #### 1 989-3 ####NORMA Briggs ([id number])[facility] ([facility])[address] [place] [address] 69973 Comprehensive metabolic 2000 panelon 01-06-2024 Albumin BCP dye [Mass/Vol] 3.8 g/dL Normal 3.4-5.0 [facility] Comment on above: Performed By: #### 2 4323-8 #### NORMA Briggs ([id number]) [facility] ([facility]) [address] [place] [address] 91231 ALP [Catalytic activity/Vol] 59 U/L Normal 33-110 [facility] Comment on above: Performed By: #### 2 4323-8 #### NORMA Briggs ([id number]) [facility] ([facility]) [address] [place] [address] ALT With P-5'-P [Catalytic activity/Vol] 50 U/L High 7-45 [facility] Comment on above: Result Comment: Didi ents treated with Sulfasalazine may generate falsely decreased results for ALT. Performed By: #### 2 4323-8 #### NORMA Briggs ([id number]) [facility] ([facility]) [address] [place] [address] Anion gap [Moles/Vol] 14 mmol/L Normal 10-20 [facility] Comment on above: Performed By: #### 2 4323-8 #### NORMA Briggs ([id number]) [facility] ([facility]) [address] [place] [address]502 AST With P-5'-P [Catalytic activity/Vol] 42 U/L High 9-39 [facility] Comment on above: Performed By: #### 2 4323-8 #### NORMA Briggs ([id number]) [facility] ([facility]) [address] [place] [address] 52822 Bilirubin [Mass/Vol] 0.9 mg/dL Normal 0.0-1.2 [facility] Comment on above: Performed By: #### 2 4323-8 #### NORMA Briggs ([id number]) [facility] ([facility]) [address] [place] [address] 87504 Calcium [Mass/Vol] 8.8 mg/dL Normal 8.6-10.[address] [facility] Comment on above: Performed By: #### 2 4323-8 #### NORMA Briggs (74859) [facility] ([facility]) [address] [place] [address] 51510 Chloride [Moles/Vol] 105 mmol/L Normal 98-107 [facility] Comment on above: Performed By: #### 2 4323-8 #### NORMA Briggs ([id number]) [facility] ([facility]) [address] [place] [address] CO2 [Moles/Vol] 27 mmol/L Normal 21-32 [facility] Comment on above: Performed By: #### 2 4323-8 #### NORMA Briggs ([id number]) [facility] ([facility]) [address] [place] [address] Creatinine [Mass/Vol] 0.73 mg/dL Normal 0.50-1.05 [facility] Comment on above: Performed By: #### 2 4323-8 #### NORMA Briggs ([id number]) [facility] ([facility]) [address] [place] [address] 19359 GFR/1.73 sq M.predicted MDRD (S/P/Bld) [Vol rate/Area] mL/min/{1.73_m2} Normal >60 [facility] Comment on above: Result Comment: Calc ulations of estimated GFR are performed using the 2020 CKD-EPI Study Refit equation without the race variable for the IDMS-Traceable creatinine methods. https://jasn.asnjournals.org/content/early//ASN.867169907 8 Performed By: #### 2 4323-8 #### NORMA Briggs (30713) [facility] ([facility]) [address] [place] [address] Glucose [Mass/Vol] 146 mg/dL High 74-[address] [facility] Comment on above: Performed By: #### 2 4323-8 #### NORMA Briggs (62094) [facility] ([facility]) [address] [place] [address] 13237 Potassium [Moles/Vol] 3.5 mmol/L Normal 3.5-5.3 [facility] Comment on above: Performed By: #### 2 4323-8 #### NORMA Briggs (69606) [facility] ([facility]) [address] [place] [address] Protein [Mass/Vol] 6.5 g/dL Normal 6.4-8.[address] [facility] Comment on above: Performed By: #### 2 4323-8 #### NORMA Briggs (05997) [facility] ([facility]) [address] [place] [address] 41736 Sodium [Moles/Vol] 142 mmol/L Normal 136-[address] [facility] Comment on above: Performed By: #### 2 4323-8 #### NORMA Briggs ([id number]) [facility] ([facility]) [address] [place] [address] 00179 Urea nitrogen [Mass/Vol] 18 mg/dL Normal 6-23 [facility] Comment on above: Performed By: #### 2 4323-8 #### NORMA Briggs ([id number]) [facility] ([facility]) [address] [place] [address] 35203 Ferritinon 01-06-2024 Ferritin [Mass/Vol] 682 ng/mL High 8-150 [facility] Comment on above: Performed By: #### 2 276-4 #### NORMA Briggs (85457) [facility] ([facility]) [address] [place] [address] 72846 Iron and Iron binding capaci ty panelon 01-06-2024 Iron [Mass/Vol] 69 ug/dL Normal 35-150 [facility] Comment on above: Performed By: #### 5 0190-8 ####NORMA Briggs ([id number])[facility] ([facility])[address] [place] [address] 98680 Iron binding capacity [Mass/Vol] 273 ug/dL Normal 240-445 [facility] Comment on above: Performed By: #### 5 0190-8 ####NORMA Briggs ([id number])[facility] ([facility])[address] [place] [address] 48793 Iron binding capacity.unsaturat ed [Mass/Vol] 204 ug/dL Normal 110-370 [facility] Comment on above: Performed By: #### 5 0190-8 ####NORMA Briggs (85253)[facility] ([facility])[address] [place] [address] Iron saturation [Mass fraction] 25 % Normal 25-45 [facility] Comment on above: Performed By: #### 5 0190-8 ####NORMA Briggs ([id number])[facility] ([facility])[address] [place] [address] Lipid 1996 panelon 4 Cholesterol [Mass/Vol] 161 mg/dL Normal 0-199 [facility] Comment on above: Result Comment: Age [...] By: #### 2 4331-1 #### NORMA Briggs (89001) [facility] ([facility]) [address] [place] [address] 80934 Cholesterol in HDL [Mass/Vol] 34.9 mg/dL Normal [facility] Comment on above: Result Comment: Age Very Low Low Normal High 0-19 Y < 35 < 40 40-45 ---- 20-24 Y ---- < 40 >45 ---- >24 Y ---- < 40 40-60 >60 Performed By: #### 2 4331-1 #### NORMA Briggs ([id number]) [facility] ([facility]) [address] [place] [address] Cholesterol in LDL [Mass/Vol] 92 mg/dL Normal <=99 [facility] Comment on above: Result Comment: Near Borderline AGE Desirable Optimal High High Very High 0-19 Y 0 - 109 --- 110-129 >/= 130 ---- 20-24 Y 0 - 119 --- 120-159 >/= 160 ---- >24 Y 0 - 99 100-129 130-159 160-189 >/=190 Performed By: #### 2 4331-1 #### NORMA Briggs ([id number]) [facility] ([facility]) [address] [place] [address] Cholesterol in VLDL [Mass/Vol] 34 mg/dL Normal 0-40 [facility] Comment on above: Performed By: #### 2 4331-1 #### NORMA Briggs (06512) [facility] ([facility]) [address] [place] [address] 93916 CHOLESTEROL/HDL RATIO 4.6 Normal [facility] Comment on above: Result Comment: Ref Values Desirable < 3.4 High Risk > 5.0 Performed By: #### 2 4331-1 #### NORMA Briggs ([id number]) [facility] ([facility]) [address] [place] [address] NON HDL CHOLESTEROL 126 mg/dL Normal 0-149 [facility] Comment on above: Result Comment: Age Desirable Borderline High High Very High 0-19 Y 0 - 119 120 - 144 >/= 145 >/= 160 20-24 Y 0 - 149 150 - 189 >/= 190 ---- >24 Y 30 mg/dL above LDL Cholesterol goal Performed By: #### 2 4331-1 #### NORMA Briggs ([id number]) [facility] ([facility]) [address] [place] [address] Triglyceride [Mass/Vol] 172 mg/dL High 0-149 [facility] Comment on above: Result Comment: Age [...] By: #### 2 4331-1 #### NORMA Briggs (13253) [facility] ([facility]) [address] [place] 8016[address] TSH WITH REFLEX TO FREE T4 I F ABNORMALon 01-06-2024 TSH Qn 2.66 m[IU]/L Normal 0.44-3.98 [facility] Comment on above: Order Comment: TSH t esting is performed using different testing methodology at [facility] than at other legacy [facility]. Direct result comparisons should only be made within the same method. Performed By: #### T ELVIAS #### NORMA Briggs ([id number]) [facility] ([facility]) [address] [place] [address] HbA1c (Bld) [Mass fraction]o n 01-03-2024 Average glucose Estimated from glycated hemoglobin (Bld) [Mass/Vol] 94 mg/dL Normal Not Established [facility] Comment on above: Order Comment: Diagn osis of Diabetes-Adults Non-Diabetic: < or = 5.6% Increased risk for developing diabetes: 5.7-6.4% Diagnostic of diabetes: > or = 6.5% Monitoring of Diabetes Age (y)....................... Therapeutic Goal (%) Adults: >18.........................<7.0 Pediatrics: 13-18...................<7.5 Pediatrics: 7-12....................<8.0 Pediatrics: 0-6..................... 7.5-8.5 [place] [employer]. Diabetes Care 33(S1)Aug 2009 Performed By: #### 4 548-4 #### NORMA Briggs ([id number]) [facility] ([facility]) [address] [place], [place] [address] Hemoglobin A1c/Hemoglobin.to shanell 01-03-2024 HbA1c (Bld) [Mass fraction] 4.9 % Normal see below [facility] Comment on above: Order Comment: Diagn osis of Diabetes-Adults Non-Diabetic: < or = 5.6% Increased risk for developing diabetes: 5.7-6.4% Diagnostic of diabetes: > or = 6.5% Monitoring of Diabetes Age (y)....................... Therapeutic Goal (%) Adults: >18.........................<7.0 Pediatrics: 13-18...................<7.5 Pediatrics: 7-12....................<8.0 Pediatrics: 0-6..................... 7.5-8.5 [place] [employer]. Diabetes Care 33(S1)Aug 2009 Performed By: #### 4 548-4 #### NORMA Briggs ([id number]) [facility] ([facility]) [address] [place] [address] TRANSTHORACIC ECHO (TTE) COM PLETEon 09-26-2023 TRANSTHORACIC ECHO (TTE) COMPLETE [facility], [address] [place] [address], [address] [address] and TRANSTHORACIC ECHOCARDIOGRAM REPORT Patient Name: ELIZ Estrada Physician: [id number] Yessenia Gillette MD Study Date: 09/26/2023 Ordering Provider: [id number] LAUREEN MENDEZ MRN/PID: [id number] Fellow: Nurse: Date of /Age: 11 1975 / 48 Hoop Driving Machine Operator: Sandrine De Souza RDCS years Gender: F Additional Staff: Height: 152.40 cm Admit Date: Weight: 94.80 kg Admission Status: Outpatient BSA: 1.90 m2 Department Location: [facility] Blood Pressure: 113 /71 mmHg Study Type: TRANSTHORACIC ECHO (TTE) COMPLETE Diagnosis/ICD: Abnormal findings on diagnostic imaging of heart and coronary circulation-R93.1 Indication: Elevated calcium score CPT Code: Echo Complete w Full Doppler-35035 Patient History: BMI: Overweight 25 - 30 [...] LA Area A2C: 16.0 cm2 LA Major Perry A4C: 5.4 cm LA Major Perry A2C: 4.9 cm LA Volume Index: 22.0 ml/m2 LA Vol A4C: 33.1 ml LA Vol A2C: 40.2 ml RA VOLUME BY A/L METHOD: Normal Ranges: RA Vol A4C: 27.6 ml (8.3-19.5ml) RA Vol Index A4C: 14.5 ml/m2 RA Area A4C: 13.0 cm2 RA Major Perry A4C: 5.2 cm M-MODE MEASUREMENTS: Normal Ranges: [...] Kaveh: 1.50 PulmV Sys Kaveh: 64.20 cm/s [id number] Yessenia Gillette MD Electronically signed on 09/26/2023 at 8:24:33 AM Final Normal [facility] CT CHEST WO IV CONTRASTon CT CHEST WO IV CONTRAST Interpreted By: Derek Constantino, STUDY: CT CHEST WO IV CONTRAST; 08/01/2023 10:47 am INDICATION: Signs/Symptoms:pulm nodule found on cardiac CT. COMPARISON: Cardiac score CT dated 07/25/2023 ACCESSION NUMBER(S): [id number] ORDERING CLINICIAN: JACKIE HOBBS TECHNIQUE: Helical data [...] Derek Constantino 08/02/2023 9:25 AM Dictation workstation: [id number] [facility] CT CARDIAC SCORING WO IV CON TRASTon 07-25-2023 CT CARDIAC SCORING WO IV CONTRAST Interpreted By: Bobby Greenberg, STUDY: CT CARDIAC SCORING WO IV CONTRAST; 07/25/2023 8:28 am INDICATION: Signs/Symptoms: screening. COMPARISON: None. ACCESSION NUMBER(S): [id number] ORDERING CLINICIAN: JACKIE HOBBS TECHNIQUE: Using prospective [...] coronary heart disease events. According to the [place] [employer] Clinical Expert Consensus [...] modify other non-lipid coronary risk factors. Reference: Madison P et al. Circulation. 2007; 115:402-426 MACRO: [...] From the Fleischner Society 2017, Radiology. 2017 Finesse;284 (1):228-243.) FLEISCHNER.ACR.IF.4 Signed by: Bobby Greenberg 07/25/2023 5:11 PM Dictation workstation: [id number] [facility] Comment on above: Order Comment: Epic Order: CT CARDIAC SCORING WO IV CONTRAST, Sedation: No Sedation, Rad Selected: Yes Is this exam part of a Research Study? If Yes, link this order to the research study->No SPOKE WITH OFFICE LETTY [phone] BILL TO [facility] GAVE PREP EPIC DBT Breast - bilateralon No mammographic evid ence of malignancy. BI-RADS CATEGORY: BI-RADS Category: 1 Negative. Recommendation: Routine Screening Mammogram in 1 Year. Recommended Date: 1 Year. Laterality: Bilateral. For any future breast imaging appointments, please call [phone] ([phone]). I personally reviewed the images/study and I agree with the findings as stated by resident physician Dr. Arnoldo Kapadia. MACRO: None Signed by: Ninfa Diaz 06/12/2023 12:56 PM Dictation workstation: [id number] MMODAL Interpreted By: Ninfa Madrid and O'Connor Gregory STUDY: BI MAMMO BILATERAL SCREENING TOMOSYNTHESIS; 06/09/2023 9:30 am ACCESSION NUMBER(S): [id number] ORDERING CLINICIAN: JACKIE HOBBS INDICATION: Screening. COMPARISON: 04/11/2022, 02/22/2021. FINDINGS: 2D and tomosynthesis images were reviewed at 1 mm slice thickness. Density: There are areas of scattered fibroglandular tissue. No suspicious masses or calcifications are identified. MMODAL Ninfa Diaz MD - 06/12/2023 Interpreted By: Ninfa Diaz and O'Connor Gregory STUDY: BI MAMMO BILATERAL SCREENING TOMOSYNTHESIS; 06/09/2023 9:30 am ACCESSION NUMBER(S): [id number] ORDERING CLINICIAN: JACKIE HOBBS INDICATION: Screening. COMPARISON: [...] any future breast imaging appointments, please call [phone]). I personally reviewed the images/study and I agree with the findings as stated by resident physician Dr. Arnoldo Kapadia. MACRO: None Signed by: Ninfa Diaz 06/12/2023 12:56 PM Dictation workstation: [id number] [facility] Work Phone: DBT Breast - bilateralOrdere d By: Ninfa Diaz on 06-12-2023 [facility] Work Phone: BI MAMMO BILATERAL SCREENING TOMOSYNTHESISon 06-09-2023 BI MAMMO BILATERAL SCREENING TOMOSYNTHESIS Interpreted By: Ninfa Diaz and O'Connor Gregory STUDY: BI MAMMO BILATERAL SCREENING TOMOSYNTHESIS; 06/09/2023 9:30 am ACCESSION NUMBER(S): [id number] ORDERING CLINICIAN: JACKIE HOBBS INDICATION: Screening. COMPARISON: [...] any future breast imaging appointments, please call [phone]). I personally reviewed the images/study and I agree with the findings as stated by resident physician Dr. Arnoldo Kapadia. MACRO: None Signed by: Ninfa Diaz 06/12/2023 12:56 PM Dictation workstation: [id number] [facility] Comment on above: Order Comment: Epic Order: BI MAMMO BILATERAL SCREENING TOMOSYNTHESIS, Rad Selected: YesIs this exam part of a Research Study? If Yes, link this order to the research study->No DBT Breast - bilateralon Radiology Study observation (narrative) [facility] Work Phone: HEMOGLOBIN A1Con 04-15-2023 Glucose [Mass/Vol] 103 mg/dL Normal [facility] Comment on above: Performed By: #### H BA1E #### [facility] [address] [place] [address] HbA1c (Bld) [Mass fraction] 5.2 % Normal [facility] Comment on above: Result Comment: Diag nosis of Diabetes-Adults Non-Diabetic: < or = 5.6% Increased risk for developing diabetes: 5.7-6.4% Diagnostic of diabetes: > or = 6.5% . Monitoring of Diabetes Age (y) Therapeutic Goal (%) Adults: >18 <7.0 Pediatrics: 13-18 <7.5 7-12 <8.0 0- 6 7.5-8.5 [employer]. Diabetes Care 33(S1), Aug 2009. Performed By: #### H BA1E #### [facility] [address] [place] [address] Lab Specimen Source Normal [facility] Comment on above: Performed By: #### H BA1E #### [facility] [address] [place] [address] VITAMIN D 1,25-DIHYDROXYon 0 04-15-2023 VITAMIN D 1,25-DIHYDROXY 43.3 pg/mL Normal 19.9-79.3 [facility] Comment on above: Result Comment: INTE RPRETIVE INFORMATION: Vitamin D, 1,25- Dihydroxy This test is primarily indicated during patient evaluation for hypercalcemia and renal failure. A normal result does not rule out Vitamin D deficiency. The recommended test for diagnosing Vitamin D deficiency is Vitamin D 25-hydroxy. Performed By: [facility] [address] [place] [id number] Planer Operator / Grader: Froy Barker MD, PhD CLIA Number: [id number] Performed By: #### L DH #### [facility] [address] [place] [address] COMPREHENSIVE PANELon 2022 Albumin [Mass/Vol] 4.0 g/dL Normal 3.4 - 5.0 [facility] Comment on above: Performed By: #### E NAP2 #### [facility] [address] [place] [address] ALP [Catalytic activity/Vol] 69 U/L Normal 33 - 110 [facility] Comment on above: Performed By: #### E NAP2 #### [facility] [address] [place] [address] ALT [Catalytic activity/Vol] 37 U/L Normal 7 - 45 [facility] Comment on above: Result Comment: Didi ents treated with Sulfasalazine may generate falsely decreased results for ALT. Performed By: #### E NAP2 #### [facility] [address] [place] [address] Creatinine [Mass/Vol] 0.74 mg/dL Normal 0.50 - 1.05 [facility] Comment on above: Performed By: #### E NAP2 #### [facility] [address] [place] [address] eGFR FEMALE >90 Normal >90 [facility] Comment on above: Result Comment: CALC ULATIONS OF ESTIMATED GFR ARE PERFORMED USING THE 2020 CKD-EPI STUDY REFIT EQUATION WITHOUT THE RACE VARIABLE FOR THE IDMS-TRACEABLE CREATININE METHODS. https://jasn.asnjournals.org/content/early//ASN.339555703 8 Performed By: #### E NAP2 #### [facility] [address] [place] [address] Glucose [Mass/Vol] 125 mg/dL High 74 - 99 [facility] Comment on above: Performed By: #### E NAP2 #### [facility] [address] [place] [address] Calcium [Mass/Vol] 9.1 mg/dL Normal 8.6 - 10.6 [facility] Comment on above: Performed By: #### E NAP2 #### [facility] [address] [place] [address] Anion gap [Moles/Vol] 13 mmol/L Normal 10 - 20 [facility] Comment on above: Performed By: #### E NAP2 #### [facility] [address] [place] [address] AST [Catalytic activity/Vol] 26 U/L Normal 9 - 39 [facility] Comment on above: Performed By: #### E NAP2 #### [facility] [address] [place] [address] Bilirubin [Mass/Vol] 0.5 mg/dL Normal 0.0 - 1.2 [facility] Comment on above: Performed By: #### E NAP2 #### [facility] [address] [place] [address] Chloride [Moles/Vol] 109 mmol/L High 98 - 107 [facility] Comment on above: Performed By: #### E NAP2 #### [facility] [address] [place] [address] HCO3 (Bld) [Moles/Vol] 26 mmol/L Normal 21 - 32 [facility] Comment on above: Performed By: #### E NAP2 #### [facility] [address] [place] [address] Potassium [Moles/Vol] 3.9 mmol/L Normal 3.5 - 5.3 [facility] Comment on above: Performed By: #### E NAP2 #### [facility] [address] [place] [address] Protein [Mass/Vol] 6.6 g/dL Normal 6.4 - 8.2 [facility] Comment on above: Performed By: #### E NAP2 #### [facility] [address] [place] [address] Sodium [Moles/Vol] 144 mmol/L Normal 136 - 145 [facility] Comment on above: Performed By: #### E NAP2 #### [facility] [address] [place] [address] Urea nitrogen [Mass/Vol] 18 mg/dL Normal 6 - 23 [facility] Comment on above: Performed By: #### E NAP2 #### [facility] [address] [place] [address] LIPID PANEL (CORONARY RISK 2 )on 04-13-2023 Cholesterol [Mass/Vol] 195 mg/dL Normal 0 - 199 [facility] Comment on above: Result Comment: . AGE [...] dosing. Performed By: #### L IPID #### [facility] [address] [place] [address] Cholesterol in LDL [Mass/Vol] 119 mg/dL High 0 - 99 [facility] Comment on above: Result Comment: . NEAR BORD AGE DESIRABLE OPTIMAL HIGH HIGH VERY HIGH 0-19 Y 0 - 109 --- 110-129 >/= 130 ---- 20-24 Y 0 - 119 --- 120-159 >/= 160 ---- >24 Y 0 - 99 100-129 130-159 160-189 >/=190 . Performed By: #### L IPID #### [facility] [address] [place] [address] Cholesterol.total/ Cholesterol in HDL [Mass ratio] 4.8 {ratio} Normal [facility] Comment on above: Result Comment: REF VALUES DESIRABLE < 3.4 HIGH RISK > 5.0 Performed By: #### L IPID #### [facility] [address] [place] [address] Cholesterol in HDL [Mass/Vol] 40.5 mg/dL Normal [facility] Comment on above: Result Comment: . AGE VERY LOW LOW NORMAL HIGH 0-19 Y < 35 < 40 40-45 ---- 20-24 Y ---- < 40 >45 ---- >24 Y ---- < 40 40-60 >60 . Performed By: #### L IPID #### [facility] [address] [place] [address] Cholesterol in VLDL [Mass/Vol] 35 mg/dL Normal 0 - 40 [facility] Comment on above: Performed By: #### L IPID #### [facility] [address] [place] [address] Triglyceride [Mass/Vol] 177 mg/dL High 0 - 149 [facility] Comment on above: Result Comment: . AGE [...] dosing. Performed By: #### L IPID #### [facility] [address] [place] [address] TSH WITH REFLEX TO FREE T4 I F ABNORMALon 04-13-2023 TSH Qn 1.99 m[IU]/L Normal 0.44 - 3.98 [facility] Comment on above: Result Comment: TSH testing is performed using different testing methodology at [facility] than at other legacy [facility]. Direct result comparisons should only be made within the same method. Performed By: #### T HYDS #### [facility] [address] [place] [address] CBCon 04-12-2023 Erythrocyte distribution width (RBC) [Ratio] 15.2 % High 11.5 - 14.5 [facility] Comment on above: Performed By: #### C BC #### [facility] [address] [place] [address] Hematocrit (Bld) [Volume fraction] 33.7 % Low 36.0 - 46.0 [facility] Comment on above: Performed By: #### C BC #### [facility] [address] [place] [address] Hemoglobin (Bld) [Mass/Vol] 10.8 g/dL Low 12.0 - 16.0 [facility] Comment on above: Performed By: #### C BC #### [facility] [address] [place] [address] MCHC (RBC) [Mass/Vol] 32.0 g/dL Normal 32.0 - 36.0 [facility] Comment on above: Performed By: #### C BC #### [facility] [address] [place] [address] MCV (RBC) [Entitic vol] 91 fL Normal 80 - 100 [facility] Comment on above: Performed By: #### C BC #### [facility] [address] [place] [address] NUCLEATED RBC 0.0 /100 WBC Normal 0.0-0.0 [facility] Comment on above: Performed By: #### C BC #### [facility] [address] [place] [address] Platelets (Bld) [#/Vol] 190 10*3/uL Normal 150 - 450 [facility] Comment on above: Performed By: #### C BC #### [facility] [address] [address] [place] RBC 3.72 x10E12/L Low 4.00 - 5.20 [facility] Comment on above: Performed By: #### C BC #### [facility] [address] [place] [address] WBC (Bld) [#/Vol] 6.8 10*3/uL Normal 4.4 - 11.3 [facility] Comment on above: Performed By: #### C BC #### [facility] [address] [place] TSH WITH REFLEX TO FREE T4 I F ABNORMALon 04-12-2023 Lab Specimen Source Normal [facility] Comment on above: Performed By: #### T HYDS #### [facility] [address] [place] [address] Performed By: #### C BC #### [facility] [address] [place] [address] Performed By: #### L DH #### [facility] [address] [place] [address] Clinic Note - Heme Oncon Clinic Note [...] of connective tissue disorder diagnosed by her saw tailer at [facility] and 15 years ago, although specific diagnosis [...] Saravia Master Clinician in Hematology and Oncology [facility] OfficePhone [facility] OfficePhone Allergies and Intolerances: Allergies: penicillin: [...] CBC date/time WBC HGB HCT PLT Neut 25-Oct-2022 16:32 10.8 11.2(L) 35.7(L) 171 7.61 BMP date/time NA K CL CO2 BUN CREAT 25-Oct-2022 16:32 140 3.9 104 N/A 20 0.86 LDH date/time LDH 25-Oct-2022 16:32 182 Patient Instructions: Instructions Type: nutrition Instructions: Return for follow-up in 3 months CBC, reticulocyte, iron group and ferritin, folic acid level Not (more content not included)... Normal [facility] Clinic Note - Heme Onc Sched ulingon 11-01-2022 Clinic Note - Heme Onc Scheduling Retrieve Patient Instructions: Patient Instructions: Patient Instructions: RetrievePatient Instructions Instructions Typenutrition Instructions Return for follow-up in 3 months CBC, reticulocyte, iron group and ferritin, folic acid level Return Appointment: Physician/Dept/Shiva monae Appointment Date & [id number] 11:15 [phone] Commentsarrival at 10:50 a.m. Follow Up Testing Appointment: Test Name(s)Labs Commentsdo labs prior to appointment End of Visit Documentation: Clinic Location/Phone Number: Clinic Location/Phone Number: [place] [phone] End Of Visit MU Report Item: Visit Summary given or mailed to patientyes Electronic Signatures: Mandi Portillo (Rev Cycl Spec) (Signed 01-Nov-2022 10:52) Authored: Retrieve Patient Instructions, RETURN VISITS, TESTING (Lab, Radiology, Other) APPOINTMENTS, End of Visit Documentation Last Updated: 01-Nov-2022 10:52 by Mandi Portillo (Rev Cycl Spec) Normal [facility] Note - Intakeon 11-01 Clinic Note - [...] Pain Regimenyes Adequately Controlledyes Nurse Notifiedyes LUIZ Armenta Video Camera Operator for intimate exam offered to patient: Patient [...] > notify clinician0 Depression: Past 2 wks: Galvin down, depressed or hopelessno Past 2 wks: Galvin little interest/pleasure doing thingsno Any Thoughts of [...] 10:15) Authored: Patient Visit Information, Vital Signs, Video Camera Operator, Allergies, Outpatient Medication Profile, Notification, Travel History, Falls, Oncology Nutrition, Depression, Nutrition/Learning Last Updated: 01-Nov-2022 10:15 by Caity Sequeira) Normal [facility] CBC AND DIFFERENTIALon 10-26 % AUTOMATED IMMATURE GRAN 0.6 % Normal 0.0 - 0.9 [facility] Comment on above: Result Comment: Jacquie ture Granulocyte Count (IG) includes promyelocytes, myelocytes and metamyelocytes but does not include bands. Percent differential counts (%) should be interpreted in the context of the absolute cell counts (cells/L). Performed By: #### E NAP2 #### [facility] [address] [place] [address] Basophils (Bld) [#/Vol] 0.05 10*3/uL Normal 0.00 - 0.10 [facility] Comment on above: Performed By: #### E NAP2 #### [facility] [address] [place] [address] Basophils/100 WBC (Bld) 0.5 % Normal 0.0 - 2.0 [facility] Comment on above: Performed By: #### E NAP2 #### [facility] [address] [place] [address] Eosinophils (Bld) [#/Vol] 0.30 10*3/uL Normal 0.00 - 0.70 [facility] Comment on above: Performed By: #### E NAP2 #### [facility] [address] [place] [address] Eosinophils/100 WBC (Bld) 2.8 % Normal 0.0 - 6.0 [facility] Comment on above: Performed By: #### E NAP2 #### [facility] [address] [place] [address] Erythrocyte distribution width (RBC) [Ratio] 14.5 % Normal 11.5 - 14.5 [facility] Comment on above: Performed By: #### E NAP2 #### [facility] [address] [place] [address] Hematocrit (Bld) [Volume fraction] 35.7 % Low 36.0 - 46.0 [facility] Comment on above: Performed By: #### E NAP2 #### [facility] [address] [place] [address] Hemoglobin (Bld) [Mass/Vol] 11.2 g/dL Low 12.0 - 16.0 [facility] Comment on above: Performed By: #### E NAP2 #### [facility] [address] [place] [address] Lymphocytes (Bld) [#/Vol] 1.99 10*3/uL Normal 1.20 - 4.80 [facility] Comment on above: Performed By: #### E NAP2 #### [facility] [address] [place] [address] Lymphocytes/100 WBC (Bld) 18.4 % Normal 13.0 - 44.0 [facility] Comment on above: Performed By: #### E NAP2 #### [facility] [address] [place] [address] MCHC (RBC) [Mass/Vol] 31.4 g/dL Low 32.0 - 36.0 [facility] Comment on above: Performed By: #### E NAP2 #### [facility] [address] [place] [address] MCV (RBC) [Entitic vol] 100 fL Normal 80 - 100 [facility] Comment on above: Performed By: #### E NAP2 #### [facility] [address] [place] [address] Monocytes (Bld) [#/Vol] 0.82 10*3/uL Normal 0.10 - 1.00 [facility] Comment on above: Performed By: #### E NAP2 #### [facility] [address] [place] [address] Monocytes/100 WBC (Bld) 7.6 % Normal 2.0 - 10.0 [facility] Comment on above: Performed By: #### E NAP2 #### [facility] [address] [place] [address] Neutrophils (Bld) [#/Vol] 7.61 10*3/uL Normal 1.20 - 7.70 [facility] Comment on above: Performed By: #### E NAP2 #### [facility] [address] [place] [address] Neutrophils/100 WBC (Bld) 70.1 % Normal 40.0 - 80.0 [facility] Comment on above: Performed By: #### E NAP2 #### [facility] [address] [place] [address] NUCLEATED RBC 0.0 /100 WBC Normal 0.0-0.0 [facility] Comment on above: Performed By: #### E NAP2 #### [facility] [address] [place] [address] Platelets (Bld) [#/Vol] 171 10*3/uL Normal 150 - 450 [facility] Comment on above: Performed By: #### E NAP2 #### [facility] [address] [place] [address] RBC 3.56 x10E12/L Low 4.00 - 5.20 [facility] Comment on above: Performed By: #### E NAP2 #### [facility] [address] [place] [address] WBC (Bld) [#/Vol] 10.8 10*3/uL Normal 4.4 - 11.3 [facility] Comment on above: Performed By: #### E NAP2 #### [facility] [address] [place] [address] COMPREHENSIVE PANELon 2022 Albumin [Mass/Vol] 4.1 g/dL Normal 3.4 - 5.0 [facility] Comment on above: Performed By: #### C MP #### [facility] [address] [place] [address] ALP [Catalytic activity/Vol] 86 U/L Normal 33 - 110 [facility] Comment on above: Performed By: #### C MP #### [facility] [address] [place] [address] ALT [Catalytic activity/Vol] 40 U/L Normal 7 - 45 [facility] Comment on above: Result Comment: Didi ents treated with Sulfasalazine may generate falsely decreased results for ALT. Performed By: #### C MP #### [facility] [address] [place] [address] Anion gap [Moles/Vol] 10 mmol/L Normal 10 - 20 [facility] Comment on above: Performed By: #### C MP #### [facility] [address] [place] [address] AST [Catalytic activity/Vol] 28 U/L Normal 9 - 39 [facility] Comment on above: Performed By: #### C MP #### [facility] [address] [place] [address] Bilirubin [Mass/Vol] 0.7 mg/dL Normal 0.0 - 1.2 [facility] Comment on above: Performed By: #### C MP #### [facility] [address] [place] [address] Calcium [Mass/Vol] 9.6 mg/dL Normal 8.6 - 10.6 [facility] Comment on above: Performed By: #### C MP #### [facility] [address] [place] [address] Chloride [Moles/Vol] 104 mmol/L Normal 98 - 107 [facility] Comment on above: Performed By: #### C MP #### [facility] [address] [place] [address] Creatinine [Mass/Vol] 0.86 mg/dL Normal 0.50 - 1.05 [facility] Comment on above: Performed By: #### C MP #### [facility] [address] [place] [address] GFR/1.73 sq M.predicted among non-blacks MDRD (S/P/Bld) [Vol rate/Area] 83 mL/min/{1.73_m2} Normal >90 [facility] Comment on above: Result Comment: CALC ULATIONS OF ESTIMATED GFR ARE PERFORMED USING THE 2020 CKD-EPI STUDY REFIT EQUATION WITHOUT THE RACE VARIABLE FOR THE IDMS-TRACEABLE CREATININE METHODS. https://jasn.asnjournals.org/content/early/ASN.476110844 8 Performed By: #### C MP #### [facility] [address] [place] [address] Glucose [Mass/Vol] 131 mg/dL High 74 - 99 [facility] Comment on above: Performed By: #### C MP #### [facility] [address] [place] [address] HCO3 (Bld) [Moles/Vol] 30 mmol/L Normal 21 - 32 [facility] Comment on above: Performed By: #### C MP #### [facility] [address] [place] [address] Potassium [Moles/Vol] 3.9 mmol/L Normal 3.5 - 5.3 [facility] Comment on above: Performed By: #### C MP #### [facility] [address] [place] [address] Protein [Mass/Vol] 6.6 g/dL Normal 6.4 - 8.2 [facility] Comment on above: Performed By: #### C MP #### [facility] [address] [place] [address] Sodium [Moles/Vol] 140 mmol/L Normal 136 - 145 [facility] Comment on above: Performed By: #### C MP #### [facility] [address] [place] [address] Urea nitrogen [Mass/Vol] 20 mg/dL Normal 6 - 23 [facility] Comment on above: Performed By: #### C MP #### [facility] [address] [place] [address] FERRITINon 10-26-2022 FERRITIN 767 ug/L High 8 - 150 [facility] Comment on above: Performed By: #### E NAP2 #### [facility] [address] [place] [address] IRON + TIBCon 10-26-2022 % SATURATION 22 % Low 25 - 45 [facility] Comment on above: Performed By: #### E NAP2 #### [facility] [address] [place] [address] Iron [Mass/Vol] 58 ug/dL Normal 35 - 150 [facility] Comment on above: Performed By: #### E NAP2 #### [facility] [address] [place] [address] TIBC 265 ug/dL Normal 240 - 445 [facility] Comment on above: Performed By: #### E NAP2 #### [facility] [address] [place] [address] LDHon 10-26-2022 LDH 182 U/L Normal 84 - 246 [facility] Comment on above: Performed By: #### L DH #### [facility] [address] [place] [address] Office Visiton 10-04-2022 Follow-up visit Diagnoses/Problems Hypertension [...] by Problem List Migration; 2012-10-13; Moved to [facility] Jul 14 2013 9:12PM History of allergic [...] of Capsule endoscopy for anemia, 04/23/22 Dr Bashour, few red spots of undetermined significance History [...] Daily Vi (more content not included)... Normal [employer] Office Visiton 08-30-2022 Follow-up visit Diagnoses/Problems Depression [...] Iron deficiency anemia, she is still seeing instrument setter as the GI work-up was negative. She [...] She got an iron infusion through the instrument setter and notes that she is feeling much [...] by Problem List Migration; 2012-10-13; Moved to [facility] Jul 14 2013 9:12PM History of allergic [...] Sprain of right foot, initial encounter (845.10) (D61.261R) Resolved Date: 08 Feb 2021 History of Tendiniti (more content not included)... Normal [facility] PHQ-2 VITALSon 08-30-2022 Adult depression screening [...] using an assistive deviceno Electronic Signatures: Lizett Garcia (SPENCER) (Signed 23-Aug-2022 11:28) Authored: Patient Visit Information, Vital Signs, Allergies, Outpatient Medication Profile, Notification, Travel History, Falls Last Updated: 23-Aug-2022 11:28 by Lizett Garcia) [facility] Clinic Note - Intakeon 08-16 Clinic Note [...] air Pain Screening: Patient States Painno (0) Video Camera Operator for intimate exam offered to patient: Patient [...] 08:50) Authored: Patient Visit Information, Vital Signs, Video Camera Operator, Allergies, Outpatient Medication Profile, Notification, Travel History, Falls, Oncology Nutrition, Nutrition/Learning Last Updated: 16-Aug-2022 08:50 by Caity Sequeira) Normal [facility] Clinic Note - Intakeon 08-09 Clinic Note [...] the patient using an assistive deviceno Spiritual/Procedural: Spiritual/cultural/faith practices important for us to knowno Alcohol, prescription or recreational drugs taken this AM for non medical reasonsno Electronic Signatures: Vinita HunterGALINA) (Signed 09-Aug-2022 10:54) Authored: Patient Visit Information, Vital Signs, Allergies, Outpatient Medication Profile, Notification, Travel History, Falls, Spiritual/Procedural Last Updated: 09-Aug-2022 10:54 by Vinita Hunter (GALINA) Normal [facility] DELICIA TITER/GABRIELLA PANELon 2021 DELICIA PATTERN HOMOGENEOUS Normal [facility] Comment on above: Performed By: #### E NAP2 #### [facility] [address] [place] [address] DELICIA TITER 1:320 Normal [facility] Comment on above: Performed By: #### E NAP2 #### [facility] [address] [place] [address] DELICIA TITER/GABRIELLA PANELon 2021 ANTI-CENTROMERE <0.2 Normal [facility] Comment on above: Result Comment: REF VALUES < 1.0 = NEGATIVE >=1.0 = POSITIVE Performed By: #### E NAP2 #### [facility] [address] [place] [address] ANTI-CHROMATIN <0.2 Normal [facility] Comment on above: Result Comment: REF VALUES < 1.0 = NEGATIVE >=1.0 = POSITIVE Performed By: #### E NAP2 #### [facility] [address] [place] [address] ANTI-DNA [DS] <1.0 Normal [facility] Comment on above: Result Comment: REF VALUES NEGATIVE: <= 4 IU/ML EQUIVOCAL: 5- 9 IU/ML POSITIVE: >=10 IU/ML Performed By: #### E NAP2 #### [facility] [address] [place] [address] ANTI-JANAY-1 <0.2 Normal [facility] Comment on above: Result Comment: REF VALUES < 1.0 = NEGATIVE >=1.0 = POSITIVE Performed By: #### E NAP2 #### [facility] [address] [place] [address] ANTI-RIBOSOMAL P <0.2 Normal [facility] Comment on above: Result Comment: REF VALUES < 1.0 = NEGATIVE >=1.0 = POSITIVE Performed By: #### E NAP2 #### [facility] [address] [place] [address] ANTI-ENGINEERING DIRECTOR <0.2 Normal [facility] Comment on above: Result Comment: REF VALUES < 1.0 = NEGATIVE >=1.0 = POSITIVE Performed By: #### E NAP2 #### [facility] [address] [place] [address] ANTI-SCL-70 <0.2 Normal [facility] Comment on above: Result Comment: REF VALUES < 1.0 = NEGATIVE >=1.0 = POSITIVE Performed By: #### E NAP2 #### [facility] [address] [place] [address] ANTI-SM <0.2 Normal [facility] Comment on above: Result Comment: REF VALUES < 1.0 = NEGATIVE >=1.0 = POSITIVE Performed By: #### E NAP2 #### [facility] [address] [place] [address] ANTI-SM/ENGINEERING DIRECTOR <0.2 Normal [facility] Comment on above: Result Comment: REF VALUES < 1.0 = NEGATIVE >=1.0 = POSITIVE Performed By: #### E NAP2 #### [facility] [address] [place] [address] ANTI-SSA 0.2 AI Normal [facility] Comment on above: Result Comment: REF VALUES < 1.0 = NEGATIVE >=1.0 = POSITIVE Performed By: #### E NAP2 #### [facility] [address] [place] [address] ANTI-SSB <0.2 Normal [facility] Comment on above: Result Comment: REF VALUES < 1.0 = NEGATIVE >=1.0 = POSITIVE Performed By: #### E NAP2 #### [facility] [address] [place] [address] DELICIA-WITH REFLEX TO ENAon DELICIA WITH REFLEX TO GABRIELLA Positive Abnormal NEGATIVE [facility] Comment on above: Result Comment: The Antinuclear Antibody (DELICIA) test was performed using indirect immunofluorescence assay with HEp-2 cells slide. Performed By: #### A NA2 #### [facility] [address] [place] [address] DELICIA + GABRIELLA PANELon 08-03-2022 DELICIA WITH REFLEX TO GABRIELLA Canceled Normal [facility] Comment on above: Order Comment: TEST DELICIA + GABRIELLA PANEL WAS CANCELLED, 08/03/2022 14:51 NO SPECIMEN RECEIVED INLAB. Result Comment: The Antinuclear Antibody (DELICIA) test was performed using indirect immunofluorescence assay with HEp-2 cells slide. Performed By: #### A NA2 #### [facility] [address] [place] [address] ANTI-CENTROMERE Canceled Normal [facility] Comment on above: Order Comment: TEST DELICIA + GABRIELLA PANEL WAS CANCELLED, 08/03/2022 14:51 NO SPECIMEN RECEIVED INLAB. Performed By: #### A NA2 #### [facility] [address] [place] [address] ANTI-CHROMATIN Canceled Normal [facility] Comment on above: Order Comment: TEST DELICIA + GABRIELLA PANEL WAS CANCELLED, 08/03/2022 14:51 NO SPECIMEN RECEIVED INLAB. Performed By: #### A NA2 #### [facility] [address] [place] [address] ANTI-DNA [DS] Canceled Normal [facility] Comment on above: Order Comment: TEST DELICIA + GABRIELLA PANEL WAS CANCELLED, 08/03/2022 14:51 NO SPECIMEN RECEIVED INLAB. Performed By: #### A NA2 #### [facility] [address] [place] [address] ANTI-JANAY-1 Canceled Normal [facility] Comment on above: Order Comment: TEST DELICIA + GABRIELLA PANEL WAS CANCELLED, 08/03/2022 14:51 NO SPECIMEN RECEIVED INLAB. Performed By: #### A NA2 #### [facility] [address] [place] [address] ANTI-RIBOSOMAL P Canceled Normal [facility] Comment on above: Order Comment: TEST DELICIA + GABRIELLA PANEL WAS CANCELLED, 08/03/2022 14:51 NO SPECIMEN RECEIVED INLAB. Performed By: #### A NA2 #### [facility] [address] [place] [address] ANTI-ENGINEERING DIRECTOR Canceled Normal [facility] Comment on above: Order Comment: TEST DELICIA + GABRIELLA PANEL WAS CANCELLED, 08/03/2022 14:51 NO SPECIMEN RECEIVED INLAB. Performed By: #### A NA2 #### [facility] [address] [place] [address] ANTI-SCL-70 Canceled Normal [facility] Comment on above: Order Comment: TEST DELICIA + GABRIELLA PANEL WAS CANCELLED, 08/03/2022 14:51 NO SPECIMEN RECEIVED INLAB. Performed By: #### A NA2 #### [facility] [address] [place] [address] ANTI-SM Canceled Normal [facility] Comment on above: Order Comment: TEST DELICIA + GABRIELLA PANEL WAS CANCELLED, 08/03/2022 14:51 NO SPECIMEN RECEIVED INLAB. Performed By: #### A NA2 #### [facility] [address] [place] [address] ANTI-SM/ENGINEERING DIRECTOR Canceled Normal [facility] Comment on above: Order Comment: TEST DELICIA + GABRIELLA PANEL WAS CANCELLED, 08/03/2022 14:51 NO SPECIMEN RECEIVED INLAB. Performed By: #### A NA2 #### [facility] [address] [place] [address] ANTI-SSA Canceled Normal [facility] Comment on above: Order Comment: TEST DELICIA + GABRIELLA PANEL WAS CANCELLED, 08/03/2022 14:51 NO SPECIMEN RECEIVED INLAB. Performed By: #### A NA2 #### [facility] [address] [place] [address] ANTI-SSB Canceled Normal [facility] Comment on above: Order Comment: TEST DELICIA + GABRIELLA PANEL WAS CANCELLED, 08/03/2022 14:51 NO SPECIMEN RECEIVED INLAB. Performed By: #### A NA2 #### [facility] [address] [place] [address] Clinic Note - Heme Oncon Clinic Note [...] of connective tissue disorder diagnosed by her saw tailer at [facility] and 15 years ago, although specific diagnosis is unclear INTERVAL HISTORY : Patient returns today for follow-up after he was evaluated for anemia, Patient is doing well clinically, she is taking oral iron with vitamin C, denies any significant bleeding problems, she does have signs and symptoms of fibromyalgia and claims that she has been diagnosed with connective tissue disorder by her saw tailer at [facility] approximately 15 years ago although she does [...] history of connective tissue disorder diagnosed at [facility] approximately 15 years ago although did not [...] Saravia Master Clinician in Hematology and Oncology [facility] OfficePhone [facility] OfficePhone Allergies and Intolerances: Allergies: penicillin: Drug, [...] Family hi (more content not included)... Normal [facility] Clinic Note - Heme Onc Sched yasmany 08-02-2022 Clinic Note - Heme Onc Scheduling [...] Appointment: Physician/Dept/ServiceDr. Codey Flores Appointment Date & [id number] 10:30 [facility] [phone] Comments3 month Follow up/arrive at 10:10 for intake Treatment Center Appointment: Commentslabs to be done prior Treatment Center Appointment: Appointment Date & [id number] 10:30 Location/Phone [facility] [phone] [facility] Appointment: Appointment Date & [id number] 09:00 Location/Phone [facility] [phone] [facility] Appointment: Appointment Date & [id number] 11:00 Location/Phone [facility] [phone] [facility]ofer End of Visit Documentation: Clinic Location/Phone Number: Clinic Location/Phone Number: [place] [phone] End Of Visit MU Report Item: Visit Summary given or mailed to patientyes Electronic Signatures: Nguyen Hawley (Rev Cycl Spec) (Signed 02-Aug-2022 11:39) Authored: Retrieve Patient Instructions, RETURN VISITS, TREATMENT CENTER APPOINTMENTS, End of Visit Documentation Last Updated: 02-Aug-2022 11:39 by Nguyen Hawley (Rev Cycl Spec) [facility] Clinic Note - Intakeon 08-02 Clinic Note [...] air Pain Screening: Patient States Painno (0) Video Camera Operator for intimate exam offered to patient: Patient [...] or learningno Electronic Signatures: Caity Sequeira) (Signed 02-Aug-2022 10:55) Authored: Patient Visit Information, Vital Signs, Video Camera Operator, Allergies, Outpatient Medication Profile, Notification, Travel History, Falls, Oncology Nutrition, Nutrition/Learning Last Updated: 02-Aug-2022 10:55 by Caity Sequeira) Normal [facility] Office Visiton 07-26-2022 Follow-up visit Diagnoses/Problems Depression (311) (F32.A) Hypertension (401.9) (I10) Anemia, unspecified type (285.9) (D64.9) Orders Depression Renew: Sertraline HCl - 25 MG Oral Tablet; TAKE 1 TABLET DAILY DIRECTED Patient Discussion/Summary f/u Dr Vega in 1 months for depression Provider Impressions 1. Depression, after discussion patient is agreeable to talk to her hospital social worker for our chronic care management [...] They give permission for the behavioral Health Chief Financial Officer (BHM) and psychiatric consult to be included in their care with my continued primary management. Patient was made aware that the services provided as part of the Collaborative Care Model are subject to cost sharing. #2 hypertension, blood pressure stable and well-controlled 3. Anemia, patient continues to follow-up with instrument setter Dr. Flores. Patient will see me back [...] They give permission for the behavioral Health Chief Financial Officer (BHM) and psychiatric consult to be included [...] helpful but she cannot seem to stop worrying. Pt denies fever, chills, malaise or headache. [...] changes (70 (more content not included)... [facility] PH[facility] VITALSon 07-26-2022 Adult depression screening assessment No [facility] Work Phone: CBC AND DIFFERENTIALon 07-13 % AUTOMATED IMMATURE GRAN 0.3 % Normal 0.0 - 0.9 [facility] Comment on above: Result Comment: Jacquie ture Granulocyte Count (IG) includes promyelocytes, myelocytes and metamyelocytes but does not include bands. Percent differential counts (%) should be interpreted in the context of the absolute cell counts (cells/L). Performed By: #### C BCDF #### [facility] [address] [place] [address] Basophils (Bld) [#/Vol] 0.03 10*3/uL Normal 0.00 - 0.10 [facility] Comment on above: Performed By: #### C BCDF #### [facility] [address] [place] [address] Basophils/100 WBC (Bld) 0.4 % Normal 0.0 - 2.0 [facility] Comment on above: Performed By: #### C BCDF #### [facility] [address] [place] [address] Eosinophils (Bld) [#/Vol] 0.17 10*3/uL Normal 0.00 - 0.70 [facility] Comment on above: Performed By: #### C BCDF #### [facility] [address] [place] [address] Eosinophils/100 WBC (Bld) 2.3 % Normal 0.0 - 6.0 [facility] Comment on above: Performed By: #### C BCDF #### [facility] [address] [place] [address] Erythrocyte distribution width (RBC) [Ratio] 19.3 % High 11.5 - 14.5 [facility] Comment on above: Performed By: #### C BCDF #### [facility] [address] [place] [address] Hematocrit (Bld) [Volume fraction] 31.3 % Low 36.0 - 46.0 [facility] Comment on above: Performed By: #### C BCDF #### [facility] [address] [place] [address] Hemoglobin (Bld) [Mass/Vol] 9.9 g/dL Low 12.0 - 16.0 [facility] Comment on above: Performed By: #### C BCDF #### [facility] [address] [place] [address] Lymphocytes (Bld) [#/Vol] 1.37 10*3/uL Normal 1.20 - 4.80 [facility] Comment on above: Performed By: #### C BCDF #### [facility] [address] [place] [address] Lymphocytes/100 WBC (Bld) 18.5 % Normal 13.0 - 44.0 [facility] Comment on above: Performed By: #### C BCDF #### [facility] [address] [place] [address] MCHC (RBC) [Mass/Vol] 31.6 g/dL Low 32.0 - 36.0 [facility] Comment on above: Performed By: #### C BCDF #### [facility] [address] [place] [address] MCV (RBC) [Entitic vol] 98 fL Normal 80 - 100 [facility] Comment on above: Performed By: #### C BCDF #### [facility] [address] [place] [address] Monocytes (Bld) [#/Vol] 0.55 10*3/uL Normal 0.10 - 1.00 [facility] Comment on above: Performed By: #### C BCDF #### [facility] [address] [place] [address] Monocytes/100 WBC (Bld) 7.4 % Normal 2.0 - 10.0 [facility] Comment on above: Performed By: #### C BCDF #### [facility] [address] [place] [address] Neutrophils (Bld) [#/Vol] 5.27 10*3/uL Normal 1.20 - 7.70 [facility] Comment on above: Performed By: #### C BCDF #### [facility] [address] [place] [address] Neutrophils/100 WBC (Bld) 71.1 % Normal 40.0 - 80.0 [facility] Comment on above: Performed By: #### C BCDF #### [facility] [address] [place] [address] NUCLEATED RBC 0.0 /100 WBC Normal 0.0-0.0 [facility] Comment on above: Performed By: #### C BCDF #### [facility] [address] [place] [address] Platelets (Bld) [#/Vol] 211 10*3/uL Normal 150 - 450 [facility] Comment on above: Performed By: #### C BCDF #### [facility] [address] [place] [address] RBC 3.18 x10E12/L Low 4.00 - 5.20 [facility] Comment on above: Performed By: #### C BCDF #### [facility] [address] [place] [address] WBC (Bld) [#/Vol] 7.4 10*3/uL Normal 4.4 - 11.3 [facility] Comment on above: Performed By: #### C BCDF #### [facility] [address] [place] [address] Complete Blood Count + Diffe rentialon 07-13-2022 Basophils/100 WBC (Bld) 0.4 % 0.0 - 2.0 [facility] Work Phone: Erythrocyte distribution width (RBC) [Ratio] 19.3 % above high threshold See Below [facility] Work Phone: Comment on above: Reference Range: 11. 5 - 14.5 Hematocrit (Bld) [Volume fraction] 31.3 % below low threshold See Below [facility] Work Phone: Comment on above: Reference Range: 36. 0 - 46.0 Hemoglobin (Bld) [Mass/Vol] 9.9 g/dL below low threshold See Below [facility] Work Phone: Comment on above: Reference Range: 12. 0 - 16.0 Lymphocytes/100 WBC (Bld) 18.5 % See Below [facility] Work Phone: Comment on above: Reference Range: 13. 0 - 44.0 MCHC (RBC) [Mass/Vol] 31.6 g/dL below low threshold See Below [facility] Work Phone: Comment on above: Reference Range: 32. 0 - 36.0 MCV (RBC) [Entitic vol] 98 fL 80 - 100 [facility] Work Phone: Monocytes/100 WBC (Bld) 7.4 % 2.0 - 10.0 [facility] Work Phone: Neutrophils/100 WBC (Bld) 71.1 % See Below [facility] Work Phone: Comment on above: Reference Range: 40. 0 - 80.0 Platelets (Bld) [#/Vol] 211 10*3/uL 150 - 450 [facility] Work Phone: RBC (Bld) [#/Vol] 3.18 {x10E12/L} below low threshold See Below [facility] Work Phone: Comment on above: Reference Range: 4.0 0 - 5.20 WBC (Bld) [#/Vol] 7.4 10*3/uL 4.4 - 11.3 [facility] Work Phone: Complete Blood Count + Differential 0.03 {x10E9/L} See Below [facility] Work Phone: Comment on above: Reference Range: 0.0 0 - 0.10 Complete Blood Count + Differential 0.17 {x10E9/L} See Below [facility] Work Phone: Comment on above: Reference Range: 0.0 0 - 0.70 Complete Blood Count + Differential 0.55 {x10E9/L} See Below [facility] Work Phone: Comment on above: Reference Range: 0.1 0 - 1.00 Complete Blood Count + Differential 1.37 {x10E9/L} See Below [facility] Work Phone: Comment on above: Reference Range: 1.2 0 - 4.80 Complete Blood Count + Differential 5.27 {x10E9/L} See Below [facility] Work Phone: Comment on above: Reference Range: 1.2 0 - 7.70 Complete Blood Count + Differential 2.3 % 0.0 - 6.0 [facility] Work Phone: Complete Blood Count + Differential 0.3 % 0.0 - 0.9 [facility] Work Phone: Comment on above: Immature Granulocyte Count (IG) includes promyelocytes, myelocytes and metamyelocytes but does not include bands. Percent differential counts (%) should be interpreted in the context of the absolute cell counts (cells/L). Complete Blood Count + Differential 0.0 {/100_WBC} 0.0-0.0 [facility] Work Phone: FERRITINon 07-13-2022 FERRITIN 203 ug/L High 8 - 150 [facility] Comment on above: Performed By: #### F ERRI #### [facility] [address] [place] [address] Ferritin, Serumon 07-13-2022 Ferritin [Mass/Vol] 203 ug/L above high threshold 8 - 150 [facility] Work Phone: IRON + TIBCon 07-13-2022 % SATURATION 11 % Low 25 - 45 [facility] Comment on above: Performed By: #### A NA2 #### [facility] [address] [place] [address] Iron [Mass/Vol] 29 ug/dL Low 35 - 150 [facility] Comment on above: Performed By: #### A NA2 #### [facility] [address] [place] [address] TIBC 274 ug/dL Normal 240 - 445 [facility] Comment on above: Performed By: #### A NA2 #### [facility] [address] [place] [address] Laboratory - Chemistry and C hemistry - challengeon 07-13-2022 Iron [Mass/Vol] 29 ug/dL below low threshold 35 - 150 [facility] Work Phone: Iron binding capacity [Mass/Vol] 274 ug/dL 240 - 445 [facility] Work Phone: No Panel Informationon 07-13 11 % below low threshold 25 - 45 [facility] Work Phone: Laboratory - Hematology and Cell countson 04-12-2022 Erythrocyte distribution width (RBC) [Ratio] 15.0 % above high threshold See Below [facility] Work Phone: Comment on above: Reference Range: 11. 5 - 14.5 Hematocrit (Bld) [Volume fraction] 29.5 % below low threshold See Below [facility] Work Phone: Comment on above: Reference Range: 36. 0 - 46.0 Hemoglobin (Bld) [Mass/Vol] 9.3 g/dL below low threshold See Below [facility] Work Phone: Comment on above: Reference Range: 12. 0 - 16.0 MCHC (RBC) [Mass/Vol] 31.5 g/dL below low threshold See Below [facility] Work Phone: Comment on above: Reference Range: 32. 0 - 36.0 MCV (RBC) [Entitic vol] 97 fL 80 - 100 [facility] Work Phone: Platelets (Bld) [#/Vol] 189 10*3/uL 150 - 450 [facility] Work Phone: RBC (Bld) [#/Vol] 3.05 {x10E12/L} below low threshold See Below [facility] Work Phone: Comment on above: Reference Range: 4.0 0 - 5.20 WBC (Bld) [#/Vol] 8.4 10*3/uL 4.4 - 11.3 [facility] Work Phone: No Panel Informationon 04-12 0.0 {/100_WBC} 0.0-0.0 [facility] Work Phone: Office Visiton 04-12-2022 Follow-up visit Diagnoses/Problems Anemia, unspecified type (285.9) (D64.9) Hypertension (401.9) (I10) Orders Anemia, unspecified type Start: Folate 400 MCG Oral Tablet; TAKE 1 TABLET DAILY DIRECTED Complete Blood Count; Status:Active; Requested for:[id number]; Start: Vitamin C 500 MG Oral Capsule; [...] negative but she was asked by her instrument setter to take folic acid and vitamin C [...] by Problem List Migration; 2012-10-13; Moved to [facility] Jul 14 2013 9:12PM History of allergic [...] DAILY. met (more content not included)... Normal [facility] Mamm - Screening Mammogram w / Tomosynthesison 04-11-2022 MG Breast Screening Normal [facility] Work Phone: Ferritin, Serumon 03-29-2022 Ferritin [Mass/Vol] 223 ug/L above high threshold 8 - 150 [facility] Work Phone: Homocysteine, Serumon 2021 Homocysteine [Moles/Vol] 15.66 umol/L above high threshold See Below [facility] Work Phone: Comment on above: Reference Range: 5.0 0 - 13.90 Reference values apply to fasting specimens only. Non-fasting specimens produce slightly higher and likely clinically insignificant changes in homocysteine levels. Laboratory - Chemistry and C hemistry - challengeon 03-29-2022 Iron [Mass/Vol] 79 ug/dL 35 - 150 [facility] Work Phone: Iron binding capacity [Mass/Vol] 282 ug/dL 240 - 445 [facility] Work Phone: Methylmalonic Acid, Serumon 03-29-2022 Methylmalonate [Moles/Vol] 339 nmol/L 0-378 [facility] Work Phone: Comment on above: This test was develo ped and its performance characteristicsdetermined by [facility]. It has not been cleared or approvedby the Food and Drug Administration.Test(s) 370281-Haeouzmcymtsr Acid, Serumwas developed and its performance characteristics determinedby [facility]. It has not been cleared or approved by the Foodand Drug Administration. No Panel Informationon 03-29 28 % 25 - 45 [facility] Work Phone: Reticulocyte Counton 022 Reticulocyte Count 33 pg 28 - 38 [facility] Work Phone: Reticulocyte Count 20.8 % above high threshold 0.0 - 16.0 [facility] Work Phone: Reticulocyte Count 0.175 {x10E12/L} above high threshold See Below [facility] Work Phone: Comment on above: Reference Range: 0.0 18 - 0.083 Reticulocyte Count 5.8 % above high threshold 0.5 - 2.0 [facility] Work Phone: Laboratoryon 02-19-2022 Lower GI hemoglobin IA Ql (Stl) Negative Negative [facility] Work Phone: Comment on above: This test [...] a future date. Complete Blood Count + Diffe rentialon 02-15-2022 Basophils/100 WBC (Bld) 0.3 % 0.0 - 2.0 [facility] Work Phone: Erythrocyte distribution width (RBC) [Ratio] 15.9 % above high threshold See Below [facility] Work Phone: Comment on above: Reference Range: 11. 5 - 14.5 Hematocrit (Bld) [Volume fraction] 29.2 % below low threshold See Below [facility] Work Phone: Comment on above: Reference Range: 36. 0 - 46.0 Hemoglobin (Bld) [Mass/Vol] 9.5 g/dL below low threshold See Below [facility] Work Phone: Comment on above: Reference Range: 12. 0 - 16.0 Lymphocytes/100 WBC (Bld) 17.7 % See Below [facility] Work Phone: Comment on above: Reference Range: 13. 0 - 44.0 MCHC (RBC) [Mass/Vol] 32.5 g/dL See Below [facility] Work Phone: Comment on above: Reference Range: 32. 0 - 36.0 MCV (RBC) [Entitic vol] 97 fL 80 - 100 [facility] Work Phone: Monocytes/100 WBC (Bld) 7.0 % 2.0 - 10.0 [facility] Work Phone: Neutrophils/100 WBC (Bld) 72.2 % See Below [facility] Work Phone: Comment on above: Reference Range: 40. 0 - 80.0 Platelets (Bld) [#/Vol] 205 10*3/uL 150 - 450 [facility] Work Phone: RBC (Bld) [#/Vol] 3.00 {x10E12/L} below low threshold See Below [facility] Work Phone: Comment on above: Reference Range: 4.0 0 - 5.20 WBC (Bld) [#/Vol] 7.7 10*3/uL 4.4 - 11.3 [facility] Work Phone: Complete Blood Count + Differential 0.02 {x10E9/L} See Below [facility] Work Phone: Comment on above: Reference Range: 0.0 0 - 0.10 Complete Blood Count + Differential 0.22 {x10E9/L} See Below [facility] Work Phone: Comment on above: Reference Range: 0.0 0 - 0.70 Complete Blood Count + Differential 0.54 {x10E9/L} See Below [facility] Work Phone: Comment on above: Reference Range: 0.1 0 - 1.00 Complete Blood Count + Differential 1.37 {x10E9/L} See Below [facility] Work Phone: Comment on above: Reference Range: 1.2 0 - 4.80 Complete Blood Count + Differential 5.59 {x10E9/L} See Below [facility] Work Phone: Comment on above: Reference Range: 1.2 0 - 7.70 Percent differential counts (%) should be interpreted in the context of the absolute cell counts (cells/L). Complete Blood Count + Differential 2.8 % 0.0 - 6.0 [facility] Work Phone: Copper, Serumon 02-15-2022 Copper [Mass/Vol] 129 ug/dL 80-158 [facility] Work Phone: Comment on above: Detection Limit = 5T est(s) [id number], Serum or Plasmawas developed and its performance characteristics determinedby [employer]. It has not been cleared or approved by the Foodand Drug Administration. Folate, Serumon 02-15-2022 Folate [Mass/Vol] 20.7 ng/mL >5.0 [facility] Work Phone: Comment on above: Low <3.4Borderline 3 .4-5.0Normal >5.0. Biotin interference may cause falsely elevated results. Patients taking a Biotin dose of up to 5 mg/day should refrain from taking Biotin for 24 hours before sample collection. Providers may contact their local laboratory for further information. Haptoglobin, Serumon 022 Haptoglobin Nephelometry [Mass/Vol] 182 mg/dL 30 - 200 [facility] Work Phone: Laboratory - Chemistry and C hemistry - challengeon 02-15-2022 Albumin [Mass/Vol] 4.1 g/dL 3.4 - 5.0 [facility] Work Phone: Albumin BCP dye [Mass/Vol] 4.2 g/dL 3.4 - 5.0 [facility] Work Phone: ALP [Catalytic activity/Vol] 67 U/L 33 - 110 [facility] Work Phone: ALT With P-5'-P [Catalytic activity/Vol] 24 U/L 7 - 45 [facility] Work Phone: Comment on above: Patients treated wit h Sulfasalazine may generate falsely decreased results for ALT. Anion gap [Moles/Vol] 14 mmol/L 10 - 20 [facility] Work Phone: AST With P-5'-P [Catalytic activity/Vol] 22 U/L 9 - 39 [facility] Work Phone: Bilirubin [Mass/Vol] 0.8 mg/dL 0.0 - 1.2 [facility] Work Phone: Calcium [Mass/Vol] 9.5 mg/dL 8.6 - 10.6 [facility] Work Phone: Chloride [Moles/Vol] 104 mmol/L 98 - 107 [facility] Work Phone: CO2 [Moles/Vol] 26 mmol/L 21 - 32 [facility] Work Phone: Creatinine [Mass/Vol] 0.99 mg/dL See Below [facility] Work Phone: Comment on above: Reference Range: 0.5 0 - 1.05 Glucose [Mass/Vol] 123 mg/dL above high threshold 74 - 99 [facility] Work Phone: LDH [Catalytic activity/Vol] 147 U/L 84 - 246 [facility] Work Phone: Potassium [Moles/Vol] 3.8 mmol/L 3.5 - 5.3 [facility] Work Phone: Protein [Mass/Vol] 7.1 g/dL 6.4 - 8.2 [facility] Work Phone: Sodium [Moles/Vol] 140 mmol/L 136 - 145 [facility] Work Phone: Urea nitrogen [Mass/Vol] 30 mg/dL above high threshold 6 - 23 [facility] Work Phone: No Panel Informationon 02-15 1.[address] [facility] Work Phone: Comment on above: Reference [...] the testing laboratory. 2.33 mg/dL See Below [facility] Work Phone: Comment on above: Reference Range: 0.5 7 - 2.63 2.91 mg/dL above high threshold See Below [facility] Work Phone: Comment on above: Reference Range: 0.3 3 - 1.[address] [facility] Work Phone: Comment on above: No monoclonal protei ns detected by immunofixation. 1.1 g/dL 0.5 - 1.4 [facility] Work Phone: 0.7 g/dL 0.5 - 1.2 [facility] Work Phone: 0.8 g/dL 0.4 - 1.1 [facility] Work Phone: 0.4 g/dL 0.2 - 0.6 [facility] Work Phone: 70 {mL/min/1.73m2} >90 [facility] Work Phone: Comment on above: CALCULATIONS OF TESHA MATED GFR ARE PERFORMED USING THE 2020 CKD-EPI STUDY REFIT EQUATION WITHOUT THE RACE VARIABLE FOR THE IDMS-TRACEABLE CREATININE METHODS.https://jasn.asnjournals.org/content///ASN.2 585661943 Path Review SPEon 02-15-2022 Path Review PRISCILLA DURAN [facility] Work Phone: Comment on above: By her/his signature above, the Pathologist listed as making the final interpretation certifies that she/he has personally reviewed this case. Reticulocyte Counton 022 Reticulocyte Count 35 pg 28 - 38 [facility] Work Phone: Reticulocyte Count 23.2 % above high threshold 0.0 - 16.0 [facility] Work Phone: Reticulocyte Count 0.193 {x10E12/L} above high threshold See Below [facility] Work Phone: Comment on above: Reference Range: 0.0 18 - 0.083 Reticulocyte Count 6.5 % above high threshold 0.5 - 2.0 [facility] Work Phone: TSH - Thyroid Stimulating Ho rmone, Serumon 02-15-2022 TSH Qn 3.51 m[IU]/L See Below [facility] Work Phone: Comment on above: Reference Range: 0.4 4 - 3.98 TSH testing is performed using different testing methodology at [facility] than at other [facility]. Direct result comparisons should only be made within the same method. Vitamin B12, Serumon 022 Cobalamin (Vitamin B12) [Mass/Vol] 244 pg/mL 211 - 911 [facility] Work Phone: Laboratory - Chemistry and C hemistry - challengeon 01-26-2022 Albumin BCP dye [Mass/Vol] 4.1 g/dL 3.4 - 5.0 [facility] Work Phone: ALP [Catalytic activity/Vol] 62 U/L 33 - 110 [facility] Work Phone: ALT With P-5'-P [Catalytic activity/Vol] 21 U/L 7 - 45 [facility] Work Phone: Comment on above: Patients treated wit h Sulfasalazine may generate falsely decreased results for ALT. Anion gap [Moles/Vol] 14 mmol/L 10 - 20 [facility] Work Phone: AST With P-5'-P [Catalytic activity/Vol] 18 U/L 9 - 39 [facility] Work Phone: Bilirubin [Mass/Vol] 0.7 mg/dL 0.0 - 1.2 [facility] Work Phone: Calcium [Mass/Vol] 9.2 mg/dL 8.6 - 10.6 [facility] Work Phone: Chloride [Moles/Vol] 105 mmol/L 98 - 107 [facility] Work Phone: CO2 [Moles/Vol] 26 mmol/L 21 - 32 [facility] Work Phone: Creatinine [Mass/Vol] 0.93 mg/dL See Below [facility] Work Phone: Comment on above: Reference Range: 0.5 0 - 1.05 Glucose [Mass/Vol] 118 mg/dL above high threshold 74 - 99 [facility] Work Phone: Iron [Mass/Vol] 58 ug/dL 35 - 150 [facility] Work Phone: Iron binding capacity [Mass/Vol] 263 ug/dL 240 - 445 [facility] Work Phone: Potassium [Moles/Vol] 3.7 mmol/L 3.5 - 5.3 [facility] Work Phone: Protein [Mass/Vol] 6.5 g/dL 6.4 - 8.2 [facility] Work Phone: Sodium [Moles/Vol] 141 mmol/L 136 - 145 [facility] Work Phone: TSH Qn 2.31 m[IU]/L See Below [facility] Work Phone: Comment on above: Reference Range: 0.4 4 - 3.98 TSH testing is performed using different testing methodology at [facility] than at other [facility]. Direct result comparisons should only be made within the same method. Urea nitrogen [Mass/Vol] 22 mg/dL 6 - 23 [facility] Work Phone: Laboratory - Hematology and Cell countson 01-26-2022 Erythrocyte distribution width (RBC) [Ratio] 16.6 % above high threshold See Below [facility] Work Phone: Comment on above: Reference Range: 11. 5 - 14.5 Hematocrit (Bld) [Volume fraction] 28.5 % below low threshold See Below [facility] Work Phone: Comment on above: Reference Range: 36. 0 - 46.0 Hemoglobin (Bld) [Mass/Vol] 9.1 g/dL below low threshold See Below [facility] Work Phone: Comment on above: Reference Range: 12. 0 - 16.0 MCHC (RBC) [Mass/Vol] 31.9 g/dL below low threshold See Below [facility] Work Phone: Comment on above: Reference Range: 32. 0 - 36.0 MCV (RBC) [Entitic vol] 97 fL 80 - 100 [facility] Work Phone: Platelets (Bld) [#/Vol] 191 10*3/uL 150 - 450 [facility] Work Phone: RBC (Bld) [#/Vol] 2.94 {x10E12/L} below low threshold See Below [facility] Work Phone: Comment on above: Reference Range: 4.0 0 - 5.20 WBC (Bld) [#/Vol] 8.5 10*3/uL 4.4 - 11.3 [facility] Work Phone: Lipid Panelon 01-26-2022 Cholesterol [Mass/Vol] 185 mg/dL 0 - 199 [facility] Work Phone: Comment on above: . [...] Cholesterol in HDL [Mass/Vol] 39.1 mg/dL Abnormal [facility] Work Phone: Comment on above: . AGE VERY LOW LOW N ORMAL HIGH 0-19 Y < 35 < 40 40-45 ---- 20- 24 Y ---- < 40 >45 ---- >24 Y ---- < 40 40-60 >60. Cholesterol in LDL [Mass/Vol] 118 mg/dL above high threshold 0 - 99 [facility] Work Phone: Comment on above: . NEAR BORD AGE ELIANA RABLE OPTIMAL HIGH HIGH VERY HIGH 0-19 Y 0 - 109 --- 110-129 >/= 130 ---- 20-24 Y 0 - 119 --- 120-159 >/= 160 ---- >24 Y 0 - 99 100-129 130-159 160-189 >/=190. Cholesterol.total/ Cholesterol in HDL [Mass ratio] 4.7 {ratio} [facility] Work Phone: Comment on above: REF VALUESDESIRABLE < 3.4HIGH RISK > 5.0 Triglyceride [Mass/Vol] 138 mg/dL 0 - 149 [facility] Work Phone: Comment on above: [...] Lipid Panel 28 mg/dL 0 - 40 [facility] Work Phone: No Panel Informationon 01-26 22 % below low threshold 25 - 45 [facility] Work Phone: 0.0 {/100_WBC} 0.0-0.0 -Interna l [facility] Work Phone: 76 {mL/min/1.73m2} >90 -Int ernal [facility] Work Phone: Comment on above: CALCULATIONS OF TESHA MATED GFR ARE PERFORMED USING THE 2020 CKD-EPI STUDY REFIT EQUATION WITHOUT THE RACE VARIABLE FOR THE IDMS-TRACEABLE CREATININE METHODS.https://jasn.asnjournals.org/content//ASN.2 016727157 Vitamin D 25-Hydroxyon 01-26 25-hydroxyvitamin D3 [Mass/Vol] 68 ng/mL [facility] Work Phone: Comment on above: .DEFICIENCY: < 20 NG /MLINSUFFICIENCY: 20-29 NG/MLSUFFICIENCY: 30-100 NG/MLTHIS ASSAY ACCURATELY QUANTIFIES THE SUM OFVITAMIN D3, 25-HYDROXY AND VIT D2,25-HYDROXY. Cult, Urineon 12-07-2021 Bacteria identified Cx Nom (U) [facility] Work Phone: IO UA (nonautomated w/o micr oscopy)on 12-07-2021 Protein (U) [Mass/Vol] Negative [facility] Work Phone: IO UA (nonautomated w/o microscopy) Normal (0.2-1.0 mg/dl) [facility] Work Phone: IO UA (nonautomated w/o microscopy) Negative [facility] Work Phone: IO UA (nonautomated w/o microscopy) 6.0 1 [facility] Work Phone: IO UA (nonautomated w/o microscopy) Hemolyzed trace [facility] Work Phone: IO UA (nonautomated w/o microscopy) 1.020 1 [facility] Work Phone: IO UA (nonautomated w/o microscopy) Clear [facility] Work Phone: IO UA (nonautomated w/o microscopy) Yellow [facility] Work Phone: Office Visiton 12-07-2021 [...] by Problem List Migration; 2012-10-13; Moved to [facility] Jul 14 2013 9:12PM History of allergic [...] (Z92.29) Resolve (more content not included)... Normal [employer] Office Visiton 11-09-2021 Follow-up visit Diagnoses/Problems Hypertension [...] by Problem List Migration; 2012-10-13; Moved to [facility] Jul 14 2013 9:12PM History of allergic [...] Daily Vitals Vital Signs Recorded: 09Nov2021 11:38AM [id number] Physical Exam Patient is obese. HEENT grossly normal, except for dry flaking skin around the creases of her nose, around her hairline and especially behind her ears. Chest clear to auscultation, no wheezes, crackles or rubs. (more content not included)... [facility] Laboratory - Chemistry and C hemistry - challengeon 10-12-2021 Iron [Mass/Vol] 33 ug/dL below low threshold 35 - 150 [facility] Work Phone: Iron binding capacity [Mass/Vol] 401 ug/dL 240 - 445 [facility] Work Phone: Laboratory - Hematology and Cell countson 10-12-2021 Erythrocyte distribution width (RBC) [Ratio] 17.4 % above high threshold See Below [facility] Work Phone: Comment on above: Reference Range: 11. 5 - 14.5 Hematocrit (Bld) [Volume fraction] 35.6 % below low threshold See Below [facility] Work Phone: Comment on above: Reference Range: 36. 0 - 46.0 Hemoglobin (Bld) [Mass/Vol] 10.7 g/dL below low threshold See Below [facility] Work Phone: Comment on above: Reference Range: 12. 0 - 16.0 MCHC (RBC) [Mass/Vol] 30.1 g/dL below low threshold See Below [facility] Work Phone: Comment on above: Reference Range: 32. 0 - 36.0 MCV (RBC) [Entitic vol] 75 fL below low threshold 80 - 100 [facility] Work Phone: Platelets (Bld) [#/Vol] 229 10*3/uL 150 - 450 [facility] Work Phone: RBC (Bld) [#/Vol] 4.73 {x10E12/L} See Below [facility] Work Phone: Comment on above: Reference Range: 4.0 0 - 5.20 WBC (Bld) [#/Vol] 9.2 10*3/uL 4.4 - 11.3 [facility] Work Phone: No Panel Informationon 10-12 0.0 {/100_WBC} 0.0-0.0 -[facility] Work Phone: 8 % below low threshold 25 - 45 -[facility] Work Phone: Office Visiton 10-12-2021 Follow-up visit Diagnoses/Problems Anemia, unspecified type (285.9) (D64.9) Hypertension (401.9) (I10) Iron deficiency anemia (280.9) (D50.9) Hair changes (704.9) (L67.9) Orders Anemia, unspecified type Complete Blood Count; Status:In Progress - Specimen/Data Collected; Done: [id number] Iron + TIBC, Serum; Status:In Progress - Specimen/Data Collected; Done: [id number] Hypertension Renew: Lisinopril 40 MG Oral Tablet; [...] by Problem List Migration; 2012-10-13; Moved to [facility] Jul 14 2013 9:12PM History of allergic [...] Use Educational Level High School 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 Normal [employer] ALLIED HEALTHon 08-02-2021 ALLIED HEALTH HNO ID: [id number] Author: EAN King Service: Radiology Author Type: [...] EAN King August 02, 2021 5:[address] [facility] ED NOTEon 08-02-2021 ED NOTE HNO ID: [id number] Author: Cali Art RN Service: ? Author Type: Registered Nurse Type: ED Notes Filed: 08/02/2021 6:09 PM Note Text: Discharge instructions and prescriptions reviewed with patient via teachback.Pt verbalizes understanding. Pt awake and alert, respirations regular and unlabored. No further questions for this RN. [facility] ED NOTE HNO ID: [id number] Author: Mitzy Park RN Service: ? Author Type: Registered Nurse Type: ED Notes Filed: 08/02/2021 5:07 PM Note Text: Pt to ED with c/c right index finger pain, pt states scratch of her cat on Friday, pt went to [facility] [place] and given antibiotics. Pt states increase in pain and it feels like the bone hurts. [facility] ED PROV NOTEon 08-02-2021 ED PROV NOTE HNO ID: [id number] Author: Yuli Fung PA-C Service: ? Author Type: Physician Commercial Light Fixture Assembler Type: ED Provider Notes Filed: 08/02/2021 5:58 [...] osseous abnormalities are identified. Soft tissue swelling. Bullet Casting Operator: PSCB Transcribe Date/Time: Aug 02 2021 5:36P [...] stable SIGNATURE: KIM Woodard PA-C 08/02/[address] [facility] XR DIGIT 3V FRONTAL/LAT/OBL RTon 08-02-2021 XR [...] osseous abnormalities are identified. Soft tissue swelling. Bullet Casting Operator: PSCB Transcribe Date/Time: Aug 02 2021 5:36P Dictated by : HENRRY ROACH MD This examination was interpreted and the report reviewed and electronically signed by: HENRRY ROACH MD on Aug 02 2021 5:39PM EST [id number] Normal [facility] Tobacco Screening.on 021 Tobacco use status CPHS b) No [facility] Work Phone: [facility] Office-Progress Notes-Pr ovideron 05-31-2021 [facility] Office-Progress Notes-Provider Assessment/Plan 1. Postoperative state [...] or more falls in the past: No (05/31/21 14:14:00) The vital signs were reviewed and are normal. 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 Labor: -- Child's Name: -- Baby's Father: -- Maternal Complications: GDM # 2 Baby 1 Outcome Date: 04/30/2005 Outcome: Live Outcome or Result: Vaginal Gender: Female Gest Age: 37 weeks Wt: 3289 g Hospital: [facility] Labor: -- Child's Name: -- Baby's Father: [...] Lab Results endometrial polyp, benign pathology [facility] Ambulatory Clinical Summaryo n 05-31-2021 Ambulatory Clinical Summary ELIZ JOHN :1975 Visit Date:05/31/2021 Ambulatory Visit Instructions Your Diagnosis Postoperative state Your Care Team Attending Physician - JUANITA LOMBARDI MD, FACOG Primary Care Physician - JACKIE HOBBS Procedures [...] mmHg (05/31/21 14:14:00) Height/Length Measured: 152 cm (05/31/21::00) Weight Measured: 92.4 kg (05/31/21:14:00) Body Mass Index Measured: 39.99 kg/m2 (05/31/21 14:14:00) Height/Length Measured - in2: 60 in (05/31/21::00) Ht/Wt Measurement Refused by Patient?2: No (05/31/21 14:14:00) Last Menstrual Period: 05/19/21 (05/31/21 14:14:00) What to do next Scheduled Follow-Up Appointments No results Medications What How Much When Instructions Unchanged cholecalciferol (Vitamin D3 125 mcg (5000 intl units) oral tablet) DAILY Unchanged lisinopril (lisinopril 10 mg oral tablet) What How Much When Why Comments Stop Taking acetaminophen-hydrocodone (Speer 5 mg-325 mg oral tablet) 1 Tabs [...] call to get immediate medical attention! [facility] Operative Reporton Operative Report Indication for Surge ry Endometrial polyp. The surgery was performed at the [facility] Preoperative Diagnosis Endometrial polyp Postoperative Diagnosis Same Operation Hysteroscopy, dilation and curettage, myosure polypectomy Surgeon(s) Harjit Commercial Light Fixture Assembler none Anesthesia MAC Estimated Blood Loss <5 [...] with polypoid structure at the fundus [facility] Phone Msgon 04-17-2021 Phone Msg - From: Paris Johnston ([facility] Surgery Scheduling) To: JUANITA LOMBARDI MD; Sent: [...] therapy: From: JUANITA LOMBARDI MD, FACOG To: [facility] Surgery Scheduling; Sent: 04/17/2021 13:57:15 EDT Subject: RE: AMB Schedule Surgery Thanks [facility] Phone Msg Entered by Paris Johnston on [...] 04/13/2021 13:08:00 EDT Intent of therapy: [facility] SURGICAL PATH REPORTon 04-17 SURGICAL PATH REPORT [facility] Department of Pathology [address] [place] [id number] Name: ELIZ JOHN : 1975 [facility] [id number] Number: Gender: Female Location: [facility]. Admit 45 years Attending JUANITA LOMBARDI MD, FACOG Age: Provider: Ordering JUANITA LOMBARDI MD, FACOG Provider: Consulting: Surgical Pathology Report ACCESSION: COLLECTED DATE/TIME: RECEIVED DATE/TIME: PATHOLOGIST: [id number] 04/13/2021 12:00 EDT 04/16/2021 09:42 EDT CHRISTIAN [...] Print Date/ 04/18/2021 09:29 EDT Number: Time: [facility] Department of Pathology [address] [place], [place] [id number] Name: ELIZ JOHN : 1975 [facility] [id number] Number: Gender: Female Location: [facility]. Admit 45 years Attending JUANITA LOMBARDI MD, FACOG Age: Provider: Ordering JUANITA LOMBARDI MD, FACOG Provider: Consulting: Surgical Pathology Report ACCESSION: COLLECTED DATE/TIME: RECEIVED DATE/TIME: PATHOLOGIST: [id number] 04/13/2021 12:00 EDT 04/16/2021 09:42 EDT CHRISTIAN AGUIRRE, LAURO Gross Description (A) Labeled CVX polyp 6 [...] specimen is entirely submitted in one cassette. LUISANA/filomena 04/16/2021 Codes CPT CODE: [id number] Print Date/ 04/18/2021 09:29 EDT Number: Time: [facility] Comment on above: Performed By: #### [id number] ####[facility] [id number] [place] [id number] Medical Director: Duncan Llamas MD Ambulatory Clinical Summaryo n 04-13-2021 Ambulatory Clinical Summary ELIZ JOHN :1975 Visit Date:04/13/2021 Ambulatory Visit Instructions Your Diagnosis Pre-procedure lab exam Endocervical polyp Atypical glandular cells of undetermined significance (EDILBERTO) on cervical Pap smear Tests Performed AMB Urine POC 88690 US TV ECHO NON OB OFFICE READ [...] Pap smear Duration: 5 Days Pickup at [facility] Unchanged cholecalciferol (Vitamin D3 125 mcg (5000 intl units) oral tablet) Oral DAILY Unchanged lisinopril (lisinopril 10 mg oral tablet) Pharmacy Information [facility]: [address], [place] [phone] Test Results AMB Urine POC 33232 (04/13/2021) U beta hCG Ql - Negative [...] of these heart attack warning signs, call 04-18-1 to get immediate medical attention! [facility] Phone Msgon 04-13-2021 Phone Msg - From: Vinita Hankins To: Paris Johnston; Sent: 04/13/2021 13:16:00 EDT Subject: Surgery I have scanned in the patient's consent for surgery, will you please get her scheduled as well as for her PO visit? [facility] Phone Msg - From: JUANITA LOMBARDI MD, FACOG To: Vinita Hankins; Sent: 04/13/2021 13:10:35 EDT Subject: Can you send her note to Dr. Hobbs? [facility] Tobacco Screening.on 021 Fall risk assessment [...] corpus luteum of the left ovary. [facility] Comment on above: Order Comment: Order ed on Fin# [id number] Result Comment: Tech nologist: DM Dictated By: JUANITA LOMBARDI MD, FACOG Signed By: JUANITA LOMBARDI MD, FACOG Transcribed: 04.13.2021 13:05 Signed Out: 04/13/21 13:05:59 Ferritin, Serumon 03-08-2021 Ferritin [Mass/Vol] 21 ug/L 8 - 150 [facility] Work Phone: Folate, Serumon 03-08-2021 Folate [Mass/Vol] 9.2 ng/mL >5.0 -[facility] Work Phone: Comment on above: Low [...] ug/dL below low threshold 35 - 150 [facility] Work Phone: Iron binding capacity [Mass/Vol] 354 ug/dL 240 - 445 [facility] Work Phone: No Panel Informationon 03-08 7 % below low threshold 25 - 45 [facility] Work Phone: Vitamin B12, Serumon 021 Cobalamin (Vitamin B12) [Mass/Vol] 276 pg/mL 211 - 911 [facility] Work [facility]: Phone Msgon 03-05-2021 Phone Msg - From: Paris Tierney To: Kahlil DEE, Renea; Sent: 03/05/2021 11:51:49 EDT Subject: Referred Abn Pap Patient was referred to schedule an appt. by her PCP regarding an abnormal pap. Records received. Please review and advise what type of appt. needed. [phone] Pt scheduled for U/S, endo bx and colposcopy on 04/13/21 Normal [facility] Mamm - Screening Mammogram w / Tomosynthesison 02-22-2021 MG Breast Screening Normal [facility] Work Phone: MG Breast Screening Please click on the link to view the study images Normal [facility] Work Phone: Laboratoryon 02-14-2021 Lower GI hemoglobin IA Ql (Stl) Negative Negative [facility] Work Phone: Comment on above: This [...] micr oscopy)on 02-08-2021 Protein (U) [Mass/Vol] Negative [facility] Work Phone: IO UA (nonautomated w/o microscopy) Normal [facility] Work Phone: IO UA (nonautomated w/o microscopy) Negative [facility] Work Phone: IO UA (nonautomated w/o microscopy) 6.5 1 [facility] Work Phone: IO UA (nonautomated w/o microscopy) Non-hemolyzed trace-mod [facility] Work Phone: IO UA (nonautomated w/o microscopy) 1.010 1 [facility] Work Phone: IO UA (nonautomated w/o microscopy) Clear [facility] Work Phone: IO UA (nonautomated w/o microscopy) Yellow [facility] Work Phone: Laboratory - Chemistry and C hemistry - challengeon 02-08-2021 Albumin BCP dye [Mass/Vol] 3.7 g/dL 3.4 - 5.0 -[facility] Work Phone: ALP [Catalytic activity/Vol] 84 U/L 33 - 110 -[facility] Work Phone: ALT With P-5'-P [Catalytic activity/Vol] 22 U/L 7 - 45 [facility] Work Phone: Comment on above: Patients treated wit h Sulfasalazine may generate falsely decreased results for ALT. Anion gap [Moles/Vol] 10 mmol/L 10 - 20 -[facility] Work Phone: AST With P-5'-P [Catalytic activity/Vol] 23 U/L 9 - 39 [facility] Work Phone: Bilirubin [Mass/Vol] 0.4 mg/dL 0.0 - 1.2 -[facility] Work Phone: Calcium [Mass/Vol] 8.8 mg/dL 8.6 - 10.6 -Int [facility] Work Phone: Chloride [Moles/Vol] 106 mmol/L 98 - 107 [facility] Work Phone: CO2 [Moles/Vol] 28 mmol/L 21 - 32 [facility] Work Phone: Creatinine [Mass/Vol] 0.62 mg/dL See Below [facility] Work Phone: Comment on above: Reference Range: 0.5 0 - 1.05 Glucose [Mass/Vol] 108 mg/dL above high threshold 74 - 99 -[facility] Work Phone: Potassium [Moles/Vol] 3.8 mmol/L 3.5 - 5.3 [facility] Work Phone: Protein [Mass/Vol] 6.4 g/dL 6.4 - 8.2 -[facility] Work Phone: Sodium [Moles/Vol] 140 mmol/L 136 - 145 [facility] Work Phone: TSH Qn 2.49 m[IU]/L See Below [facility] Work Phone: Comment on above: Reference Range: 0.4 4 - 3.98 TSH testing is performed using different testing methodology at [facility] than at other legacy [facility]. Direct result comparisons should only be made within the same method. Urea nitrogen [Mass/Vol] 13 mg/dL [facility] Work Phone: Laboratory - Cytologyon 01-17 Cytology report Cyto stain.thin prep Doc (Cvx/Vag) [facility] Work Phone: Laboratory - Hematology and Cell countson 02-08-2021 Erythrocyte distribution width (RBC) [Ratio] 17.6 % above high threshold See Below [facility] Work Phone: Comment on above: Reference Range: 11. 5 - 14.5 Hematocrit (Bld) [Volume fraction] 32.8 % below low threshold See Below [facility] Work Phone: Comment on above: Reference Range: 36. 0 - 46.0 Hemoglobin (Bld) [Mass/Vol] 9.9 g/dL below low threshold See Below [facility] Work Phone: Comment on above: Reference Range: 12. 0 - 16.0 MCHC (RBC) [Mass/Vol] 30.2 g/dL below low threshold See Below [facility] Work Phone: Comment on above: Reference Range: 32. 0 - 36.0 MCV (RBC) [Entitic vol] 72 fL below low threshold 80 - 100 [facility] Work Phone: Platelets (Bld) [#/Vol] 208 10*3/uL 150 - 450 [facility] Work Phone: RBC (Bld) [#/Vol] 4.56 {x10E12/L} See Below [facility] Work Phone: Comment on above: Reference Range: 4.0 0 - 5.20 WBC (Bld) [#/Vol] 6.8 10*3/uL 4.4 - 11.3 [facility] Work Phone: Lipid Panelon 02-08-2021 Cholesterol [Mass/Vol] 194 mg/dL 0 - 199 [facility] Work Phone: Comment on above: [...] guidelines reference: NCEP ATPIII Guidelines, [facility]I 2001, [id number]. Venipuncture immediately after or during the administration of Metamizole may lead to falsely low results. Testing should be performed immediately prior to Metamizole dosing. Cholesterol in HDL [Mass/Vol] 46.0 mg/dL [facility] Work Phone: Comment on above: . AGE VERY LOW LOW N ORMAL HIGH 0-19 Y < 35 < 40 40-45 ---- 20- 24 Y ---- < 40 >45 ---- >24 Y ---- < 40 40-60 >60. Cholesterol in LDL [Mass/Vol] 125 mg/dL above high threshold 0 - 99 [facility] Work Phone: Comment on above: . NEAR BORD AGE ELIANA RABLE OPTIMAL HIGH HIGH VERY HIGH 0-19 Y 0 - 109 --- 110-129 >/= 130 ---- 20-24 Y 0 - 119 --- 120-159 >/= 160 ---- >24 Y 0 - 99 100-129 130-159 160-189 >/=190. Cholesterol.total/ Cholesterol in HDL [Mass ratio] 4.2 {ratio} [facility] Work Phone: Comment on above: REF VALUESDESIRABLE < 3.4HIGH RISK > 5.0 Triglyceride [Mass/Vol] 116 mg/dL 0 - 149 [facility] Work Phone: Comment on above: [...] Lipid Panel 23 mg/dL 0 - 40 [facility] Work Phone: No Panel Informationon 02-08 0.0 {/100_WBC} 0.0-0.0 [facility] Work Phone: >60 >60 [facility] Work Phone: Comment on above: CALCULATIONS OF TESHA MATED GFR ARE PERFORMED USING THE MDRD STUDY EQUATION FOR THE IDMS-TRACEABLE CREATININE METHODS. CLIN CHEM 2007;[id number] Vitamin D 25-Hydroxyon 02-08 25-hydroxyvitamin D3 [Mass/Vol] 19 ng/mL Abnormal [facility] Work Phone: Comment on above: .DEFICIENCY: < 20 NG /MLINSUFFICIENCY: 20-29 NG/MLSUFFICIENCY: 30-100 NG/MLTHIS ASSAY ACCURATELY QUANTIFIES THE SUM OFVITAMIN D3, 25-HYDROXY AND VIT D2,25-HYDROXY. Vital Signs Date Time Vital Sign Value Performing Clinician Facility 01-06-2024 08:56-0400 Body height 156.2 cm Jackie Hobbs MD Work Phone: [facility] 01-06-2024 08:56-0400 Body mass index (BMI) [Ratio] 38.74 kg/m2 Jackie Hobbs MD Work Phone: [facility] 01-06-2024 08:56-0400 Body weight 94.53 kg Jackie Hobbs MD Work Phone: [facility] 01-06-2024 08:56-0400 Diastolic blood pressure 62 mm[Hg] Jackie Hobbs MD Work Phone: [facility] 01-06-2024 08:56-0400 Heart rate 82 /min Jackie Hobbs MD Work Phone: [facility] 01-06-2024 08:56-0400 SaO2% (BldA) [Mass fraction] 95 % Jackie Hobbs MD Work Phone: [facility] 01-06-2024 08:56-0400 Systolic blood pressure 105 mm[Hg] Jackie Hobbs MD Work Phone: [facility] 09-12-2023 09:30-0500 Body height 152.4 cm Laureen Vanessa [employer] Work Phone: [facility] 09-12-2023 09:30-0500 Body mass index (BMI) [Ratio] 40.82 kg/m2 Laureen Vanessa [employer] Work Phone: [facility] 09-12-2023 09:30-0500 Body weight 94.8 kg Laureen Vanessa [employer] Work Phone: [facility] 09-12-2023 09:30-0500 Diastolic blood pressure 71 mm[Hg] Laureen Vanessa [employer] Work Phone: [facility] 09-12-2023 09:30-0500 Heart rate 72 /min Laureen Vanessa [employer] Work Phone: [facility] 09-12-2023 09:30-0500 SaO2% (BldA) [Mass fraction] 98 % Laureen Vanessa [employer] Work Phone: [facility] 09-12-2023 09:30-0500 Systolic blood pressure 113 mm[Hg] Laureen Mendez [employer] Work Phone: [facility] 08-22-2023 08:41-0500 Body height 154.9 cm Jackie Hobbs MD Work Phone: [facility] 08-22-2023 08:41-0500 Body mass index (BMI) [Ratio] 40.25 kg/m2 Jackie Hobbs MD Work Phone: [facility] 08-22-2023 08:41-0500 Body weight 96.62 kg Jackie Hobbs MD Work Phone: [facility] 08-22-2023 08:41-0500 Diastolic blood pressure 76 mm[Hg] Jackie Hobbs MD Work Phone: [facility] 08-22-2023 08:41-0500 Heart rate 87 /min Jackie Hobbs MD Work Phone: [facility] 08-22-2023 08:41-0500 Systolic blood pressure 103 mm[Hg] Jackie Hobbs MD Work Phone: [facility] 04-15-2023 08:14-0400 Body height 156.8 cm Jackie Hobbs MD Work Phone: [facility] Comment on above: w/o shoes 04-15-2023 08:14-0400 Body mass index (BMI) [Ratio] 38.83 kg/m2 Jackie Hobbs MD Work Phone: [facility] 04-15-2023 08:14-0400 Body weight 95.53 kg Jackie Hobbs MD Work Phone: [facility] 04-15-2023 08:14-0400 Diastolic blood pressure 78 mm[Hg] Jackie Hobbs MD Work Phone: [facility] 04-15-2023 08:14-0400 Heart rate 70 /min Jackie Hobbs MD Work Phone: [facility] 04-15-2023 08:14-0400 SaO2% (BldA) [Mass fraction] 99 % Jackie Hobbs MD Work Phone: [facility] 04-15-2023 08:14-0400 Systolic blood pressure 118 mm[Hg] Jackie Hobbs MD Work Phone: [facility] 12-06-2022 08:59-0400 Body height 157.5 cm Jackie Hobbs MD Work Phone: [facility] 12-06-2022 08:59-0400 Body mass index (BMI) [Ratio] 37.71 kg/m2 Jackie Hobbs MD Work Phone: [facility] 12-06-2022 08:59-0400 Body weight 93.53 kg Jackie Hobbs MD Work Phone: [facility] 12-06-2022 08:59-0400 Diastolic blood pressure 71 mm[Hg] Jackie Hobbs MD Work Phone: [facility] 12-06-2022 08:59-0400 Heart rate 73 /min Jackie Hobbs MD Work Phone: [facility] 12-06-2022 08:59-0400 SaO2% (BldA) [Mass fraction] 97 % Jackie Hobbs MD Work Phone: [facility] 12-06-2022 08:59-0400 Systolic blood pressure 127 mm[Hg] Jackie Hobbs MD Work Phone: [facility] 11-01-2022 12:36-0400 Body height 152 cm Matheus Looney MD [place] 11-01-2022 12:36-0400 Body mass index (BMI) [Ratio] 40.8 kg/m2 Matheus Looney MD [place] 11-01-2022 12:36-0400 Body temperature 97.88 [degF] Matheus Looney MD [place] 11-01-2022 12:36-0400 Body weight 94.8 kg Matheus Looney MD [place] 11-01-2022 12:36-0400 Diastolic blood pressure 77 mm[Hg] Matheus Looney MD [place] 11-01-2022 12:36-0400 Heart rate 84 /min Matheus Looney MD [place] 11-01-2022 12:36-0400 Respiratory rate 16 /min Matheus Looney MD [place] 11-01-2022 12:36-0400 SaO2% (BldA) [Mass fraction] 98 % Matheus Looney MD [place] 11-01-2022 12:36-0400 Systolic blood pressure 119 mm[Hg] Matheus Looney MD [place] 10-04-2022 10:10-0500 Diastolic blood pressure 74 mm[Hg] Jackie Hobbs Work Phone: [facility] Work Phone: 10-04-2022 10:10-0500 Systolic blood pressure 108 mm[Hg] Jackie Hobbs Work Phone: [facility] Work Phone: 10-04-2022 09:47-0500 Body mass index (BMI) [Ratio] 36.54 kg/m2 Jackie Hobbs Work Phone: [facility] Work Phone: 10-04-2022 09:47-0500 Body surface area Derived from formula 1.96 m2 Jackie Hobbs Work Phone: [facility] Work Phone: 10-04-2022 09:47-0500 Body weight 93.56 kg Jackie Hobbs Work Phone: [facility] Work Phone: 10-04-2022 09:47-0500 Diastolic blood pressure 86 mm[Hg] Jackie Hobbs Work Phone: [facility] Work Phone: 10-04-2022 09:47-0500 Heart rate 85 /min Jackie Hobbs Work Phone: [facility] Work Phone: 10-04-2022 09:47-0500 SaO2% (BldA) [Mass fraction] 98 % Jackie Hobbs Work Phone: [facility] Work Phone: 10-04-2022 09:47-0500 Systolic blood pressure 102 mm[Hg] Jackie Hobbs Work Phone: [facility] Work Phone: 08-30-2022 11:24-0500 Diastolic blood pressure 72 mm[Hg] Jackie Hobbs Work Phone: [facility] Work Phone: 08-30-2022 11:24-0500 Systolic blood pressure 128 mm[Hg] Jackie Hobbs Work Phone: [facility] Work Phone: 08-30-2022 11:01-0500 Body height 160.02 cm Jackie Hobbs Work Phone: [facility] Work Phone: 08-30-2022 11:01-0500 Body mass index (BMI) [Ratio] 36.35 kg/m2 Jackie Hobbs Work Phone: [facility] Work Phone: 08-30-2022 11:01-0500 Body surface area Derived from formula 1.95 m2 Jackie Hobbs Work Phone: [facility] Work Phone: 08-30-2022 11:01-0500 Body weight 93.07 kg Jackie Hobbs Work Phone: [facility] Work Phone: 08-30-2022 11:01-0500 Diastolic blood pressure 74 mm[Hg] Jackie Hobbs Work Phone: [facility] Work Phone: 08-30-2022 11:01-0500 Heart rate 78 /min Jackie Hobbs Work Phone: [facility] Work Phone: 08-30-2022 11:01-0500 SaO2% (BldA) [Mass fraction] 97 % Jackie Hobbs Work Phone: [facility] Work Phone: 08-30-2022 11:01-0500 Systolic blood pressure 131 mm[Hg] Jackie Hobbs Work Phone: [facility] Work Phone: 07-26-2022 09:07-0500 Body mass index (BMI) [Ratio] 31.84 kg/m2 Jackie Hobbs Work Phone: [facility] Work Phone: 07-26-2022 09:07-0500 Body surface area Derived from formula 2.04 m2 Jackie Hobbs Work Phone: [facility] Work Phone: 07-26-2022 09:07-0500 Body weight 92.22 kg Jackie Hobbs Work Phone: [facility] Work Phone: 07-26-2022 09:07-0500 Diastolic blood pressure 57 mm[Hg] Jackie Hobbs Work Phone: [facility] Work Phone: 07-26-2022 09:07-0500 Heart rate 78 /min Jackie Hobbs Work Phone: [facility] Work Phone: 07-26-2022 09:07-0500 SaO2% (BldA) [Mass fraction] 99 % Jackie Hobbs Work Phone: [facility] Work Phone: 07-26-2022 09:07-0500 Systolic blood pressure 115 mm[Hg] Jackie Hobbs Work Phone: [facility] Work Phone: 04-12-2022 09:04-0400 Body mass index (BMI) [Ratio] 31.73 kg/m2 Jackie Hobbs Work Phone: [facility] Work Phone: 04-12-2022 09:04-0400 Body surface area Derived from formula 2.03 m2 Jackie Hobbs Work Phone: [facility] Work Phone: 04-12-2022 09:04-0400 Body weight 91.88 kg Jackie Hobbs Work Phone: [facility] Work Phone: 04-12-2022 09:04-0400 Diastolic blood pressure 62 mm[Hg] Jackie Hobbs Work Phone: [facility] Work Phone: 04-12-2022 09:04-0400 Heart rate 67 /min Jackie Hobbs Work Phone: [facility] Work Phone: 04-12-2022 09:04-0400 SaO2% (BldA) [Mass fraction] 99 % Jackie Hobbs Work Phone: [facility] Work Phone: 04-12-2022 09:04-0400 Systolic blood pressure 94 mm[Hg] Jackie Hobbs Work Phone: [facility] Work Phone: 12-07-2021 09:04-0400 Body mass index (BMI) [Ratio] 31.81 kg/m2 Jackie Hobbs Work Phone: [facility] Work Phone: 12-07-2021 09:04-0400 Body surface area Derived from formula 2.04 m2 Jackie Hobbs Work Phone: [facility] Work Phone: 12-07-2021 09:04-0400 Body weight 92.14 kg Jackie Hobbs Work Phone: [facility] Work Phone: 12-07-2021 09:04-0400 Diastolic blood pressure 71 mm[Hg] Jackie Hobbs Work Phone: [facility] Work Phone: 12-07-2021 09:04-0400 Heart rate 81 /min Jackie Hobbs Work Phone: [facility] Work Phone: 12-07-2021 09:04-0400 Systolic blood pressure 114 mm[Hg] Jackie Hobbs Work Phone: [facility] Work Phone: 11-09-2021 11:38-0400 Diastolic blood pressure 92 mm[Hg] Jackie Hobbs Work Phone: [facility] Work Phone: 11-09-2021 11:38-0400 Systolic blood pressure 146 mm[Hg] Jackie Hobbs Work Phone: [facility] Work Phone: 11-09-2021 09:03-0400 Body mass index (BMI) [Ratio] 32.45 kg/m2 Jackie Hobbs Work Phone: [facility] Work Phone: 11-09-2021 09:03-0400 Body surface area Derived from formula 2.05 m2 Jackie Hobbs Work Phone: [facility] Work Phone: 11-09-2021 09:03-0400 Body weight 93.98 kg Jackie Hobbs Work Phone: [facility] Work Phone: 11-09-2021 09:03-0400 Diastolic blood pressure 96 mm[Hg] Jackie Hobbs Work Phone: [facility] Work Phone: 11-09-2021 09:03-0400 Heart rate 64 /min Jackie Hobbs Work Phone: [facility] Work Phone: 11-09-2021 09:03-0400 Systolic blood pressure 154 mm[Hg] Jackie Hobbs Work Phone: [facility] Work Phone: 10-12-2021 11:40-0500 Diastolic blood pressure 82 mm[Hg] Jackie Formanon Work Phone: [facility] [place] [address] DO Work Phone: 10-12-2021 11:40-0500 Systolic blood pressure 140 mm[Hg] Jackie Pritchett [place] Work Phone: [facility] [place] [address] DO Work Phone: 10-12-2021 11:19-0500 Body mass index (BMI) [Ratio] 31.84 kg/m2 Jackie Hobbs Work Phone: [facility] [place] [place] [address] DO Work Phone: 10-12-2021 11:19-0500 Body surface area Derived from formula 2.04 m2 Jackie Hobbs Work Phone: [facility] [place] [place] [address] DO Work Phone: 10-12-2021 11:19-0500 Body temperature 97.8 [degF] Jackie Hobbs Work Phone: [facility] [address] DO Work Phone: 10-12-2021 11:19-0500 Body weight 92.22 kg Jackie Hobbs Work Phone: [facility] DO Work Phone: 10-12-2021 11:19-0500 Diastolic blood pressure 94 mm[Hg] Jackie Hobbs Work Phone: [facility] DO Work Phone: 10-12-2021 11:19-0500 Heart rate 69 /min Jackie Hobbs Work Phone: [facility] DO Work Phone: 10-12-2021 11:19-0500 Systolic blood pressure 153 mm[Hg] Jackie Formanon Work Phone: [facility] [address] DO Work Phone: 07-29-2021 14:25-0500 Body height 170.18 cm Jackie Formanon Work Phone: [facility] Work Phone: 07-29-2021 14:25-0500 Body mass index (BMI) [Ratio] 34.46 kg/m2 Jackie Hobbs Work Phone: [facility] Work Phone: 07-29-2021 14:25-0500 Body surface area Derived from formula 2.11 m2 Jackie Hobbs Work Phone: [facility] Work Phone: 07-29-2021 14:25-0500 Body temperature 98 [degF] Jackie Hobbs Work Phone: [facility] Work Phone: 07-29-2021 14:25-0500 Body weight 99.79 kg Jackie Hobbs Work Phone: [facility] Work Phone: 07-29-2021 14:25-0500 Diastolic blood pressure 79 mm[Hg] Jackie Hobbs Work Phone: [facility] Work Phone: 07-29-2021 14:25-0500 Heart rate 83 /min Jackie Hobbs Work Phone: [facility] Work Phone: 07-29-2021 14:25-0500 Respiratory rate 14 /min Jackie Hobbs Work Phone: [facility] Work Phone: 07-29-2021 14:25-0500 SaO2% (BldA) [Mass fraction] 97 % Jackie Hobbs Work Phone: [facility] Work Phone: 07-29-2021 14:25-0500 Systolic blood pressure 178 mm[Hg] Jackie Hobbs Work Phone: [facility] Work Phone: 04-13-2021 09:25-0400 Body mass index (BMI) [Ratio] 38.94 kg/m2 Jackie Hobbs Work Phone: [facility] Work Phone: 04-13-2021 09:25-0400 Body surface area Derived from formula 1.91 m2 Jackie Hobbs Work Phone: [facility] Work Phone: 04-13-2021 09:25-0400 Body weight 93.49 kg Jackie Hobbs Work Phone: [facility] Work Phone: 04-13-2021 09:25-0400 Diastolic blood pressure 86 mm[Hg] Jackie Hobbs Work Phone: [facility] Work Phone: 04-13-2021 09:25-0400 Heart rate 76 /min Jackie Hobbs Work Phone: [facility] Work Phone: 04-13-2021 09:25-0400 Systolic blood pressure 158 mm[Hg] Jackie Hobbs Work Phone: [facility] Work Phone: 03-08-2021 09:02-0400 Body height 154.94 cm Jackie Hobbs Work Phone: [facility] Work Phone: 03-08-2021 09:02-0400 Body mass index (BMI) [Ratio] 38.73 kg/m2 Jackie Hobbs Work Phone: [facility] Work Phone: 03-08-2021 09:02-0400 Body surface area Derived from formula 1.91 m2 Jackie Hobbs Work Phone: [facility] Work Phone: 03-08-2021 09:02-0400 Body weight 92.99 kg Jackie Hobbs Work Phone: [facility] Work Phone: 03-08-2021 09:02-0400 Diastolic blood pressure 85 mm[Hg] aJckie Hobbs Work Phone: [facility] Work Phone: 03-08-2021 09:02-0400 Heart rate 67 /min Jackie Hobbs Work Phone: [facility] Work Phone: 03-08-2021 09:02-0400 Systolic blood pressure 159 mm[Hg] Jackie Hobbs Work Phone: [facility] Work Phone: 02-08-2021 09:09-0400 Body height 154.94 cm Jackie Hobbs Work Phone: [facility] Work Phone: 02-08-2021 09:09-0400 Body mass index (BMI) [Ratio] 38.73 kg/m2 Jackie Hobbs Work Phone: [facility] Work Phone: 02-08-2021 09:09-0400 Body surface area Derived from formula 1.91 m2 Jackie Hobbs Work Phone: [facility] Work Phone: 02-08-2021 09:09-0400 Body weight 92.99 kg Jackie Hobbs Work Phone: [facility] Work Phone: 02-08-2021 09:09-0400 Diastolic blood pressure 103 mm[Hg] Jackie Hobbs Work Phone: [facility] Work Phone: 02-08-2021 09:09-0400 Heart rate 77 /min Jackie Hobbs Work Phone: [facility] Work Phone: 02-08-2021 09:09-0400 Systolic blood pressure 190 mm[Hg] Jackie Hobbs [facility] Phone[facility] Work Phone: Encounters Encounter Date Encounter Type Care Provider Facility Start: 06-10-2024 End: 06-10-2024 ambulatory Nugyen Rodríguez Facility:[facility] Start: 05-21-2024 ambulatory Nguyen Rodríguez Facilit y:[facility] Start: 05-08-2024 End: 05-08-2024 ambulatory Nguyen Rodríguez Facility:[facility] Start: 01-06-2024 End: 01-06-2024 ambulatory [facility] [address] [facility] Start: 01-06-2024 End: 01-06-2024 Encounter for general adult medical examination without abnormal findings [facility] [address] [facility] Start: 01-06-2024 End: 01-06-2024 ambulatory [facility] Start: 01-06-2024 End: 01-06-2024 Encounter for general adult medical examination without abnormal findings [facility] Start: 01-06-2024 End: 01-06-2024 Office outpatient visit [...] encounter procedure Jackie Hobbs MD Work Phone: [facility] Work Phone: Start: 01-03-2024 End: 01-03-2024 ambulatory [facility] Start: 09-29-2023 End: 09-29-2023 ambulatory [facility] Start: 09-26-2023 End: 09-26-2023 ambulatory [facility] Start: 09-12-2023 End: 09-12-2023 Office outpatient new 30 minutes Laureen Mendez [employer] Work Phone: [facility] Comment on above: Mixed hyperlipidemia (Primary Dx); Elevated coronary artery calcium score; Primary hypertension Start: 09-12-2023 End: 09-12-2023 ambulatory [facility] Start: 08-22-2023 End: 08-22-2023 ambulatory [facility] Ambulatory Start: 08-22-2023 End: 08-22-2023 Office outpatient visit 25 minutes Jackie Hobbs MD Work Phone: [facility] Comment on above: Elevated coronary ar mar calcium score (Primary Dx); Pulmonary nodule; Primary hypertension; Mixed hyperlipidemia; Other iron deficiency anemia; Iron deficiency anemia due to chronic blood loss Start: 08-01-2023 End: 08-01-2023 ambulatory [facility] Start: 07-25-2023 End: 07-25-2023 ambulatory [facility] Start: 06-09-2023 End: 06-09-2023 Subsequent hospital visit by physician [facility] Mammo [facility] Comment on above: Encounter for screen ing mammogram for malignant neoplasm of breast Start: 06-09-2023 End: 06-09-2023 ambulatory [facility] Start: 04-15-2023 End: 04-15-2023 ambulatory [facility] [address] [facility] Ambulatory Start: 04-15-2023 End: 04-15-2023 ambulatory [facility] Start: 04-15-2023 End: 04-15-2023 Office outpatient visit 25 minutes Jackie Hobbs MD Work Phone: [facility] Comment on above: Elevated fasting glu cose (Primary Dx); Primary hypertension; Mixed hyperlipidemia; Screening mammogram for breast cancer; Other iron deficiency anemia Start: 04-12-2023 End: 04-12-2023 ambulatory JACKIE HOBBS [facility] Start: 03-04-[address] Jackie Hobbs Facility:[facility] Start: 12-06-2022 End: 12-06-2022 Office outpatient visit 25 minutes Jackie Hobbs MD Work Phone: [facility] Comment on above: Annual physical exam (Primary Dx); Primary hypertension; Vitamin D deficiency; Iron deficiency anemia, unspecified iron deficiency anemia type; Current moderate episode of major depressive disorder without prior episode ([facility] Start: 12-06-2022 End: 12-06-2022 Patient encounter procedure Jackie Hobbs MD Work Phone: [facility] Work Phone: Start: 11-01-2022 Matheus Looney MD [place] Start: 11-01-[address] Jackie Hobbs Facility:[id number] Start: 10-04-2022 Office outpatient vi sit 25 minutes Jackie Hobbs Work Phone: [facility] Work Phone: Start: 10-04-[address] Jackie Hobbs Facility:[id number] Start: 08-30-2022 Office outpatient vi sit 25 minutes Jackie Hobbs Work Phone: [facility] Work Phone: Start: 08-30-[address] Jackie Hobbs Facility:[id number] Start: 08-23-2022 ambulatory [facility] Facilit y:[id number] Start: 08-16-2022 ambulatory [facility] Facilit y:[id number] Start: 08-09-2022 ambulatory [facility] Facilit y:[id number] Start: 08-02-2022 ambulatory [facility] Mendpara Facilit y:[id number] Start: 07-26-2022 Office outpatient vi sit 25 minutes Jackie Hobbs Work Phone: [facility] Work Phone: Start: 07-26-[address] Jackie Paz head [place] Facility:[id number] Start: 05-06-2022 AUDIT Jackie Pritchett [place] Work Phone: [facility] Work Phone: Start: 04-14-2022 Chart Update Jackie M Anjel Work Phone: [facility] Work Phone: Start: 03-05-2022 Chart Update Jackie Pritchett [place] Work Phone: [facility] Work Phone: Start: 03-04-2022 AUDIT Jackie Pritchett [place] Work Phone: [facility] Work Phone: Start: 02-12-2022 AUDIT Jackie Pritchett [place] Work Phone: [facility] Work Phone: Start: 02-11-2022 Chart Update Jackie Pritchett [place] Work Phone: [facility] Work Phone: Start: 12-10-2021 Chart Update Jackie Pritchett Anjel Work Phone: [facility] Work Phone: Start: 12-07-2021 Office outpatient vi sit 25 minutes Jackie Pritchett [place] Work Phone: [facility] Work Phone: Start: 11-09-2021 Office outpatient vi sit 25 minutes Jackie Pritchett [place] Work Phone: [facility] Work Phone: Start: 10-13-2021 Chart Update Jackie M Chase Work Phone: [facility] Work Phone: Start: 10-12-2021 Office outpatient vi sit 25 minutes Jackie M Chase Work Phone: [facility] [place] [address] DO Work Phone: Start: 09-17-2021 AUDIT Jackie Hobbs Work Phone: [facility] Work Phone: Start: 07-29-2021 Office outpatient vi sit 10 minutes Jackie Hobbs Work Phone: [facility] Work Phone: Start: 06-11-2021 AUDIT Jackie Hobbs Work Phone: [facility] Work Phone: Start: 04-13-2021 Office outpatient vi sit 25 minutes Jackie Hobbs Work Phone: [facility] Work Phone: Start: 03-08-2021 Chart Update Jackie Pritchett Anjel Work Phone: [facility] Work Phone: Start: 03-08-2021 Office outpatient vi sit 25 minutes Jackie Hobbs Work Phone: [facility] Work Phone: Start: 02-27-2021 Chart Update Jackie Hobbs Work Phone: [facility] Work Phone: Start: 02-26-2021 Chart Update Jackie Pritchett [place] Work Phone: [facility] Work Phone: Start: 02-09-2021 AUDIT Jackie Hobbs Work Phone: [facility] Work Phone: Procedures Date Procedure Procedure Detail Performing Clinician Start: 01-03-2024 Hemoglobin A1c/Hemoglobin.total in Blood LAUREEN VANESSA Start: 09-26-2023 TRANSTHORACIC ECHO (TTE) COMPLETE LAUREEN VANESSA Start: 09-12-2023 ECG 12-LEAD LAUREEN VANESSA Start: 01-26-2024 AMB REFERRAL TO CARDIOLOGY LAUREEN DEFRANC O Start: 08-01-2023 CT CHEST WO IV [...] MD Work Phone: Start: 09-14-2021 Colonoscopy Jackie oHbbs MD Work Phone: Start: 02-08-2021 Microscopic observation [Identifier] in Cervix by Cyto stain [facility] Mammo Capsule endoscopy Jackie Bailey Work Phone: [...] Screening for malign ant neoplasm of colon [facility] Start: 04-12-2028 Lipid panel Lipid Panel [facility] Start: 01-26-2027 Lipid panel Lipid Panel [facility] Start: 01-02-2027 Diabetes mellitus screening Diabetes Screening [facility] Start: 04-15-2026 Diabetes mellitus screening Diabetes Screening [facility] Start: 04-05-2026 DTaP/Tdap/Td Vaccine s (2 - Td or Tdap) DTaP/Tdap/Td Vaccines (2 - Td or Tdap) [facility] Start: 06-09-2024 Screening for malign ant neoplasm of breast Mammogram [facility] Start: 05-14-2024 End: 05-14-2024 Patient encounter procedure 05/14/2024 9:30 AM EDT Office Visit [facility] [address] [phone] Jackie Hobbs MD [address] [facility] [address] [place] [address] [facility] Start: 04-18-2024 Influenza vaccination Influenz a Vaccine (Season Ended) [facility] Start: 03-12-2024 End: 09-12-2024 Lipid 1996 panel - Serum or Plasma Lipid panel Lab Routine Elevated coronary artery calcium score Expected: 03/12/2024 (Approximate), Expires: 09/12/2024 [facility] Work Phone: Comment on above: Expected: 03/12/2024 (Approximate), Expires: 09/12/2024 Start: 02-20-2024 End: 08-22-2024 CT Chest WO contrast CT chest wo IV contrast Imaging Routine Pulmonary nodule Expected: 02/20/2024, Expires: 08/22/[address] [facility] Service Area Work Phone: Comment on above: Expected: 02/20/2024 , Expires: 08/22/2024 Start: 02-09-2024 Screening for malign ant neoplasm of cervix [facility] Start: 01-06-2024 End: 01-05-2025 25-hydroxyvitamin D3 [Mass/volume] in Serum or Plasma [facility] Work Phone: Comment on above: Expected: 01/06/2024 (Approximate), Expires: 01/05/2025 Start: 01-06-2024 End: 01-05-2025 CBC panel - Blood by Automated count [facility] Work Phone: Comment on above: Expected: 01/06/2024 (Approximate), Expires: 01/05/2025 Start: 01-06-2024 End: 01-05-2025 Ferritin [Mass/volume] in Serum or Plasma [facility] Work Phone: Comment on above: Expected: 01/06/2024 (Approximate), Expires: 01/05/2025 Start: 01-06-2024 End: 01-05-2025 Iron and Iron binding capacity panel - Serum or Plasma [facility] Work Phone: Comment on above: Expected: 01/06/2024 (Approximate), Expires: 01/05/2025 Start: 01-06-2024 End: 01-05-2025 Lipid 1996 panel - Serum or Plasma [facility] Service Area Work Phone: Comment on above: Expected: 01/06/2024 (Approximate), Expires: 01/05/2025 Start: 01-06-2024 End: 01-05-2025 TSH with reflex to Free T4 if abnormal [facility] Work Phone: Comment on above: Expected: 01/06/2024 (Approximate), Expires: 01/05/2025 Start: 01-06-2024 End: 01-06-2024 Patient encounter procedure 01/06/2024 9:40 AM EDT Lab [facility] [address] [place] [phone] Elevated coronary artery calcium score; Annual physical exam; Anemia, unspecified type [facility] Comment on above: Elevated coronary ar mar calcium score; Annual physical exam; Anemia, unspecified type Start: 12-26-2023 End: 12-26-2023 Patient encounter procedure 12/26/2023 8:45 AM EDT Office Visit [facility] [address] [place] [phone] Jackie Hobbs MD [address] [facility], [address] [place] [address] [facility] Start: 09-29-2023 End: 09-29-2023 Telemedicine consultation with patient 09/29/2023 10:00 AM EST Telemedicine [facility] [address] [place] [phone] Laureen Mendez, [employer] [address] [facility] [address] [place], [place] [phone] [facility] Start: 09-26-2023 End: 09-26-2023 Patient encounter procedure 09/26/2023 7:00 AM EST Appointment [facility] [address] [place] [phone] [facility] Start: 09-12-2023 End: 09-12-2024 Comprehensive metabolic 2000 panel - Serum or Plasma Comprehensive metabolic panel Lab Routine Elevated coronary artery calcium score Expected: 09/12/2023 (Approximate), Expires: 09/12/2024 [facility] Work Phone: Comment on above: Expected: 09/12/2023 (Approximate), Expires: 09/12/2024 Start: 09-12-2023 End: 09-12-2025 US Heart Transthoracic Transthoracic Echo (TTE) Complete Echocardiography Routine Elevated coronary artery calcium score Expected: 09/12/2023 (Approximate), Expires: 09/12/[address] [facility] Service Area Work Phone: Comment on above: Expected: 09/12/2023 (Approximate), Expires: 09/12/2025 Start: 09-12-2023 End: 09-12-2023 Patient encounter procedure 09/12/2023 9:30 AM EST Office Visit [facility] [address] [facility] [address] [place] [phone] Laureen Mendez, [employer] [address] [facility] [address] [place] [address] [facility] Start: 08-22-2023 End: 08-22-2023 Patient encounter procedure 08/22/2023 8:45 AM EST Office Visit [facility] [address] [facility] [address] [place] [phone] Jackie Hobbs MD [address] [facility], [address] [place] [address] [facility] Start: 07-25-2023 End: 07-25-2023 Professional / ancillary services management 07/25/2023 8:30 AM EST Ancillary Procedure [facility] [address] [facility] [address] [place] [phone] [facility] Start: 2023 Zoster Vaccines (1 o f 2) Zoster Vaccines (1 of 2) [facility] Start: 04-18-2023 COVID-19 Vaccine ( season) COVID-19 Vaccine ( season) [facility] Start: 04-18-2023 Influenza vaccination [facility] Start: 04-15-2023 End: 04-15-2024 CT for calcium scoring WO contrast and CTA W contrast IV Heart and coronary arteries [facility] Service Area Work Phone: Comment on above: Expected: 04/15/2023 , Expires: 04/15/2024 Start: 04-15-2023 End: 06-15-2024 DBT Breast - bilateral [facility] Work Phone: Comment on above: Expected: 04/15/2023 , Expires: 06/15/2024 Start: 04-15-2023 End: 04-15-2024 Hemoglobin A1c/Hemoglobin.total in Blood [facility] Work Phone: Comment on above: Expected: 04/15/2023 (Approximate), Expires: 04/15/2024 Start: 04-11-2023 Screening for malign ant neoplasm of breast Mammogram [facility] Start: 04-04-2023 End: 04-04-2023 Patient encounter procedure 04/04/2023 9:15 AM EDT Office Visit [facility] [address] [facility] [address] [place] [phone] Jackie Hobbs MD [address] [facility], [facility] [address] [place], [place] [phone] [facility] Start: 02-19-2023 Screening for malign ant neoplasm of colon [facility] Start: 01-16-2023 End: 12-07-2023 Calcitriol [Mass/volume] in Serum or Plasma Vitamin D 1,25 Dihydroxy Lab Routine Annual physical exam Primary hypertension Vitamin D deficiency Iron deficiency anemia, unspecified iron deficiency anemia type Current moderate episode of major depressive disorder without prior episode (CMS/HCC) Expected: 01/16/2023, Expires: 12/07/2023 [facility] Work Phone: Comment on above: Expected: 01/16/2023 , Expires: 12/07/2023 Start: 01-16-2023 End: 12-07-2023 CBC panel - Blood by Automated count CBC Lab Routine Annual physical exam Primary hypertension Vitamin D deficiency Iron deficiency anemia, unspecified iron deficiency anemia type Current moderate episode of major depressive disorder without prior episode (CMS/HCC) Expected: 01/16/2023, Expires: 12/07/2023 [facility] Work Phone: Comment on above: Expected: 01/16/2023 , Expires: 12/07/2023 Start: 01-16-2023 End: 12-07-2023 Comprehensive metabolic 2000 panel - Serum or Plasma Comprehensive Metabolic Panel Lab Routine Annual physical exam Primary hypertension Vitamin D deficiency Iron deficiency anemia, unspecified iron deficiency anemia type Current moderate episode of major depressive disorder without prior episode ([facility]) Expected: 01/16/2023, Expires: 12/07/2023 [facility] Work Phone: Comment on above: Expected: 01/16/2023 , Expires: 12/07/2023 Start: 01-16-2023 End: 12-07-2023 Lipid 1996 panel - Serum or Plasma Lipid Panel Lab Routine Annual physical exam Primary hypertension Vitamin D deficiency Iron deficiency anemia, unspecified iron deficiency anemia type Current moderate episode of major depressive disorder without prior episode (CMS/HCC) Expected: 01/16/2023, Expires: 12/07/[address] [facility] Service Area Work Phone: Comment on above: Expected: 01/16/2023 , Expires: 12/07/2023 Start: 01-16-2023 End: 12-07-2023 TSH with reflex to Free T4 if abnormal TSH with reflex to Free T4 if abnormal Lab Routine Annual physical exam Primary hypertension Vitamin D deficiency Iron deficiency anemia, unspecified iron deficiency anemia type Current moderate episode of major depressive disorder without prior episode ([facility]) Expected: 01/16/2023, Expires: 12/07/2023 [facility] Work Phone: Comment on above: Expected: 01/16/2023 , Expires: 12/07/2023 Start: 12-06-2022 FUV, Provider: Jackie Hobbs, Status: Pen, Time: 9:00 AM FUV, Provider: Jackie Hobbs, Status: Pen, Time: 9:00 AM [facility] Work Phone: Start: 10-04-2022 FUV, Provider: Jackie Hobbs, Status: Pen, Time: 9:45 AM FUV, Provider: Jackie Hobbs, Status: Pen, Time: 9:45 AM [facility] Start: 08-30-2022 FUV, Provider: Jackie Hobbs, Status: Pen, Time: 11:00 AM FUV, Provider: Jackie Hobbs, Status: Pen, Time: 11:00 AM [facility]: Start: 07-26-2022 FUV, Provider: Chase,Jackie, Status: Pen, Time: 9:00 AM FUV, Provider: Anjel,Jackie, Status: Pen, Time: 9:00 AM [facility]: Start: 04-12-2022 FUV, Provider: AnjelJackie, Status: Pen, Time: 9:00 AM FUV, Provider: Anjel,Jackie, Status: Pen, Time: 9:00 AM [facility]: Start: 12-07-2021 FUV, Provider: Chase,Jackie, Status: Pen, Time: 9:00 AM FUV, Provider: Chase,Jackie, Status: Pen, Time: 9:00 AM [facility]: Start: 11-09-2021 FUV, Provider: Chase,Jackie, Status: Pen, Time: 9:00 AM FUV, Provider: Anjel,Jackie, Status: Pen, Time: 9:00 AM [facility] [place] [address] DO Work Phone: Start: 05-18-2021 FUV, Provider: ChaseJackie, Status: Pen, Time: 9:15 AM FUV, Provider: Chase,Jackie, Status: Pen, Time: 9:15 AM [facility]: Start: 04-13-2021 FUV, Provider: Anjel,Jakcie, Status: Pen, Time: 9:15 AM FUV, Provider: Anjel,Jackie, Status: Pen, Time: 9:15 AM [facility]: Start: 03-08-2021 FUV, Provider: Chase,Jackie, Status: Pen, Time: 9:00 AM FUV, Provider: Chase,Jackie, Status: Pen, Time: 9:00 AM [facility]: Start: 1994 Screening for malign ant neoplasm of cervix [facility] Start: 1992 Hepatitis B Vaccines (1 of 3 - 19+ 3-dose series) Hepatitis B Vaccines (1 of 3 - 19+ 3-dose series) [facility] Start: 1991 [facility]atitis C [facility]: [facility] COVID-19 Vaccine (#1) COVID-19 Vacci ne (#1) [facility] Start: 1973 Hepatitis B Vaccines (1 of 3 - 3-dose series) Hepatitis B Vaccines (1 of 3 - 3-dose series) [facility] Start: 1973 HIV screening HIV Screening [facility] Start: 1973 Screening for malign ant neoplasm of colon [facility] Start: 1973 Yearly Adult Physical Yearly Adult P hysical [facility] End: 06-09-2023 DBT Breast - bilateral [facility] Service Area Work Phone: Comment on above: Once for 1 Occurrenc es starting 06/09/2023 until 06/09/2023 ECG 12 lead (Clinic Performed) ECG 12 lead (Clinic Performed) ECG Routine Elevated coronary artery calcium score 09/12/2023 9:13 AM EST [facility] Work Phone: Immunizations Immunization Date Immunization Notes Care Provider Lucia crow 05-13-2016 influenza virus vaccine, unspecified formulation Jackie Hobbs Work Phone: [facility] Comment on above: Series: 05-13-2016 measles, mumps and rubella virus vaccine Jackie Hobbs Work Phone: [facility] Work Phone: Comment on above: Series: 04-05-2016 tetanus toxoid, redu leticia diphtheria toxoid, and acellular pertussis vaccine, adsorbed; Translations: [Tdap (Adacel)] Jackie Hobbs Work Phone: [facility] Work Phone: Comment on above: Series: Payers Date Payer Category Payer Self-pay 2022 Unknown 2022 Unknown [id number] 1975 Unknown [id number] 2.16. [id number] 1973 Unknown [id number] 2.16. [id number] 1973 Unknown [id number] 2.16. 840.1.555641.3.579.2.356 1973 Unknown [id number] 2.16. 840.1.282494.3.579.2.356 1973 Unknown [id number] 2.16. 840.1.800855.3.579.2.356 1973 Unknown [id number] 2.16. 840.1.995614.3.579.2.356 1973 Unknown [id number] 2.16. 840.1.787845.3.579.2.356 1973 Unknown [id number] 2.16. 840.1.712875.3.579.2.356 1973 Unknown [id number] 2.16.8 40.1.584511.3.579.2.1243 1973 Unknown [id number] 2.16.8 40.1.456112.3.579.2.1243 1973 Unknown [id number] 2.16.8 40.1.106212.3.579.2.1243 1973 Unknown [id number] 2.16.8 40.1.966950.3.579.2.1244 1973 Unknown [id number] 2.16.8 40.1.504566.3.579.2.1244 1973 Unknown [id number] 2.16.8 40.1.592874.3.579.2.1244 1973 Unknown [id number] 2.16.8 40.1.163295.3.579.2.1244 1973 Unknown [id number] 2.16.8 40.1.055269.3.579.2.1245 1973 Unknown [id number] 2.16.8 40.1.653406.3.579.2.1245 1973 Unknown [id number] 2.16.8 40.1.957873.3.579.2.124 1973 Unknown [id number] 2.16.8 40.1.850039.3.579.2.1245 1973 Unknown [id number] 2.16.84 0.1.367697.3.579.2.124 1973 Unknown [id number] 2.16.84 0.1.022969.3.579.2.1245 Unknown [id number] 2.16.8 40.1.415497.3.579.2.462 Unknown [id number] 2.16.8 40.1.580613.3.579.2.462 Unknown [id number] 2.16.8 [id number] Social History Date Type Detail Facility Start: 12-06-2022 End: 08-22-2023 Educational Level Educational Level [facility] Work Phone: Comment on above: High School; Start: 12-06-2022 Tobacco smoking stat us MSIS Never smoked tobacco [facility] Work Phone: Start: 12-06-2022 Tobacco use and exposure Smokeless tobacco non-user [facility] Work Phone: Start: 12-06-2022 End: 06-09-2023 Alcohol intake Lifetime non-drinker (finding) [facility] Work Phone: Start: 12-06-2022 End: 08-22-2023 Tobacco use panel [facility] Work Phone: Start: 1975 Sex Assigned At Not on file [facility] Work Phone: Start: 11-26-2022 End: 01-06-2024 Exposure to SARS-CoV-2 (event) Not sure [facility] Start: 08-22-2023 End: 01-06-2024 Alcohol intake Ex-drinker (finding) [facility] Work Phone: Start: 08-22-2023 Alcohol Comment occas. [facility] Work Phone: NEGATED: Highlighted row Denies Drug Use Denies Drug Use [facility] Work Phone: NEGATED: Highlighted rowStart: NINF History of tobacco use Passive smoker [facility] Work Phone: Clinical Notes 10-12-2020 to 01-06-2024 Assessment & Plan Note - Jackie Hobbs MD - 01/06/2024 9:33 AM EDTAssessment & Plan Note - Jakcie Hobbs MD - 01/06/2024 9:33 AM Dhaval Hobbs MD - 01/06/2024 9:00 AM EDT Note Date & Type Note Facility 01-06-2024 Evaluation + Plan note Associated Problem(s): Iron deficiency anemia Repeat CBC iron TIBC and ferritin will be checked today. [facility] Work Phone: 01-06-2024 Evaluation + Plan note Associated Problem(s): Mixed hyperlipidemia Repeat lipid profile will be obtained today [facility] Work Phone: 01-06-2024 Evaluation + Plan note Associated Problem(s): Hypertension Blood pressure stable well-controlled she was given refills on lisinopril and chlorthalidone [facility] Work Phone: 01-06-2024 Evaluation + Plan note Associated Problem(s): Elevated coronary artery calcium score I have recommended the patient start a statin drug but she will discuss this with Yael cortes and she is very resistant. [facility] Work Phone: 01-06-2024 Miscellaneous Notes Associated [...] is very resistant. documented in this encounter [facility] Work Phone: 01-06-2024 History of Presen [...] ascorbic acid, vitamin C, 500 mg capsule [id number] No Take 1 capsule by mouth once daily. Historical ProviderMD Taking Active chlorthalidone (Hygroton) 25 mg tablet [id number] No TAKE 1 TABLET BY MOUTH EVERY DAY Jackie Hobbs MD Taking Active cholecalciferol (Vitamin D-3) 125 MCG (5000 UT) capsule [id number] No Take 1 capsule (125 mcg) by mouth once daily. Historical ProviderMD Taking Active famotidine (Pepcid) 40 mg tablet [id number] No Take 1 tablet (40 mg) by mouth once daily at bedtime. Historical ProviderMD Taking Active lisinopril 40 mg tablet [id number] No TAKE 1 TABLET BY MOUTH DAILY Jackie Hobbs MD Taking Active loratadine (Claritin Liqui-Gel) 10 mg capsule [id number] No Take by mouth. Historical ProviderMD Taking Active sertraline (Zoloft) 100 mg tablet [id number] Take 1 tablet (100 mg) by mouth [...] Sitting) Pulse 82 Ht 1.562 m (5' 1.5) Wt 94.5 kg (208 lb 6.4 oz) [...] Yael cortes and she is very resistant. Other Visit [...] Jackie Hobbs MD documented in this encounter [facility] Work Phone: 01-06-2024 Instructions Jackie Hobbs MD - 01/06/2024 9:00 AM EDT Get labs today Follow up Dr Hobbs in 4 months for Htn etc 30 min appointment documented in this encounter [facility] Work Phone: 09-12-2023 History of Presen [...] of her testing. documented in this encounter [facility] Work Phone: 08-22-2023 Evaluation + Plan note Associated Problem(s): Iron deficiency anemia Patient has a chronic iron deficiency anemia. We are checking CBCs periodically and it was last checked in March. [facility] Work Phone: 08-22-2023 Miscellaneous Notes Associated [...] she gets home. documented in this encounter [facility] Work Phone: 08-22-2023 Evaluation + Plan [...] today so she can follow-up with this. [facility] Work Phone: 08-22-2023 Evaluation + Plan note Associated Problem(s): Hypertension Hypertension is stable and well-controlled no changes will be made. Patient is unsure if she needs refills but will call if she finds she needs and when she gets home. [facility] Work Phone: 08-22-2023 History of Presen [...] cardiology. She would like to see a bearing inspector and get secondary input so we will [...] ascorbic acid, vitamin C, 500 mg capsule [id number] No Take 1 capsule by mouth once daily. Historical Provider, Not Taking Active chlorthalidone (Hygroton) 25 mg tablet [id number] Yes TAKE 1 TABLET BY MOUTH EVERY DAY Jackie Hobbs MD Taking Active cholecalciferol (Vitamin D-3) 125 MCG (5000 UT) capsule [id number] Yes Take 1 capsule (125 mcg) by mouth once daily. Historical Provider, Taking Active famotidine (Pepcid) 40 mg tablet [id number] Yes Take 1 tablet (40 mg) by mouth once daily at bedtime. Historical Provider, Taking Active lisinopril 40 mg tablet [id number] Yes TAKE 1 TABLET BY MOUTH DAILY Jackie Hobbs MD Taking Active loratadine (Claritin Liqui-Gel) 10 mg capsule [id number] Yes Take by mouth. Historical Provider, Taking Active sertraline (Zoloft) 100 mg tablet [id number] Take 1 tablet (100 mg) by mouth once daily. Jackie Hobbs MD 02/04/23 6689 Allergies Allergen Reactions Chlorthalidone Nausea Only Levofloxacin [...] 103/76 Pulse 87 Ht 1.549 m (5' 1) Wt 96.6 kg (213 lb) BMI 40.25 [...] Jackie Hobbs MD documented in this encounter [facility] Work Phone: 08-22-2023 Instructions Jackie Hobbs MD - 08/22/2023 8:45 AM EST Follow up Dr Hobbs in 4 months for HTN etc Set up cardiology referral for elevated Coronary calcium score documented in this encounter [facility] Work Phone: 04-15-2023 Evaluation + Plan note Associated Problem(s): Anemia She has iron deficiency anemia as she is unable to absorb iron properly. She will follow-up with her instrument setter Dr. Flores for possible iron infusion again. [facility] Work Phone: 04-15-2023 Miscellaneous Notes Associated Problem(s): Anemia She has iron deficiency anemia as she is unable to absorb iron properly. She will follow-up with her instrument setter Dr. Flores for possible iron infusion again. Associated Problem(s): Hypertension Pretension is stable and well-controlled. documented in this encounter [facility] Work Phone: 04-15-2023 Evaluation + Plan note Associated Problem(s): Hypertension Pretension is stable and well-controlled. [facility] Work Phone: 04-15-2023 History of Presen [...] ascorbic acid, vitamin C, 500 mg capsule [id number] Take 1 capsule by mouth once daily. Historical Provider, Active chlorthalidone (Hygroton) 25 mg tablet [id number] TAKE 1 TABLET BY MOUTH EVERY DAY Jackie Hobbs MD Active cholecalciferol (Vitamin D-3) 125 MCG (5000 UT) capsule [id number] Take 1 capsule (125 mcg) by mouth once daily. Historical Provider, Active lisinopril 40 mg tablet [id number] TAKE 1 TABLET BY MOUTH DAILY Jackie Hobbs MD Active loratadine (Claritin Liqui-Gel) 10 mg capsule [id number] Take by mouth. Historical Provider, Active sertraline (Zoloft) 100 mg tablet [id number] Take 1 tablet (100 mg) by mouth once daily. Jackie Hobbs MD 02/04/23 9395 Physical Exam Constitutional: Appearance: Normal appearance. HENT: [...] Sitting) Pulse 70 Ht 1.568 m (5' 1.75) Comment: w/o shoes Wt 95.5 kg (210 lb 9.6 oz) SpO2 99% BMI 38.83 kg/m Assessment/Plan Problem List Items Addressed This Visit Anemia She has iron deficiency anemia as she is unable to absorb iron properly. She will follow-up with her instrument setter Dr. Flores for possible iron infusion again. Hypertension Pretension is stable and well-controlled. Relevant Orders CT cardiac scoring wo IV contrast Elevated fasting glucose - Primary Relevant Orders Hemoglobin A1C Mixed hyperlipidemia Relevant Orders CT cardiac scoring wo IV contrast Screening mammogram for breast cancer Relevant Orders BI mammo bilateral screening tomosynthesis It has been a pleasure seeing you. documented in this encounter [facility] Work Phone: 04-15-2023 Instructions Jackie Hobbs MD - 04/15/2023 8:[address] cardiac calcium set up Get A1c today Set up mammo Follow up Dr Hobbs in 4 months 30 min documented in this encounter [facility] Work Phone: 12-06-2022 Evaluation + Plan note Associated Problem(s): Depression Depression is doing much better on the sertraline 100 mg dose [facility] Work Phone: 12-06-2022 Evaluation + Plan note Associated Problem(s): Anemia Anemia due to iron deficiency. Patient has not found any source of iron losses such as menstrual cycles or GI and it is believed she may have an iron absorption problem. Both Dr Edouard and Dr. Flores, hematology are following up with her. [facility] Work Phone: 12-06-2022 Miscellaneous Notes Associated [...] a requisition today. documented in this encounter [facility] Work Phone: 12-06-2022 Evaluation + Plan note Associated Problem(s): Vitamin D deficiency Patient remains on supplements and we will check her vitamin D level with labs in January [facility] Work Phone: 12-06-2022 Evaluation + Plan note Associated Problem(s): Hypertension Hypertension is stable and well-controlled but she is due for blood work in January and was given a requisition today. [facility] Work Phone: 12-06-2022 History of Presen [...] Sitting) Pulse 73 Ht 1.575 m (5' 2) Wt 93.5 kg (206 lb 3.2 oz) [...] work in January Please follow-up with your RD PROJECT MANAGER as you are overdue for an annual physical Dr. Lombardi. It has been a pleasure seeing you. documented in this encounter [facility] Work Phone: 12-06-2022 Instructions Jackie Hobbs MD - 12/06/2022 9:00 AM EDT Get fasting labs in January Follow up Dr Hobbs in 4 months HTN Please follow up with Dr Lombardi for annual exam documented in this encounter [facility] Work Phone: 11-01-2022 Note Clinic Note: [...] Updated: 01-Nov-2022 11:11 by Norma Donovan (RN) [facility] 08-23-2022 Note Clinic Note: Education Assessment: Learning BarriersNo barriers TaughtPatient Primary Language of PatientEnglish Primary Language of Gonzalez LearnerEnglish Clinic Visit: Topic(s): Clinic VisitFollow-up plan EvaluationStates general concept Electronic Signatures: Vinita Hunter (GALINA) (Signed 23-Aug-2022 13:08) Authored: Education Assessment, Clinic Visit Last Updated: 23-Aug-2022 13:08 by Vinita Hunter (GALINA) [facility] 08-16-2022 Note Clinic Note: Education Assessment: Learning BarriersNo barriers Primary Language of PatientEnglish Primary Language of Gonzalez LearnerEnglish Infusion: Topic(s): InfusionCall your doctor right away: signs of infection, Follow-up plan, Hypersensitivity reaction, Infusion orientation/routine, IV access MethodVerbal, Teach-Back EvaluationTeaches back, States general concept Electronic Signatures: Doc Helms (GALINA) (Signed 16-Aug-2022 09:07) Authored: Education Assessment, Infusion Last Updated: 16-Aug-2022 09:07 by Doc Helms (GALINA) [facility] 08-09-2022 Note Clinic Note: Education Assessment: Learning BarriersNo barriers TaughtPatient Primary Language of PatientEnglish Primary Language of Gonzalez LearnerEnglish Clinic Visit: Topic(s): Clinic VisitFollow-up plan MethodVerbal EvaluationStates general concept Electronic Signatures: Vinita Hunter (GALINA) (Signed 09-Aug-2022 10:58) Authored: Education Assessment, Clinic Visit Last Updated: 09-Aug-2022 10:58 by Vinita Hunter (GALINA) [facility] 08-02-2022 Note Clinic Note: Education Assessment: Learning [...] reviewed. Patient verbalize understanding. Electronic Signatures: Norma Donovan) (Signed 02-Aug-2022 11:28) Authored: Education Assessment, New Patient/Pre-treatment, Nursing Note Last Updated: 02-Aug-2022 11:28 by Norma Donovan (LUIZ) [facility] 07-30-2022 History of Presen t illness Narrative [...] She got an iron infusion through the instrument setter and notes that she is feeling much better since the infusion. She is less short of breath.Regarding her depression she believes the sertraline is currently helping but thinks that she is not quite where she needs to be and is willing to increase the dose at this time [facility] Work Phone: 11-06-2021 History of [...] associated with bladder infection or kidney infection. [facility] Work Phone: 07-28-2021 History of [...] the right index finger. Denies other injuries. [facility] Work Phone: 06-27-2021 History of Presen t illness Narrative BloodPatient is here today for 1 month follow-up on hypertension.She is now on lisinopril 10 and chlorthalidone 25 mg daily. She stopped the chlorthalidone 2 weeks ago because of nausea.Her today remains elevated.Patient brings in a form from her work at [employer] stating that if she does not get [...] are mandatory in the place of business. [facility] Work Phone: 06-26-2021 History of Presen t illness Narrative BloodPatient is here today for 1 month follow-up on hypertension.She is now on lisinopril 10 and chlorthalidone 25 mg daily. She stopped the chlorthalidone 2 weeks ago because of nausea.Her today remains elevated.Patient brings in a form from her work at [employer] stating that if she does not get [...] D&C, MYOSURE POLYPECTOMY Ordered: AMB Urine POC [id number], 04/13/2021 11:47:00 EDT, Pre-procedure lab exam 2. Endocervical polyp N84.1 Polyp noted at the time of colposcopy. It was removed during the exam. Colposcopy, ECC, biopsy also performed. Atypical glandular cells of undetermined significance (EDILBERTO) on cervical Pap smear R87.619 Ordered: metroNIDAZOLE 0.75% vaginal gel with applicator = MetroGel, 1 kristen, Vaginal, BID, # 70 g, Refill(s) 0, Date: 04/13/2021 12:35:00 EDT, Pharmacy: [facility], 1 kristen Vaginal BID,x5 days, Atypical glandular cells of undetermined significance (EDILBERTO) on cervical Pap smear AMB Colposcopy Cervix w/Bx Endocerv Curetg [id number], 04/13/2021 12:05:00 EDT, Atypical glandular cells of undetermined significance (EDILBERTO) on cervical Pap smear, 1 AMB Endometrial Bx in Conjunct w/Colpo [id number], 04/13/2021 12:05:00 EDT, Atypical glandular cells of undetermined significance (EDILBERTO) on cervical Pap smear, 1 AMB Ultrasound, transvaginal [id number], 04/13/2021 09:48:00 EDT, Atypical glandular cells of [...] normal: yes Insight and judgement normal: yes RD PROJECT MANAGER: External genitalia: normal, no lesions Urethra: normal meatus Vagina: normal no lesions, scant discharge, vault normal Cervix: polyp noted in cervix Uterus: normal mobility, non-tender, normal size, shape and consistency Adnexa: normal Cul de sac: normal Perineum: no hemorrhoids, masses or warts noted RD PROJECT MANAGER Procedure Details Patient in lithotomy position. The [...] Perineum: no hemorrhoids, masses or warts noted RD PROJECT MANAGER Additional Details Menstrual History Menstrual StatusMenarcheal Last Menstrual Uucjiy6103/28/2021 OB History History (2,0,0,2) # 1 Baby 1 Outcome Date: 05/16/2002 Outcome: Live Outcome or Result: Vaginal Gender: Female Gest Age: 39 weeks Wt: 3062 g Hospital: [facility] Labor: -- Child's Name: -- Baby's Father: -- Maternal Complications: GDM # 2 Baby 1 Outcome Date: 04/30/2005 Outcome: Live Outcome or Result: Vaginal Gender: Female Gest Age: 37 weeks Wt: 3289 g Hospital: [facility] Labor: -- Child's Name: -- Baby's [...] units) oral tablet, (more content not included)... [facility] 04-01-2021 History of Presen t illness Narrative BloodPatient is here today for 1 month follow-up on hypertension.She is now on lisinopril 10 and chlorthalidone 25 mg daily. She stopped the chlorthalidone 2 weeks ago because of nausea.Her today remains elevated.Patient brings in a form from her work at [employer] stating that if she does not get [...] in her maternal grandmother. [facility] [place] [address] Work Phone: Evaluation note Diagnosis Annual physical exam- Primary Routine general medical examination at a health care facility Primary hypertension Unspecified essential hypertension Vitamin D deficiency Iron deficiency anemia, unspecified iron deficiency anemia type Current moderate episode of major depressive disorder without prior episode (CMS/HCC) documented in this encounter [facility] Work Phone: Evaluation note* Diagnosis Elevated fasting glucose- Primary Impaired fasting glucose Primary hypertension Unspecified essential hypertension Mixed hyperlipidemia Screening mammogram for breast cancer Other iron deficiency anemia documented in this encounter [facility] Work Phone: Evaluation note* Diagnosis Encounter for screening mammogram for malignant neoplasm of breast documented in this encounter [facility] Work Phone: Evaluation note* Diagnosis Encounter for screening mammogram for malignant neoplasm of breast documented in this encounter [facility] Work Phone: Evaluation note* Diagnosis Elevated coronary artery calcium score- Primary Pulmonary nodule Other diseases of lung, not elsewhere classified Primary hypertension Unspecified essential hypertension Mixed hyperlipidemia Other iron deficiency anemia Iron deficiency anemia due to chronic blood loss Iron deficiency anemia secondary to blood loss (chronic) documented in this encounter [facility] Work Phone: Evaluation note* Diagnosis Mixed hyperlipidemia- Primary Elevated coronary artery calcium score Primary hypertension Unspecified essential hypertension documented in this encounter [facility] Work Phone: Evaluation note* Diagnosis Annual [...] Anemia, unspecified type documented in this encounter [facility] Work Phone: History of Present illness Narrative* Blood work was reviewed with the patient. She has a worsening anemia and her stool test was negative so she is following up with CREW LEADER/CONTROL ROOM OPERATOR line she unfortunately did not get [...] is taking iron supplements for her anemia. [facility] Work Phone: History of [...] They give permission for the behavioral Health Chief Financial Officer (BHM) and psychiatric consult to be included in their care with my continued primary management. Patient was made aware that the services provided as part of the Collaborative Care Model are subject to cost sharing. [facility] Work Phone: History of Present illness Narrative* Patient is here today for routine follow-up on hypertension and depression. * She is also seeing Dr. No for her anemia. * She notes that her depression is slightly worse recently and questions if she can increase the doseof the sertraline. She is currently on 50 mg daily [facility] Work Phone: Instructions* Instruction Text No instruction information i s available. [place] Reason for visit Narrative* Consultation (Routine) - Authorized Specialty Diagnoses / Procedures Referred By Maxine laureano Referred To Contact Cardiology Diagnoses Elevated coronary artery calcium score Jackie Hobbs MD [address] [facility], [address] [address] Referral ID Status Reason Start Date Expiration Date Visits Requested Visits Authorized [id number] Authorized Specialty Services Required 08/22/2023 08/21/2024 1 1 [facility] Work Phone: Family History No Family [...] Status:Active Family Health Status Of Rosa er You Marion: Mother Status:Active Colon Cancer: Family History (V16.0) Comments:MGM; Status:Active Unknown Family Member Name Dates Details Colon Cancer: Family History (V16.0) Comments:MGM; Status:Active Family Health Status Of Rosa er You Marion: Mother Status:Active Coronary Artery Disease: Fat [...] Specialty Diagnoses / Procedures Referred By Maxine t Referred To Contact Radiology Diagnoses Screening mammogram for breast cancer Procedures BI mammo bilateral screening tomosynthesis Chase, Jackie M, MD [address] [facility], [address] [address] Referral ID Status Reason Start Date Expiration Date Visits Requested Visits Authorized [id number] Authorized Perform Procedure 04/15/2023 10/12/2023 1 1 Specialty Diagnoses / Procedures Referred By Contac t Referred To Contact Radiology Diagnoses Primary hypertension Mixed hyperlipidemia Procedures CT cardiac scoring wo IV contrast Jackie Hobbs MD [address] [facility], [address] [address] Referral ID Status Reason Start Date Expiration Date Visits Requested Visits Authorized [id number] Authorized Perform Procedure 04/15/2023 10/12/2023 1 1 Specialty Diagnoses / Procedures Referred By Contac t Referred To Contact Radiology Diagnoses Encounter for screening mammogram for malignant neoplasm of breast Procedures BI mammo bilateral screening tomosynthesis Jackie Hobbs MD [address] [facility], [address] [address] Referral ID Status Reason Start Date Expiration Date Visits Requested Visits Authorized [id number] Authorized Perform Procedure 05/01/2023 10/28/2023 1 1 Specialty Diagnoses / Procedures Referred By Contac t Referred To Contact Radiology Diagnoses Pulmonary nodule Procedures CT chest wo IV contrast Jackie Hobbs MD [address] [facility], [address] [address] Referral ID Status Reason Start Date Expiration Date Visits Requested Visits Authorized [id number] Pending Review Perform Procedure 08/22/2023 08/21/2024 1 1 Specialty Diagnoses / Procedures Referred By Contac t Referred To Contact Cardiology Diagnoses Elevated coronary artery calcium score Jackie Hobbs MD [address] [facility], [address] [address] Referral ID Status Reason Start Date Expiration Date Visits Requested Visits Authorized [id number] Authorized Specialty Services Required 08/22/2023 08/21/2024 1 1 Specialty Diagnoses / Procedures Referred By Contac t Referred To Contact Cardiology Diagnoses Elevated coronary artery calcium score Procedures Transthoracic Echo (TTE) Complete ME ECHO TTHRC R-T 2D W/WOM-MODE COMPL SPEC&COLR D Laureen Mendez APRN-[facility] [address] [facility] [address], [address] [place] [address] Referral ID Status Reason Start Date Expiration Date Visits Requested Visits Authorized [id number] Pending Review Perform Procedure 09/12/2023 09/11/2024 1 1 Specialty Diagnoses / Procedures Referred By Contac t Referred To Contact Diagnoses Elevated coronary artery calcium score Procedures ECG 12 lead (Clinic Performed) Laureen Mendez APRN-[employer] [address] [facility] [address], [facility] [address] [place] [address] Referral ID Status Reason Start Date Expiration Date V isits Requested Visits Authorized [id number] Authorized 09/12/2023 09/11/2024 1 1 Additional Source Comments INFORMATION SOURCE (unrecogn ized section and content) DATE CREATED AUTHOR 06/18/2021 [facility] DATE CREATED AUTHOR AUTHOR'S ORGANIZ ATION 08/04/2021 [facility] DATE CREATED AUTHOR AUTHOR'S ORGANIZ ATION 10/05/2022 [employer] DATE CREATED AUTHOR AUTHOR'S ORGANIZ ATION 04/16/2023 [facility] DATE CREATED AUTHOR AUTHOR'S ORGANIZ ATION 01/08/2024 [facility] DATE CREATED AUTHOR AUTHOR'S ORGANIZ ATION 03/28/2024 [facility] DATE CREATED AUTHOR AUTHOR'S ORGANIZ ATION 07/04/2024 [facility] Care Teams (unrecognized sec tion and content) Surgical Services Asst Relationship Specialty Start Date End Date Jackie Hobbs MD [address] [facility], [address] [place] [address] PCP - General 04/17/17 Surgical Services Asst Relationship Specialty Start Date End Date Jackie Hobbs MD [address] [facility], [address] [address] PCP - General 04/17/17 Surgical Services Asst Relationship Specialty Start Date End Date Jackie Hobbs MD [address] [facility], [address] [address] PCP - General 04/17/17 Surgical Services Asst Relationship Specialty Start Date End Date Jackie Hobbs MD [address] [facility], [address] [address] PCP - General 04/17/17 Surgical Services Asst Relationship Specialty Start Date End Date Jackie Hobbs MD [address] [facility], [address] [address] PCP - General 04/17/17 Surgical Services Asst Relationship Specialty Start Date End Date Jackie Hobbs MD [address] [facility], [address] [address] PCP - General 04/17/17 Surgical Services Asst Relationship Specialty Start Date End Date Jackie Hobbs MD [address] [facility], [address] [address] PCP - General 04/17/17 Reason for Visit (unrecogniz ed section and content) Specialty Diagnoses / Procedures Referred By Maxine laureano Referred To Contact Radiology Diagnoses Encounter for screening mammogram for malignant neoplasm of breast Procedures BI mammo bilateral screening tomosynthesis Jackie Hobbs MD [address] [facility], [address] [place] [address] Referral ID Status Reason Start Date Expiration Date Visits Requested Visits Authorized [id number] Authorized Perform Procedure 05/01/2023 10/28/2023 1 1 [...] THE PRIMARY CLINICAL RECORDS. [facility]. provides no warranty or guarantee of the accuracy or completeness of information in this document.
== END | disposition home or self-care (01) ==
LOC: LABSPEC 15:57
PROVIDERS: PCP Internal Medicine; Visit Provider Internal Medicine
DX: N39.0 Urinary tract infection, site not specified (principal)
CPT/HCPCS: 87086; 87088